=== PATIENT | female | born 1940 | race Caucasian/White ===

== ENCOUNTER → 2016-08-23 | Outpatient (CLI) | payer MEDICARE, OTHER ==
[~2016-08-23] MED LIST: /ALEN70TA; /WARF25TA; CALC600T57 PO; COLA100C PO; COMB0.2S OD; CYCL10TA PO; DICL13PA TD; DULC10SU2 PR; FOSA70TA PO; MIAC1SPR; NAPR500T2 PO; REFR0.5D8 OU; TYLE325T5 PO; VALI2TAB PO; VICO5TAB; VITA100041 PO; VITA20008 PO; VITAMIN; VITMTA PO; [UNRECOGNIZED DRUG - OTHER]; [UNRECOGNIZED DRUG - OTHER]
[2016-08-23 12:11] LABS: MEAN CORPUSCULAR HEMOGLOBIN 31.3 pg (27.0-33.0); MEAN CORPUSCULAR HGB CONC 32.9 g/dl (32.0-36.5); MEAN CORPUSCULAR VOLUME 95.2 fl (80.0-96.0); RED CELL DISTRIBUTION WIDTH 12.8 % (11.5-14.5); WHITE BLOOD COUNT 4.1 K/mm3 (4.0-10.0)
[2016-08-23 12:46] LABS: ALBUMIN 3.7 GM/DL (3.2-5.2); ALBUMIN/GLOBULIN RATIO 1.23 (1.00-1.93); ALKALINE PHOSPHATASE 60 U/L (45-117); ALT/SGPT 27 U/L (12-78); ANION GAP 6 MEQ/L (8-16); AST/SGOT 22 U/L (15-37); BILIRUBIN,TOTAL 0.6 MG/DL (0.2-1.0); BLOOD UREA NITROGEN 11 MG/DL (7-18); CALCIUM LEVEL 8.8 MG/DL (8.8-10.2); CARBON DIOXIDE LEVEL 32 MEQ/L (21-32); CHLORIDE LEVEL 105 MEQ/L (98-107); CREATININE FOR GFR 0.66 MG/DL (0.55-1.02); GLOMERULAR FILTRATION RATE > 60.0 (>39); GLUCOSE, FASTING 69 MG/DL (83-110); POTASSIUM SERUM 3.9 MEQ/L (3.5-5.1); SODIUM LEVEL 143 MEQ/L (136-145); TOTAL PROTEIN 6.7 GM/DL (6.4-8.2)
== END ==
LOC: M LAB 10:49
PROVIDERS: ATTEND Internal Medicine
DX: Z85.118 Personal history of other malignant neoplasm of bronchus and lung (principal)

== ENCOUNTER → 2017-02-14 | Outpatient (REF) | payer MEDICARE, OTHER ==
[~2017-02-14] MED LIST changes: -COLA100C PO; +COLA100C5 PO; -MIAC1SPR; +MIAC200S2; -NAPR500T2 PO; +NAPR500T3 PO; +OCUF0.25 OS; +VITA-182 PO; -VITA100041 PO
[2017-02-14 11:29] LABS: MEAN CORPUSCULAR HEMOGLOBIN 32.2 pg (27.0-33.0); MEAN CORPUSCULAR VOLUME 94.7 fl (80.0-96.0); RED CELL DISTRIBUTION WIDTH 12.6 % (11.5-14.5)
[2017-02-14 11:44] LABS: ALBUMIN 3.6 GM/DL (3.2-5.2); ALBUMIN/GLOBULIN RATIO 1.29 (1.00-1.93); ALKALINE PHOSPHATASE 51 U/L (45-117); ALT/SGPT 25 U/L (12-78); ANION GAP 3 MEQ/L (8-16); AST/SGOT 19 U/L (15-37); BILIRUBIN,TOTAL 0.6 MG/DL (0.2-1.0); BLOOD UREA NITROGEN 10 MG/DL (7-18); CALCIUM LEVEL 9.1 MG/DL (8.8-10.2); CARBON DIOXIDE LEVEL 32 MEQ/L (21-32); CHLORIDE LEVEL 104 MEQ/L (98-107); GLOMERULAR FILTRATION RATE > 60.0 (>39); GLUCOSE, FASTING 85 MG/DL (83-110); POTASSIUM SERUM 4.1 MEQ/L (3.5-5.1); SODIUM LEVEL 139 MEQ/L (136-145); TOTAL PROTEIN 6.4 GM/DL (6.4-8.2)
== END ==
LOC: M SFHCPLAZ 08:01
PROVIDERS: ATTEND Internal Medicine
DX: Z85.118 Personal history of other malignant neoplasm of bronchus and lung (principal)

== ENCOUNTER → 2017-08-22 | Outpatient (REF) | payer MEDICARE, OTHER ==
[2017-08-22 11:29] LABS: ALBUMIN 3.5 GM/DL (3.2-5.2); ALBUMIN/GLOBULIN RATIO 1.17 (1.00-1.93); ALKALINE PHOSPHATASE 54 U/L (45-117); ALT/SGPT 25 U/L (12-78); ANION GAP 6 MEQ/L (8-16); AST/SGOT 20 U/L (7-37); BILIRUBIN,TOTAL 0.8 MG/DL (0.2-1.0); BLOOD UREA NITROGEN 12 MG/DL (7-18); CALCIUM LEVEL 9.2 MG/DL (8.8-10.2); CARBON DIOXIDE LEVEL 31 MEQ/L (21-32); CHLORIDE LEVEL 103 MEQ/L (98-107); CREATININE FOR GFR 0.61 MG/DL (0.55-1.02); GLOMERULAR FILTRATION RATE > 60.0 (>39); GLUCOSE, FASTING 76 MG/DL (83-110); POTASSIUM SERUM 4.2 MEQ/L (3.5-5.1); SODIUM LEVEL 140 MEQ/L (136-145); TOTAL PROTEIN 6.5 GM/DL (6.4-8.2)
[2017-08-22 11:42] LABS: TOTAL 25(OH) VITAMIN D 81.8 NG/ML (30.0-100.0)
== END ==
LOC: M SFHCPLAZ 08:11
DX: M85.80 Other specified disorders of bone density and structure, unspecified site (principal)
CPT/HCPCS: 80053

== ENCOUNTER 2017-09-15 13:00 | Emergency (ER) | payer MEDICARE, OTHER | END 2017-09-15 14:49 | disposition home or self-care (01) | LOC: M ED 13:00 | DX: S80.02XA Contusion of left knee, initial encounter (principal); W18.30XA Fall on same level, unspecified, initial encounter; Y92.018 Other place in single-family (private) house as the place of occurrence of the external cause; I25.10 Atherosclerotic heart disease of native coronary artery without angina pectoris; Z79.899 Other long term (current) drug therapy; Z87.891 Personal history of nicotine dependence | CPT/HCPCS: 73564 ==

== ENCOUNTER 2017-09-19 14:33 | Emergency (ER) | payer MEDICARE, OTHER | END 2017-09-19 17:32 | disposition home or self-care (01) | LOC: M ED 14:33 | DX: M25.562 Pain in left knee (principal); H54.8 Legal blindness, as defined in USA; Z85.118 Personal history of other malignant neoplasm of bronchus and lung; Z87.891 Personal history of nicotine dependence | CPT/HCPCS: 73552 ==

== ENCOUNTER → 2017-10-18 | Outpatient (CLI) | payer MEDICARE, OTHER | LOC: M RAD 14:42 | DX: M79.662 Pain in left lower leg (principal) | CPT/HCPCS: 93971 ==

== ENCOUNTER → 2017-12-18 | Outpatient (REF) | payer MEDICARE, OTHER ==
[2017-12-18 16:06] LABS: THYROID STIMULATING HORMONE 0.495 uIU/ML (0.358-3.740)
[2017-12-18 16:07] LABS: VITAMIN B12 LEVEL > 2000 PG/ML (247-911)
[2017-12-18 16:21] LABS: ESTIMATED AVERAGE GLUCOSE 91 MG/DL (60-110); HEMOGLOBIN A1c 4.8 %
[2017-12-19 11:29] LABS: HIV 1&2 SCREEN CENTAUR NEGATIVE (NEGATIVE)
== END ==
LOC: M LABDRAWP 15:24
DX: R26.9 Unspecified abnormalities of gait and mobility (principal)
CPT/HCPCS: 84443

== ENCOUNTER → 2018-02-18 | Outpatient (REF) | payer MEDICARE, OTHER ==
[2018-02-18 11:45] LABS: HEMATOCRIT 39.2 % (36.0-47.0); HEMOGLOBIN 13.1 g/dl (12.0-15.5); MEAN CORPUSCULAR HEMOGLOBIN 30.9 pg (27.0-33.0); MEAN CORPUSCULAR HGB CONC 33.4 g/dl (32.0-36.5); MEAN CORPUSCULAR VOLUME 92.5 fl (80.0-96.0); PLATELET COUNT, AUTOMATED 185 10^3/uL (150-450); RED BLOOD COUNT 4.24 10^6/uL (4.00-5.40); RED CELL DISTRIBUTION WIDTH 12.5 % (11.5-14.5); WHITE BLOOD COUNT 4.3 10^3/uL (4.0-10.0)
[2018-02-18 12:29] LABS: ALBUMIN 3.4 GM/DL (3.2-5.2); ALBUMIN/GLOBULIN RATIO 1.13 (1.00-1.93); ALKALINE PHOSPHATASE 61 U/L (45-117); ALT/SGPT 27 U/L (12-78); ANION GAP 8 MEQ/L (8-16); AST/SGOT 20 U/L (7-37); BILIRUBIN,TOTAL 0.4 MG/DL (0.2-1.0); BLOOD UREA NITROGEN 12 MG/DL (7-18); CARBON DIOXIDE LEVEL 30 MEQ/L (21-32); CHLORIDE LEVEL 105 MEQ/L (98-107); CHOLESTEROL LEVEL 159 MG/DL (<200); CHOLESTEROL RISK RATIO 2.409 (<5); CREATININE FOR GFR 0.66 MG/DL (0.55-1.30); GLOMERULAR FILTRATION RATE > 60.0 (>39); GLUCOSE, FASTING 80 MG/DL (70-100); HDL CHOLESTEROL 66 MG/DL (>40); LDL CHOLESTEROL 81.6 MG/DL (<100); NON-HDL-C 93 MG/DL; POTASSIUM SERUM 4.3 MEQ/L (3.5-5.1); SODIUM LEVEL 143 MEQ/L (136-145); TOTAL PROTEIN 6.4 GM/DL (6.4-8.2); TRIGLYCERIDES LEVEL 57 MG/DL (<150)
== END ==
LOC: M SFHCPLAZ 08:01
DX: Z85.118 Personal history of other malignant neoplasm of bronchus and lung (principal); R26.89 Other abnormalities of gait and mobility
CPT/HCPCS: 80053

== ENCOUNTER 2018-04-21 15:19 | Emergency (ER) | payer MEDICARE, OTHER | END 2018-04-21 16:51 | disposition home or self-care (01) | LOC: M ED 15:19 | DX: S70.02XA Contusion of left hip, initial encounter (principal); W19.XXXA Unspecified fall, initial encounter; Y92.9 Unspecified place or not applicable; Y93.9 Activity, unspecified; Y99.9 Unspecified external cause status; Z72.0 Tobacco use; Z79.899 Other long term (current) drug therapy ==

== ENCOUNTER 2018-04-22 02:14 | Inpatient (IN) | payer MEDICARE, OTHER ==
[2018-04-22] MEDS: METOCLOPRAMIDE INJ 10MG/2ML VIAL (J2765) IV (03:13)
[2018-04-22] MEDS: MORPHINE 4 MG/ML 1ML VIAL/SYRINGE (J2270) IV (03:13)
[2018-04-22 03:15] LABS: BASO % 0.5 % (0.0-1.0); EOS # 0.1 10^3/uL (0.0-0.50); EOS % 0.7 % (0.0-3.0); HEMATOCRIT 38.4 % (36.0-47.0); HEMOGLOBIN 12.9 g/dl (12.0-15.5); IMMATURE GRANULOCYTE % 0.5 % (0-3.0); LYMPH # 1.2 10^3/uL (1.5-4.5); LYMPH % 16.3 % (24.0-44.0); MEAN CORPUSCULAR HEMOGLOBIN 31.5 pg (27.0-33.0); MEAN CORPUSCULAR HGB CONC 33.6 g/dl (32.0-36.5); MEAN CORPUSCULAR VOLUME 93.7 fl (80.0-96.0); MONO # 0.6 10^3/uL (0.0-0.8); MONO % 8.1 % (0.0-5.0); NEUTROPHILS # 5.6 10^3/uL (1.8-7.7); NEUTROPHILS % 73.9 % (36.0-66.0); PLATELET COUNT, AUTOMATED 157 10^3/uL (150-450); RED CELL DISTRIBUTION WIDTH 13.2 % (11.5-14.5); WHITE BLOOD COUNT 7.6 10^3/uL (4.0-10.0)
[2018-04-22 03:27] LABS: INR 0.95; PARTIAL THROMBOPLASTIN TIME 26.4 SECONDS (25.4-37.6); PROTHROMBIN TIME 12.8 SECONDS (12.1-14.4)
[2018-04-22 03:40] LABS: ANION GAP 12 MEQ/L (8-16); BLOOD UREA NITROGEN 15 MG/DL (7-18); CALCIUM LEVEL 8.9 MG/DL (8.8-10.2); CARBON DIOXIDE LEVEL 23 MEQ/L (21-32); CHLORIDE LEVEL 104 MEQ/L (98-107); CREATININE FOR GFR 0.59 MG/DL (0.55-1.30); GLOMERULAR FILTRATION RATE > 60.0 (>39); GLUCOSE, FASTING 134 MG/DL (70-100); POTASSIUM SERUM 4.1 MEQ/L (3.5-5.1); SODIUM LEVEL 139 MEQ/L (136-145)
[2018-04-22] MEDS: NS 500 ML IV (03:41)
[2018-04-22] MEDS: NORCO, ANEXSIA 5/325MG TABLET (HYDROcodone/ACETAMINOPHEN) PO ×2 (04:08→10:06)
[2018-04-22] MEDS: D5W/0.45% SODIUM CHLORIDE 1,000 ML IV ×2 (04:11→22:08)
[2018-04-22] MEDS: HEPARIN SOD (PORCINE) 5000 UNITS/ML VIAL SC (05:53)
[2018-04-22] MEDS: LORATADINE 10 MG TAB PO (10:05)
[2018-04-22] MEDS: CALCIUM/VITAMIN D 500 MG TAB PO (10:05)
[2018-04-22] MEDS: VITAMIN D 1,000 INTERNATIONAL UNITS TABLET PO ×2 (10:05→22:07)
[2018-04-22] MEDS: MULTIVITAMINS/MINERALS THERAP 1 TAB PO (10:05)
[2018-04-22] MEDS ORDERED: MIDAZOLAM INJ 2 MG/2 ML VIAL (J2250) As Ordered ×2 (16:25→17:16)
[2018-04-22] MEDS ORDERED: KETAMINE HCL 200 MG/20 ML VIAL As Ordered (16:25)
[2018-04-22] MEDS: ceFAZolin 2 GM/D5W 50 ML IV BAG (J0690 PER 500MG) As Ordered (16:30)
[2018-04-22] MEDS: ceFAZolin 1GM INJ (J0690 PER 500MG) As Ordered (17:32)
[2018-04-22] MEDS ORDERED: KETOROLAC 60 MG/2 ML VIAL (J1885) As Ordered (18:04)
[2018-04-22] MEDS ORDERED: ONDANSETRON 4MG/2ML VIAL (J2405) As Ordered ×2 (18:04→18:56)
[2018-04-22] MEDS ORDERED: PERCOCET 5MG/325MG TAB As Ordered (18:56)
[2018-04-22] MEDS: ONDANSETRON 4MG/2ML VIAL (J2405) IV (19:00)
[2018-04-22] MEDS: PERCOCET 5MG/325MG TAB PO (19:00)
[2018-04-22] MEDS: LR 1,000 ML IV (19:15)
[2018-04-22] MEDS ORDERED: fentaNYL 100 MCG/2 ML INJECTION (J3010) IV (19:15)
[2018-04-23] MEDS: NORCO, ANEXSIA 5/325MG TABLET (HYDROcodone/ACETAMINOPHEN) PO ×3 (05:19→22:29)
[2018-04-23 06:44] LABS: HEMATOCRIT 27.3 % (36.0-47.0); MEAN CORPUSCULAR HEMOGLOBIN 31.4 pg (27.0-33.0); MEAN CORPUSCULAR VOLUME 95.1 fl (80.0-96.0); PLATELET COUNT, AUTOMATED 122 10^3/uL (150-450); RED BLOOD COUNT 2.87 10^6/uL (4.00-5.40); RED CELL DISTRIBUTION WIDTH 13.2 % (11.5-14.5); WHITE BLOOD COUNT 6.2 10^3/uL (4.0-10.0)
[2018-04-23 07:09] LABS: ANION GAP 4 MEQ/L (8-16); BLOOD UREA NITROGEN 8 MG/DL (7-18); CALCIUM LEVEL 7.4 MG/DL (8.8-10.2); CARBON DIOXIDE LEVEL 29 MEQ/L (21-32); CHLORIDE LEVEL 109 MEQ/L (98-107); GLOMERULAR FILTRATION RATE > 60.0 (>39); GLUCOSE, FASTING 95 MG/DL (70-100); SODIUM LEVEL 142 MEQ/L (136-145)
[2018-04-23] MEDS: MIRALAX *UNIT DOSE* 17GM PACKET PO (08:57)
[2018-04-23] MEDS: VITAMIN D 1,000 INTERNATIONAL UNITS TABLET PO ×2 (08:58→21:01)
[2018-04-23] MEDS: CALCIUM/VITAMIN D 500 MG TAB PO (08:58)
[2018-04-23] MEDS: SENOKOT S TAB PO ×2 (08:58→21:01)
[2018-04-23] MEDS: MULTIVITAMINS/MINERALS THERAP 1 TAB PO (08:58)
[2018-04-23] MEDS: LORATADINE 10 MG TAB PO (08:58)
[2018-04-23] MEDS: INFLUENZA VIRUS VACCINE HIGH DOSE 0.5 ML SYRINGE (90662) IM (09:02)
[2018-04-23] MEDS: CYCLOBENZAPRINE 10 MG TAB PO ×2 (14:50→21:01)
[2018-04-23] MEDS: RIVAROXABAN 10 MG TAB (XARELTO) PO (17:52)
[2018-04-23 18:02] LABS: BEDSIDE GLUCOSE 107 MG/DL (83-110)
[2018-04-24] MEDS: NORCO, ANEXSIA 5/325MG TABLET (HYDROcodone/ACETAMINOPHEN) PO ×2 (04:48→10:45)
[2018-04-24] MEDS: CYCLOBENZAPRINE 10 MG TAB PO ×2 (05:59→14:55)
[2018-04-24 07:10] LABS: HEMATOCRIT 25.2 % (36.0-47.0); HEMOGLOBIN 8.3 g/dl (12.0-15.5); MEAN CORPUSCULAR HEMOGLOBIN 31.7 pg (27.0-33.0); MEAN CORPUSCULAR HGB CONC 32.9 g/dl (32.0-36.5); MEAN CORPUSCULAR VOLUME 96.2 fl (80.0-96.0); PLATELET COUNT, AUTOMATED 116 10^3/uL (150-450); RED BLOOD COUNT 2.62 10^6/uL (4.00-5.40); RED CELL DISTRIBUTION WIDTH 13.5 % (11.5-14.5); WHITE BLOOD COUNT 4.8 10^3/uL (4.0-10.0)
[2018-04-24 07:31] LABS: ANION GAP 7 MEQ/L (8-16); BLOOD UREA NITROGEN 14 MG/DL (7-18); CALCIUM LEVEL 7.9 MG/DL (8.8-10.2); CARBON DIOXIDE LEVEL 26 MEQ/L (21-32); CHLORIDE LEVEL 108 MEQ/L (98-107); CREATININE FOR GFR 0.42 MG/DL (0.55-1.30); GLOMERULAR FILTRATION RATE > 60.0 (>39); GLUCOSE, FASTING 95 MG/DL (70-100); POTASSIUM SERUM 4.1 MEQ/L (3.5-5.1); SODIUM LEVEL 141 MEQ/L (136-145)
[2018-04-24] MEDS: MIRALAX *UNIT DOSE* 17GM PACKET PO (09:20)
[2018-04-24] MEDS: VITAMIN D 1,000 INTERNATIONAL UNITS TABLET PO (09:20)
[2018-04-24] MEDS: SENOKOT S TAB PO (09:21)
[2018-04-24] MEDS: MULTIVITAMINS/MINERALS THERAP 1 TAB PO (09:21)
[2018-04-24] MEDS: LORATADINE 10 MG TAB PO (09:21)
[2018-04-24] MEDS: CALCIUM/VITAMIN D 500 MG TAB PO (09:21)
== END 2018-04-24 15:50 | DRG 482 ==
LOC: M ED 02:14 → M ED INP 03:34 → M MS5PR 19:40
PROC: 0QSC04Z Reposition Left Lower Femur with Internal Fixation Device, Open Approach (ICD-10-PCS; principal; 2018-04-22 16:44)
DX: S72.145A Nondisplaced intertrochanteric fracture of left femur, initial encounter for closed fracture (principal); M81.0 Age-related osteoporosis without current pathological fracture; J30.2 Other seasonal allergic rhinitis; R03.0 Elevated blood-pressure reading, without diagnosis of hypertension; Z98.49 Cataract extraction status, unspecified eye; Z85.118 Personal history of other malignant neoplasm of bronchus and lung; Z90.2 Acquired absence of lung [part of]; Z79.899 Other long term (current) drug therapy; Z87.891 Personal history of nicotine dependence; W01.0XXA Fall on same level from slipping, tripping and stumbling without subsequent striking against object, initial encounter; Y92.009 Unspecified place in unspecified non-institutional (private) residence as the place of occurrence of the external cause; Y93.01 Activity, walking, marching and hiking

== ENCOUNTER 2018-04-24 15:55 | Inpatient (IN) | payer MEDICARE, OTHER ==
[2018-04-24] MEDS ORDERED: ONDANSETRON 4MG/2ML VIAL (J2405) IM (16:45)
[2018-04-24] MEDS ORDERED: NORCO, ANEXSIA 5/325MG TABLET (HYDROcodone/ACETAMINOPHEN) PO (17:00)
[2018-04-24] MEDS: RIVAROXABAN 10 MG TAB (XARELTO) PO (17:54)
[2018-04-24 20:12] LABS: APPEARANCE, URINE CLEAR (CLEAR); BACTERIA, URINE AUTO NEGATIVE (NEGATIVE); BILIRUBIN, URINE AUTO NEGATIVE (NEGATIVE); BLOOD, URINE BLOOD NEGATIVE (NEGATIVE); COLOR, URINE YELLOW (YELLOW); GLUCOSE, URINE (UA) AUTO NEGATIVE (NEGATIVE); KETONE, URINE AUTO NEGATIVE (NEGATIVE); LEUKOCYTE ESTERASE, URINE AUTO NEGATIVE (NEGATIVE); MUCUS, URINE SMALL (NEGATIVE); NITRITE, URINE AUTO NEGATIVE (NEGATIVE); PROTEIN, URINE AUTO NEGATIVE (NEGATIVE); RBC, URINE AUTO 2 /HPF (0-3); SPECIFIC GRAVITY URINE AUTO 1.017 (1.002-1.035); SQUAMOUS EPITHELIAL CELL UR AU 0 /HPF (0-6); UROBILINOGEN, URINE AUTO 0.2 mg/dL (0.0-2.0); WBC, URINE AUTO 1 /HPF (0-3)
[2018-04-24] MEDS: CYCLOBENZAPRINE 10 MG TAB PO (20:54)
[2018-04-24] MEDS: NORCO, ANEXSIA 5/325MG TABLET (HYDROcodone/ACETAMINOPHEN) PO (21:40)
[2018-04-25 07:05] LABS: BASO % 0.5 % (0.0-1.0); EOS # 0.2 10^3/uL (0.0-0.50); EOS % 4.3 % (0.0-3.0); HEMATOCRIT 22.7 % (36.0-47.0); HEMOGLOBIN 7.4 g/dl (12.0-15.5); IMMATURE GRANULOCYTE % 0.5 % (0-3.0); LYMPH # 0.9 10^3/uL (1.5-4.5); LYMPH % 21.4 % (24.0-44.0); MEAN CORPUSCULAR HEMOGLOBIN 31.6 pg (27.0-33.0); MEAN CORPUSCULAR HGB CONC 32.6 g/dl (32.0-36.5); MONO # 0.5 10^3/uL (0.0-0.8); MONO % 12.1 % (0.0-5.0); NEUTROPHILS # 2.4 10^3/uL (1.8-7.7); NEUTROPHILS % 61.2 % (36.0-66.0); PLATELET COUNT, AUTOMATED 117 10^3/uL (150-450); RED BLOOD COUNT 2.34 10^6/uL (4.00-5.40); RED CELL DISTRIBUTION WIDTH 13.6 % (11.5-14.5)
[2018-04-25 07:29] LABS: ALBUMIN 2.2 GM/DL (3.2-5.2); ALBUMIN/GLOBULIN RATIO 0.88 (1.00-1.93); ALKALINE PHOSPHATASE 41 U/L (45-117); ALT/SGPT 18 U/L (12-78); ANION GAP 4 MEQ/L (8-16); AST/SGOT 22 U/L (7-37); BILIRUBIN,TOTAL 0.5 MG/DL (0.2-1.0); BLOOD UREA NITROGEN 15 MG/DL (7-18); CALCIUM LEVEL 7.7 MG/DL (8.8-10.2); CARBON DIOXIDE LEVEL 29 MEQ/L (21-32); CHLORIDE LEVEL 108 MEQ/L (98-107); CREATININE FOR GFR 0.38 MG/DL (0.55-1.30); GLOMERULAR FILTRATION RATE > 60.0 (>39); GLUCOSE, FASTING 86 MG/DL (70-100); POTASSIUM SERUM 4.3 MEQ/L (3.5-5.1); SODIUM LEVEL 141 MEQ/L (136-145); TOTAL PROTEIN 4.7 GM/DL (6.4-8.2)
[2018-04-25] MEDS: CALCIUM/VITAMIN D 500 MG TAB PO (08:21)
[2018-04-25] MEDS: MULTIVITAMINS/MINERALS THERAP 1 TAB PO (08:21)
[2018-04-25] MEDS: VITAMIN D 1,000 INTERNATIONAL UNITS TABLET PO (08:21)
[2018-04-25] MEDS: CYCLOBENZAPRINE 10 MG TAB PO ×2 (08:21→21:08)
[2018-04-25] MEDS: LORATADINE 10 MG TAB PO (08:21)
[2018-04-25] MEDS ORDERED: RIVAROXABAN 10 MG TAB (XARELTO) PO (09:00)
[2018-04-25] MEDS: NORCO, ANEXSIA 5/325MG TABLET (HYDROcodone/ACETAMINOPHEN) PO ×2 (09:11→13:31)
[2018-04-25] MEDS: FERROUS SULFATE 325MG TAB PO ×2 (11:22→21:08)
[2018-04-25] MEDS: LIDOCAINE 5% (LIDODERM) PATCH TD (11:22)
[2018-04-25] MEDS: RIVAROXABAN 10 MG TAB (XARELTO) PO (17:13)
[2018-04-25] MEDS: **NOTE PATIENT COMMENT** MISC XX (21:00)
[2018-04-25] MEDS: POLYVINYL ALCOHOL OPHTH SOLN 15 ML(LIQUITEARS) OU (21:17)
[2018-04-26] MEDS: NORCO, ANEXSIA 5/325MG TABLET (HYDROcodone/ACETAMINOPHEN) PO (03:03)
[2018-04-26 06:24] LABS: BASO % 0.7 % (0.0-1.0); EOS # 0.1 10^3/uL (0.0-0.50); EOS % 3.2 % (0.0-3.0); HEMATOCRIT 23.2 % (36.0-47.0); HEMOGLOBIN 7.7 g/dl (12.0-15.5); IMMATURE GRANULOCYTE % 0.5 % (0-3.0); LYMPH # 0.7 10^3/uL (1.5-4.5); LYMPH % 16.9 % (24.0-44.0); MEAN CORPUSCULAR HEMOGLOBIN 31.3 pg (27.0-33.0); MEAN CORPUSCULAR HGB CONC 33.2 g/dl (32.0-36.5); MEAN CORPUSCULAR VOLUME 94.3 fl (80.0-96.0); MONO # 0.5 10^3/uL (0.0-0.8); MONO % 11.5 % (0.0-5.0); NEUTROPHILS # 2.9 10^3/uL (1.8-7.7); NEUTROPHILS % 67.2 % (36.0-66.0); PLATELET COUNT, AUTOMATED 137 10^3/uL (150-450); RED BLOOD COUNT 2.46 10^6/uL (4.00-5.40); RED CELL DISTRIBUTION WIDTH 13.4 % (11.5-14.5); WHITE BLOOD COUNT 4.3 10^3/uL (4.0-10.0)
[2018-04-26] MEDS: LIDOCAINE 5% (LIDODERM) PATCH TD (09:01)
[2018-04-26] MEDS: FERROUS SULFATE 325MG TAB PO ×2 (09:01→22:14)
[2018-04-26] MEDS: VITAMIN D 1,000 INTERNATIONAL UNITS TABLET PO (09:01)
[2018-04-26] MEDS: CALCIUM/VITAMIN D 500 MG TAB PO (09:01)
[2018-04-26] MEDS: CYCLOBENZAPRINE 10 MG TAB PO (09:01)
[2018-04-26] MEDS: PANTOPRAZOLE 40MG TAB (PROTONIX) PO (09:01)
[2018-04-26] MEDS: LORATADINE 10 MG TAB PO (09:01)
[2018-04-26] MEDS: POLYVINYL ALCOHOL OPHTH SOLN 15 ML(LIQUITEARS) OU ×2 (09:01→21:00)
[2018-04-26] MEDS: MULTIVITAMINS/MINERALS THERAP 1 TAB PO (09:01)
[2018-04-26] MEDS: RIVAROXABAN 10 MG TAB (XARELTO) PO (17:14)
[2018-04-26] MEDS: SALIVA SUBSTITUTE(MOUTHKOTE) BTL MT (21:00)
[2018-04-26] MEDS: **NOTE PATIENT COMMENT** MISC XX (21:00)
[2018-04-26 21:05] LABS: BEDSIDE GLUCOSE 103 MG/DL (83-110)
[2018-04-26] MEDS: ACETAMINOPHEN TAB 650MG DOSE (2X325MG) PO (22:13)
[2018-04-27] MEDS: ALENDRONATE 35MG TABLET PO (05:58)
[2018-04-27] MEDS: ACETAMINOPHEN TAB 650MG DOSE (2X325MG) PO ×2 (06:53→20:55)
[2018-04-27] MEDS: POLYVINYL ALCOHOL OPHTH SOLN 15 ML(LIQUITEARS) OU ×2 (09:00→21:00)
[2018-04-27] MEDS: LIDOCAINE 5% (LIDODERM) PATCH TD (09:00)
[2018-04-27] MEDS: PANTOPRAZOLE 40MG TAB (PROTONIX) PO (09:26)
[2018-04-27] MEDS: MULTIVITAMINS/MINERALS THERAP 1 TAB PO (09:26)
[2018-04-27] MEDS: CALCIUM/VITAMIN D 500 MG TAB PO (09:26)
[2018-04-27] MEDS: FERROUS SULFATE 325MG TAB PO ×2 (09:27→20:55)
[2018-04-27] MEDS: LORATADINE 10 MG TAB PO (09:27)
[2018-04-27] MEDS: VITAMIN D 1,000 INTERNATIONAL UNITS TABLET PO (09:27)
[2018-04-27] MEDS: RIVAROXABAN 10 MG TAB (XARELTO) PO (17:56)
[2018-04-27] MEDS: SALIVA SUBSTITUTE(MOUTHKOTE) BTL MT (20:56)
[2018-04-27] MEDS: **NOTE PATIENT COMMENT** MISC XX (21:00)
[2018-04-28] MEDS: NORCO, ANEXSIA 5/325MG TABLET (HYDROcodone/ACETAMINOPHEN) PO (00:25)
[2018-04-28] MEDS: LIDOCAINE 5% (LIDODERM) PATCH TD (09:00)
[2018-04-28] MEDS: POLYVINYL ALCOHOL OPHTH SOLN 15 ML(LIQUITEARS) OU ×2 (09:00→20:30)
[2018-04-28] MEDS: CALCIUM/VITAMIN D 500 MG TAB PO (09:11)
[2018-04-28] MEDS: MULTIVITAMINS/MINERALS THERAP 1 TAB PO (09:11)
[2018-04-28] MEDS: LORATADINE 10 MG TAB PO (09:11)
[2018-04-28] MEDS: VITAMIN D 1,000 INTERNATIONAL UNITS TABLET PO (09:11)
[2018-04-28] MEDS: PANTOPRAZOLE 40MG TAB (PROTONIX) PO (09:11)
[2018-04-28] MEDS: FERROUS SULFATE 325MG TAB PO ×2 (09:11→20:29)
[2018-04-28] MEDS: ACETAMINOPHEN TAB 650MG DOSE (2X325MG) PO ×2 (09:12→15:11)
[2018-04-28] MEDS: RIVAROXABAN 10 MG TAB (XARELTO) PO (18:00)
[2018-04-28] MEDS: SALIVA SUBSTITUTE(MOUTHKOTE) BTL MT (20:29)
[2018-04-28] MEDS: **NOTE PATIENT COMMENT** MISC XX (20:30)
[2018-04-29] MEDS: ACETAMINOPHEN TAB 650MG DOSE (2X325MG) PO ×2 (09:10→22:53)
[2018-04-29] MEDS: REFRESH CELLUVISC OU ×2 (09:10→20:36)
[2018-04-29] MEDS: MULTIVITAMINS/MINERALS THERAP 1 TAB PO (09:11)
[2018-04-29] MEDS: CALCIUM/VITAMIN D 500 MG TAB PO (09:11)
[2018-04-29] MEDS: PANTOPRAZOLE 40MG TAB (PROTONIX) PO (09:11)
[2018-04-29] MEDS: VITAMIN D 1,000 INTERNATIONAL UNITS TABLET PO (09:11)
[2018-04-29] MEDS: LIDOCAINE 5% (LIDODERM) PATCH TD (09:11)
[2018-04-29] MEDS: FERROUS SULFATE 325MG TAB PO ×2 (09:11→20:36)
[2018-04-29] MEDS: LORATADINE 10 MG TAB PO (09:11)
[2018-04-29 10:49] LABS: BASO # 0.1 10^3/uL (0.0-0.2); BASO % 0.7 % (0.0-1.0); EOS # 0.1 10^3/uL (0.0-0.50); EOS % 1.4 % (0.0-3.0); HEMATOCRIT 24.3 % (36.0-47.0); IMMATURE GRANULOCYTE % 1.1 % (0-3.0); LYMPH # 0.7 10^3/uL (1.5-4.5); LYMPH % 9.9 % (24.0-44.0); MEAN CORPUSCULAR HEMOGLOBIN 31.4 pg (27.0-33.0); MEAN CORPUSCULAR HGB CONC 32.9 g/dl (32.0-36.5); MEAN CORPUSCULAR VOLUME 95.3 fl (80.0-96.0); MONO # 0.9 10^3/uL (0.0-0.8); MONO % 12.7 % (0.0-5.0); NEUTROPHILS # 5.3 10^3/uL (1.8-7.7); NEUTROPHILS % 74.2 % (36.0-66.0); PLATELET COUNT, AUTOMATED 238 10^3/uL (150-450); RED BLOOD COUNT 2.55 10^6/uL (4.00-5.40); RED CELL DISTRIBUTION WIDTH 13.8 % (11.5-14.5); WHITE BLOOD COUNT 7.1 10^3/uL (4.0-10.0)
[2018-04-29] MEDS: RIVAROXABAN 10 MG TAB (XARELTO) PO (17:45)
[2018-04-29] MEDS: **NOTE PATIENT COMMENT** MISC XX (20:36)
[2018-04-29] MEDS: SALIVA SUBSTITUTE(MOUTHKOTE) BTL MT (20:38)
[2018-04-30 06:55] LABS: BASO # 0.1 10^3/uL (0.0-0.2); BASO % 1.1 % (0.0-1.0); EOS # 0.2 10^3/uL (0.0-0.50); EOS % 3.1 % (0.0-3.0); HEMATOCRIT 24.4 % (36.0-47.0); HEMOGLOBIN 7.9 g/dl (12.0-15.5); IMMATURE GRANULOCYTE % 1.8 % (0-3.0); LYMPH # 1.1 10^3/uL (1.5-4.5); LYMPH % 19.9 % (24.0-44.0); MEAN CORPUSCULAR HEMOGLOBIN 31.1 pg (27.0-33.0); MEAN CORPUSCULAR HGB CONC 32.4 g/dl (32.0-36.5); MEAN CORPUSCULAR VOLUME 96.1 fl (80.0-96.0); MONO # 0.7 10^3/uL (0.0-0.8); MONO % 12.1 % (0.0-5.0); NEUTROPHILS # 3.4 10^3/uL (1.8-7.7); PLATELET COUNT, AUTOMATED 222 10^3/uL (150-450); RED BLOOD COUNT 2.54 10^6/uL (4.00-5.40); RED CELL DISTRIBUTION WIDTH 14.3 % (11.5-14.5); WHITE BLOOD COUNT 5.5 10^3/uL (4.0-10.0)
[2018-04-30] MEDS: FERROUS SULFATE 325MG TAB PO ×2 (08:13→20:31)
[2018-04-30] MEDS: CALCIUM/VITAMIN D 500 MG TAB PO (08:13)
[2018-04-30] MEDS: MULTIVITAMINS/MINERALS THERAP 1 TAB PO (08:13)
[2018-04-30] MEDS: PANTOPRAZOLE 40MG TAB (PROTONIX) PO (08:13)
[2018-04-30] MEDS: LORATADINE 10 MG TAB PO (08:13)
[2018-04-30] MEDS: VITAMIN D 1,000 INTERNATIONAL UNITS TABLET PO (08:13)
[2018-04-30] MEDS: LIDOCAINE 5% (LIDODERM) PATCH TD (08:14)
[2018-04-30] MEDS: REFRESH CELLUVISC OU ×2 (08:18→20:31)
[2018-04-30] MEDS: ACETAMINOPHEN TAB 650MG DOSE (2X325MG) PO (09:20)
[2018-04-30] MEDS: RIVAROXABAN 10 MG TAB (XARELTO) PO (17:46)
[2018-04-30] MEDS: SALIVA SUBSTITUTE(MOUTHKOTE) BTL MT (20:31)
[2018-04-30] MEDS: **NOTE PATIENT COMMENT** MISC XX (20:33)
[2018-05-01] MEDS: VITAMIN D 1,000 INTERNATIONAL UNITS TABLET PO (08:27)
[2018-05-01] MEDS: MULTIVITAMINS/MINERALS THERAP 1 TAB PO (08:27)
[2018-05-01] MEDS: CALCIUM/VITAMIN D 500 MG TAB PO (08:27)
[2018-05-01] MEDS: PANTOPRAZOLE 40MG TAB (PROTONIX) PO (08:27)
[2018-05-01] MEDS: FERROUS SULFATE 325MG TAB PO ×2 (08:27→20:44)
[2018-05-01] MEDS: LORATADINE 10 MG TAB PO (08:27)
[2018-05-01] MEDS: REFRESH CELLUVISC OU ×2 (08:29→20:45)
[2018-05-01] MEDS: LIDOCAINE 5% (LIDODERM) PATCH TD (08:29)
[2018-05-01] MEDS: RIVAROXABAN 10 MG TAB (XARELTO) PO (17:55)
[2018-05-01] MEDS: ACETAMINOPHEN TAB 650MG DOSE (2X325MG) PO ×2 (20:44)
[2018-05-01] MEDS: SALIVA SUBSTITUTE(MOUTHKOTE) BTL MT (20:44)
[2018-05-01] MEDS: ASCORBIC ACID 500 MG TAB PO (20:44)
[2018-05-01] MEDS: **NOTE PATIENT COMMENT** MISC XX (20:46)
[2018-05-02] MEDS: ACETAMINOPHEN TAB 650MG DOSE (2X325MG) PO (08:58)
[2018-05-02] MEDS: ASCORBIC ACID 500 MG TAB PO ×2 (08:58→21:43)
[2018-05-02] MEDS: VITAMIN D 1,000 INTERNATIONAL UNITS TABLET PO (08:58)
[2018-05-02] MEDS: MULTIVITAMINS/MINERALS THERAP 1 TAB PO (08:58)
[2018-05-02] MEDS: LORATADINE 10 MG TAB PO (08:59)
[2018-05-02] MEDS: PANTOPRAZOLE 40MG TAB (PROTONIX) PO (08:59)
[2018-05-02] MEDS: CALCIUM/VITAMIN D 500 MG TAB PO (08:59)
[2018-05-02] MEDS: REFRESH CELLUVISC OU ×2 (08:59→21:00)
[2018-05-02] MEDS: FERROUS SULFATE 325MG TAB PO ×2 (08:59→21:43)
[2018-05-02] MEDS: RIVAROXABAN 10 MG TAB (XARELTO) PO (17:36)
[2018-05-02] MEDS: SALIVA SUBSTITUTE(MOUTHKOTE) BTL MT (21:43)
[2018-05-03] MEDS: ACETAMINOPHEN TAB 650MG DOSE (2X325MG) PO ×3 (00:22→21:12)
[2018-05-03 07:50] LABS: BASO # 0.1 10^3/uL (0.0-0.2); BASO % 0.9 % (0.0-1.0); EOS # 0.2 10^3/uL (0.0-0.50); EOS % 2.8 % (0.0-3.0); HEMATOCRIT 27.1 % (36.0-47.0); HEMOGLOBIN 8.9 g/dl (12.0-15.5); IMMATURE GRANULOCYTE % 1.7 % (0-3.0); LYMPH # 1.2 10^3/uL (1.5-4.5); LYMPH % 18.8 % (24.0-44.0); MEAN CORPUSCULAR HEMOGLOBIN 31.3 pg (27.0-33.0); MEAN CORPUSCULAR HGB CONC 32.8 g/dl (32.0-36.5); MEAN CORPUSCULAR VOLUME 95.4 fl (80.0-96.0); MONO # 0.7 10^3/uL (0.0-0.8); MONO % 10.6 % (0.0-5.0); NEUTROPHILS # 4.2 10^3/uL (1.8-7.7); NEUTROPHILS % 65.2 % (36.0-66.0); PLATELET COUNT, AUTOMATED 340 10^3/uL (150-450); RED BLOOD COUNT 2.84 10^6/uL (4.00-5.40); RED CELL DISTRIBUTION WIDTH 14.8 % (11.5-14.5); WHITE BLOOD COUNT 6.5 10^3/uL (4.0-10.0)
[2018-05-03 08:30] LABS: ANION GAP 6 MEQ/L (8-16); BLOOD UREA NITROGEN 14 MG/DL (7-18); CALCIUM LEVEL 8.3 MG/DL (8.8-10.2); CARBON DIOXIDE LEVEL 28 MEQ/L (21-32); CHLORIDE LEVEL 107 MEQ/L (98-107); CREATININE FOR GFR 0.41 MG/DL (0.55-1.30); GLOMERULAR FILTRATION RATE > 60.0 (>39); GLUCOSE, FASTING 90 MG/DL (70-100); POTASSIUM SERUM 4.1 MEQ/L (3.5-5.1); SODIUM LEVEL 141 MEQ/L (136-145)
[2018-05-03] MEDS: LORATADINE 10 MG TAB PO (08:56)
[2018-05-03] MEDS: FERROUS SULFATE 325MG TAB PO ×2 (08:56→21:10)
[2018-05-03] MEDS: ASCORBIC ACID 500 MG TAB PO ×2 (08:56→21:11)
[2018-05-03] MEDS: REFRESH CELLUVISC OU ×2 (08:56→21:13)
[2018-05-03] MEDS: PANTOPRAZOLE 40MG TAB (PROTONIX) PO (08:56)
[2018-05-03] MEDS: VITAMIN D 1,000 INTERNATIONAL UNITS TABLET PO (08:56)
[2018-05-03] MEDS: MULTIVITAMINS/MINERALS THERAP 1 TAB PO (08:56)
[2018-05-03] MEDS: CALCIUM/VITAMIN D 500 MG TAB PO (08:56)
[2018-05-03] MEDS: RIVAROXABAN 10 MG TAB (XARELTO) PO (16:54)
[2018-05-03] MEDS: SALIVA SUBSTITUTE(MOUTHKOTE) BTL MT (21:12)
[2018-05-04] MEDS: ACETAMINOPHEN TAB 650MG DOSE (2X325MG) PO ×2 (05:38→22:29)
[2018-05-04] MEDS: ALENDRONATE 35MG TABLET PO (06:33)
[2018-05-04] MEDS: FERROUS SULFATE 325MG TAB PO ×2 (08:19→20:04)
[2018-05-04] MEDS: ASCORBIC ACID 500 MG TAB PO ×2 (08:19→20:04)
[2018-05-04] MEDS: LORATADINE 10 MG TAB PO (08:19)
[2018-05-04] MEDS: CALCIUM/VITAMIN D 500 MG TAB PO (08:19)
[2018-05-04] MEDS: REFRESH CELLUVISC OU ×2 (08:20→20:05)
[2018-05-04] MEDS: PANTOPRAZOLE 40MG TAB (PROTONIX) PO (08:20)
[2018-05-04] MEDS: VITAMIN D 1,000 INTERNATIONAL UNITS TABLET PO (08:20)
[2018-05-04] MEDS: MULTIVITAMINS/MINERALS THERAP 1 TAB PO (08:20)
[2018-05-04] MEDS: RIVAROXABAN 10 MG TAB (XARELTO) PO (17:24)
[2018-05-04] MEDS: SALIVA SUBSTITUTE(MOUTHKOTE) BTL MT (20:05)
[2018-05-05] MEDS: KETOROLAC 30 MG/ML VIAL (J1885) IV (00:45)
[2018-05-05] MEDS: traMADol 50 MG TAB PO (00:51)
[2018-05-05] MEDS: FERROUS SULFATE 325MG TAB PO ×2 (09:31→21:49)
[2018-05-05] MEDS: PANTOPRAZOLE 40MG TAB (PROTONIX) PO (09:31)
[2018-05-05] MEDS: CALCIUM/VITAMIN D 500 MG TAB PO (09:31)
[2018-05-05] MEDS: ASCORBIC ACID 500 MG TAB PO ×2 (09:31→21:49)
[2018-05-05] MEDS: REFRESH CELLUVISC OU ×2 (09:31→21:00)
[2018-05-05] MEDS: MULTIVITAMINS/MINERALS THERAP 1 TAB PO (09:31)
[2018-05-05] MEDS: ACETAMINOPHEN TAB 650MG DOSE (2X325MG) PO ×2 (09:31→21:49)
[2018-05-05] MEDS: LORATADINE 10 MG TAB PO (09:31)
[2018-05-05] MEDS: VITAMIN D 1,000 INTERNATIONAL UNITS TABLET PO (09:31)
[2018-05-05] MEDS: RIVAROXABAN 10 MG TAB (XARELTO) PO (17:19)
[2018-05-05] MEDS: SALIVA SUBSTITUTE(MOUTHKOTE) BTL MT (21:00)
[2018-05-06] MEDS: CALCIUM/VITAMIN D 500 MG TAB PO (08:07)
[2018-05-06] MEDS: MULTIVITAMINS/MINERALS THERAP 1 TAB PO (08:07)
[2018-05-06] MEDS: VITAMIN D 1,000 INTERNATIONAL UNITS TABLET PO (08:07)
[2018-05-06] MEDS: ASCORBIC ACID 500 MG TAB PO ×2 (08:07→21:57)
[2018-05-06] MEDS: REFRESH CELLUVISC OU ×2 (08:08→21:57)
[2018-05-06] MEDS: PANTOPRAZOLE 40MG TAB (PROTONIX) PO (08:08)
[2018-05-06] MEDS: LORATADINE 10 MG TAB PO (08:08)
[2018-05-06] MEDS: FERROUS SULFATE 325MG TAB PO ×2 (08:08→21:57)
[2018-05-06 08:12] LABS: BASO # 0.1 10^3/uL (0.0-0.2); BASO % 1.2 % (0.0-1.0); EOS # 0.2 10^3/uL (0.0-0.50); EOS % 2.6 % (0.0-3.0); HEMATOCRIT 30.5 % (36.0-47.0); HEMOGLOBIN 9.6 g/dl (12.0-15.5); IMMATURE GRANULOCYTE % 1.4 % (0-3.0); LYMPH # 1.4 10^3/uL (1.5-4.5); LYMPH % 21.1 % (24.0-44.0); MEAN CORPUSCULAR HGB CONC 31.5 g/dl (32.0-36.5); MEAN CORPUSCULAR VOLUME 98.4 fl (80.0-96.0); MONO # 0.6 10^3/uL (0.0-0.8); MONO % 9.5 % (0.0-5.0); NEUTROPHILS # 4.2 10^3/uL (1.8-7.7); NEUTROPHILS % 64.2 % (36.0-66.0); PLATELET COUNT, AUTOMATED 417 10^3/uL (150-450); RED CELL DISTRIBUTION WIDTH 15.2 % (11.5-14.5); WHITE BLOOD COUNT 6.6 10^3/uL (4.0-10.0)
[2018-05-06] MEDS: ACETAMINOPHEN TAB 650MG DOSE (2X325MG) PO ×4 (11:26→21:57)
[2018-05-06] MEDS: diphenhydrAMINE INJ 50MG/ML VIAL (J1200) IM (15:00)
[2018-05-06 15:21] LABS: IMMEDIATE SPIN CROSSMATCH 1 1
[2018-05-06] MEDS: RIVAROXABAN 10 MG TAB (XARELTO) PO (17:47)
[2018-05-06] MEDS: SALIVA SUBSTITUTE(MOUTHKOTE) BTL MT (21:57)
[2018-05-07] MEDS: LORATADINE 10 MG TAB PO (08:13)
[2018-05-07] MEDS: ACETAMINOPHEN TAB 650MG DOSE (2X325MG) PO (08:13)
[2018-05-07] MEDS: ASCORBIC ACID 500 MG TAB PO ×2 (08:13→21:54)
[2018-05-07] MEDS: REFRESH CELLUVISC OU ×2 (08:13→21:54)
[2018-05-07] MEDS: FERROUS SULFATE 325MG TAB PO ×2 (08:13→21:54)
[2018-05-07] MEDS: PANTOPRAZOLE 40MG TAB (PROTONIX) PO (08:13)
[2018-05-07] MEDS: MULTIVITAMINS/MINERALS THERAP 1 TAB PO (08:13)
[2018-05-07] MEDS: VITAMIN D 1,000 INTERNATIONAL UNITS TABLET PO (08:13)
[2018-05-07] MEDS: CALCIUM/VITAMIN D 500 MG TAB PO (08:13)
[2018-05-07 09:57] LABS: BASO # 0.1 10^3/uL (0.0-0.2); BASO % 1.2 % (0.0-1.0); EOS # 0.1 10^3/uL (0.0-0.50); EOS % 1.3 % (0.0-3.0); HEMATOCRIT 33.6 % (36.0-47.0); HEMOGLOBIN 10.8 g/dl (12.0-15.5); LYMPH # 0.9 10^3/uL (1.5-4.5); LYMPH % 15.2 % (24.0-44.0); MEAN CORPUSCULAR HEMOGLOBIN 30.4 pg (27.0-33.0); MEAN CORPUSCULAR HGB CONC 32.1 g/dl (32.0-36.5); MEAN CORPUSCULAR VOLUME 94.6 fl (80.0-96.0); MONO # 0.5 10^3/uL (0.0-0.8); MONO % 8.9 % (0.0-5.0); NEUTROPHILS # 4.3 10^3/uL (1.8-7.7); NEUTROPHILS % 72.4 % (36.0-66.0); PLATELET COUNT, AUTOMATED 363 10^3/uL (150-450); RED BLOOD COUNT 3.55 10^6/uL (4.00-5.40); WHITE BLOOD COUNT 5.9 10^3/uL (4.0-10.0)
[2018-05-07] MEDS: RIVAROXABAN 10 MG TAB (XARELTO) PO (17:02)
[2018-05-07] MEDS: SALIVA SUBSTITUTE(MOUTHKOTE) BTL MT (21:54)
[2018-05-07] MEDS: traZODone 50 MG TAB PO (21:54)
[2018-05-08] MEDS: CALCIUM/VITAMIN D 500 MG TAB PO (08:39)
[2018-05-08] MEDS: MULTIVITAMINS/MINERALS THERAP 1 TAB PO (08:39)
[2018-05-08] MEDS: LORATADINE 10 MG TAB PO (08:39)
[2018-05-08] MEDS: VITAMIN D 1,000 INTERNATIONAL UNITS TABLET PO (08:39)
[2018-05-08] MEDS: FERROUS SULFATE 325MG TAB PO (08:39)
[2018-05-08] MEDS: ASCORBIC ACID 500 MG TAB PO (08:39)
[2018-05-08] MEDS: PANTOPRAZOLE 40MG TAB (PROTONIX) PO (08:39)
[2018-05-08] MEDS: REFRESH CELLUVISC OU (08:40)
[2018-05-08] MEDS: ACETAMINOPHEN TAB 650MG DOSE (2X325MG) PO (11:31)
[2018-05-08] MEDS: RIVAROXABAN 10 MG TAB (XARELTO) PO (12:35)
== END 2018-05-08 12:45 | disposition home or self-care (01) | DRG 561 ==
LOC: M PM&R 04-25 10:28
PROVIDERS: Orthopaedic Surgery
PROC: 30233N1 Transfusion of Nonautologous Red Blood Cells into Peripheral Vein, Percutaneous Approach (ICD-10-PCS; principal; 2018-05-06)
DX: S72.142D Displaced intertrochanteric fracture of left femur, subsequent encounter for closed fracture with routine healing (principal); M81.0 Age-related osteoporosis without current pathological fracture; D64.9 Anemia, unspecified; J30.2 Other seasonal allergic rhinitis; R29.6 Repeated falls; Z85.118 Personal history of other malignant neoplasm of bronchus and lung; Z90.2 Acquired absence of lung [part of]; Z87.891 Personal history of nicotine dependence; Z98.49 Cataract extraction status, unspecified eye; Z79.899 Other long term (current) drug therapy; Z79.01 Long term (current) use of anticoagulants; W01.0XXD Fall on same level from slipping, tripping and stumbling without subsequent striking against object, subsequent encounter; Z96.641 Presence of right artificial hip joint

== ENCOUNTER 2018-05-10 10:48 | Outpatient (RCR) | payer MEDICARE, OTHER | END 2018-06-05 | LOC: M PT 10:48 | DX: S72.143A Displaced intertrochanteric fracture of unspecified femur, initial encounter for closed fracture (principal) | CPT/HCPCS: 97110 ==

== ENCOUNTER 2018-05-24 14:54 | Inpatient (IN) | payer MEDICARE, OTHER ==
[2018-05-24] MEDS: NS 500 ML IV (16:48)
[2018-05-24 16:53] LABS: BASO % 0.3 % (0.0-1.0); HEMATOCRIT 38.4 % (36.0-47.0); HEMOGLOBIN 12.7 g/dl (12.0-15.5); IMMATURE GRANULOCYTE % 0.6 % (0-3.0); LYMPH # 0.8 10^3/uL (1.5-4.5); LYMPH % 6.8 % (24.0-44.0); MEAN CORPUSCULAR HEMOGLOBIN 31.2 pg (27.0-33.0); MEAN CORPUSCULAR HGB CONC 33.1 g/dl (32.0-36.5); MEAN CORPUSCULAR VOLUME 94.3 fl (80.0-96.0); MONO % 8.2 % (0.0-5.0); NEUTROPHILS # 9.9 10^3/uL (1.8-7.7); NEUTROPHILS % 84.1 % (36.0-66.0); PLATELET COUNT, AUTOMATED 196 10^3/uL (150-450); RED BLOOD COUNT 4.07 10^6/uL (4.00-5.40); RED CELL DISTRIBUTION WIDTH 14.2 % (11.5-14.5); WHITE BLOOD COUNT 11.7 10^3/uL (4.0-10.0)
[2018-05-24 17:16] LABS: LACTIC ACID SEPSIS PROTOCOL 1.3 MMOL/L (0.4-2.0)
[2018-05-24 17:16] LABS: INR 1.04; PARTIAL THROMBOPLASTIN TIME 29.7 SECONDS (25.4-37.6); PROTHROMBIN TIME 13.7 SECONDS (12.1-14.4)
[2018-05-24 17:23] LABS: ANION GAP 8 MEQ/L (8-16); BLOOD UREA NITROGEN 16 MG/DL (7-18); CALCIUM LEVEL 8.9 MG/DL (8.8-10.2); CARBON DIOXIDE LEVEL 29 MEQ/L (21-32); CHLORIDE LEVEL 101 MEQ/L (98-107); CPK CREATINE PHOSPHOKINASE 496 U/L (26-192); CREATININE FOR GFR 0.53 MG/DL (0.55-1.30); FREE T4 1.39 NG/DL (0.76-1.46); GLOMERULAR FILTRATION RATE > 60.0 (>39); GLUCOSE, FASTING 98 MG/DL (70-100); MAGNESIUM LEVEL 1.8 MG/DL (1.8-2.4); MB/CK RELATIVE INDEX 1.41 (< OR =4); POTASSIUM SERUM 3.8 MEQ/L (3.5-5.1); SODIUM LEVEL 138 MEQ/L (136-145); THYROID STIMULATING HORMONE 0.569 uIU/ML (0.358-3.740); TROPONIN I < 0.02 NG/ML (< 0.10)
[2018-05-24] MEDS ORDERED: ACETAMINOPHEN TAB 650MG DOSE (2X325MG) As Ordered (17:32)
[2018-05-24] MEDS: ACETAMINOPHEN TAB 650MG DOSE (2X325MG) PO (17:36)
[2018-05-24] MEDS ORDERED: ONDANSETRON 4MG/2ML VIAL (J2405) IV (20:30)
[2018-05-24] MEDS ORDERED: BISACODYL 5 MG TAB PO (20:30)
[2018-05-24] MEDS ORDERED: ENTER DRUG NAME HERE (PATIENT'S OWN MED) PO (21:00)
[2018-05-24 21:24] LABS: CPK CREATINE PHOSPHOKINASE 414 U/L (26-192); MB/CK RELATIVE INDEX 1.28 (< OR =4); TROPONIN I < 0.02 NG/ML (< 0.10)
[2018-05-25] MEDS: traZODone 50 MG TAB PO (00:12)
[2018-05-25] MEDS: ACETAMINOPHEN TAB 650MG DOSE (2X325MG) PO ×2 (00:12→20:17)
[2018-05-25] MEDS: FERROUS SULFATE 325MG TAB PO ×3 (00:12→20:16)
[2018-05-25] MEDS: VITAMIN D 1,000 INTERNATIONAL UNITS TABLET PO ×3 (00:12→20:16)
[2018-05-25] MEDS: RIVAROXABAN 10 MG TAB (XARELTO) PO ×2 (00:13→18:44)
[2018-05-25 04:17] LABS: HEMATOCRIT 32.3 % (36.0-47.0); MEAN CORPUSCULAR HEMOGLOBIN 30.3 pg (27.0-33.0); MEAN CORPUSCULAR HGB CONC 32.5 g/dl (32.0-36.5); MEAN CORPUSCULAR VOLUME 93.4 fl (80.0-96.0); PLATELET COUNT, AUTOMATED 181 10^3/uL (150-450); RED BLOOD COUNT 3.46 10^6/uL (4.00-5.40); RED CELL DISTRIBUTION WIDTH 14.5 % (11.5-14.5); WHITE BLOOD COUNT 10.1 10^3/uL (4.0-10.0)
[2018-05-25 04:22] LABS: HEMOGLOBIN 10.5 g/dl (12.0-15.5)
[2018-05-25 04:33] LABS: ANION GAP 7 MEQ/L (8-16); BLOOD UREA NITROGEN 17 MG/DL (7-18); CALCIUM LEVEL 7.8 MG/DL (8.8-10.2); CARBON DIOXIDE LEVEL 27 MEQ/L (21-32); CHLORIDE LEVEL 105 MEQ/L (98-107); CPK CREATINE PHOSPHOKINASE 250 U/L (26-192); GLOMERULAR FILTRATION RATE > 60.0 (>39); GLUCOSE, FASTING 103 MG/DL (70-100); MB/CK RELATIVE INDEX 1.08 (< OR =4); POTASSIUM SERUM 3.5 MEQ/L (3.5-5.1); SODIUM LEVEL 139 MEQ/L (136-145); TROPONIN I < 0.02 NG/ML (< 0.10)
[2018-05-25] MEDS: ALENDRONATE 35MG TABLET PO (05:36)
[2018-05-25] MEDS: CALCIUM/VITAMIN D 500 MG TAB PO ×2 (08:32→20:16)
[2018-05-25] MEDS: MULTIVITAMINS/MINERALS THERAP 1 TAB PO (08:32)
[2018-05-25] MEDS: PANTOPRAZOLE 40MG TAB (PROTONIX) PO (08:32)
[2018-05-25] MEDS: LORATADINE 10 MG TAB PO (08:32)
[2018-05-25] MEDS ORDERED: COMBIGAN OD (09:00)
[2018-05-25] MEDS ORDERED: REFRESH CELLUVISC OU (09:00)
[2018-05-25 15:02] LABS: APPEARANCE, URINE CLOUDY (CLEAR); BACTERIA, URINE AUTO 3+ (NEGATIVE); BILIRUBIN, URINE AUTO NEGATIVE (NEGATIVE); BLOOD, URINE BLOOD 1+ (NEGATIVE); COLOR, URINE AMBER (YELLOW); GLUCOSE, URINE (UA) AUTO NEGATIVE (NEGATIVE); KETONE, URINE AUTO NEGATIVE (NEGATIVE); LEUKOCYTE ESTERASE, URINE AUTO 3+ (NEGATIVE); MUCUS, URINE MODERATE (NEGATIVE); NITRITE, URINE AUTO POSITIVE (NEGATIVE); PROTEIN, URINE AUTO 2+ mg/dL (NEGATIVE); RBC, URINE AUTO 14 /HPF (0-3); SPECIFIC GRAVITY URINE AUTO 1.015 (1.002-1.035); SQUAMOUS EPITHELIAL CELL UR AU 0 /HPF (0-6); UROBILINOGEN, URINE AUTO 0.2 mg/dL (0.0-2.0); WBC, URINE AUTO TNTC /HPF (0-3)
[2018-05-26 06:41] LABS: HEMATOCRIT 33.8 % (36.0-47.0); MEAN CORPUSCULAR HGB CONC 32.5 g/dl (32.0-36.5); MEAN CORPUSCULAR VOLUME 92.1 fl (80.0-96.0); PLATELET COUNT, AUTOMATED 185 10^3/uL (150-450); RED BLOOD COUNT 3.67 10^6/uL (4.00-5.40); RED CELL DISTRIBUTION WIDTH 14.4 % (11.5-14.5); WHITE BLOOD COUNT 8.8 10^3/uL (4.0-10.0)
[2018-05-26 07:18] LABS: ANION GAP 4 MEQ/L (8-16); BLOOD UREA NITROGEN 16 MG/DL (7-18); CALCIUM LEVEL 7.8 MG/DL (8.8-10.2); CARBON DIOXIDE LEVEL 30 MEQ/L (21-32); CHLORIDE LEVEL 104 MEQ/L (98-107); CREATININE FOR GFR 0.46 MG/DL (0.55-1.30); GLOMERULAR FILTRATION RATE > 60.0 (>39); GLUCOSE, FASTING 99 MG/DL (70-100); POTASSIUM SERUM 3.6 MEQ/L (3.5-5.1); SODIUM LEVEL 138 MEQ/L (136-145)
[2018-05-26] MEDS: FERROUS SULFATE 325MG TAB PO ×2 (09:21→20:55)
[2018-05-26] MEDS: PANTOPRAZOLE 40MG TAB (PROTONIX) PO (09:21)
[2018-05-26] MEDS: CALCIUM/VITAMIN D 500 MG TAB PO ×2 (09:21→20:55)
[2018-05-26] MEDS: LORATADINE 10 MG TAB PO (09:21)
[2018-05-26] MEDS: VITAMIN D 1,000 INTERNATIONAL UNITS TABLET PO ×2 (09:21→20:55)
[2018-05-26] MEDS: MULTIVITAMINS/MINERALS THERAP 1 TAB PO (09:21)
[2018-05-26] MEDS: RIVAROXABAN 10 MG TAB (XARELTO) PO (17:58)
[2018-05-26] MEDS: traZODone 50 MG TAB PO (20:55)
[2018-05-26] MEDS: ACETAMINOPHEN TAB 650MG DOSE (2X325MG) PO (20:56)
[2018-05-27 06:20] LABS: HEMATOCRIT 34.2 % (36.0-47.0); MEAN CORPUSCULAR HEMOGLOBIN 29.8 pg (27.0-33.0); MEAN CORPUSCULAR HGB CONC 32.2 g/dl (32.0-36.5); MEAN CORPUSCULAR VOLUME 92.7 fl (80.0-96.0); PLATELET COUNT, AUTOMATED 208 10^3/uL (150-450); RED BLOOD COUNT 3.69 10^6/uL (4.00-5.40); RED CELL DISTRIBUTION WIDTH 14.3 % (11.5-14.5); WHITE BLOOD COUNT 6.5 10^3/uL (4.0-10.0)
[2018-05-27 06:35] LABS: ANION GAP 3 MEQ/L (8-16); BLOOD UREA NITROGEN 10 MG/DL (7-18); CALCIUM LEVEL 8.2 MG/DL (8.8-10.2); CARBON DIOXIDE LEVEL 31 MEQ/L (21-32); CHLORIDE LEVEL 105 MEQ/L (98-107); CREATININE FOR GFR 0.45 MG/DL (0.55-1.30); GLOMERULAR FILTRATION RATE > 60.0 (>39); GLUCOSE, FASTING 95 MG/DL (70-100); SODIUM LEVEL 139 MEQ/L (136-145)
[2018-05-27] MEDS: VITAMIN D 1,000 INTERNATIONAL UNITS TABLET PO ×2 (09:03→21:04)
[2018-05-27] MEDS: MULTIVITAMINS/MINERALS THERAP 1 TAB PO (09:03)
[2018-05-27] MEDS: FERROUS SULFATE 325MG TAB PO ×2 (09:03→21:04)
[2018-05-27] MEDS: LORATADINE 10 MG TAB PO (09:03)
[2018-05-27] MEDS: PANTOPRAZOLE 40MG TAB (PROTONIX) PO (09:03)
[2018-05-27] MEDS: CALCIUM/VITAMIN D 500 MG TAB PO ×2 (09:04→21:04)
[2018-05-27] MEDS: CIPROFLOXACIN 500 MG TAB PO (14:39)
[2018-05-27] MEDS: RIVAROXABAN 10 MG TAB (XARELTO) PO (18:20)
[2018-05-27] MEDS: ACETAMINOPHEN TAB 650MG DOSE (2X325MG) PO (21:05)
[2018-05-27] MEDS: traZODone 50 MG TAB PO (22:39)
[2018-05-28] MEDS: CIPROFLOXACIN 500 MG TAB PO (05:37)
[2018-05-28 07:12] LABS: HEMATOCRIT 35.3 % (36.0-47.0); HEMOGLOBIN 11.2 g/dl (12.0-15.5); MEAN CORPUSCULAR HEMOGLOBIN 30.2 pg (27.0-33.0); MEAN CORPUSCULAR HGB CONC 31.7 g/dl (32.0-36.5); MEAN CORPUSCULAR VOLUME 95.1 fl (80.0-96.0); PLATELET COUNT, AUTOMATED 220 10^3/uL (150-450); RED BLOOD COUNT 3.71 10^6/uL (4.00-5.40); RED CELL DISTRIBUTION WIDTH 14.4 % (11.5-14.5); WHITE BLOOD COUNT 7.4 10^3/uL (4.0-10.0)
[2018-05-28 07:30] LABS: ANION GAP 5 MEQ/L (8-16); BLOOD UREA NITROGEN 14 MG/DL (7-18); CALCIUM LEVEL 8.6 MG/DL (8.8-10.2); CARBON DIOXIDE LEVEL 29 MEQ/L (21-32); CHLORIDE LEVEL 105 MEQ/L (98-107); CREATININE FOR GFR 0.52 MG/DL (0.55-1.30); GLOMERULAR FILTRATION RATE > 60.0 (>39); GLUCOSE, FASTING 87 MG/DL (70-100); POTASSIUM SERUM 4.3 MEQ/L (3.5-5.1); SODIUM LEVEL 139 MEQ/L (136-145)
[2018-05-28] MEDS: VITAMIN D 1,000 INTERNATIONAL UNITS TABLET PO (09:20)
[2018-05-28] MEDS: PANTOPRAZOLE 40MG TAB (PROTONIX) PO (09:20)
[2018-05-28] MEDS: FERROUS SULFATE 325MG TAB PO (09:20)
[2018-05-28] MEDS: CALCIUM/VITAMIN D 500 MG TAB PO (09:20)
[2018-05-28] MEDS: MULTIVITAMINS/MINERALS THERAP 1 TAB PO (09:20)
[2018-05-28] MEDS: LORATADINE 10 MG TAB PO (09:20)
== END 2018-05-28 12:40 | disposition home health service (06) | DRG 552 ==
LOC: M ED 14:54 → M ED INP 20:17 → M MS5PR 23:13
DX: S22.080A Wedge compression fracture of T11-T12 vertebra, initial encounter for closed fracture (principal); N39.0 Urinary tract infection, site not specified; Z66 Do not resuscitate; D50.9 Iron deficiency anemia, unspecified; J30.2 Other seasonal allergic rhinitis; G47.00 Insomnia, unspecified; Z85.118 Personal history of other malignant neoplasm of bronchus and lung; Z90.2 Acquired absence of lung [part of]; Z87.891 Personal history of nicotine dependence; W01.0XXA Fall on same level from slipping, tripping and stumbling without subsequent striking against object, initial encounter; Y92.002 Bathroom of unspecified non-institutional (private) residence as the place of occurrence of the external cause; Y93.01 Activity, walking, marching and hiking; M81.0 Age-related osteoporosis without current pathological fracture; Z79.899 Other long term (current) drug therapy; Z79.01 Long term (current) use of anticoagulants; B96.20 Unspecified Escherichia coli [E. coli] as the cause of diseases classified elsewhere

== ENCOUNTER → 2018-06-10 | Outpatient (REF) | payer MEDICARE, OTHER ==
[2018-06-10 17:59] LABS: TOTAL PROTEIN 6.4 GM/DL (6.4-8.2)
[2018-06-11 13:46] LABS: ALBUMIN 3.67 GM/DL (3.29-5.55); ALBUMIN % 57.3 % (55.8-66.1); ALPHA-1-GLOBULINS 0.38 GM/DL (0.17-0.41); ALPHA-2-GLOBULINS 0.68 GM/DL (0.42-0.99); ALPHA-2-GLOBULINS % 10.7 % (7.1-11.8); BETA-2-GLOBULINS % 3.8 % (3.2-6.5); GAMMA GLOBULIN % 16.2 % (11.1-18.8)
[2018-06-11 13:47] LABS: BETA-1-GLOBULINS 0.38 GM/DL (0.28-0.60); BETA-2-GLOBULINS 0.24 GM/DL (0.19-0.55); GAMMA GLOBULINS 1.04 GM/DL (0.65-1.58)
== END ==
LOC: M SFHCPLAZ 13:48
DX: G62.89 Other specified polyneuropathies (principal); Z23 Encounter for immunization
CPT/HCPCS: 84165

== ENCOUNTER 2018-07-02 12:30 | Outpatient (RCR) | payer MEDICARE, OTHER | END 2018-07-05 | LOC: M PT 12:30 | DX: S72.142D Displaced intertrochanteric fracture of left femur, subsequent encounter for closed fracture with routine healing (principal); X58.XXXD Exposure to other specified factors, subsequent encounter | CPT/HCPCS: 97162 ==

== ENCOUNTER 2018-08-02 11:34 | Outpatient (RCR) | payer MEDICARE, OTHER ==
[~2018-08-02 11:34] MED LIST changes: +ACET30TAB PO; +CALC-235 PO; +CELLOPD OU; +CIPR-249 PO; +FERR1TAB8 PO; +HYDR-3713 PO; +IRON325T7 PO; +LORA-243 PO; +NAPR-885 PO; -NAPR500T3 PO; +PANT40TA3 PO; +TRAM50TA2; +TRAZ-160 PO; +TRAZO50TA PO; +VITA100066 PO; +XARE10TA PO
== END 2018-08-05 ==
LOC: M PT 11:34
PROVIDERS: ATTEND Orthopaedic Surgery
DX: S72.142D Displaced intertrochanteric fracture of left femur, subsequent encounter for closed fracture with routine healing (principal)

== ENCOUNTER → 2018-08-15 | Outpatient (REF) | payer MEDICARE, OTHER ==
[2018-08-15 13:31] LABS: ALBUMIN 3.6 GM/DL (3.2-5.2); ALT/SGPT 27 U/L (12-78); BILIRUBIN,TOTAL 0.5 MG/DL (0.2-1.0); BLOOD UREA NITROGEN 15 MG/DL (7-18); CALCIUM LEVEL 9.2 MG/DL (8.8-10.2); CARBON DIOXIDE LEVEL 32 MEQ/L (21-32); CHLORIDE LEVEL 103 MEQ/L (98-107); CREATININE FOR GFR 0.58 MG/DL (0.55-1.30); GLOMERULAR FILTRATION RATE > 60.0 (>39); GLUCOSE, FASTING 56 MG/DL (70-100); POTASSIUM SERUM 3.8 MEQ/L (3.5-5.1); SODIUM LEVEL 140 MEQ/L (136-145); TOTAL PROTEIN 6.3 GM/DL (6.4-8.2)
[2018-08-15 13:41] LABS: TOTAL 25(OH) VITAMIN D 82.5 NG/ML (30.0-100.0)
== END ==
LOC: M SFHCPLAZ 09:57
PROVIDERS: ATTEND Internal Medicine
DX: M81.0 Age-related osteoporosis without current pathological fracture (principal)

== ENCOUNTER → 2018-09-05 | Outpatient (RCR) | payer MEDICARE, OTHER | LOC: M PT 08-07 11:35 | PROVIDERS: ATTEND Orthopaedic Surgery | DX: Z51.89 Encounter for other specified aftercare (principal); S72.142D Displaced intertrochanteric fracture of left femur, subsequent encounter for closed fracture with routine healing ==

== ENCOUNTER 2018-10-01 13:45 | Outpatient (RCR) | payer MEDICARE, OTHER | END 2018-10-03 | LOC: M PT 13:45 | PROVIDERS: ATTEND Orthopaedic Surgery | DX: Z51.89 Encounter for other specified aftercare (principal); S72.142D Displaced intertrochanteric fracture of left femur, subsequent encounter for closed fracture with routine healing ==

== ENCOUNTER → 2019-02-17 | Outpatient (REF) | payer MEDICARE, OTHER ==
[~2019-02-17] MED LIST changes: -/WARF25TA; +ACET-716 PO; -ACET30TAB PO; +COUM1TAB18; +FERR325T82 PO; -IRON325T7 PO; -TRAZ-160 PO; +TRAZ-252 PO; +TRAZ1TAB10 PO; -TRAZO50TA PO
[2019-02-17 10:43] LABS: HEMATOCRIT 39.1 % (36.0-47.0); HEMOGLOBIN 12.8 g/dl (12.0-15.5); MEAN CORPUSCULAR HGB CONC 32.7 g/dl (32.0-36.5); MEAN CORPUSCULAR VOLUME 91.6 fl (80.0-96.0); PLATELET COUNT, AUTOMATED 184 10^3/uL (150-450); RED BLOOD COUNT 4.27 10^6/uL (4.00-5.40); WHITE BLOOD COUNT 3.9 10^3/uL (4.0-10.0)
[2019-02-17 11:11] LABS: ALBUMIN 3.5 GM/DL (3.2-5.2); ALT/SGPT 24 U/L (12-78); BILIRUBIN,TOTAL 0.6 MG/DL (0.2-1.0); BLOOD UREA NITROGEN 14 MG/DL (7-18); CALCIUM LEVEL 9.1 MG/DL (8.8-10.2); CARBON DIOXIDE LEVEL 33 MEQ/L (21-32); CHLORIDE LEVEL 107 MEQ/L (98-107); CHOLESTEROL LEVEL 201 MG/DL (<200); CHOLESTEROL RISK RATIO 2.544 (<5); CREATININE FOR GFR 0.69 MG/DL (0.55-1.30); GLOMERULAR FILTRATION RATE > 60.0 (>39); GLUCOSE, FASTING 77 MG/DL (70-100); HDL CHOLESTEROL 79 MG/DL (>40); LDL CHOLESTEROL 111 MG/DL (<100); NON-HDL-C 122 MG/DL; POTASSIUM SERUM 4.2 MEQ/L (3.5-5.1); SODIUM LEVEL 142 MEQ/L (136-145); TOTAL PROTEIN 6.5 GM/DL (6.4-8.2); TRIGLYCERIDES LEVEL 57 MG/DL (<150)
== END ==
LOC: M SFHCPLAZ 08:20
PROVIDERS: ATTEND Internal Medicine
DX: Z85.118 Personal history of other malignant neoplasm of bronchus and lung (principal); G62.89 Other specified polyneuropathies; R26.89 Other abnormalities of gait and mobility; Z79.899 Other long term (current) drug therapy

== ENCOUNTER 2019-06-22 14:30 | Emergency (ER) | payer MEDICARE, OTHER ==
[~2019-06-22] VITALS: Ht 152.4 cm; Wt 45.0 kg
[2019-06-22] MEDS ORDERED: ACET1TAB55 (14:59)
[2019-06-22] MEDS ORDERED: ROPI0.5T (15:00)
--- NOTE | 2019-06-22 15:29 | REP ---
CT brain without contrast: History: Injury in a fall. Comparison head CT study May 24, 2018. Findings: Preliminary digital lieutenant/deputy radiograph is unremarkable. The bony calvarium is intact. There is mild left frontal scalp swelling. Visualized paranasal sinuses appear clear. Vascular calcification is seen in the distal carotid and distal vertebral arteries. There is mild generalized volume loss. There is no evidence of intracranial hemorrhage. No extra-axial fluid collection is seen. There is no evidence of hematoma, mass or midline shift. No infarct is seen. Impression: No acute intracranial abnormality. Electronically Signed by Sahil Olivas MD 06/22/2019 03:21 P
[2019-06-22] MEDS ORDERED: ACETAMINOPHEN TAB 650MG DOSE (2X325MG) PO ONE (16:00)
[2019-06-22] MEDS ORDERED: ADACEL/BOOSTRIX VACCINE (DIPHTH/PERTUSS/ACELL/TETANUS)0.5ML SYR (90715) IM ONE (16:15)
[2019-06-22 16:51] VITALS: BP 137/77
[2019-06-22] MEDS ORDERED: TRAM50TA2 PO (16:51)
--- NOTE | 2019-06-23 06:56 | REP ---
Right shoulder: Three views. History: Injury in a fall. Findings: The right glenohumeral and acromioclavicular joints are normally aligned. There appears to be a slightly impacted nondisplaced fracture of the distal end of the clavicle. No humeral or scapular fracture is appreciated. Periarticular soft tissues are unremarkable. Mediastinal clips are noted in the chest and there is a granulomatous calcification in the right lung. Impression: There is evidence of a slightly impacted nondisplaced fracture of the distal clavicle on the right. Electronically Signed by Sahil Olivas MD 06/23/2019 08:37 A
== END 2019-06-22 16:57 | disposition home or self-care (01) ==
LOC: M ED 14:30
DX: S01.01XA Laceration without foreign body of scalp, initial encounter (principal); S42.001A Fracture of unspecified part of right clavicle, initial encounter for closed fracture; W10.8XXA Fall (on) (from) other stairs and steps, initial encounter; Y92.018 Other place in single-family (private) house as the place of occurrence of the external cause; H40.9 Unspecified glaucoma; Z79.899 Other long term (current) drug therapy; Z87.891 Personal history of nicotine dependence

== ENCOUNTER → 2019-08-21 | Outpatient (CLI) | payer MEDICARE, OTHER ==
[~2019-08-21] MED LIST changes: +ACET1TAB55; +ROPI0.5T; +TRAM50TA2 PO
[2019-08-21 10:05] LABS: HEMATOCRIT 36.9 % (36.0-47.0); HEMOGLOBIN 11.7 g/dl (12.0-15.5); MEAN CORPUSCULAR HEMOGLOBIN 29.3 pg (27.0-33.0); MEAN CORPUSCULAR HGB CONC 31.7 g/dl (32.0-36.5); MEAN CORPUSCULAR VOLUME 92.5 fl (80.0-96.0); PLATELET COUNT, AUTOMATED 173 10^3/uL (150-450); RED BLOOD COUNT 3.99 10^6/uL (4.00-5.40); WHITE BLOOD COUNT 3.9 10^3/uL (4.0-10.0)
[2019-08-21 10:38] LABS: ALBUMIN 3.5 GM/DL (3.2-5.2); ALT/SGPT 21 U/L (12-78); BILIRUBIN,TOTAL 0.7 MG/DL (0.2-1.0); BLOOD UREA NITROGEN 17 MG/DL (7-18); CALCIUM LEVEL 9.2 MG/DL (8.8-10.2); CARBON DIOXIDE LEVEL 31 MEQ/L (21-32); CHLORIDE LEVEL 103 MEQ/L (98-107); CREATININE FOR GFR 0.67 MG/DL (0.55-1.30); GLOMERULAR FILTRATION RATE > 60.0 (>39); GLUCOSE, FASTING 78 MG/DL (70-100); SODIUM LEVEL 140 MEQ/L (136-145); TOTAL PROTEIN 6.6 GM/DL (6.4-8.2)
== END ==
LOC: M PLALAB 08:26
PROVIDERS: ATTEND Internal Medicine
DX: M81.0 Age-related osteoporosis without current pathological fracture (principal); Z85.118 Personal history of other malignant neoplasm of bronchus and lung

== ENCOUNTER 2019-10-29 15:48 | Inpatient (IN) | payer MEDICARE, OTHER ==
[~2019-10-29] VITALS: Ht 154.9 cm; Wt 45.5 kg
[~2019-10-29 15:48] MED LIST changes: -ACET1TAB55; +ACET1TAB55 PO; -ROPI0.5T; +ROPI0.5T3 PO
[2019-10-29] MEDS ORDERED: PERCOCET 5MG/325MG TAB PO ONE ×2 (16:15→17:30)
--- NOTE | 2019-10-29 16:48 | REP ---
Clinical: Trauma. Fall. Technique: Three views of the left shoulder. Findings: There is a comminuted, displaced and dislocated fracture involving the humeral head extending through the proximal humeral metadiaphysis as well as fracture involving the glenoid and scapula. Associated dislocation of the acromioclavicular joint which appears widened to approximately 2.9 cm is also noted. Undisplaced left posterolateral fifth and sixth rib fractures are also identified. Impression: 1. Comminuted displaced and dislocated fracture involving the humeral head extending through the proximal humeral metadiaphysis. 2. Fractures of the scapula extending through the glenoid. 3. Suspected nondisplaced posterior fifth and sixth rib fractures. Electronically Signed by Nicolas Cruz MD 10/29/2019 04:40 P
--- NOTE | 2019-10-29 16:51 | REP ---
Clinical: Trauma. Fall. Technique: Two views of the left humerus. Findings: Comminuted displaced fracture dislocation involving the proximal humerus from the humeral head through the proximal humeral metadiaphysis along with suspected nondisplaced fracture through the glenoid and scapula. Left lateral fifth and sixth rib fractures are also noted. Impression: Comminuted fracture dislocation involving the proximal humerus/humeral head along with nondisplaced fracture of the scapula extending through the glenoid and nondisplaced left posterolateral fifth and sixth rib fractures. Electronically Signed by Nicolas Cruz MD 10/29/2019 04:42 P
[2019-10-29] MEDS ORDERED: PERC5TAB12 PO (17:00)
[2019-10-29] MEDS ORDERED: BETA5OI TOP (18:23)
[2019-10-29 19:05] VITALS: BP 130/86
[2019-10-29] MEDS ORDERED: ONDANSETRON 4MG/2ML VIAL (J2405) IV PRN (20:45)
[2019-10-29 20:50] LABS: HEMATOCRIT 34.5 % (36.0-47.0); HEMOGLOBIN 11.2 g/dl (12.0-15.5); MEAN CORPUSCULAR HEMOGLOBIN 28.9 pg (27.0-33.0); MEAN CORPUSCULAR HGB CONC 32.5 g/dl (32.0-36.5); MEAN CORPUSCULAR VOLUME 88.9 fl (80.0-96.0); PLATELET COUNT, AUTOMATED 171 10^3/uL (150-450); RED BLOOD COUNT 3.88 10^6/uL (4.00-5.40); WHITE BLOOD COUNT 8.3 10^3/uL (4.0-10.0)
[2019-10-29] MEDS: DOCUSATE SODIUM 100 MG CAP PO SCH (20:53)
[2019-10-29] MEDS: rOPINIRole 0.25 MG TAB(REQUIP) PO SCH (20:53)
[2019-10-29] MEDS: MORPHINE 2 MG/ML 1ML VIAL (J2270) IV PRN (20:54)
[2019-10-29] MEDS: BETAMETHASONE DIP 0.05% OINT 15 GM TOP SCH (21:00)
[2019-10-29] MEDS ORDERED: HEPARIN SOD (PORCINE) 5000 UNITS/ML VIAL (J1644 PER 1000UNITS) SC SCH (21:00)
[2019-10-29 21:34] VITALS: BP 140/93
--- NOTE | 2019-10-29 21:37 | HPE ---
DATE OF ADMISSION: 10/29/2019 TIME: Approximately 6 p.m. CHIEF COMPLAINT: Fell walking down the stairs. HISTORY OF PRESENT ILLNESS: Ms. Antonio is a 79-year-old woman who has a past medical history notable for osteoporosis. She has a history of left upper lobe lung cancer status post lobectomy in 2005. She has been cancer free since that time. 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 She lives alone and had been walking down the stairs when she missed a step and fell, landing on her left upper extremity. She developed acute pain and was brought to the emergency department (ED) where she was noted to have a left comminuted fracture dislocation involving the proximal humerus and humeral head along with a nondisplaced fracture of the scapula extending through the glenoid and nondisplaced left posterolateral 5th and 6th rib fractures. Due to the fact that the patient is right hand dominant and had been placed in a sling and she lives alone, it was felt that she would be unsafe at home, therefore she was admitted to an observation status for further home safety evaluation by physical therapy (PT) to determine what resources she will need in the coming days at home. ALLERGIES: No known drug allergies. CURRENT HOME MEDICATIONS: Are the following: - acetaminophen - alendronate - betamethasone - brimonidine tartrate / Timolol - Refresh Celluvisc - Requip PAST MEDICAL HISTORY: Notable for a right hip fracture in 2008, left hip fracture in 2007, she has a history of osteoporosis, glaucoma, she has contact dermatitis of her left hand, she has a history of lung cancer. SOCIAL HISTORY: The patient is an ex-smoker who quit in 2007. She was never . She has no children. She designates herself a DO NOT RESUSCITATE. Her niece, Aiyana, is her power of armoring machine operator. 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 FAMILY HISTORY: Notable for pulmonary fibrosis in her mom, prostate cancer in her dad. REVIEW OF SYSTEMS: 12-point review of systems are negative other than what is mentioned in the history of present illness (HPI). On examination today, the patient's temperature is 97.5, pulse is 94, respirations 18, blood pressure 145/81, oxygen saturation 97% on room air. General: Ms. Antonio is a very pleasant, elderly female who appears her stated age. She appears to be in no relative acute distress at this time. Her breathing is not labored. Her head is atraumatic. She does not appear cyanotic. Pupils are symmetric and reactive to light. Oropharynx is clear. Neck is supple. Lung sounds are present without rales, wheezing, or rhonchi. Heart is S1, S2. No audible murmurs or rubs. Her abdomen is soft, nontender, nondistended. Extremities are without any cyanosis, clubbing, or edema. Musculoskeletal: The patient's left arm is presently in a sling. She has palpable radial and ulnar pulses which are 2+. There is some discoloration of her left hand. Sensation is grossly intact. Shoulder is tender to palpation. Range of motion is not tested due to acute fracture. RELEVANT LABORATORIES: Glucose 151, sodium 134, potassium 4.1, chloride 98, bicarbonate 27, BUN 14, creatinine 0.5. IMAGING: X-ray trauma films of the shoulder and humerus showed comminuted displaced and dislocated fracture involving the humeral head extending through the proximal humeral metadiaphysis. Fractures of the scapula extending through the glenoid. Suspected nondisplaced posterior 5th and 6th rib fractures. IMPRESSION: 1. Status post fall with left humeral and scapular, as well as 5th and 6th rib fractures. PLAN: 1. Patient will be admitted to an observation status. She will be continued on oral Percocet, as well as IV morphine for breakthrough pain. Will consult physical therapy (PT), occupational therapy (OT), and patient and family services (PFS) to see her in the morning to determine what her home needs will be. In addition, we will consult orthopaedic service to see if this requires operative therapy in the short-term. 2. Hyperglycemia. Will check an A1c. 3. The patient will be placed on deep venous thrombosis (DVT) prophylaxis. 4. She will be a DO NOT RESUSCITATE / DO NOT INTUBATE per her wishes.
--- NOTE | 2019-10-29 22:48 | REPVR ---
PROCEDURE INFORMATION: Exam: CT Left Lower Extremity Without Contrast; Thigh Exam date and time: 10/29/2019 10:26 PM Age: 79 years old Clinical indication: Injury or trauma; Fall; Initial encounter; Blunt trauma; Thigh or upper leg; Left; Prior surgery; Additional info: R/O FX include left femur TECHNIQUE: Imaging protocol: CT of the Left lower extremity without contrast was performed. Exam focused on the thigh. Radiation optimization: All CT scans at this facility use at least one of these dose optimization techniques: automated exposure control; mA and/or kV adjustment per patient size (includes targeted exams where dose is matched to clinical indication); or iterative reconstruction. COMPARISON: CR Femur 09/19/2017 3:31 PM FINDINGS: Bones/joints: Diffuse demineralization of the bones. Status post left femoral neck fracture with compression pin. Soft tissues: Hematoma in the left anterior thigh measuring 4.9 x 8.4 x 11.5 cm(APxTxCC). IMPRESSION: No acute fracture. Status post femoral neck compression pin fixation without evidence for loosening or fracture. Hematoma in the left anterior thigh measuring 4.9 x 8.4 x 11.5 cm(APxTxCC). Electronically signed by: Adrien Luciano On 10/29/2019 22:48:02 PM
[2019-10-29] MEDS: PERCOCET 5MG/325MG TAB PO PRN (23:09)
[2019-10-30] MEDS: MORPHINE 2 MG/ML 1ML VIAL (J2270) IV PRN ×2 (00:13→03:26)
[2019-10-30 01:10] LABS: HEMATOCRIT 31.3 % (36.0-47.0); HEMOGLOBIN 10.2 g/dl (12.0-15.5)
[2019-10-30 01:27] LABS: INR 1.01
[2019-10-30 06:40] VITALS: BP 126/82
[2019-10-30 07:22] LABS: HEMATOCRIT 31.8 % (36.0-47.0); HEMOGLOBIN 10.4 g/dl (12.0-15.5); MEAN CORPUSCULAR HEMOGLOBIN 29.6 pg (27.0-33.0); MEAN CORPUSCULAR HGB CONC 32.7 g/dl (32.0-36.5); MEAN CORPUSCULAR VOLUME 90.6 fl (80.0-96.0); PLATELET COUNT, AUTOMATED 188 10^3/uL (150-450); RED BLOOD COUNT 3.51 10^6/uL (4.00-5.40); WHITE BLOOD COUNT 8.1 10^3/uL (4.0-10.0)
[2019-10-30 07:56] LABS: CALCIUM LEVEL 8.9 MG/DL (8.8-10.2); CREATININE FOR GFR 1.01 MG/DL (0.55-1.30); GLOMERULAR FILTRATION RATE 56.4 (>39); POTASSIUM SERUM 5.2 MEQ/L (3.5-5.1)
[2019-10-30] MEDS: PERCOCET 5MG/325MG TAB PO PRN ×2 (09:05→15:18)
[2019-10-30] MEDS: DOCUSATE SODIUM 100 MG CAP PO SCH ×2 (09:05→20:22)
[2019-10-30] MEDS: BETAMETHASONE DIP 0.05% OINT 15 GM TOP SCH ×2 (09:46→20:22)
--- NOTE | 2019-10-30 10:52 | IPNPDOC ---
Subjective Date Seen The patient was seen on 10/30/19. Subjective Chief Complaint/HPI c/o pain in left upper extremity, and with deep breaths. Developed hematoma last night in left thigh. Vitals stable Objective Physical Examination General Exam: Positive: Alert, Mild Distress Eye Exam: Negative: Sclera icteric ENT Exam: Positive: Mucous membr. moist/pink Neck Exam: Positive: Supple Chest Exam: Positive: Clear to auscultation Heart Exam: Positive: Rate Normal Abdomen Exam: Positive: Normal bowel sounds, Soft; Negative: Tenderness Extremity Exam: Positive: Normal pulses Skin Exam: Negative: Rash Neuro Exam: Positive: Normal Speech Psych Exam: Positive: Mental status NL, Mood NL Other physical findings left thigh hematoma Assessment /Plan Assessment # s/p fall with left proximal humeral and scapular fracture - Pain control - PT/OT eval - PFS consult - Ortho consult - continue with sling # Left 5-6th rib fractures - pain control - IS # Mild hyperkalemia - repeat bmp in am - no treatment at this time # Acute blood loss anemia due to left thigh hematoma - no chemical anticoagulation Plan/VTE VTE Prophylaxis Ordered?: No VTE Exclusion Mechanical Proph: N/A:VTE Prophy Ordered VTE Exclusion Pharmacological: Hemorrhage (left thigh hematoma) VS, I&O, 24H, Fishbone Vital Signs/I&O Vital Signs Date Time Temp Pulse Resp B/P (MAP) Pulse Ox O2 Delivery O2 Flow Rate FiO2 10/30/19 09:35 18 Room Air 10/30/19 06:40 97.4 118 126/82 (97) 96 I&O- Last 24 Hours up to 6 AM 10/30/19 06:00 Intake Total 240 ml Output Total 150 ml Balance 90 ml Laboratory Data 24H LABS Laboratory Tests 2 10/29/19 18:39: POC Glucose (Misc Panel) 151H, POC Sodium (Misc Panel) 134L, POC Potassium (Misc Panel) 4.1, POC Chloride (Misc Panel) 98, POC Total CO2 (Misc Panel) 27.0, POC Blood Urea Nitrogen (Misc Panel 14, POC Ionized Calcium (Misc Panel) 5.2, POC Creatinine (Misc Panel) 0.5L, POC Hematocrit (Misc Panel) 37.0L 10/29/19 20:42: Nucleated Red Blood Cells % (auto) 0.0, Estimated Mean Plasma Glucose 97, Hemoglobin A1c 5.0 10/30/19 01:10: Prothrombin Time 13.0, Prothromb Time International Ratio 1.01 10/30/19 06:50: Nucleated Red Blood Cells % (auto) 0.0, Anion Gap 8, Glomerular Filtration Rate 56.4, Calcium Level 8.9 CBC/BMP Laboratory Tests 10/29/19 20:42 10/30/19 01:03 10/30/19 06:50 MEY DARBY MD Oct 30, 2019 10:52
--- NOTE | 2019-10-30 13:06 | CR ---
DATE OF CONSULTATION: 10/30/2019 PROVIDER REQUESTING CONSULTATION: Dr. Mick Bernal CHIEF COMPLAINT: Severe left shoulder pain status post mechanical fall. HISTORY: The patient is a pleasant 79-year-old female with a past medical history notable for osteoporosis. She was coming down the stairs of her home when she missed the last step falling onto her left side. She experienced quite a bit of pain in the shoulder and left side of the trunk, so emergency medical services were called. She was transported to the emergency department where it was noted that she had a comminuted dislocated left proximal humerus fracture in addition to a nondisplaced scapula fracture extending through the glenoid with nondisplaced left posterolateral 5th and 6th rib fractures. Orthopedics was consulted. CURRENT MEDICATIONS: - acetaminophen - alendronate - betamethasone cream - timolol eye drops - refresh eye drops - Requip ALLERGIES: There are no known drug allergies. PAST MEDICAL HISTORY: Notable for a right hip fracture in 2008 and a left hip fracture in 2007. Osteoporosis. Glaucoma. History of lung cancer. Restless leg syndrome. Contact dermatitis currently in the left hand. PAST SURGICAL HISTORY: Open left knee medial collateral ligament repair and subsequent two arthroscopies. Colonoscopy. Left upper lobectomy. Bilateral ptosis surgery. Bilateral cataract surgery. Right hip and left hip open reduction internal fixation. SOCIAL HISTORY: Patient is a former smoker and does not use alcohol. She lives at home alone. REVIEW OF SYSTEMS: The patient denies fevers, chills, nausea, vomiting or diarrhea. She denies chest pain, shortness of breath or headaches. Denies any recent upper respiratory or urinary tract infection symptoms. The patient has left shoulder and left-sided rib pain status post fall secondary to her fractures. PHYSICAL EXAMINATION: GENERAL: Well-nourished, well-developed female who appears to be in no apparent distress. She is resting comfortably in her hospital bed. She is currently wearing a sling. She is alert and oriented times three. Mood and affect are appropriate. CARDIOVASCULAR: Radial pulses are 2+ and equal bilaterally. PULMONARY: Breathing is regular and nonlabored. ABDOMEN: Soft, nontender to palpation. SKIN: There is some ecchymosis along the elbow with some swelling into the hand. There is some erythema with scaling in the hand, but patient have contact dermatitis prior to this fall and was using betamethasone ointment for that. Otherwise left upper extremity appears to be warm and well perfused. MUSCULOSKELETAL: There is tenderness to palpation about the left shoulder. The patient is able to actively move the elbow and wrist. She is able to move all of her fingers freely. NEUROVASCULAR EXAM: The patient's capillary refill is brisk and her sensation is intact. X-RAYS: X-ray of the left shoulder and humerus reveals a comminuted displaced and dislocated fracture involving the humeral head extending through the proximal humeral metadiaphysis. Fractures involving the scapula extending through the glenoid with suspected nondisplaced posterior 5th and 6th rib fractures. IMPRESSION: Left proximal humerus and scapular fracture as well as 5th and 6th rib fractures status post mechanical fall. PLAN: The patient will continue in the sling. We will order a stat CT scan of the left shoulder for further evaluation. Dr. Nathan Browne will be in to see the patient to discuss surgical versus nonsurgical options. Edited 10/31/2019 @ 0632 lona JOSUE
[2019-10-30 14:00] VITALS: BP 127/82
--- NOTE | 2019-10-30 14:16 | REP ---
CT LEFT SHOULDER WITHOUT CONTRAST: CT left shoulder performed in the axial plane with sagittal and coronal reconstruction images. There is a nondisplaced fracture of the spine of the scapula. There is no fracture involving the bony glenoid. There is a comminuted fracture of the humeral head which is not displaced. There is no dislocation of the humeral head. The comminuted fracture extends into the humeral neck and proximal shaft of the humerus. There is significant medial displacement of the humeral shaft. No other fracture is seen of the visualized osseous structures. There is an old ununited fracture of the distal clavicle. Electronically Signed by Orlin Cadena MD 10/30/2019 04:57 P
[2019-10-30 20:00] VITALS: BP 125/81
[2019-10-30] MEDS: rOPINIRole 0.25 MG TAB(REQUIP) PO SCH (20:22)
[2019-10-31] VITALS (7 sets, daily range): BP systolic 118–129; BP diastolic 64–81
[2019-10-31] MEDS: PERCOCET 5MG/325MG TAB PO PRN ×2 (04:44→23:23)
[2019-10-31 07:28] LABS: HEMATOCRIT 25.8 % (36.0-47.0); HEMOGLOBIN 8.5 g/dl (12.0-15.5); MEAN CORPUSCULAR HEMOGLOBIN 29.2 pg (27.0-33.0); MEAN CORPUSCULAR HGB CONC 32.9 g/dl (32.0-36.5); MEAN CORPUSCULAR VOLUME 88.7 fl (80.0-96.0); PLATELET COUNT, AUTOMATED 170 10^3/uL (150-450); RED BLOOD COUNT 2.91 10^6/uL (4.00-5.40); WHITE BLOOD COUNT 9.4 10^3/uL (4.0-10.0)
[2019-10-31 07:51] LABS: CALCIUM LEVEL 8.6 MG/DL (8.8-10.2); CREATININE FOR GFR 1.11 MG/DL (0.55-1.30); GLOMERULAR FILTRATION RATE 50.6 (>39); POTASSIUM SERUM 4.9 MEQ/L (3.5-5.1)
[2019-10-31] MEDS: DOCUSATE SODIUM 100 MG CAP PO SCH ×2 (09:00→20:03)
[2019-10-31] MEDS: BETAMETHASONE DIP 0.05% OINT 15 GM TOP SCH ×2 (09:04→20:04)
[2019-10-31] MEDS: NS 1,000 ML IV SCH (09:29)
[2019-10-31] MEDS ORDERED: diphenhydrAMINE 25 MG CAP PO ONE (09:30)
[2019-10-31] MEDS ORDERED: ACETAMINOPHEN TAB 650MG DOSE (2X325MG) PO ONE (09:30)
--- NOTE | 2019-10-31 11:49 | IPNPDOC ---
Subjective Date Seen The patient was seen on 10/31/19. Subjective Chief Complaint/HPI Eloise feels very tired. No CP no sob at rest. Leg hematoma seems about the same size, although it looks bigger to me Objective Physical Examination General Exam: Positive: Alert, Mild Distress Eye Exam: Negative: Sclera icteric ENT Exam: Positive: Mucous membr. moist/pink Neck Exam: Positive: Supple Chest Exam: Positive: Clear to auscultation Heart Exam: Positive: Rate Normal Abdomen Exam: Positive: Normal bowel sounds, Soft; Negative: Tenderness Extremity Exam: Positive: Normal pulses, Other (left thigh hematoma seems enlarged) Skin Exam: Negative: Rash Neuro Exam: Positive: Normal Speech Psych Exam: Positive: Mental status NL, Mood NL Assessment /Plan Assessment # s/p fall with left proximal humeral and scapular fracture - Pain control - PT/OT eval, will need placement, likely to ARU - PFS consult - Ortho planning OR in am - Patient is medically optimized and may proceed with surgery - change to inpatient due to worsening symptomatic anemia associated with acute blood loss anemia form hematoma and need for operative therapy # Left 5-6th rib fractures - pain control - IS # Mild hyperkalemia - resolved - repeat bmp normal # Acute blood loss anemia due to left thigh hematoma - no chemical anticoagulation - hgb continues to drop will tx 1 unit prbc today, consent obtained Plan/VTE VTE Prophylaxis Ordered?: No VTE Exclusion Mechanical Proph: N/A:VTE Prophy Ordered VTE Exclusion Pharmacological: Hemorrhage (left thigh hematoma) VS, I&O, 24H, Fishbone Vital Signs/I&O Vital Signs Date Time Temp Pulse Resp B/P (MAP) Pulse Ox O2 Delivery O2 Flow Rate FiO2 10/31/19 06:28 98.2 101 18 124/81 (95) 97 Room Air I&O- Last 24 Hours up to 6 AM 10/31/19 06:00 Intake Total 440 ml Output Total 0 ml Balance 440 ml Laboratory Data 24H LABS Laboratory Tests 2 10/30/19 21:16: Bedside Glucose (Misc Panel) 160H 10/31/19 06:52: Nucleated Red Blood Cells % (auto) 0.0, Anion Gap 6L, Glomerular Filtration Rate 50.6, Calcium Level 8.6L CBC/BMP Laboratory Tests 10/31/19 06:52 MEY DARBY MD Oct 31, 2019 11:49
--- NOTE | 2019-10-31 17:07 | IPN ---
DATE: 10/31/2019 The patient was evaluated today in bed. Her pain is under control in the sling; states her pain is under control. She is about 2 or 3 out of 10, dull ache that is made worse any time she moves that arm. She is breathing unlabored and resting comfortably. PHYSICAL EXAM: Patient is awake, alert, oriented. Vital signs are stable. Left upper extremity: Sensation intact to light touch superficial sensory branch of radial nerve, median nerve, ulnar nerve. Positive anterior interosseous nerve (AIN), posterior interosseous nerve (PIN), ulnar motor nerve function. Skin is intact. Radial pulse 2+, regular rate. Tender to palpation with diffuse swelling about the shoulder. DIAGNOSIS: Left proximal humerus fracture 100% displaced, two part. I discussed with the patient today based on the significant displacement of proximal humerus fracture, there is a higher rate of nonunion. Therefore, I recommend operative intervention. We discussed the risks and benefits of surgical intervention including, but not limited to, infection, damage to surrounding structures, incomplete relief, malunion, nonunion, patient wished to proceed. The plan is to have surgery tomorrow morning, 11/01/2019 at 8:00 a.m., so she should be nothing by mouth after midnight. She can restart anticoagulation postoperatively. She will be non-weightbearing left upper extremity postoperatively. She will get Surgical Care Improvement Project (SCIP) antibiotic prophylaxis, and how aggressively to advance her mobility will be based on the bone quality intraoperatively. Patient expressed understanding and has consented today. Appreciate medicine care.
[2019-10-31] MEDS: rOPINIRole 0.25 MG TAB(REQUIP) PO SCH (20:03)
[2019-10-31] MEDS: ACETAMINOPHEN TAB 650MG DOSE (2X325MG) PO PRN (20:04)
[2019-11-01 06:00] VITALS: BP 124/75
[2019-11-01] MEDS ORDERED: ceFAZolin SOD 2 GM in IV 1 EA IV ONE (06:00)
[2019-11-01 08:16] LABS: HEMATOCRIT 26.4 % (36.0-47.0); HEMOGLOBIN 8.9 g/dl (12.0-15.5); MEAN CORPUSCULAR HGB CONC 33.7 g/dl (32.0-36.5); MEAN CORPUSCULAR VOLUME 88.9 fl (80.0-96.0); PLATELET COUNT, AUTOMATED 128 10^3/uL (150-450); RED BLOOD COUNT 2.97 10^6/uL (4.00-5.40); WHITE BLOOD COUNT 7.7 10^3/uL (4.0-10.0)
[2019-11-01] MEDS ORDERED: ROCURONIUM BROMIDE 50 MG/5 ML VIAL As Ordered ONE ×2 (08:37→11:18)
[2019-11-01] MEDS ORDERED: propofoL 200 MG/20 ML VIAL As Ordered ONE (08:37)
[2019-11-01] MEDS ORDERED: LIDOCAINE 2% INJ 100 MG/5 ML SDV (FOR ANES.) As Ordered ONE (08:37)
[2019-11-01] MEDS ORDERED: dexameTHASONE 4 MG/ML 1ML VIAL (J1100) As Ordered ONE (08:38)
[2019-11-01] MEDS ORDERED: fentaNYL 100 MCG/2 ML INJECTION (J3010) As Ordered ONE ×3 (08:38→11:47)
[2019-11-01] MEDS ORDERED: ONDANSETRON 4MG/2ML VIAL (J2405) As Ordered ONE (08:38)
[2019-11-01] MEDS: BETAMETHASONE DIP 0.05% OINT 15 GM TOP SCH ×2 (09:00→21:01)
[2019-11-01] MEDS: DOCUSATE SODIUM 100 MG CAP PO SCH ×2 (09:00→21:00)
[2019-11-01] MEDS ORDERED: MIDAZOLAM INJ 2 MG/2 ML VIAL (J2250) As Ordered ONE (09:11)
[2019-11-01] MEDS: NS 1,000 ML IV SCH ×2 (09:17→19:17)
[2019-11-01] MEDS ORDERED: MIDAZOLAM INJ 2 MG/2 ML VIAL (J2250) IV ONE (09:45)
[2019-11-01] MEDS ORDERED: ePHEDrine SULFATE 25 MG/5 ML(5MG/ML) SYRINGE As Ordered ONE (09:57)
[2019-11-01] MEDS ORDERED: PHENYLephrine HCL 500 MCG/5 ML (100MCG/ML) SYRINGE (J2370) As Ordered ONE (09:57)
[2019-11-01] MEDS ORDERED: LIDOCAINE 1% MDV 20ML VIAL ONE (10:20)
[2019-11-01] MEDS ORDERED: ROPIvacaine 0.5% 30 ML INJECTION (J2795 PER 1MG) ONE (10:20)
[2019-11-01] MEDS ORDERED: dexameTHASONE 10MG/1ML VIAL PRES.FREE (J1100 PER 1MG) ONE (10:20)
[2019-11-01] MEDS ORDERED: ceFAZolin 2 GM/D5W 50 ML IV BAG (J0690 PER 500MG) IV ONE (10:41)
[2019-11-01] MEDS ORDERED: ACETAMINOPHEN 1000MG 100ML IV BTL (OFIRMEV) (J0131 PER 10MG) As Ordered ONE (12:07)
[2019-11-01] MEDS ORDERED: SUGAMMADEX SODIUM 500 MG/5 ML VIAL (BRIDION) As Ordered ONE (13:07)
[2019-11-01] MEDS ORDERED: fentaNYL 100 MCG/2 ML INJECTION (J3010) IV PRN (14:00)
[2019-11-01] MEDS ORDERED: LR 1,000 ML IV SCH (14:00)
[2019-11-01] MEDS ORDERED: oxyCODONE 5MG TAB PO PRN (14:00)
[2019-11-01] MEDS ORDERED: ONDANSETRON 4MG/2ML VIAL (J2405) IV PRN (14:00)
[2019-11-01] MEDS ORDERED: HYDROMORPHONE HCL 0.5 MG/ 0.5 ML SYRINGE (J1170 PER 1) IV PRN (14:00)
--- NOTE | 2019-11-01 14:08 | REP ---
Clinical: Status post fixation. Technique: Intraoperative fluoroscopic imaging using portable C-arm technique. Findings: The patient is status post satisfactory open reduction and fixation for comminuted proximal humeral fractures. Total fluoroscopic time 6 minutes 25 seconds. Impression: Status post open reduction and fixation for proximal humeral fractures. Electronically Signed by Nicolas Cruz MD 11/01/2019 01:59 P
--- NOTE | 2019-11-01 14:16 | REP ---
Clinical: Status post bicep fixation. Technique: Portable internal rotation and external rotation views of the left shoulder. Findings: The patient is status post satisfactory open reduction and fixation for comminuted proximal humeral fracture. Overlying postsurgical changes noted. Impression: Status post open reduction and fixation. Electronically Signed by Nicolas Cruz MD 11/01/2019 02:08 P
[2019-11-01 14:30] VITALS: BP 146/81
[2019-11-01 15:00] VITALS: BP 141/80
[2019-11-01 16:00] VITALS: BP 139/78
[2019-11-01] MEDS ORDERED: ceFAZolin SOD 2 GM in IV 1 EA IV SCH (16:00)
[2019-11-01] MEDS: ceFAZolin SOD 1 GM in D5W MINI-BAG PLUS 50 ML IV SCH ×2 (16:21→23:55)
--- NOTE | 2019-11-01 16:57 | IPNPDOC ---
Subjective Date Seen The patient was seen on 11/01/19. Subjective Chief Complaint/HPI confused following surgery, feels people are trying to harm her. Oriented to person and place. Objective Physical Examination General Exam: Positive: No Acute Distress, Other (confused) Eye Exam: Negative: Sclera icteric ENT Exam: Positive: Mucous membr. moist/pink Neck Exam: Positive: Supple Chest Exam: Positive: Clear to auscultation Heart Exam: Positive: Rate Normal Abdomen Exam: Positive: Normal bowel sounds, Soft; Negative: Tenderness Extremity Exam: Positive: Normal pulses, Other (left thigh hematoma seems enlarged) Skin Exam: Negative: Rash Neuro Exam: Positive: Normal Speech Psych Exam: Positive: Mental status NL, Mood NL Assessment /Plan Assessment # s/p fall with left proximal humeral and scapular fracture # Post-operative delirium - Pain control - PT/OT following, will need placement, likely to ARU - POD # 0 left shoulder fx repair - haldol prn # Left 5-6th rib fractures - pain control - IS # Mild hyperkalemia - resolved # Acute blood loss anemia due to left thigh hematoma and shoulder fracture - no chemical anticoagulation - monitor CBC daily Plan/VTE VTE Prophylaxis Ordered?: No VTE Exclusion Mechanical Proph: N/A:VTE Prophy Ordered VTE Exclusion Pharmacological: Hemorrhage (left thigh hematoma) VS, I&O, 24H, Fishbone Vital Signs/I&O Vital Signs Date Time Temp Pulse Resp B/P (MAP) Pulse Ox O2 Delivery O2 Flow Rate FiO2 11/01/19 14:15 97.2 93 18 154/78 (103) 100 Nasal Cannula 2 I&O- Last 24 Hours up to 6 AM 11/01/19 05:59 Intake Total 1360 ml Output Total 575 ml Balance 785 ml Laboratory Data 24H LABS Laboratory Tests 2 11/01/19 08:05: Nucleated Red Blood Cells % (auto) 0.0 CBC/BMP Laboratory Tests 11/01/19 08:05 MEY DARBY MD Nov 01, 2019 16:57
[2019-11-01] MEDS ORDERED: HALOPERIDOL 5 MG/ML VIAL (J1630) IV PRN (17:00)
[2019-11-01] MEDS: rOPINIRole 0.25 MG TAB(REQUIP) PO SCH (21:00)
[2019-11-01] MEDS: ACETAMINOPHEN TAB 650MG DOSE (2X325MG) PO PRN (21:01)
[2019-11-01 22:00] VITALS: BP 127/75
[2019-11-02] VITALS (12 sets, daily range): BP systolic 114–139; BP diastolic 62–96
[2019-11-02] MEDS: ACETAMINOPHEN TAB 650MG DOSE (2X325MG) PO PRN (00:42)
[2019-11-02] MEDS ORDERED: traMADol 50 MG TAB PO PRN (06:30)
[2019-11-02] MEDS: traMADol 50 MG TAB PO PRN ×2 (06:38→21:17)
[2019-11-02] MEDS: ACETAMINOPHEN 500 MG TAB PO SCH ×3 (06:38→21:17)
[2019-11-02 07:00] LABS: MEAN CORPUSCULAR HEMOGLOBIN 28.9 pg (27.0-33.0); MEAN CORPUSCULAR HGB CONC 32.2 g/dl (32.0-36.5); MEAN CORPUSCULAR VOLUME 89.8 fl (80.0-96.0); PLATELET COUNT, AUTOMATED 129 10^3/uL (150-450); RED BLOOD COUNT 2.25 10^6/uL (4.00-5.40); WHITE BLOOD COUNT 8.1 10^3/uL (4.0-10.0)
[2019-11-02 07:02] LABS: HEMATOCRIT 20.2 % (36.0-47.0)
[2019-11-02 07:04] LABS: HEMOGLOBIN 6.5 g/dl (12.0-15.5)
[2019-11-02 07:20] LABS: BLOOD UREA NITROGEN 21 MG/DL (7-18); CALCIUM LEVEL 7.8 MG/DL (8.8-10.2); CARBON DIOXIDE LEVEL 27 MEQ/L (21-32); CHLORIDE LEVEL 105 MEQ/L (98-107); CREATININE FOR GFR 0.55 MG/DL (0.55-1.30); GLOMERULAR FILTRATION RATE > 60.0 (>39); GLUCOSE, FASTING 106 MG/DL (70-100); POTASSIUM SERUM 4.6 MEQ/L (3.5-5.1); SODIUM LEVEL 138 MEQ/L (136-145)
[2019-11-02] MEDS: BETAMETHASONE DIP 0.05% OINT 15 GM TOP SCH ×2 (08:19→21:16)
[2019-11-02] MEDS: DOCUSATE SODIUM 100 MG CAP PO SCH ×2 (08:19→21:16)
[2019-11-02] MEDS: ceFAZolin SOD 1 GM in D5W MINI-BAG PLUS 50 ML IV SCH (08:19)
[2019-11-02] MEDS ORDERED: NS 1,000 ML IV SCH (08:20)
--- NOTE | 2019-11-02 10:19 | IPNPDOC ---
Subjective Date Seen The patient was seen on 11/02/19. Subjective Chief Complaint/HPI Post-op delirium has resolved, Eloise is back to her normal mental status. Hemodynamics are stable despite drop in Hgb. No CP/SOB. Objective Physical Examination General Exam: Positive: No Acute Distress, Other (confused) Eye Exam: Negative: Sclera icteric ENT Exam: Positive: Mucous membr. moist/pink Neck Exam: Positive: Supple Chest Exam: Positive: Clear to auscultation Heart Exam: Positive: Rate Normal Abdomen Exam: Positive: Normal bowel sounds, Soft; Negative: Tenderness Extremity Exam: Positive: Normal pulses (pulses intact), Other (left thigh hematoma is unchanged, LUE swollen with bruising) Skin Exam: Negative: Rash Neuro Exam: Positive: Normal Speech Psych Exam: Positive: Mental status NL, Mood NL, Oriented x 3 Assessment /Plan Assessment # s/p fall with left proximal humeral and scapular fracture # Post-operative delirium - Pain control - PT/OT following, will need placement, likely to ARU - POD # 1 left shoulder fx repair - discontinue haldol prn # Left 5-6th rib fractures - pain control - IS # Mild hyperkalemia - resolved # Acute blood loss anemia due to left thigh hematoma and shoulder fracture - no chemical anticoagulation - monitor CBC daily - tx 2 units prbc today, check CBC post transfusion - total of 4 units prbc this admission Plan/VTE VTE Prophylaxis Ordered?: No VTE Exclusion Mechanical Proph: N/A:VTE Prophy Ordered VTE Exclusion Pharmacological: Hemorrhage (left thigh hematoma) VS, I&O, 24H, Fishbone Vital Signs/I&O Vital Signs Date Time Temp Pulse Resp B/P (MAP) Pulse Ox O2 Delivery O2 Flow Rate FiO2 11/02/19 09:47 98.7 97 18 118/78 99 Nasal Cannula 2.0 I&O- Last 24 Hours up to 6 AM 11/02/19 06:00 Intake Total 2120 ml Output Total 500 ml Balance 1620 ml Laboratory Data 24H LABS Laboratory Tests 2 11/02/19 06:23: Nucleated Red Blood Cells % (auto) 0.0, Anion Gap 6L, Glomerular Filtration Rate > 60.0, Calcium Level 7.8L CBC/BMP Laboratory Tests 11/02/19 06:23 MEY DARBY MD Nov 02, 2019 10:19
[2019-11-02 15:21] LABS: HEMATOCRIT 29.8 % (36.0-47.0); MEAN CORPUSCULAR HGB CONC 34.2 g/dl (32.0-36.5); MEAN CORPUSCULAR VOLUME 90.6 fl (80.0-96.0); PLATELET COUNT, AUTOMATED 113 10^3/uL (150-450); RED BLOOD COUNT 3.29 10^6/uL (4.00-5.40); WHITE BLOOD COUNT 6.9 10^3/uL (4.0-10.0)
[2019-11-02 15:24] LABS: HEMOGLOBIN 10.2 g/dl (12.0-15.5)
[2019-11-02] MEDS: rOPINIRole 0.25 MG TAB(REQUIP) PO SCH (21:16)
[2019-11-03] MEDS: ACETAMINOPHEN 500 MG TAB PO SCH ×3 (05:08→20:46)
[2019-11-03 06:00] VITALS: BP 123/58
[2019-11-03 06:05] LABS: HEMATOCRIT 28.2 % (36.0-47.0); HEMOGLOBIN 9.6 g/dl (12.0-15.5); MEAN CORPUSCULAR HEMOGLOBIN 30.7 pg (27.0-33.0); MEAN CORPUSCULAR VOLUME 90.1 fl (80.0-96.0); PLATELET COUNT, AUTOMATED 115 10^3/uL (150-450); RED BLOOD COUNT 3.13 10^6/uL (4.00-5.40); WHITE BLOOD COUNT 5.8 10^3/uL (4.0-10.0)
[2019-11-03 06:26] LABS: BLOOD UREA NITROGEN 14 MG/DL (7-18); CARBON DIOXIDE LEVEL 28 MEQ/L (21-32); CHLORIDE LEVEL 105 MEQ/L (98-107); CREATININE FOR GFR 0.47 MG/DL (0.55-1.30); GLOMERULAR FILTRATION RATE > 60.0 (>39); GLUCOSE, FASTING 90 MG/DL (70-100); SODIUM LEVEL 135 MEQ/L (136-145)
[2019-11-03] MEDS: BETAMETHASONE DIP 0.05% OINT 15 GM TOP SCH ×2 (08:19→20:46)
[2019-11-03] MEDS: DOCUSATE SODIUM 100 MG CAP PO SCH ×2 (08:19→20:45)
--- NOTE | 2019-11-03 09:33 | IPNPDOC ---
Subjective Date Seen The patient was seen on 11/03/19. Subjective Chief Complaint/HPI slept well overnight, pain controlled. No dizziness or CP nor sob. does not feel as fatigued Objective Physical Examination General Exam: Positive: Alert, Cooperative, No Acute Distress Eye Exam: Negative: Sclera icteric ENT Exam: Positive: Mucous membr. moist/pink Neck Exam: Positive: Supple Chest Exam: Positive: Clear to auscultation Heart Exam: Positive: Rate Normal, Normal S1, Normal S2, Murmurs Abdomen Exam: Positive: Normal bowel sounds, Soft; Negative: Tenderness Extremity Exam: Positive: Normal pulses (pulses intact), Swelling (left proximal thigh due to hematoma, LUE swellin and bruising), Other (left thigh hematoma is unchanged, LUE swollen with bruising) Skin Exam: Negative: Rash Neuro Exam: Positive: Normal Speech Psych Exam: Positive: Mental status NL, Mood NL, Oriented x 3 Assessment /Plan Assessment # s/p fall with left proximal humeral and scapular fracture # Post-operative delirium - Pain control - PT/OT following, will need placement, likely to ARU - POD # 2 left shoulder fx repair - medically stable for discharge to ARU # Left 5-6th rib fractures - pain control - IS # Mild hyperkalemia - resolved # Acute blood loss anemia due to left thigh hematoma and shoulder fracture - no chemical anticoagulation - monitor CBC daily - total of 4 units prbc this admission - hgb stable this admission Plan/VTE VTE Prophylaxis Ordered?: No VTE Exclusion Mechanical Proph: N/A:VTE Prophy Ordered VTE Exclusion Pharmacological: Hemorrhage (left thigh hematoma) VS, I&O, 24H, Fishbone Vital Signs/I&O Vital Signs Date Time Temp Pulse Resp B/P (MAP) Pulse Ox O2 Delivery O2 Flow Rate FiO2 11/03/19 06:00 99.0 82 16 123/58 (79) 94 Room Air 11/02/19 22:00 94.0 I&O- Last 24 Hours up to 6 AM 11/03/19 06:00 Intake Total 1680 ml Output Total 650 ml Balance 1030 ml Laboratory Data 24H LABS Laboratory Tests 2 11/02/19 15:11: Nucleated Red Blood Cells % (auto) 0.0 11/03/19 05:54: Nucleated Red Blood Cells % (auto) 0.0, Anion Gap 2L, Glomerular Filtration Rate > 60.0, Calcium Level 8.0L CBC/BMP Laboratory Tests 11/02/19 15:11 11/03/19 05:54 MEY DARBY MD Nov 03, 2019 09:31
[2019-11-03 14:00] VITALS: BP_SYST 127; BP_SYST 128; BP_DIAS 60
[2019-11-03] MEDS: rOPINIRole 0.25 MG TAB(REQUIP) PO SCH (20:45)
[2019-11-03 22:00] VITALS: BP 101/63
[2019-11-04] MEDS: ACETAMINOPHEN 500 MG TAB PO SCH ×2 (05:19→13:15)
[2019-11-04 06:00] VITALS: BP 139/69
[2019-11-04 06:00] LABS: HEMATOCRIT 30.2 % (36.0-47.0); HEMOGLOBIN 10.2 g/dl (12.0-15.5); MEAN CORPUSCULAR HEMOGLOBIN 30.8 pg (27.0-33.0); MEAN CORPUSCULAR HGB CONC 33.8 g/dl (32.0-36.5); MEAN CORPUSCULAR VOLUME 91.2 fl (80.0-96.0); PLATELET COUNT, AUTOMATED 128 10^3/uL (150-450); RED BLOOD COUNT 3.31 10^6/uL (4.00-5.40); WHITE BLOOD COUNT 5.3 10^3/uL (4.0-10.0)
[2019-11-04 06:25] LABS: BLOOD UREA NITROGEN 10 MG/DL (7-18); CALCIUM LEVEL 8.4 MG/DL (8.8-10.2); CARBON DIOXIDE LEVEL 30 MEQ/L (21-32); CHLORIDE LEVEL 105 MEQ/L (98-107); CREATININE FOR GFR 0.43 MG/DL (0.55-1.30); GLOMERULAR FILTRATION RATE > 60.0 (>39); GLUCOSE, FASTING 82 MG/DL (70-100); POTASSIUM SERUM 3.9 MEQ/L (3.5-5.1); SODIUM LEVEL 137 MEQ/L (136-145)
[2019-11-04] MEDS ORDERED: TRAM50TA2 PO ×2 (07:16)
[2019-11-04] MEDS ORDERED: DOCU100C16 PO (07:16)
[2019-11-04] MEDS ORDERED: ACET-683 PO (07:16)
[2019-11-04] MEDS: DOCUSATE SODIUM 100 MG CAP PO SCH (07:42)
[2019-11-04] MEDS: BETAMETHASONE DIP 0.05% OINT 15 GM TOP SCH (07:42)
--- NOTE | 2019-11-04 10:04 | RO ---
DATE OF PROCEDURE: 11/01/2019 PREOPERATIVE DIAGNOSIS: Left two-part proximal humerus fracture. POSTOPERATIVE DIAGNOSIS: Left two part proximal humerus fracture. PROCEDURE: Open reduction, internal fixation of the left proximal humerus. SURGEON: Dr. Nathan Browne CRYSTAL GRINDER: ANESTHESIA: General. COMPLICATIONS: None. PREOPERATIVE ANTIBIOTICS: 2 grams of Ancef. BLOOD LOSS: 200 mL. SPECIMENS: None. INDICATIONS: This is a 79-year-old female who had a fall at home and suffered a 100% displaced two-part proximal humerus fracture. We discussed the risks and benefits of operative intervention including, but not limited to, infection, malunion, damage to surrounding structures, incomplete relief, nonunion, and avascular necrosis, and patient elected to proceed. Decision to perform this open reduction, internal fixation was taken considering it mostly appeared to be a stable two-part fracture with the decision to avoid hemiarthroplasty as trying to get 79-year-old bone to try heal the tuberosities and against a reverse shoulder arthroplasty since there was a minimally displaced glenoid neck on capital fracture and we did not want to place a strong pivot point on this resulting in displacement and loosening of the hardware. Decision to proceed with open reduction, internal fixation with the possibility that she may have a fibular allograft strut. DESCRIPTION OF PROCEDURE: Patient was brought to the operating room (OR) in the supine position. Underwent general anesthesia, at which point the left arm was prepped and draped in the usual fashion. We then made incision in deltopectoral interval on the anterior shoulder, careful to control superficial bleeding. We then identified the deltopectoral interval with the cephalic vein and mobilized it laterally with the deltoid. We then used sweeping motion with our fingers and an elevator to decrease any adhesions in subdeltoid space and expose the conjoined tendon, at which point we placed the Rosario retractor deep to conjoined tendon under the deltoid to expose the fracture site. We then protruded the fracture site of the humeral shaft out of the wound in order to irrigate the area and debride the fracture fragments, at which point we made the decision, due to the poor bone quality, to use a fibular strut. This was cut using a sagittal saw to fit down the shaft posteriorly and up into the head, at which point we then reduced the humeral head onto the fibular strut and used two 2.0 K-wires to hold this in place along with using multiple #2 FiberWire to help control the lesser and greater tuberosities. We also sutured the subscapularis to the infra- and supraspinatus in order to make a hoop strut around the tuberosity to help control the reduction. Once we were happy with the plate placement, while being slightly inferior, the calcar strut screw was aligned appropriately. We then used one cortical screw to suck the plate to the bone, two locking screws in the shaft, and six locking screws into the head. Final films were completed at this point. We used the bicep tendon to help try to guide the rotation. We used final x-ray in AP/lateral and fluoroscopy to help confirm our reduction and fixation and make sure no screws were penetrating the joint. Once we were done with this, we irrigated the wound thoroughly. Closed the deltopectoral interval with #0 Prolene, subcutaneous tissue with #2-0 Vicryl, and skin with frank. Gauze, Tegaderm for dressing. Patient was awakened and taken to the postanesthesia unit (PACU) in stable condition. POSTOPERATIVE PLAN: Patient will work on range of motion and pain control and be non-weightbearing left upper extremity. Will hold any range of motion to be seen in the office in 2 weeks for staple removal. She will also get Surgical Care Improvement Project (SCIP) antibiotic prophylaxis. JOSELO
[2019-11-04 14:01] VITALS: BP 126/70
--- NOTE | 2019-11-04 16:18 | DS.PDOC ---
Discharge Summary General Date of Admission Oct 31, 2019 at 09:19 Date of Discharge 11/04/19 Discharge Summary DISCHARGE DIAGNOSES: left proximal humeral and scapular fracture Post-operative delirium Left 5-6th rib fractures Mild hyperkalemia Acute blood loss anemia due to left thigh hematoma and shoulder fracture requiring 4 units rbc transfusion DISCHARGE MEDICATIONS: PLS SEE BELOW DISCHARGE INSTRUCTIONS: ORTHO FU RECOMMENDED TRANSFERRED TO ARU CONSULTANTS DURING THIS ADMISSION: ORTHOPEDIC SURGERY-Dr. Browne PROCEDURES : DATE OF PROCEDURE: 11/01/2019 PREOPERATIVE DIAGNOSIS: Left two-part proximal humerus fracture. POSTOPERATIVE DIAGNOSIS: Left two part proximal humerus fracture. PROCEDURE: Open reduction, internal fixation of the left proximal humerus. SURGEON: Dr. Nathan Browne ANESTHESIA: General. COMPLICATIONS: None. PREOPERATIVE ANTIBIOTICS: 2 grams of Ancef. BLOOD LOSS: 200 mL. 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 left proximal humeral and scapular fracture -orthopedic surgery Dr. Browne was consulted. -s/p L proximal humeral fx ORIF -sling -pain mgt, bowel regimen, activity level managed by ortho -discharged to ARU Post-operative delirium -discontinued haldol PRN Left 5-6th rib fractures - pain control with PRN pain meds. to prevent atelectasis, pt was given an incentive spirometry. Mild hyperkalemia - resolved Acute blood loss anemia due to left thigh hematoma and shoulder fracture - no chemical anticoagulation - 4 units prbc transfused during this admission DISCHARGE PHYSICAL EXAMINATION: VITALS: PLS SEE BELOW General Exam:No Acute Distress no jaundice or conversational dyspnea Eye Exam: Negative: Sclera icteric ENT Exam: Positive: Mucous membr. moist/pink Neck Exam: Positive: Supple no JVD/thyromegaly or cervical LAD Chest Exam: Positive: Clear to auscultation AEBE no rhonchi Heart Exam: Positive: Rate Normal S1S2 RRR no murmurs Abdomen Exam: Positive: Normal bowel sounds, Soft; Negative: Tenderness no rebound or guarding. no abdominal bruits. Extremity Exam: Positive: Normal pulses (pulses intact), Other (left thigh hematoma is unchanged, LUE swollen with bruising) DISCHARGE LABORATORY DATA, IMAGING STUDIES,MICROBIOLOGY: PLS SEE BELOW 10/30/19 CT LEFT SHOULDER WITHOUT CONTRAST: CT left shoulder performed in the axial plane with sagittal and coronalreconstruction images. There is a nondisplaced fracture of the spine of the scapula. There is no fracture involving the bony glenoid. There is a comminuted fracture of the humeral head which is not displaced. There is no dislocation of the humeral head. The comminuted fracture extends into the humeral neck and proximal shaft of the humerus. There is significant medial displacement of the humeral shaft. No other fracture is seen of the visualized osseous structures. There is an old ununited fracture of the distal clavicle. Electronically Signed by Orlin Cadena MD 10/30/2019 04:57 Pm TIME SPENT ON DISCHARGE: 30MIN Vital Signs/I&Os Vital Signs Date Time Temp Pulse Resp B/P (MAP) Pulse Ox O2 Delivery O2 Flow Rate FiO2 11/04/19 14:01 99.2 95 20 126/70 (88) 96 Room Air 11/02/19 22:00 94.0 I&O- Last 24 Hours up to 6 AM 11/04/19 06:00 Intake Total 1045 ml Output Total 400 ml Balance 645 ml Laboratory Data Labs 24H Laboratory Tests 2 11/04/19 05:36: Nucleated Red Blood Cells % (auto) 0.0, Anion Gap 2L, Glomerular Filtration Rate > 60.0, Calcium Level 8.4L CBC/BMP Laboratory Tests 11/04/19 05:36 Discharge Medications Scheduled Acetaminophen (Acetaminophen) 500 Mg Tablet, 1,000 MG PO Q8H Alendronate Sodium (Fosamax) 70 Mg Tab, 70 MG PO QWEEK, (Reported) SUNDAY Betamethasone Dip (Betamethasone Dipropionate) 15 Gm Oint...g., 1 APLCT TOP BID, (Reported) APPLY TO LEFT HAND Brimonidine Tartrate/Timolol (Combigan 0.2%-0.5% Eye Drops) 1 Glenny Glenny, 1 DROP OD DAILY, (Reported) Carboxymethylcellulose Sod (Refresh Celluvisc) 0.4 Ml Soln, 1 DROP OU BID, (Reported) Docusate Sodium (Docusate Sodium) 100 Mg Capsule, 100 MG PO BID Ropinirole HCl (Ropinirole HCl) 0.5 Mg Tablet, 0.25 MG PO QHS, (Reported) Scheduled PRN Acetaminophen (Acetaminophen) 325 Mg Tablet, 650 MG PO Q4H PRN for PAIN, (Reported) Tramadol HCl (Tramadol HCl) 50 Mg Tablet, 50 MG PO Q4HP PRN for MODERATE PAIN (PS 5-7) Tramadol HCl (Tramadol HCl) 50 Mg Tablet, 100 MG PO Q6HP PRN for SEVERE PAIN (PS 8-10) Allergies Coded Allergies: No Known Allergies (Verified , 09/19/17) DORA NEIL MD Nov 04, 2019 16:13
== END 2019-11-04 16:10 | DRG 481 ==
LOC: EDBD 15:48 → M ED 15:48 → M ED INP 15:49 → ENRESERV 18:38 → M MS5PR 19:03 → OBSVTOIN 10-31 09:19
PROVIDERS: ADMIT Internal Medicine; ATTEND General Practice
PROC: 30233N1 Transfusion of Nonautologous Red Blood Cells into Peripheral Vein, Percutaneous Approach (ICD-10-PCS; 2019-10-31)
PROC: 0QS706Z Reposition Left Upper Femur with Intramedullary Internal Fixation Device, Open Approach (ICD-10-PCS; principal; 2019-11-01 08:30)
DX: S42.302A Unspecified fracture of shaft of humerus, left arm, initial encounter for closed fracture (principal); D62 Acute posthemorrhagic anemia; S22.42XA Multiple fractures of ribs, left side, initial encounter for closed fracture; F05 Delirium due to known physiological condition; S70.12XA Contusion of left thigh, initial encounter; W10.9XXA Fall (on) (from) unspecified stairs and steps, initial encounter; Y92.009 Unspecified place in unspecified non-institutional (private) residence as the place of occurrence of the external cause; E87.5 Hyperkalemia; M81.0 Age-related osteoporosis without current pathological fracture; Z85.118 Personal history of other malignant neoplasm of bronchus and lung; Z79.899 Other long term (current) drug therapy; Z87.891 Personal history of nicotine dependence; Z66 Do not resuscitate; L25.9 Unspecified contact dermatitis, unspecified cause; G25.81 Restless legs syndrome

== ENCOUNTER 2019-11-04 15:15 | Inpatient (IN) | payer MEDICARE, OTHER ==
[~2019-11-04] VITALS: Ht 172.7 cm; Wt 46.9 kg
[2019-11-04] MEDS: PANTOPRAZOLE 40MG TAB (PROTONIX) PO SCH (09:00)
[~2019-11-04 15:15] MED LIST changes: +ACET-683 PO; +BETA5OI TOP; +CYCL-707 PO; -CYCL10TA PO; +DOCU100C16 PO; +PERC5TAB12 PO
[2019-11-04] MEDS ORDERED: BISACODYL 10 MG SUPP PR PRN (16:00)
[2019-11-04 16:37] VITALS: BP 154/72
[2019-11-04 20:00] VITALS: BP 118/62
[2019-11-04] MEDS: DOCUSATE SODIUM 100 MG CAP PO SCH (21:08)
[2019-11-04] MEDS: HEPARIN SOD (PORCINE) 5000UNITS/ML VIAL (J1644 PER 1000UNITS) SC SCH (21:10)
[2019-11-04] MEDS: ACETAMINOPHEN 500 MG TAB PO SCH (21:10)
[2019-11-04] MEDS: rOPINIRole 0.25 MG TAB(REQUIP) PO SCH (21:10)
[2019-11-04] MEDS: SENNA 8.6 MG TAB (SENOKOT) PO SCH (21:10)
[2019-11-04] MEDS: POLYVINYL ALCOHOL OPHTH SOLN 15 ML(LIQUITEARS) OD SCH (21:11)
[2019-11-04] MEDS: BETAMETHASONE DIP 0.05% OINT 15 GM TOP SCH (21:11)
[2019-11-04] MEDS: REMEDY PHYTOPLEX Z-GUARD PASTE 113GM TUBE (FROM STOREROOM PRODUCT) TOP SCH (21:22)
[2019-11-05] MEDS: traMADol 50 MG TAB PO PRN ×2 (00:24→14:21)
[2019-11-05 06:00] VITALS: BP 140/63
[2019-11-05 06:51] LABS: BASO % 0.2 % (0.0-1.0); EOS # 0.2 10^3/uL (0.0-0.5); EOS % 3.6 % (0.0-3.0); HEMATOCRIT 28.5 % (36.0-47.0); HEMOGLOBIN 9.3 g/dl (12.0-15.5); LYMPH # 0.9 10^3/uL (1.5-5.0); LYMPH % 17.6 % (24.0-44.0); MEAN CORPUSCULAR HGB CONC 32.6 g/dl (32.0-36.5); MEAN CORPUSCULAR VOLUME 91.9 fl (80.0-96.0); MONO # 0.5 10^3/uL (0.0-0.8); MONO % 10.7 % (0.0-5.0); NEUTROPHILS # 3.4 10^3/uL (1.5-8.5); NEUTROPHILS % 66.3 % (36.0-66.0); PLATELET COUNT, AUTOMATED 146 10^3/uL (150-450); WHITE BLOOD COUNT 5.1 10^3/uL (4.0-10.0)
[2019-11-05 07:19] LABS: ALBUMIN 2.1 GM/DL (3.2-5.2); ALT/SGPT 23 U/L (12-78); BLOOD UREA NITROGEN 12 MG/DL (7-18); CALCIUM LEVEL 7.9 MG/DL (8.8-10.2); CARBON DIOXIDE LEVEL 29 MEQ/L (21-32); CHLORIDE LEVEL 107 MEQ/L (98-107); CREATININE FOR GFR 0.41 MG/DL (0.55-1.30); GLOMERULAR FILTRATION RATE > 60.0 (>39); GLUCOSE, FASTING 88 MG/DL (70-100); POTASSIUM SERUM 3.9 MEQ/L (3.5-5.1); SODIUM LEVEL 140 MEQ/L (136-145)
--- NOTE | 2019-11-05 08:13 | CR ---
DATE OF CONSULTATION: 11/04/2019 HISTORY OF PRESENT ILLNESS: This is a 79-year-old female who was admitted on 10/31/2019, discharged on 11/04/2019 from the medical floor due to a left proximal humeral and scapular fracture status post open reduction internal fixation of left proximal humerus by Dr. Evans, orthopaedic surgery, developed postop delirium during which Haldol was discontinued. Patient also sustained a left 5th and 6th fracture after missing a step down the stairs. During the hospitalization, patient had acute blood loss anemia due to a left thigh hematoma and shoulder fracture requiring four units of red blood cells transfusion. She developed mild hyperkalemia which resolved and was subsequently discharged to acute rehabilitation unit (ARU). Patient currently denies any fevers, chills, chest pain, pressure tightness, shortness of breath. She did have a low grade 100.4 overnight. No nausea, vomiting or diarrhea. denies dysuria, urgency, frequency. pt is requesting for her diet to be changed to regular and to stop fluid restriction. PAST MEDICAL HISTORY: Left proximal humeral and scapular fracture. Postop delirium. Left 5th and 6th rib fractures. Hyperkalemia. Acute blood loss due to left thigh hematoma and shoulder fracture requiring 4 units red blood cell transfusion. Osteoporosis. Glaucoma. Contact dermatitis. Lung cancer. PAST SURGICAL HISTORY: Right hip fracture repair 2008. Left hip repair 2007. Lobectomy 2005. Open reduction internal fixation of the left humerus 2019. ALLERGIES: No known drug allergies . HOME MEDICATIONS: - acetaminophen - alendronate - betamethasone - brimonidine tartrate / Timolol - Refresh - Requip CURRENT HOSPITAL MEDICATIONS: - alendronate - Timolol - heparin - Colace - Senokot - Tylenol - betamethasone - ropinirole - Aqua Tears - bisacodyl - tramadol - Protonix SOCIAL HISTORY: No recreational drug use. Ex-smoker quit in 2007. Never . No children. She is a DO NOT RESUSCITATE. Niece Aiyana is her power of admitted attorneys who is a registered nurse at [employer]. FAMILY HISTORY: Pulmonary fibrosis in her mother. Father had prostate cancer. REVIEW OF SYSTEMS: As per history of present illness (HPI). 12-point system otherwise negative. PHYSICAL EXAMINATION: Maximum temperature (T-max) 100.4, current temperature 99.2, pulse 95, respiratory rate 20. Blood pressure 126/70, 96% on room air. Generally, patient is awake, alert, oriented to herself. Able to answer questions appropriately. Moist mucous membranes. No jugular venous distention (JVD). No thyromegaly. Lungs are clear to auscultation. No wheezing rales or rhonchi. Heart: S1, S2. Sinus rhythm. No murmurs, rubs or gallops. Abdomen is soft, nontender, nondistended. Positive bowel sounds. No abdominal bruits. Patient has a left thigh hematoma in the extremity. Left humerus is in a sling. Patient has normal sensory, bilateral upper extremities and to the fingers. Limited range of motion in the left upper extremity due to recent humeral fracture. LABORATORY DATA: White count 5.1, hemoglobin 9.3, hematocrit 28.5, platelet count 146, 66% neutrophils. Sodium 140, potassium 3.9, chloride 107, bicarbonate 29, BUN 12, creatinine 0.41, glucose 88. Total bilirubin 1, AST 25, ALT 23, alkaline phosphatase, total protein 5, albumin 2.1. IMAGING STUDIES: 11/01/2019 shoulder x-ray status post open reduction internal fixation comminuted proximal humeral fracture overlying post surgical changes. ASSESSMENT/PLAN: This is a 79-year-old female with history of lung cancer, lobectomy, osteoporosis who presented after a mechanical fall at home with a left comminuted fracture dislocating the proximal humerus and humeral head along with a nondisplaced fracture of the scapula and left posterolateral 5th and 6th rib fractures. Patient underwent open reduction of the left proximal humeral fracture, placed in a sling. Pain management, bowel regimen and activity managed by orthopedic surgery. She developed acute blood loss anemia due to a left thigh hematoma and required four units of red blood cell transfusion. Had been stable with her hemoglobin and vitals since and now transferred to ARU for rehabilitation. IMPRESSION: 1. Left proximal humeral and scapular fracture status post left proximal humeral ORIF on 11/01/2019. Currently on pain medications, bowel regimen and ARU. 2. Postop delirium has resolved. 3. Left 5th and 6th rib fractures: Patient has been given incentive spirometry to present atelectasis. Pain management as needed. 4. Acute blood loss anemia due to left thigh hematoma and shoulder fracture: Patient was not on any anticoagulation and required 4 units of red blood cell transfusion during the previous admission. 5. Low grade fever. denies infectious symptoms. rule out atelectasis, check ua chest xray. if >100.4 and recurs, check blood cx. CODE STATUS: DO NOT RESUSCITATE, DO NOT INTUBATE. MTDD
[2019-11-05] MEDS: REMEDY PHYTOPLEX Z-GUARD PASTE 113GM TUBE (FROM STOREROOM PRODUCT) TOP SCH ×3 (09:00→21:00)
[2019-11-05] MEDS: POLYVINYL ALCOHOL OPHTH SOLN 15 ML(LIQUITEARS) OD SCH ×3 (09:15→21:35)
[2019-11-05] MEDS: PANTOPRAZOLE 40MG TAB (PROTONIX) PO SCH (09:15)
[2019-11-05] MEDS: DOCUSATE SODIUM 100 MG CAP PO SCH ×2 (09:15→21:32)
[2019-11-05] MEDS: ACETAMINOPHEN 500 MG TAB PO SCH ×3 (09:15→21:32)
[2019-11-05] MEDS: HEPARIN SOD (PORCINE) 5000UNITS/ML VIAL (J1644 PER 1000UNITS) SC SCH ×2 (09:15→21:33)
[2019-11-05] MEDS: TIMOLOL MALEATE 0.5% OPHTH SOLN 5 ML OD SCH (09:16)
[2019-11-05] MEDS: BETAMETHASONE DIP 0.05% OINT 15 GM TOP SCH ×2 (09:16→21:35)
--- NOTE | 2019-11-05 13:23 | HPEPDOC ---
Flight Operations Coordinator Note DATE OF ADMISSION: 11-04-19 DATE OF SERVICE: 11-05-19 TIME OF ADMISSION: Please refer to physician's admission order. SOURCE OF ADMISSION INFORMATION: [facility] record and patient CHIEF COMPLAINT: left humeral and scapular fracture with rib cage fracture HISTORY OF PRESENT ILLNESS: 79F pmh left upper lobe cancer s/p lobectomy, osteoporosis, left hip fracture 2 018 who fell at home and presented to [facility] ED on 10-29-19 with left arm pain. X- ray revealed, Comminuted displaced and dislocated fracture involving the humeral head extending through the proximal humeral metadiaphysisFractures of the scapula extending through the glenoidSuspected nondisplaced posterior fifth and sixth rib fractures. Her arm was immobilized, she was seen by orthopedics who performed an ORIF left proximal humerus on 11-04-19 without complications. Her surgery was postponed due to acute blood loss in setting of left anterior thigh hematoma requiring 4 units of prbcs. Post-op she was evaluated by therapy, found to have new impairments in mobility and ADLs and deemed medically appropriate for discharge to ARU. REVIEW OF SYSTEMS: The following is a completed review of systems and has been reviewed. Review of systems otherwise unremarkable. PAIN: Patient self reports left shoulder pain EYES: No recent vision changes EARS, NOSE, & THROAT: No throat pain, or dysphagia, or rhinorrhea CARDIOVASCULAR: Denies chest pain or palpitations PULMONARY: Denies shortness of breath GASTROINTESTINAL: Denies constipation/diarrhea GENITOURINARY: denies dysuria MUSCULOSKELETAL: left humeral, scapular, rib fractures NEUROLOGICAL:denies paresthesias HEMATOLOGICAL: +hematoma SKIN: left anterior shoulder incision PSYCHIATRIC: Unremarkable All other review of systems found to be negative. PAST MEDICAL HISTORY: as per HPI PAST SURGICAL HISTORY: as per HPI and right hip fracture ALLERGIES: Please see below. MEDICATIONS: Please see below. 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 GENERAL: Pleasant and cooperative. No acute distress. HEENT: PERRL. Extraocular movements intact. Clear conjunctiva CARDIOVASCULAR: Regular rate and rhythm. No murmurs, rubs, or gallops LUNGS: Clear to auscultation bilaterally. No wheezes. No rhonchi ABDOMEN: Soft, nontender, nondistended. Positive bowel sounds. Normal active bowel sounds NEUROLOGICAL: Alert and oriented times three. Cranial nerves II through XII grossly intact. Sensation grossly intact in all 4 limbs EXTREMITIES: 5\5 strength right upper extremities. RUE exam limited due to weight bearing restrictions, 5\5 strength right lower extremity. 5/5 strength in left lower extremity. +edema and ecchymosis LUE SKIN: left anterior shoulder incision with alfredo-dressing ecchymosis, no eliazar ration LABORATORY DATA: Please see below. IMAGING:Imaging documentation personally reviewed by record FUNCTIONAL STATUS: Premorbid: Independent with all activities of daily life as well as mobility On Admission: Min assist ambulation x10 feet, Mod-assist for toileting, bathing, Max assist lower body dressing. GOALS: Mod-I household distances ambulation household distances, functional transfers, bathing, dressing, toileting ASSESSMENT:79-year-old F with past medical history of osteporosis who presents status post left humeral fracture s/p ORIF PLAN: 1. Rehab- PT/OT advance agit and ADL training, maintain NWB to LUE while strengthening/stretching/maintaining ROM all 3 limbs 2. Ortho: s/p left humeral fracture with ORIF, c/u NWB, ok for PROM elbow and wrist-ortho consulted -c/u weekly Alendronate for osteoporosis, Calcium-Vit D supplement 3. Neuro: +rsetless leg syndrome, c/u Requip qhs 4. Cardiac: no active issues 5. Resp: encourage incentive spirometry, monitor for infection 6. Nathan: s/p 4 units prbc on inpatient for left anterior thigh hematoma, monitor for blood loss and manage accordingly 7. DVT ppx: heparin and TEDs 8. Pain: Tylenol and tramadol prn 9. Dispo: TBD POST ADMISSION PHYSICIAN EVALUATION: Medical and functional status: Description of medical status, medical assessment: As above. Rehabilitation diagnosis and current and prior cold morbid medical conditions as above. Risk of complications and plans to mitigate them as above. Description of functional status current status is as above. Prior status as above. Status compared to preadmission: There are no clinically significant differences between the patient's current status and the information described on the preadmission screening document. Treatment plan anticipated: Treatment plan is as described above. Required disciplines including physical therapy, occupational therapy, others as noted above. Intensity of services: 3 hours a day, 6 days a week. Special considerations: There are no specific special or safety considerations that would likely preclude immediate implementation of an intensive rehabilitation program or subsequently influence the plan of care. ATTESTATION: Considering all the information above, it is my best judgment that this patient requires intensive rehabilitation therapy as described above and an inpatient hospital environment due to the complexity of nursing, medical, and rehabilitation needs required by the patient. Furthermore, this patient can reasonably be expected to participate in an benefit from an inpatient rehabilitation stay with an interdisciplinary team approach to the delivery of rehabilitation care under the direction and supervision of rehabilitation physician. PROGNOSIS: Excellent ESTIMATED LENGTH OF STAY:14-18 days. PROJECTED DISCHARGE DESTINATION: Home with family support and any durable medical equipment required to increase functional safety and mobility TIME SPENT COUNSELING AND COORDINATING INITIAL CARE: Greater than 70 minutes. Vital Signs Vital Sign - Last 24 Hours 11/04/19 11/04/19 11/05/19 11/05/19 16:37 20:00 00:24 06:00 Temp 97.2 98.4 98.7 Pulse 89 90 83 Resp 18 18 18 18 B/P (MAP) 154/72 (99) 118/62 (80) 140/63 (88) Pulse Ox 94 96 92 O2 Delivery Room Air Room Air Room Air Room Air Laboratory Data CBC/BMP Laboratory Tests 11/05/19 06:20 Labs 24H Laboratory Tests 2 11/05/19 06:20: Immature Granulocyte % (Auto) 1.6, Neutrophils (%) (Auto) 66.3H, Lymphocytes (%) (Auto) 17.6L, Monocytes (%) (Auto) 10.7H, Eosinophils (%) (Auto) 3.6H, Basophils (%) (Auto) 0.2, Neutrophils # (Auto) 3.4, Lymphocytes # (Auto) 0.9L, Monocytes # (Auto) 0.5, Eosinophils # (Auto) 0.2, Basophils # (Auto) 0.0, Nucleated Red Blood Cells % (auto) 0.0, Anion Gap 4L, Glomerular Filtration Rate > 60.0, Calcium Level 7.9L, Total Bilirubin 1.0, Aspartate Amino Transf (AST/SGOT) 25, Alanine Aminotransferase (ALT/SGPT) 23, Alkaline Phosphatase 60, Total Protein 5.0L, Albumin 2.1L, Albumin/Globulin Ratio 0.72L Home Medications Scheduled Acetaminophen (Acetaminophen) 500 Mg Tablet, 1,000 MG PO Q8H Alendronate Sodium (Fosamax) 70 Mg Tab, 70 MG PO QWEEK, (Reported) SUNDAY Betamethasone Dip (Betamethasone Dipropionate) 15 Gm Oint...g., 1 APLCT TOP BID, (Reported) APPLY TO LEFT HAND Brimonidine Tartrate/Timolol (Combigan 0.2%-0.5% Eye Drops) 1 Glenny Glenny, 1 DROP OD DAILY, (Reported) Carboxymethylcellulose Sod (Refresh Celluvisc) 0.4 Ml Soln, 1 DROP OU BID, (Reported) Docusate Sodium (Docusate Sodium) 100 Mg Capsule, 100 MG PO BID Ropinirole HCl (Ropinirole HCl) 0.5 Mg Tablet, 0.25 MG PO QHS, (Reported) Scheduled PRN Acetaminophen (Acetaminophen) 325 Mg Tablet, 650 MG PO Q4H PRN for PAIN, (Reported) Tramadol HCl (Tramadol HCl) 50 Mg Tablet, 50 MG PO Q4HP PRN for MODERATE PAIN (PS 5-7) Tramadol HCl (Tramadol HCl) 50 Mg Tablet, 100 MG PO Q6HP PRN for SEVERE PAIN (PS 8-10) Allergies Coded Allergies: No Known Allergies (Verified , 09/19/17) A-FIB/CHADSVASC A-FIB History Current/History of A-Fib/PAF?: No Current PO Anticoag Therapy: No SHAISTA RAMOS MD Nov 05, 2019 13:23
[2019-11-05 14:00] VITALS: BP 132/71
[2019-11-05] MEDS: rOPINIRole 0.25 MG TAB(REQUIP) PO SCH (21:32)
[2019-11-05] MEDS: SENNA 8.6 MG TAB (SENOKOT) PO SCH (21:32)
[2019-11-05 22:00] VITALS: BP 135/74
[2019-11-06 05:48] VITALS: BP 135/69
[2019-11-06] MEDS: ALENDRONATE 35MG TABLET PO SCH (06:26)
[2019-11-06] MEDS: REMEDY PHYTOPLEX Z-GUARD PASTE 113GM TUBE (FROM STOREROOM PRODUCT) TOP SCH ×3 (09:00→21:00)
[2019-11-06] MEDS: PANTOPRAZOLE 40MG TAB (PROTONIX) PO SCH (09:51)
[2019-11-06] MEDS: DOCUSATE SODIUM 100 MG CAP PO SCH ×2 (09:51→21:47)
[2019-11-06] MEDS: ACETAMINOPHEN 500 MG TAB PO SCH ×3 (09:52→21:48)
[2019-11-06] MEDS: HEPARIN SOD (PORCINE) 5000UNITS/ML VIAL (J1644 PER 1000UNITS) SC SCH ×2 (09:54→21:47)
[2019-11-06] MEDS: BETAMETHASONE DIP 0.05% OINT 15 GM TOP SCH ×2 (09:56→21:00)
[2019-11-06] MEDS: POLYVINYL ALCOHOL OPHTH SOLN 15 ML(LIQUITEARS) OD SCH ×3 (09:56→21:48)
[2019-11-06] MEDS: TIMOLOL MALEATE 0.5% OPHTH SOLN 5 ML OD SCH (09:56)
--- NOTE | 2019-11-06 11:35 | IPNPDOC ---
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 She reports she know she needs to slow down, but that it is not in her nature. REVIEW OF SYSTEMS: The following is a completed review of systems and has been reviewed. Review of systems otherwise unremarkable. PAIN: Patient self reports left shoulder pain EYES: No recent vision changes EARS, NOSE, & THROAT: No throat pain, or dysphagia, or rhinorrhea CARDIOVASCULAR: Denies chest pain or palpitations PULMONARY: Denies shortness of breath GASTROINTESTINAL: Denies constipation/diarrhea GENITOURINARY: denies dysuria MUSCULOSKELETAL: left humeral, scapular, rib fractures NEUROLOGICAL:denies paresthesias HEMATOLOGICAL: +hematoma SKIN: left anterior shoulder incision PSYCHIATRIC: Unremarkable All other review of systems found to be negative. PHYSICAL EXAMINATION: VITAL SIGNS: Please see below. GENERAL: Pleasant and cooperative. No acute distress. HEENT: PERRL. Extraocular movements intact. Clear conjunctiva CARDIOVASCULAR: Regular rate and rhythm. No murmurs, rubs, or gallops LUNGS: Clear to auscultation bilaterally. No wheezes. No rhonchi ABDOMEN: Soft, nontender, nondistended. Positive bowel sounds. Normal active bowel sounds NEUROLOGICAL: Alert and oriented times three. Cranial nerves II through XII grossly intact. Sensation grossly intact in all 4 limbs EXTREMITIES: 5\5 strength right upper extremities. RUE exam limited due to weight bearing restrictions, 5\5 strength right lower extremity. 5/5 strength in left lower extremity. +edema and ecchymosis LUE SKIN: left anterior shoulder incision with alfredo-dressing ecchymosis, no induration ASSESSMENT:79-year-old F with past medical history of osteporosis who presents status post left humeral fracture s/p ORIF PLAN: 1. Rehab- PT/OT advance agit and ADL training, maintain NWB to LUE while strengthening/stretching/maintaining ROM all 3 limbs 2. Ortho: s/p left humeral fracture with ORIF, c/u NWB, ok for PROM elbow and wrist-ortho consulted -c/u weekly Alendronate for osteoporosis, Calcium-Vit D supplement 3. Neuro: +restless leg syndrome, c/u Requip qhs 4. Cardiac: no active issues 5. Resp: encourage incentive spirometry, monitor for infection 6. Nathan: s/p 4 units prbc on inpatient for left anterior thigh hematoma, monitor for blood loss and manage accordingly 7. DVT ppx: heparin and TEDs 8. Pain: Tylenol and tramadol prn 9. Dispo: TBD Allergies Coded Allergies: No Known Allergies (Verified , 09/19/17) Vital Signs Vital Signs Date Time Temp Pulse Resp B/P (MAP) Pulse Ox O2 Delivery O2 Flow Rate FiO2 11/06/19 05:48 98.1 81 18 135/69 (91) 95 Room Air Current Medications Current Medications Current Medications Medications (Trade) Dose Ordered Sig/Mo Route PRN Reason Start Time Stop Time Status Last Admin Dose Admin Acetaminophen (Tylenol Tab) 1,000 mg TID PO 11/04/19 21:00 11/06/19 09:52 Alendronate Sodium (Fosamax) 70 mg Th@07 PO 11/06/19 07:00 11/06/19 06:26 Artificial Tears (Akwa Tears) 2 drop TID OD 11/04/19 21:00 11/06/19 09:56 Betamethasone Dipropionate (Diprosone) apply to left hand BID TOP 11/04/19 21:00 11/06/19 09:56 Bisacodyl (Dulcolax Suppository) 10 mg DAILYPRN PRN [place] CONSTIPATION 11/04/19 16:00 Docusate Sodium (Colace) 100 mg BID PO 11/04/19 21:00 11/06/19 09:51 Heparin Sodium (Porcine) (Heparin) 5,000 units Q12H SC 11/04/19 21:00 11/06/19 09:54 Home Med (Med Rec Complete!) ASDIRECTED XX 11/04/19 17:00 11/04/19 16:54 DC Pantoprazole Sodium (Protonix) 40 mg DAILY PO 11/04/19 09:00 11/06/19 09:51 Ropinirole HCl (Requip) 0.25 mg QHS PO 11/04/19 21:00 11/05/19 21:32 Senna (Senokot) 1 tab QHS PO 11/04/19 21:00 11/05/19 21:32 Timolol Maleate (Timoptic 0.5% Ophth Glenny) 1 drop DAILY OD 11/05/19 09:00 11/06/19 09:56 Tramadol HCl (Ultram) 50 mg Q4HP PRN PO MODERATE PAIN (PS 5-7) 11/04/19 16:00 11/05/19 14:21 SHAISTA RAMOS MD Nov 06, 2019 11:35
[2019-11-06 14:30] VITALS: BP 126/72
[2019-11-06] MEDS: rOPINIRole 0.25 MG TAB(REQUIP) PO SCH (21:46)
[2019-11-06] MEDS: SENNA 8.6 MG TAB (SENOKOT) PO SCH (21:47)
[2019-11-06] MEDS: traMADol 50 MG TAB PO PRN (21:48)
[2019-11-06 22:00] VITALS: BP 143/80
[2019-11-07 05:56] LABS: BASO # 0.1 10^3/uL (0.0-0.2); EOS # 0.2 10^3/uL (0.0-0.5); EOS % 3.9 % (0.0-3.0); HEMATOCRIT 30.1 % (36.0-47.0); HEMOGLOBIN 9.9 g/dl (12.0-15.5); LYMPH # 1.2 10^3/uL (1.5-5.0); MEAN CORPUSCULAR HEMOGLOBIN 30.7 pg (27.0-33.0); MEAN CORPUSCULAR HGB CONC 32.9 g/dl (32.0-36.5); MEAN CORPUSCULAR VOLUME 93.5 fl (80.0-96.0); MONO # 0.6 10^3/uL (0.0-0.8); MONO % 12.6 % (0.0-5.0); NEUTROPHILS # 2.7 10^3/uL (1.5-8.5); NEUTROPHILS % 54.6 % (36.0-66.0); PLATELET COUNT, AUTOMATED 223 10^3/uL (150-450); RED BLOOD COUNT 3.22 10^6/uL (4.00-5.40); WHITE BLOOD COUNT 4.9 10^3/uL (4.0-10.0)
[2019-11-07 06:00] VITALS: BP 130/70
[2019-11-07 06:10] LABS: BLOOD UREA NITROGEN 14 MG/DL (7-18); CALCIUM LEVEL 8.5 MG/DL (8.8-10.2); CARBON DIOXIDE LEVEL 30 MEQ/L (21-32); CHLORIDE LEVEL 106 MEQ/L (98-107); GLOMERULAR FILTRATION RATE > 60.0 (>39); GLUCOSE, FASTING 81 MG/DL (70-100); SODIUM LEVEL 139 MEQ/L (136-145)
[2019-11-07] MEDS: ACETAMINOPHEN 500 MG TAB PO SCH ×3 (10:00→20:46)
[2019-11-07] MEDS: HEPARIN SOD (PORCINE) 5000UNITS/ML VIAL (J1644 PER 1000UNITS) SC SCH ×2 (10:00→20:47)
[2019-11-07] MEDS: TIMOLOL MALEATE 0.5% OPHTH SOLN 5 ML OD SCH (10:00)
[2019-11-07] MEDS: PANTOPRAZOLE 40MG TAB (PROTONIX) PO SCH (10:00)
[2019-11-07] MEDS: DOCUSATE SODIUM 100 MG CAP PO SCH ×2 (10:00→20:46)
[2019-11-07] MEDS: POLYVINYL ALCOHOL OPHTH SOLN 15 ML(LIQUITEARS) OD SCH ×3 (10:00→20:47)
[2019-11-07] MEDS: REMEDY PHYTOPLEX Z-GUARD PASTE 113GM TUBE (FROM STOREROOM PRODUCT) TOP SCH ×3 (10:01→20:48)
[2019-11-07] MEDS: BETAMETHASONE DIP 0.05% OINT 15 GM TOP SCH (10:01)
[2019-11-07 14:00] VITALS: BP 117/69
--- NOTE | 2019-11-07 15:14 | IPNPDOC ---
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 REVIEW OF SYSTEMS: The following is a completed review of systems and has been reviewed. Review of systems otherwise unremarkable. PAIN: Patient self reports left shoulder pain EYES: No recent vision changes EARS, NOSE, & THROAT: No throat pain, or dysphagia, or rhinorrhea CARDIOVASCULAR: Denies chest pain or palpitations PULMONARY: Denies shortness of breath GASTROINTESTINAL: Denies constipation/diarrhea GENITOURINARY: denies dysuria MUSCULOSKELETAL: left humeral, scapular, rib fractures NEUROLOGICAL:denies paresthesias HEMATOLOGICAL: +hematoma SKIN: left anterior shoulder incision PSYCHIATRIC: Unremarkable All other review of systems found to be negative. PHYSICAL EXAMINATION: VITAL SIGNS: Please see below. GENERAL: Pleasant and cooperative. No acute distress. HEENT: PERRL. Extraocular movements intact. Clear conjunctiva CARDIOVASCULAR: Regular rate and rhythm. No murmurs, rubs, or gallops LUNGS: Clear to auscultation bilaterally. No wheezes. No rhonchi ABDOMEN: Soft, nontender, nondistended. Positive bowel sounds. Normal active bowel sounds NEUROLOGICAL: Alert and oriented times three. Cranial nerves II through XII grossly intact. Sensation grossly intact in all 4 limbs EXTREMITIES: 5\5 strength right upper extremities. RUE exam limited due to weight bearing restrictions, 5\5 strength right lower extremity. 5/5 strength in left lower extremity. +edema and ecchymosis LUE SKIN: left anterior shoulder incision with alfredo-dressing ecchymosis, no induration ASSESSMENT:79-year-old F with past medical history of osteoporosis who presents status post left humeral fracture s/p ORIF PLAN: 1. Rehab- PT/OT advance agit and ADL training, maintain NWB to LUE while strengthening/stretching/maintaining ROM all 3 limbs 2. Ortho: s/p left humeral fracture with ORIF, c/u NWB, ok for PROM elbow and wrist-ortho consulted -c/u weekly Alendronate for osteoporosis, Calcium-Vit D supplement 3. Neuro: +restless leg syndrome, c/u Requip qhs 4. Cardiac: no active issues 5. Resp: encourage incentive spirometry, monitor for infection 6. Nathan: s/p 4 units prbc on inpatient for left anterior thigh hematoma, monitor for blood loss and manage accordingly 7. DVT ppx: heparin and TEDs 8. Pain: Tylenol and tramadol prn 9. Dispo: TBD Allergies Coded Allergies: No Known Allergies (Verified , 09/19/17) Vital Signs Vital Signs Date Time Temp Pulse Resp B/P (MAP) Pulse Ox O2 Delivery O2 Flow Rate FiO2 11/07/19 14:00 98.4 88 16 117/69 (85) 95 Room Air Laboratory Data CBC/BMP Laboratory Tests 11/07/19 05:16 Labs 24H Laboratory Tests 2 11/07/19 05:16: Immature Granulocyte % (Auto) 3.9H, Neutrophils (%) (Auto) 54.6, Lymphocytes (%) (Auto) 24.0, Monocytes (%) (Auto) 12.6H, Eosinophils (%) (Auto) 3.9H, Basophils (%) (Auto) 1.0, Neutrophils # (Auto) 2.7, Lymphocytes # (Auto) 1.2L, Monocytes # (Auto) 0.6, Eosinophils # (Auto) 0.2, Basophils # (Auto) 0.1, Nucleated Red Blood Cells % (auto) 0.0, Anion Gap 3L, Glomerular Filtration Rate > 60.0, Calcium Level 8.5L Current Medications Current Medications Current Medications Medications (Trade) Dose Ordered Sig/Mo Route PRN Reason Start Time Stop Time Status Last Admin Dose Admin Acetaminophen (Tylenol Tab) 1,000 mg TID PO 11/04/19 21:00 11/07/19 10:00 Alendronate Sodium (Fosamax) 70 mg Th@07 PO 11/06/19 07:00 11/06/19 06:26 Artificial Tears (Akwa Tears) 2 drop TID OD 11/04/19 21:00 11/07/19 10:00 Betamethasone Dipropionate (Diprosone) apply to left hand BID TOP 11/04/19 21:00 11/07/19 10:01 Bisacodyl (Dulcolax Suppository) 10 mg DAILYPRN PRN [place] CONSTIPATION 11/04/19 16:00 Docusate Sodium (Colace) 100 mg BID PO 11/04/19 21:00 11/07/19 10:00 Heparin Sodium (Porcine) (Heparin) 5,000 units Q12H SC 11/04/19 21:00 11/07/19 10:00 Home Med (Med Rec Complete!) ASDIRECTED XX 11/04/19 17:00 11/04/19 16:54 DC Pantoprazole Sodium (Protonix) 40 mg DAILY PO 11/04/19 09:00 11/07/19 10:00 Ropinirole HCl (Requip) 0.25 mg QHS PO 11/04/19 21:00 11/06/19 21:46 Senna (Senokot) 1 tab QHS PO 11/04/19 21:00 11/06/19 21:47 Timolol Maleate (Timoptic 0.5% Ophth Glenny) 1 drop DAILY OD 11/05/19 09:00 11/07/19 10:00 Tramadol HCl (Ultram) 50 mg Q4HP PRN PO MODERATE PAIN (PS 5-7) 11/04/19 16:00 11/06/19 21:48 SHAISTA RAMOS MD Nov 07, 2019 15:14
[2019-11-07] MEDS ORDERED: amLODIPine 5 MG TAB PO ONE (16:00)
[2019-11-07 20:00] VITALS: BP 128/73
[2019-11-07] MEDS: SENNA 8.6 MG TAB (SENOKOT) PO SCH (20:46)
[2019-11-07] MEDS: rOPINIRole 0.25 MG TAB(REQUIP) PO SCH (20:46)
[2019-11-07] MEDS: traMADol 50 MG TAB PO PRN (20:47)
[2019-11-08 06:00] VITALS: BP 138/73
[2019-11-08] MEDS: PANTOPRAZOLE 40MG TAB (PROTONIX) PO SCH (08:41)
[2019-11-08] MEDS: POLYVINYL ALCOHOL OPHTH SOLN 15 ML(LIQUITEARS) OD SCH ×3 (08:42→21:06)
[2019-11-08] MEDS: DOCUSATE SODIUM 100 MG CAP PO SCH ×2 (08:42→21:05)
[2019-11-08] MEDS: REMEDY PHYTOPLEX Z-GUARD PASTE 113GM TUBE (FROM STOREROOM PRODUCT) TOP SCH ×3 (08:42→21:07)
[2019-11-08] MEDS: ACETAMINOPHEN 500 MG TAB PO SCH ×3 (08:42→21:06)
[2019-11-08] MEDS: TIMOLOL MALEATE 0.5% OPHTH SOLN 5 ML OD SCH (08:42)
[2019-11-08] MEDS: HEPARIN SOD (PORCINE) 5000UNITS/ML VIAL (J1644 PER 1000UNITS) SC SCH ×2 (08:42→21:05)
[2019-11-08 14:00] VITALS: BP 117/61
[2019-11-08 20:00] VITALS: BP 130/82
[2019-11-08] MEDS: SENNA 8.6 MG TAB (SENOKOT) PO SCH (21:05)
[2019-11-08] MEDS: rOPINIRole 0.25 MG TAB(REQUIP) PO SCH (21:05)
[2019-11-08] MEDS: traMADol 50 MG TAB PO PRN (21:12)
[2019-11-09 04:31] VITALS: BP 140/92
[2019-11-09] MEDS: HEPARIN SOD (PORCINE) 5000UNITS/ML VIAL (J1644 PER 1000UNITS) SC SCH ×2 (07:19→21:45)
[2019-11-09] MEDS: traMADol 50 MG TAB PO PRN (07:20)
[2019-11-09] MEDS: PANTOPRAZOLE 40MG TAB (PROTONIX) PO SCH (07:20)
[2019-11-09] MEDS: ACETAMINOPHEN 500 MG TAB PO SCH ×3 (07:20→21:43)
[2019-11-09] MEDS: REMEDY PHYTOPLEX Z-GUARD PASTE 113GM TUBE (FROM STOREROOM PRODUCT) TOP SCH ×3 (07:21→21:45)
[2019-11-09] MEDS: POLYVINYL ALCOHOL OPHTH SOLN 15 ML(LIQUITEARS) OD SCH ×3 (07:21→21:45)
[2019-11-09] MEDS: TIMOLOL MALEATE 0.5% OPHTH SOLN 5 ML OD SCH (07:21)
[2019-11-09] MEDS: DOCUSATE SODIUM 100 MG CAP PO SCH ×2 (07:22→21:43)
[2019-11-09 14:00] VITALS: BP 141/68
[2019-11-09 20:00] VITALS: BP 139/86
[2019-11-09] MEDS: rOPINIRole 0.25 MG TAB(REQUIP) PO SCH (21:44)
[2019-11-09] MEDS: SENNA 8.6 MG TAB (SENOKOT) PO SCH (21:44)
[2019-11-10] MEDS: traMADol 50 MG TAB PO PRN ×2 (00:11→21:47)
[2019-11-10 06:00] VITALS: BP 138/71
[2019-11-10 06:52] LABS: BASO # 0.1 10^3/uL (0.0-0.2); BASO % 1.1 % (0.0-1.0); EOS # 0.2 10^3/uL (0.0-0.5); EOS % 2.7 % (0.0-3.0); HEMATOCRIT 31.8 % (36.0-47.0); HEMOGLOBIN 10.2 g/dl (12.0-15.5); LYMPH # 1.2 10^3/uL (1.5-5.0); LYMPH % 19.3 % (24.0-44.0); MEAN CORPUSCULAR HEMOGLOBIN 30.7 pg (27.0-33.0); MEAN CORPUSCULAR HGB CONC 32.1 g/dl (32.0-36.5); MEAN CORPUSCULAR VOLUME 95.8 fl (80.0-96.0); MONO # 0.6 10^3/uL (0.0-0.8); MONO % 9.8 % (0.0-5.0); NEUTROPHILS % 64.9 % (36.0-66.0); PLATELET COUNT, AUTOMATED 256 10^3/uL (150-450); RED BLOOD COUNT 3.32 10^6/uL (4.00-5.40); WHITE BLOOD COUNT 6.2 10^3/uL (4.0-10.0)
[2019-11-10 07:21] LABS: BLOOD UREA NITROGEN 15 MG/DL (7-18); CALCIUM LEVEL 8.5 MG/DL (8.8-10.2); CARBON DIOXIDE LEVEL 30 MEQ/L (21-32); CHLORIDE LEVEL 106 MEQ/L (98-107); CREATININE FOR GFR 0.48 MG/DL (0.55-1.30); GLOMERULAR FILTRATION RATE > 60.0 (>39); GLUCOSE, FASTING 87 MG/DL (70-100); POTASSIUM SERUM 4.3 MEQ/L (3.5-5.1); SODIUM LEVEL 142 MEQ/L (136-145)
[2019-11-10] MEDS: DOCUSATE SODIUM 100 MG CAP PO SCH ×2 (07:43→20:29)
[2019-11-10] MEDS: PANTOPRAZOLE 40MG TAB (PROTONIX) PO SCH (07:43)
[2019-11-10] MEDS: ACETAMINOPHEN 500 MG TAB PO SCH ×3 (07:43→20:29)
[2019-11-10] MEDS: POLYVINYL ALCOHOL OPHTH SOLN 15 ML(LIQUITEARS) OD SCH ×3 (07:44→20:29)
[2019-11-10] MEDS: TIMOLOL MALEATE 0.5% OPHTH SOLN 5 ML OD SCH (07:44)
[2019-11-10] MEDS: HEPARIN SOD (PORCINE) 5000UNITS/ML VIAL (J1644 PER 1000UNITS) SC SCH ×2 (07:44→20:28)
[2019-11-10] MEDS: REMEDY PHYTOPLEX Z-GUARD PASTE 113GM TUBE (FROM STOREROOM PRODUCT) TOP SCH ×3 (07:45→20:33)
--- NOTE | 2019-11-10 12:00 | IPNPDOC ---
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 REVIEW OF SYSTEMS: The following is a completed review of systems and has been reviewed. Review of systems otherwise unremarkable. PAIN: Patient self reports left shoulder pain EYES: No recent vision changes EARS, NOSE, & THROAT: No throat pain, or dysphagia, or rhinorrhea CARDIOVASCULAR: Denies chest pain or palpitations PULMONARY: Denies shortness of breath GASTROINTESTINAL: Denies constipation/diarrhea GENITOURINARY: +urinary frequency MUSCULOSKELETAL: left humeral, scapular, rib fractures NEUROLOGICAL:denies paresthesias HEMATOLOGICAL: +hematoma SKIN: left anterior shoulder incision PSYCHIATRIC: Unremarkable All other review of systems found to be negative. PHYSICAL EXAMINATION: VITAL SIGNS: Please see below. GENERAL: Pleasant and cooperative. No acute distress. HEENT: PERRL. Extraocular movements intact. Clear conjunctiva CARDIOVASCULAR: Regular rate and rhythm. No murmurs, rubs, or gallops LUNGS: Clear to auscultation bilaterally. No wheezes. No rhonchi ABDOMEN: Soft, nontender, nondistended. Positive bowel sounds. Normal active bowel sounds NEUROLOGICAL: Alert and oriented times three. Cranial nerves II through XII grossly intact. Sensation grossly intact in all 4 limbs EXTREMITIES: 5\5 strength right upper extremities. RUE exam limited due to weight bearing restrictions, 5\5 strength right lower extremity. 5/5 strength in left lower extremity. +edema and ecchymosis LUE (improving) SKIN: left anterior shoulder incision with alfredo-dressing ecchymosis, no induration ASSESSMENT:79-year-old F with past medical history of osteoporosis who presents status post left humeral fracture s/p ORIF PLAN: 1. Rehab- PT/OT advance agit and ADL training, maintain NWB to LUE while strengthening/stretching/maintaining ROM all 3 limbs -ambulating with Narrow quad-based cane 2. Ortho: s/p left humeral fracture with ORIF, c/u NWB, ok for PROM elbow and wrist-ortho consulted -c/u weekly Alendronate for osteoporosis, Calcium-Vit D supplement 3. Neuro: +restless leg syndrome, c/u Requip qhs 4. Cardiac: no active issues 5. Resp: encourage incentive spirometry, monitor for infection 6. Nathan: s/p 4 units prbc on inpatient for left anterior thigh hematoma, monitor for blood loss and manage accordingly-stable 7. DVT ppx: heparin and TEDs 8. Pain: Tylenol and tramadol prn 9. :patient reporting urinary frequency will check UA and Ucx to r/o infection 10. Dispo: TBD Allergies Coded Allergies: No Known Allergies (Verified , 09/19/17) Vital Signs Vital Signs Date Time Temp Pulse Resp B/P (MAP) Pulse Ox O2 Delivery O2 Flow Rate FiO2 11/10/19 06:00 99.2 78 18 138/71 (93) 94 Room Air Laboratory Data CBC/BMP Laboratory Tests 11/10/19 06:33 Labs 24H Laboratory Tests 2 11/10/19 06:33: Immature Granulocyte % (Auto) 2.2, Neutrophils (%) (Auto) 64.9, Lymphocytes (%) (Auto) 19.3L, Monocytes (%) (Auto) 9.8H, Eosinophils (%) (Auto) 2.7, Basophils (%) (Auto) 1.1H, Neutrophils # (Auto) 4.0, Lymphocytes # (Auto) 1.2L, Monocytes # (Auto) 0.6, Eosinophils # (Auto) 0.2, Basophils # (Auto) 0.1, Nucleated Red Blood Cells % (auto) 0.0, Anion Gap 6L, Glomerular Filtration Rate > 60.0, Calcium Level 8.5L Current Medications Current Medications Current Medications Medications (Trade) Dose Ordered Sig/Mo Route PRN Reason Start Time Stop Time Status Last Admin Dose Admin Acetaminophen (Tylenol Tab) 1,000 mg TID PO 11/04/19 21:00 11/10/19 07:43 Alendronate Sodium (Fosamax) 70 mg Th@07 PO 11/06/19 07:00 11/06/19 06:26 Artificial Tears (Akwa Tears) 2 drop TID OD 11/04/19 21:00 11/10/19 07:44 Betamethasone Dipropionate (Diprosone) apply to left hand BID TOP 11/04/19 21:00 11/07/19 15:14 DC 11/07/19 10:01 Bisacodyl (Dulcolax Suppository) 10 mg DAILYPRN PRN [place] CONSTIPATION 11/04/19 16:00 Docusate Sodium (Colace) 100 mg BID PO 11/04/19 21:00 11/10/19 07:43 Heparin Sodium (Porcine) (Heparin) 5,000 units Q12H SC 11/04/19 21:00 11/10/19 07:44 Home Med (Med Rec Complete!) ASDIRECTED XX 11/04/19 17:00 11/04/19 16:54 DC Pantoprazole Sodium (Protonix) 40 mg DAILY PO 11/04/19 09:00 11/10/19 07:43 Ropinirole HCl (Requip) 0.25 mg QHS PO 11/04/19 21:00 11/09/19 21:44 Senna (Senokot) 1 tab QHS PO 11/04/19 21:00 11/09/19 21:44 Timolol Maleate (Timoptic 0.5% Ophth Glenny) 1 drop DAILY OD 11/05/19 09:00 11/10/19 07:44 Tramadol HCl (Ultram) 50 mg Q4HP PRN PO MODERATE PAIN (PS 5-7) 11/04/19 16:00 11/10/19 00:11 SHAISTA RAMOS MD Nov 10, 2019 12:00
[2019-11-10 14:00] VITALS: BP 120/66
[2019-11-10 20:00] VITALS: BP 125/64
[2019-11-10] MEDS: rOPINIRole 0.25 MG TAB(REQUIP) PO SCH (20:29)
[2019-11-10] MEDS: SENNA 8.6 MG TAB (SENOKOT) PO SCH (20:29)
[2019-11-11 06:00] VITALS: BP 140/68
[2019-11-11] MEDS: HEPARIN SOD (PORCINE) 5000UNITS/ML VIAL (J1644 PER 1000UNITS) SC SCH ×2 (07:56→20:29)
[2019-11-11] MEDS: ACETAMINOPHEN 500 MG TAB PO SCH ×3 (07:57→20:29)
[2019-11-11] MEDS: DOCUSATE SODIUM 100 MG CAP PO SCH ×2 (07:57→20:28)
[2019-11-11] MEDS: PANTOPRAZOLE 40MG TAB (PROTONIX) PO SCH (07:57)
[2019-11-11] MEDS: TIMOLOL MALEATE 0.5% OPHTH SOLN 5 ML OD SCH (07:58)
[2019-11-11] MEDS: POLYVINYL ALCOHOL OPHTH SOLN 15 ML(LIQUITEARS) OD SCH ×3 (07:58→20:30)
[2019-11-11] MEDS: REMEDY PHYTOPLEX Z-GUARD PASTE 113GM TUBE (FROM STOREROOM PRODUCT) TOP SCH ×3 (07:59→20:30)
[2019-11-11 14:00] VITALS: BP 117/62
[2019-11-11 20:00] VITALS: BP 118/66
[2019-11-11] MEDS: SENNA 8.6 MG TAB (SENOKOT) PO SCH (20:29)
[2019-11-11] MEDS: rOPINIRole 0.25 MG TAB(REQUIP) PO SCH (20:29)
[2019-11-11] MEDS: traMADol 50 MG TAB PO PRN (21:55)
[2019-11-12 06:03] LABS: BASO # 0.1 10^3/uL (0.0-0.2); BASO % 1.2 % (0.0-1.0); EOS # 0.2 10^3/uL (0.0-0.5); EOS % 2.8 % (0.0-3.0); HEMATOCRIT 32.4 % (36.0-47.0); HEMOGLOBIN 10.1 g/dl (12.0-15.5); LYMPH # 1.1 10^3/uL (1.5-5.0); MEAN CORPUSCULAR HEMOGLOBIN 30.1 pg (27.0-33.0); MEAN CORPUSCULAR HGB CONC 31.2 g/dl (32.0-36.5); MEAN CORPUSCULAR VOLUME 96.7 fl (80.0-96.0); MONO # 0.5 10^3/uL (0.0-0.8); MONO % 8.6 % (0.0-5.0); NEUTROPHILS # 4.1 10^3/uL (1.5-8.5); NEUTROPHILS % 67.9 % (36.0-66.0); PLATELET COUNT, AUTOMATED 261 10^3/uL (150-450); RED BLOOD COUNT 3.35 10^6/uL (4.00-5.40); WHITE BLOOD COUNT 6.1 10^3/uL (4.0-10.0)
[2019-11-12 06:08] VITALS: BP 122/70
[2019-11-12 06:29] LABS: BLOOD UREA NITROGEN 15 MG/DL (7-18); CALCIUM LEVEL 8.4 MG/DL (8.8-10.2); CARBON DIOXIDE LEVEL 28 MEQ/L (21-32); CHLORIDE LEVEL 107 MEQ/L (98-107); CREATININE FOR GFR 0.44 MG/DL (0.55-1.30); GLOMERULAR FILTRATION RATE > 60.0 (>39); GLUCOSE, FASTING 88 MG/DL (70-100); POTASSIUM SERUM 3.9 MEQ/L (3.5-5.1); SODIUM LEVEL 139 MEQ/L (136-145)
[2019-11-12] MEDS: HEPARIN SOD (PORCINE) 5000UNITS/ML VIAL (J1644 PER 1000UNITS) SC SCH ×2 (08:28→21:57)
[2019-11-12] MEDS: DOCUSATE SODIUM 100 MG CAP PO SCH ×2 (08:28→21:56)
[2019-11-12] MEDS: ACETAMINOPHEN 500 MG TAB PO SCH ×3 (08:28→21:56)
[2019-11-12] MEDS: PANTOPRAZOLE 40MG TAB (PROTONIX) PO SCH (08:28)
[2019-11-12] MEDS: REMEDY PHYTOPLEX Z-GUARD PASTE 113GM TUBE (FROM STOREROOM PRODUCT) TOP SCH ×3 (09:38→21:57)
[2019-11-12] MEDS: TIMOLOL MALEATE 0.5% OPHTH SOLN 5 ML OD SCH (09:38)
[2019-11-12] MEDS: POLYVINYL ALCOHOL OPHTH SOLN 15 ML(LIQUITEARS) OD SCH ×3 (09:38→21:58)
[2019-11-12] MEDS: LACTOBACILLUS ACIDOPHILUS CAP (BACID) PO SCH ×2 (12:42→16:54)
[2019-11-12] MEDS: LevoFLOXacin 250 MG TABLET PO SCH (12:42)
[2019-11-12 14:00] VITALS: BP 116/58
[2019-11-12] MEDS: rOPINIRole 0.25 MG TAB(REQUIP) PO SCH (21:56)
[2019-11-12] MEDS: SENNA 8.6 MG TAB (SENOKOT) PO SCH (21:56)
[2019-11-12 22:00] VITALS: BP 134/66
[2019-11-12] MEDS: traMADol 50 MG TAB PO PRN (23:31)
[2019-11-13 06:00] VITALS: BP 157/76
[2019-11-13] MEDS: LevoFLOXacin 250 MG TABLET PO SCH (06:07)
[2019-11-13] MEDS: ALENDRONATE 35MG TABLET PO SCH (06:08)
[2019-11-13] MEDS: HEPARIN SOD (PORCINE) 5000UNITS/ML VIAL (J1644 PER 1000UNITS) SC SCH ×2 (08:32→20:46)
[2019-11-13] MEDS: LACTOBACILLUS ACIDOPHILUS CAP (BACID) PO SCH ×3 (08:32→17:06)
[2019-11-13] MEDS: DOCUSATE SODIUM 100 MG CAP PO SCH ×2 (08:32→20:46)
[2019-11-13] MEDS: TIMOLOL MALEATE 0.5% OPHTH SOLN 5 ML OD SCH (08:32)
[2019-11-13] MEDS: PANTOPRAZOLE 40MG TAB (PROTONIX) PO SCH (08:32)
[2019-11-13] MEDS: ACETAMINOPHEN 500 MG TAB PO SCH ×3 (08:32→20:46)
[2019-11-13] MEDS: REMEDY PHYTOPLEX Z-GUARD PASTE 113GM TUBE (FROM STOREROOM PRODUCT) TOP SCH ×3 (08:33→20:47)
[2019-11-13] MEDS: POLYVINYL ALCOHOL OPHTH SOLN 15 ML(LIQUITEARS) OD SCH ×3 (08:33→20:46)
--- NOTE | 2019-11-13 10:12 | IPNPDOC ---
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 REVIEW OF SYSTEMS: The following is a completed review of systems and has been reviewed. Review of systems otherwise unremarkable. PAIN: Patient self reports left shoulder pain EYES: No recent vision changes EARS, NOSE, & THROAT: No throat pain, or dysphagia, or rhinorrhea CARDIOVASCULAR: Denies chest pain or palpitations PULMONARY: Denies shortness of breath GASTROINTESTINAL: Denies constipation/diarrhea GENITOURINARY: +urinary frequency MUSCULOSKELETAL: left humeral, scapular, rib fractures NEUROLOGICAL:denies paresthesias HEMATOLOGICAL: +hematoma SKIN: left anterior shoulder incision PSYCHIATRIC: Unremarkable All other review of systems found to be negative. PHYSICAL EXAMINATION: VITAL SIGNS: Please see below. GENERAL: Pleasant and cooperative. No acute distress. HEENT: PERRL. Extraocular movements intact. Clear conjunctiva CARDIOVASCULAR: Regular rate and rhythm. No murmurs, rubs, or gallops LUNGS: Clear to auscultation bilaterally. No wheezes. No rhonchi ABDOMEN: Soft, nontender, nondistended. Positive bowel sounds. Normal active bowel sounds NEUROLOGICAL: Alert and oriented times three. Cranial nerves II through XII grossly intact. Sensation grossly intact in all 4 limbs EXTREMITIES: 5\5 strength right upper extremities. RUE exam limited due to weight bearing restrictions, 5\5 strength right lower extremity. 5/5 strength in left lower extremity. +edema and ecchymosis LUE (improving) SKIN: left anterior shoulder incision with alfredo-dressing ecchymosis, no induration ASSESSMENT:79-year-old F with past medical history of osteoporosis who presents status post left humeral fracture s/p ORIF PLAN: 1. Rehab- PT/OT advance agit and ADL training, maintain NWB to LUE while strengthening/stretching/maintaining ROM all 3 limbs -ambulating with Narrow quad-based cane 2. Ortho: s/p left humeral fracture with ORIF, c/u NWB, ok for PROM elbow and wrist-ortho consulted -c/u weekly Alendronate for osteoporosis, Calcium-Vit D supplement 3. Neuro: +restless leg syndrome, c/u Requip qhs 4. Cardiac: no active issues 5. Resp: encourage incentive spirometry, monitor for infection 6. Nathan: s/p 4 units prbc on inpatient for left anterior thigh hematoma, monitor for blood loss and manage accordingly-stable 7. DVT ppx: heparin and TEDs 8. Pain: Tylenol and tramadol prn 9. :patient reporting urinary frequency, UA with small wbc, no LE/nitrite, will wait for Ucx 10. Dispo: 11-21-19 to home progressing towards goals Allergies Coded Allergies: No Known Allergies (Verified , 09/19/17) Vital Signs Vital Signs Date Time Temp Pulse Resp B/P (MAP) Pulse Ox O2 Delivery O2 Flow Rate FiO2 11/13/19 06:00 97.9 79 16 157/76 (103) 92 Room Air Microbiology Microbiology 11/10/19 Urine Culture - Final, Complete Klebsiella Pneumoniae Current Medications Current Medications Current Medications Medications (Trade) Dose Ordered Sig/Mo Route PRN Reason Start Time Stop Time Status Last Admin Dose Admin Acetaminophen (Tylenol Tab) 1,000 mg TID PO 11/04/19 21:00 11/13/19 08:32 Alendronate Sodium (Fosamax) 70 mg Th@07 PO 11/06/19 07:00 11/13/19 06:08 Artificial Tears (Akwa Tears) 2 drop TID OD 11/04/19 21:00 11/13/19 08:33 Betamethasone Dipropionate (Diprosone) apply to left hand BID TOP 11/04/19 21:00 11/07/19 15:14 DC 11/07/19 10:01 Bisacodyl (Dulcolax Suppository) 10 mg DAILYPRN PRN [place] CONSTIPATION 11/04/19 16:00 Docusate Sodium (Colace) 100 mg BID PO 11/04/19 21:00 11/13/19 08:32 Heparin Sodium (Porcine) (Heparin) 5,000 units Q12H SC 11/04/19 21:00 11/13/19 08:32 Home Med (Med Rec Complete!) ASDIRECTED XX 11/04/19 17:00 11/04/19 16:54 DC Lactobacillus Acidophilus (Bacid) 1 ea WM PO 11/12/19 12:30 11/13/19 08:32 Levofloxacin (Levaquin) 250 mg DAILY@06 PO 11/12/19 10:00 11/14/19 06:01 11/13/19 06:07 Miscellaneous (Unresolved Clarification Entry) SEE LABEL COMMENTS DAILY XX 11/10/19 09:00 11/11/19 07:15 DC Miscellaneous (Unresolved Clarification Entry) SEE LABEL COMMENTS DAILY XX 11/11/19 09:00 11/11/19 18:44 DC Pantoprazole Sodium (Protonix) 40 mg DAILY PO 11/04/19 09:00 11/13/19 08:32 Ropinirole HCl (Requip) 0.25 mg QHS PO 11/04/19 21:00 11/12/19 21:56 Senna (Senokot) 1 tab QHS PO 11/04/19 21:00 11/12/19 21:56 Timolol Maleate (Timoptic 0.5% Ophth Glenny) 1 drop DAILY OD 11/05/19 09:00 11/13/19 08:32 Tramadol HCl (Ultram) 50 mg Q4HP PRN PO MODERATE PAIN (PS 5-7) 11/04/19 16:00 11/12/19 23:31 SHAISTA RAMOS MD Nov 13, 2019 10:12
[2019-11-13 14:00] VITALS: BP 117/63
--- NOTE | 2019-11-13 15:20 | IPNPDOC ---
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 She denies weakness in her hand or any pain. She agrees to wear a wrist splint at night to relieve any median nerve compression that may be occurring while sleeping. She would also like a sleep medication. REVIEW OF SYSTEMS: The following is a completed review of systems and has been reviewed. Review of systems otherwise unremarkable. PAIN: Patient self reports left shoulder pain EYES: No recent vision changes EARS, NOSE, & THROAT: No throat pain, or dysphagia, or rhinorrhea CARDIOVASCULAR: Denies chest pain or palpitations PULMONARY: Denies shortness of breath GASTROINTESTINAL: Denies constipation/diarrhea GENITOURINARY: +urinary frequency MUSCULOSKELETAL: left humeral, scapular, rib fractures NEUROLOGICAL:+ left hand D1-3 numbness HEMATOLOGICAL: +hematoma SKIN: left anterior shoulder incision PSYCHIATRIC: Unremarkable All other review of systems found to be negative. PHYSICAL EXAMINATION: VITAL SIGNS: Please see below. GENERAL: Pleasant and cooperative. No acute distress. HEENT: PERRL. Extraocular movements intact. Clear conjunctiva CARDIOVASCULAR: Regular rate and rhythm. No murmurs, rubs, or gallops LUNGS: Clear to auscultation bilaterally. No wheezes. No rhonchi ABDOMEN: Soft, nontender, nondistended. Positive bowel sounds. Normal active bowel sounds NEUROLOGICAL: Alert and oriented times three. Cranial nerves II through XII grossly intact. Sensation grossly intact in all 4 limbs EXTREMITIES: 5\5 strength right upper extremities. LUE exam limited due to weight bearing restrictions, 5\5 strength right lower extremity. 5/5 strength in left lower extremity. +edema and ecchymosis LUE (resolved) Left hand decreased sensation to light touch D1-3, intact D4-5, 5/5 finger flexion, 5/5 finger abduction -radial pulse strong, fingers well perfused SKIN: left anterior shoulder incision with alfredo-dressing ecchymosis, no induration ASSESSMENT:79-year-old F with past medical history of osteoporosis who presents status post left humeral fracture s/p ORIF PLAN: 1. Rehab- PT/OT advance agit and ADL training, maintain NWB to LUE while strengthening/stretching/maintaining ROM all 3 limbs -ambulating with Narrow quad-based cane 2. 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 Neuro: +restless leg syndrome, c/u Requip qhs 4. Cardiac: no active issues 5. Resp: encourage incentive spirometry, monitor for infection 6. Nathan: s/p 4 units prbc on inpatient for left anterior thigh hematoma, monitor for blood loss and manage accordingly-stable 7. DVT ppx: heparin and TEDs 8. Pain: Tylenol and tramadol prn 9. : +UTI c/u levaquin 10. Psych: patient reporting insomnia- trazodone ordered 11. Dispo: 11-21-19 to home progressing towards goals Allergies Coded Allergies: No Known Allergies (Verified , 09/19/17) Vital Signs Vital Signs Date Time Temp Pulse Resp B/P (MAP) Pulse Ox O2 Delivery O2 Flow Rate FiO2 11/13/19 14:00 97.7 83 18 117/63 (81) 96 Room Air Microbiology Microbiology 11/10/19 Urine Culture - Final, Complete Klebsiella Pneumoniae Current Medications Current Medications Current Medications Medications (Trade) Dose Ordered Sig/Mo Route PRN Reason Start Time Stop Time Status Last Admin Dose Admin Acetaminophen (Tylenol Tab) 1,000 mg TID PO 11/04/19 21:00 11/13/19 08:32 Alendronate Sodium (Fosamax) 70 mg Th@07 PO 11/06/19 07:00 11/13/19 06:08 Artificial Tears (Akwa Tears) 2 drop TID OD 11/04/19 21:00 11/13/19 08:33 Betamethasone Dipropionate (Diprosone) apply to left hand BID TOP 11/04/19 21:00 11/07/19 15:14 DC 11/07/19 10:01 Bisacodyl (Dulcolax Suppository) 10 mg DAILYPRN PRN [place] CONSTIPATION 11/04/19 16:00 Docusate Sodium (Colace) 100 mg BID PO 11/04/19 21:00 11/13/19 08:32 Heparin Sodium (Porcine) (Heparin) 5,000 units Q12H SC 11/04/19 21:00 11/13/19 08:32 Home Med (Med Rec Complete!) ASDIRECTED XX 11/04/19 17:00 11/04/19 16:54 DC Lactobacillus Acidophilus (Bacid) 1 ea WM PO 11/12/19 12:30 11/13/19 12:03 Levofloxacin (Levaquin) 250 mg DAILY@06 PO 11/12/19 10:00 11/14/19 06:01 11/13/19 06:07 Miscellaneous (Unresolved Clarification Entry) SEE LABEL COMMENTS DAILY XX 11/10/19 09:00 11/11/19 07:15 DC Miscellaneous (Unresolved Clarification Entry) SEE LABEL COMMENTS DAILY XX 11/11/19 09:00 11/11/19 18:44 DC Pantoprazole Sodium (Protonix) 40 mg DAILY PO 11/04/19 09:00 11/13/19 08:32 Ropinirole HCl (Requip) 0.25 mg QHS PO 11/04/19 21:00 11/12/19 21:56 Senna (Senokot) 1 tab QHS PO 11/04/19 21:00 11/12/19 21:56 Timolol Maleate (Timoptic 0.5% Ophth Glenny) 1 drop DAILY OD 11/05/19 09:00 11/13/19 08:32 Tramadol HCl (Ultram) 50 mg Q4HP PRN PO MODERATE PAIN (PS 5-7) 11/04/19 16:00 11/12/19 23:31 SHAISTA RAMOS MD Nov 13, 2019 15:20
[2019-11-13 20:00] VITALS: BP 107/59
[2019-11-13] MEDS: SENNA 8.6 MG TAB (SENOKOT) PO SCH (20:46)
[2019-11-13] MEDS: traZODone 25MG PER 1/2 TABLET PO SCH (20:46)
[2019-11-13] MEDS: rOPINIRole 0.25 MG TAB(REQUIP) PO SCH (20:46)
--- NOTE | 2019-11-13 21:10 | IPNPDOC ---
Date Seen The patient was seen on 11/13/19. Progress Note SUBJECTIVE: No acute complaints. Tolerating PT/OT well. Denies chest pain, shortness of breath, n/v/d. OBJECTIVE: VITAL SIGNS: Please see below PHYSICAL EXAMINATION: GENERAL: Resting comfortably in no acute distress HEENT: PERRLA, EOMI. Extraocular movements intact. Clear conjunctiva CARDIOVASCULAR: Regular rate and rhythm. No murmurs, rubs, or gallops LUNGS: Clear to auscultation bilaterally. No wheezes. No rhonchi ABDOMEN: Soft, nontender, nondistended. Positive bowel sounds. Normal active bowel sounds NEUROLOGICAL: Alert and oriented times three. Cranial nerves II through XII grossly intact. Sensation grossly intact in all 4 limbs EXTREMITIES: 5/5 strength right upper extremities. LUE exam limited due to weight bearing restrictions, 5\5 strength right lower extremity. 5/5 strength in left lower extremity. Left hand decreased sensation to light touch D1-3, intact D4-5, 5/5 finger flexion, 5/5 finger abduction. Pulses well and strong in all extremities INTEGUMENTARY: left anterior shoulder incision with dressing , no induration LABORATORY: Please see below IMAGING: No new imaging. ASSESSMENT: Patient is a 79-year-old F status post left humeral fracture s/p ORIF currently undergoing rehabilitation. PLAN: 1. Left proximal humeral and scapular fracture status post left proximal humeral ORIF on 11/01/2019. Tolerating PT/OT well, gait training. C/w pain medications, bowel regimen and ARU. 2. UTI. c/w abx. 3. Left 5th and 6th rib fractures. Pain controlled, IS to use during day. 4. Acute blood loss anemia due to left thigh hematoma and shoulder fracture. No signs of acute bleeding, H/H has remained stable. F/u CBC regularly. 5. Osteoporosis. C/w supplements. 6. Insomnia. Trazodone. 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 8. DVT px. heparin and TEDs VS, I&O, 24H, Fishbone Vital Signs/I&O Vital Signs Date Time Temp Pulse Resp B/P (MAP) Pulse Ox O2 Delivery O2 Flow Rate FiO2 11/13/19 14:00 97.7 83 18 117/63 (81) 96 Room Air I&O- Last 24 Hours up to 6 AM 11/13/19 06:00 Intake Total 850 ml Balance 850 ml Laboratory Data Microbiology Microbiology 11/10/19 Urine Culture - Final, Complete Klebsiella Pneumoniae Current Medications Current Medications Medications (Trade) Dose Ordered Sig/Mo Route PRN Reason Start Time Stop Time Status Last Admin Dose Admin Acetaminophen (Tylenol Tab) 1,000 mg TID PO 11/04/19 21:00 11/13/19 20:46 Alendronate Sodium (Fosamax) 70 mg Th@07 PO 11/06/19 07:00 11/13/19 06:08 Artificial Tears (Akwa Tears) 2 drop TID OD 11/04/19 21:00 11/13/19 20:46 Betamethasone Dipropionate (Diprosone) apply to left hand BID TOP 11/04/19 21:00 11/07/19 15:14 DC 11/07/19 10:01 Bisacodyl (Dulcolax Suppository) 10 mg DAILYPRN PRN [place] CONSTIPATION 11/04/19 16:00 Docusate Sodium (Colace) 100 mg BID PO 11/04/19 21:00 11/13/19 20:46 Heparin Sodium (Porcine) (Heparin) 5,000 units Q12H SC 11/04/19 21:00 11/13/19 20:46 Home Med (Med Rec Complete!) ASDIRECTED XX 11/04/19 17:00 11/04/19 16:54 DC Lactobacillus Acidophilus (Bacid) 1 ea WM PO 11/12/19 12:30 11/13/19 17:06 Levofloxacin (Levaquin) 250 mg DAILY@06 PO 11/12/19 10:00 11/14/19 06:01 11/13/19 06:07 Miscellaneous (Unresolved Clarification Entry) SEE LABEL COMMENTS DAILY XX 11/10/19 09:00 11/11/19 07:15 DC Miscellaneous (Unresolved Clarification Entry) SEE LABEL COMMENTS DAILY XX 11/11/19 09:00 11/11/19 18:44 DC Pantoprazole Sodium (Protonix) 40 mg DAILY PO 11/04/19 09:00 11/13/19 08:32 Ropinirole HCl (Requip) 0.25 mg QHS PO 11/04/19 21:00 11/13/19 20:46 Senna (Senokot) 1 tab QHS PO 11/04/19 21:00 11/13/19 20:46 Timolol Maleate (Timoptic 0.5% Ophth Glenny) 1 drop DAILY OD 11/05/19 09:00 11/13/19 08:32 Tramadol HCl (Ultram) 50 mg Q4HP PRN PO MODERATE PAIN (PS 5-7) 11/04/19 16:00 11/12/19 23:31 Trazodone HCl (Desyrel) 25 mg QHS PO 11/13/19 21:00 11/13/19 20:46 Allergies Coded Allergies: No Known Allergies (Verified , 09/19/17) Current Medications Current Medications Medications (Trade) Dose Ordered Sig/Mo Route PRN Reason Start Time Stop Time Status Last Admin Dose Admin Acetaminophen (Tylenol Tab) 1,000 mg TID PO 11/04/19 21:00 11/13/19 20:46 Alendronate Sodium (Fosamax) 70 mg Th@07 PO 11/06/19 07:00 11/13/19 06:08 Artificial Tears (Akwa Tears) 2 drop TID OD 11/04/19 21:00 11/13/19 20:46 Betamethasone Dipropionate (Diprosone) apply to left hand BID TOP 11/04/19 21:00 11/07/19 15:14 DC 11/07/19 10:01 Bisacodyl (Dulcolax Suppository) 10 mg DAILYPRN PRN [place] CONSTIPATION 11/04/19 16:00 Docusate Sodium (Colace) 100 mg BID PO 11/04/19 21:00 11/13/19 20:46 Heparin Sodium (Porcine) (Heparin) 5,000 units Q12H SC 11/04/19 21:00 11/13/19 20:46 Home Med (Med Rec Complete!) ASDIRECTED XX 11/04/19 17:00 11/04/19 16:54 DC Lactobacillus Acidophilus (Bacid) 1 ea WM PO 11/12/19 12:30 11/13/19 17:06 Levofloxacin (Levaquin) 250 mg DAILY@06 PO 11/12/19 10:00 11/14/19 06:01 11/13/19 06:07 Miscellaneous (Unresolved Clarification Entry) SEE LABEL COMMENTS DAILY XX 11/10/19 09:00 11/11/19 07:15 DC Miscellaneous (Unresolved Clarification Entry) SEE LABEL COMMENTS DAILY XX 11/11/19 09:00 11/11/19 18:44 DC Pantoprazole Sodium (Protonix) 40 mg DAILY PO 11/04/19 09:00 11/13/19 08:32 Ropinirole HCl (Requip) 0.25 mg QHS PO 11/04/19 21:00 11/13/19 20:46 Senna (Senokot) 1 tab QHS PO 11/04/19 21:00 11/13/19 20:46 Timolol Maleate (Timoptic 0.5% Ophth Glenny) 1 drop DAILY OD 11/05/19 09:00 11/13/19 08:32 Tramadol HCl (Ultram) 50 mg Q4HP PRN PO MODERATE PAIN (PS 5-7) 11/04/19 16:00 11/12/19 23:31 Trazodone HCl (Desyrel) 25 mg QHS PO 11/13/19 21:00 11/13/19 20:46 Estelita Stevens MD Nov 13, 2019 21:10
[2019-11-13] MEDS: traMADol 50 MG TAB PO PRN (22:39)
[2019-11-14 05:37] VITALS: BP 132/61
[2019-11-14] MEDS: LevoFLOXacin 250 MG TABLET PO SCH (06:38)
[2019-11-14] MEDS: LACTOBACILLUS ACIDOPHILUS CAP (BACID) PO SCH ×3 (08:00→17:16)
[2019-11-14] MEDS: DOCUSATE SODIUM 100 MG CAP PO SCH ×2 (08:32→21:21)
[2019-11-14] MEDS: ACETAMINOPHEN 500 MG TAB PO SCH ×3 (08:33→21:22)
[2019-11-14] MEDS: PANTOPRAZOLE 40MG TAB (PROTONIX) PO SCH (08:34)
[2019-11-14] MEDS: HEPARIN SOD (PORCINE) 5000UNITS/ML VIAL (J1644 PER 1000UNITS) SC SCH ×2 (08:36→21:22)
[2019-11-14] MEDS: REMEDY PHYTOPLEX Z-GUARD PASTE 113GM TUBE (FROM STOREROOM PRODUCT) TOP SCH ×3 (09:00→21:25)
[2019-11-14] MEDS: TIMOLOL MALEATE 0.5% OPHTH SOLN 5 ML OD SCH (09:00)
[2019-11-14] MEDS: POLYVINYL ALCOHOL OPHTH SOLN 15 ML(LIQUITEARS) OD SCH ×3 (10:10→21:25)
[2019-11-14 11:29] LABS: BASO # 0.1 10^3/uL (0.0-0.2); BASO % 1.2 % (0.0-1.0); EOS # 0.1 10^3/uL (0.0-0.5); HEMATOCRIT 33.9 % (36.0-47.0); HEMOGLOBIN 10.8 g/dl (12.0-15.5); LYMPH # 0.8 10^3/uL (1.5-5.0); LYMPH % 12.5 % (24.0-44.0); MEAN CORPUSCULAR HEMOGLOBIN 31.4 pg (27.0-33.0); MEAN CORPUSCULAR HGB CONC 31.9 g/dl (32.0-36.5); MEAN CORPUSCULAR VOLUME 98.5 fl (80.0-96.0); MONO # 0.5 10^3/uL (0.0-0.8); MONO % 8.7 % (0.0-5.0); NEUTROPHILS # 4.5 10^3/uL (1.5-8.5); NEUTROPHILS % 74.4 % (36.0-66.0); PLATELET COUNT, AUTOMATED 278 10^3/uL (150-450); RED BLOOD COUNT 3.44 10^6/uL (4.00-5.40)
[2019-11-14 11:56] LABS: BLOOD UREA NITROGEN 17 MG/DL (7-18); CALCIUM LEVEL 8.6 MG/DL (8.8-10.2); CARBON DIOXIDE LEVEL 28 MEQ/L (21-32); CHLORIDE LEVEL 105 MEQ/L (98-107); CREATININE FOR GFR 0.54 MG/DL (0.55-1.30); GLOMERULAR FILTRATION RATE > 60.0 (>39); GLUCOSE, FASTING 86 MG/DL (70-100); POTASSIUM SERUM 4.4 MEQ/L (3.5-5.1); SODIUM LEVEL 139 MEQ/L (136-145)
--- NOTE | 2019-11-14 13:06 | IPNPDOC ---
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 REVIEW OF SYSTEMS: The following is a completed review of systems and has been reviewed. Review of systems otherwise unremarkable. PAIN: Patient self reports left shoulder pain EYES: No recent vision changes EARS, NOSE, & THROAT: No throat pain, or dysphagia, or rhinorrhea CARDIOVASCULAR: Denies chest pain or palpitations PULMONARY: Denies shortness of breath GASTROINTESTINAL: Denies constipation/diarrhea GENITOURINARY: +urinary frequency MUSCULOSKELETAL: left humeral, scapular, rib fractures NEUROLOGICAL:+ left hand D1-3 numbness HEMATOLOGICAL: +hematoma SKIN: left anterior shoulder incision PSYCHIATRIC: Unremarkable All other review of systems found to be negative. PHYSICAL EXAMINATION: VITAL SIGNS: Please see below. GENERAL: Pleasant and cooperative. No acute distress. HEENT: PERRL. Extraocular movements intact. Clear conjunctiva CARDIOVASCULAR: Regular rate and rhythm. No murmurs, rubs, or gallops LUNGS: Clear to auscultation bilaterally. No wheezes. No rhonchi ABDOMEN: Soft, nontender, nondistended. Positive bowel sounds. Normal active bow el sounds NEUROLOGICAL: Alert and oriented times three. Cranial nerves II through XII grossly intact. Sensation grossly intact in all 4 limbs EXTREMITIES: 5\5 strength right upper extremities. LUE exam limited due to weight bearing restrictions, 5\5 strength right lower extremity. 5/5 strength in left lower extremity. +edema and ecchymosis LUE (resolved) Left hand decreased sensation to light touch D1-3, intact D4-5, 5/5 finger flexion, 5/5 finger abduction -radial pulse strong, fingers well perfused SKIN: left anterior shoulder incision with alfredo-dressing ecchymosis, no induration ASSESSMENT:79-year-old F with past medical history of osteoporosis who presents status post left humeral fracture s/p ORIF PLAN: 1. Rehab- PT/OT advance agit and ADL training, maintain NWB to LUE while strengthening/stretching/maintaining ROM all 3 limbs -ambulating with Narrow quad-based cane 2. Ortho: s/p left humeral fracture with ORIF, c/u NWB, ok for PROM elbow and wrist and shoulder pendulum swings-ortho consulted -c/u weekly Alendronate for osteoporosis, Calcium-Vit D supplement -suspect median nerve neuropathy in her left hand due to median nerve compression either at the wrist or forearm due to recent swelling, strength is preserved, wrist splint to be worn qHS to prevent worsening of symptoms- 3. Neuro: +restless leg syndrome, c/u Requip qhs 4. Cardiac: no active issues 5. Resp: encourage incentive spirometry, monitor for infection 6. Nathan: s/p 4 units prbc on inpatient for left anterior thigh hematoma, monitor for blood loss and manage accordingly-stable 7. DVT ppx: heparin and TEDs 8. Pain: Tylenol and tramadol prn 9. : +UTI s/p levaquin, dysuria improved 10. Psych: insomnia improving with trazodone 11. Dispo: 11-21-19 to home progressing towards goals Allergies Coded Allergies: No Known Allergies (Verified , 09/19/17) Vital Signs Vital Signs Date Time Temp Pulse Resp B/P (MAP) Pulse Ox O2 Delivery O2 Flow Rate FiO2 11/14/19 05:37 97.8 79 18 132/61 (84) 93 Room Air Laboratory Data CBC/BMP Laboratory Tests 11/14/19 11:07 11/14/19 11:08 Labs 24H Laboratory Tests 2 11/14/19 11:07: Immature Granulocyte % (Auto) 1.2, Neutrophils (%) (Auto) 74.4H, Lymphocytes (%) (Auto) 12.5L, Monocytes (%) (Auto) 8.7H, Eosinophils (%) (Auto) 2.0, Basophils (%) (Auto) 1.2H, Neutrophils # (Auto) 4.5, Lymphocytes # (Auto) 0.8L, Monocytes # (Auto) 0.5, Eosinophils # (Auto) 0.1, Basophils # (Auto) 0.1, Nucleated Red Blood Cells % (auto) 0.0 11/14/19 11:08: Anion Gap 6L, Glomerular Filtration Rate > 60.0, Calcium Level 8.6L Microbiology Microbiology 11/10/19 Urine Culture - Final, Complete Klebsiella Pneumoniae Current Medications Current Medications Current Medications Medications (Trade) Dose Ordered Sig/Mo Route PRN Reason Start Time Stop Time Status Last Admin Dose Admin Acetaminophen (Tylenol Tab) 1,000 mg TID PO 11/04/19 21:00 11/14/19 08:33 Alendronate Sodium (Fosamax) 70 mg Th@07 PO 11/06/19 07:00 11/13/19 06:08 Artificial Tears (Akwa Tears) 2 drop TID OD 11/04/19 21:00 11/14/19 10:10 Betamethasone Dipropionate (Diprosone) apply to left hand BID TOP 11/04/19 21:00 11/07/19 15:14 DC 11/07/19 10:01 Bisacodyl (Dulcolax Suppository) 10 mg DAILYPRN PRN [place] CONSTIPATION 11/04/19 16:00 Docusate Sodium (Colace) 100 mg BID PO 11/04/19 21:00 11/14/19 08:32 Heparin Sodium (Porcine) (Heparin) 5,000 units Q12H SC 11/04/19 21:00 11/14/19 08:36 Home Med (Med Rec Complete!) ASDIRECTED XX 11/04/19 17:00 11/04/19 16:54 DC Lactobacillus Acidophilus (Bacid) 1 ea WM PO 11/12/19 12:30 11/14/19 12:39 Levofloxacin (Levaquin) 250 mg DAILY@06 PO 11/12/19 10:00 11/14/19 06:01 DC 11/14/19 06:38 Miscellaneous (Unresolved Clarification Entry) SEE LABEL COMMENTS DAILY XX 11/10/19 09:00 11/11/19 07:15 DC Miscellaneous (Unresolved Clarification Entry) SEE LABEL COMMENTS DAILY XX 11/11/19 09:00 11/11/19 18:44 DC Pantoprazole Sodium (Protonix) 40 mg DAILY PO 11/04/19 09:00 11/14/19 08:34 Ropinirole HCl (Requip) 0.25 mg QHS PO 11/04/19 21:00 11/13/19 20:46 Senna (Senokot) 1 tab QHS PO 11/04/19 21:00 11/13/19 20:46 Timolol Maleate (Timoptic 0.5% Ophth Glenny) 1 drop DAILY OD 11/05/19 09:00 11/14/19 09:00 Tramadol HCl (Ultram) 50 mg Q4HP PRN PO MODERATE PAIN (PS 5-7) 11/04/19 16:00 11/13/19 22:39 Trazodone HCl (Desyrel) 25 mg QHS PO 11/13/19 21:00 11/13/19 20:46 SHAISTA RAMOS MD Nov 14, 2019 13:06
[2019-11-14 14:00] VITALS: BP 124/68
[2019-11-14] MEDS: traZODone 25MG PER 1/2 TABLET PO SCH (21:21)
[2019-11-14] MEDS: SENNA 8.6 MG TAB (SENOKOT) PO SCH (21:21)
[2019-11-14] MEDS: rOPINIRole 0.25 MG TAB(REQUIP) PO SCH (21:22)
[2019-11-14 21:36] VITALS: BP 127/64
[2019-11-14] MEDS: traMADol 50 MG TAB PO PRN (22:33)
[2019-11-15 06:28] VITALS: BP 145/80
[2019-11-15] MEDS: DOCUSATE SODIUM 100 MG CAP PO SCH ×2 (08:04→20:11)
[2019-11-15] MEDS: LACTOBACILLUS ACIDOPHILUS CAP (BACID) PO SCH ×3 (08:04→16:34)
[2019-11-15] MEDS: ACETAMINOPHEN 500 MG TAB PO SCH ×3 (08:04→20:11)
[2019-11-15] MEDS: PANTOPRAZOLE 40MG TAB (PROTONIX) PO SCH (08:04)
[2019-11-15] MEDS: POLYVINYL ALCOHOL OPHTH SOLN 15 ML(LIQUITEARS) OD SCH ×3 (08:05→20:11)
[2019-11-15] MEDS: TIMOLOL MALEATE 0.5% OPHTH SOLN 5 ML OD SCH (08:05)
[2019-11-15] MEDS: HEPARIN SOD (PORCINE) 5000UNITS/ML VIAL (J1644 PER 1000UNITS) SC SCH ×2 (08:05→20:10)
[2019-11-15] MEDS: REMEDY PHYTOPLEX Z-GUARD PASTE 113GM TUBE (FROM STOREROOM PRODUCT) TOP SCH ×3 (08:05→20:12)
[2019-11-15 14:00] VITALS: BP 116/56
[2019-11-15 20:00] VITALS: BP 115/68
[2019-11-15] MEDS: SENNA 8.6 MG TAB (SENOKOT) PO SCH (20:11)
[2019-11-15] MEDS: rOPINIRole 0.25 MG TAB(REQUIP) PO SCH (20:11)
[2019-11-15] MEDS: traZODone 25MG PER 1/2 TABLET PO SCH (20:11)
[2019-11-15] MEDS: traMADol 50 MG TAB PO PRN (21:55)
[2019-11-16 06:21] VITALS: BP 141/83
[2019-11-16] MEDS: PANTOPRAZOLE 40MG TAB (PROTONIX) PO SCH (08:57)
[2019-11-16] MEDS: HEPARIN SOD (PORCINE) 5000UNITS/ML VIAL (J1644 PER 1000UNITS) SC SCH ×2 (08:57→20:55)
[2019-11-16] MEDS: LACTOBACILLUS ACIDOPHILUS CAP (BACID) PO SCH ×3 (08:58→16:49)
[2019-11-16] MEDS: ACETAMINOPHEN 500 MG TAB PO SCH ×3 (08:58→20:56)
[2019-11-16] MEDS: DOCUSATE SODIUM 100 MG CAP PO SCH ×2 (08:58→20:56)
[2019-11-16] MEDS: POLYVINYL ALCOHOL OPHTH SOLN 15 ML(LIQUITEARS) OD SCH ×3 (08:59→20:56)
[2019-11-16] MEDS: TIMOLOL MALEATE 0.5% OPHTH SOLN 5 ML OD SCH (08:59)
[2019-11-16] MEDS: REMEDY PHYTOPLEX Z-GUARD PASTE 113GM TUBE (FROM STOREROOM PRODUCT) TOP SCH ×3 (09:00→20:56)
[2019-11-16 14:00] VITALS: BP 113/57
[2019-11-16 20:00] VITALS: BP 125/61
[2019-11-16] MEDS: traMADol 50 MG TAB PO PRN (20:55)
[2019-11-16] MEDS: rOPINIRole 0.25 MG TAB(REQUIP) PO SCH (20:55)
[2019-11-16] MEDS: SENNA 8.6 MG TAB (SENOKOT) PO SCH (20:56)
[2019-11-16] MEDS: traZODone 25MG PER 1/2 TABLET PO SCH (20:56)
[2019-11-17 06:00] VITALS: BP 132/72
[2019-11-17] MEDS: PANTOPRAZOLE 40MG TAB (PROTONIX) PO SCH (08:00)
[2019-11-17] MEDS: ACETAMINOPHEN 500 MG TAB PO SCH ×3 (08:00→20:57)
[2019-11-17] MEDS: HEPARIN SOD (PORCINE) 5000UNITS/ML VIAL (J1644 PER 1000UNITS) SC SCH ×2 (08:00→20:56)
[2019-11-17] MEDS: LACTOBACILLUS ACIDOPHILUS CAP (BACID) PO SCH ×3 (08:00→16:37)
[2019-11-17] MEDS: TIMOLOL MALEATE 0.5% OPHTH SOLN 5 ML OD SCH (08:00)
[2019-11-17] MEDS: DOCUSATE SODIUM 100 MG CAP PO SCH ×2 (08:00→20:56)
[2019-11-17] MEDS: REMEDY PHYTOPLEX Z-GUARD PASTE 113GM TUBE (FROM STOREROOM PRODUCT) TOP SCH ×3 (08:01→20:58)
[2019-11-17] MEDS: POLYVINYL ALCOHOL OPHTH SOLN 15 ML(LIQUITEARS) OD SCH ×3 (08:01→20:57)
[2019-11-17 08:37] LABS: BASO # 0.1 10^3/uL (0.0-0.2); BASO % 1.3 % (0.0-1.0); EOS # 0.1 10^3/uL (0.0-0.5); EOS % 2.8 % (0.0-3.0); HEMATOCRIT 37.6 % (36.0-47.0); HEMOGLOBIN 11.8 g/dl (12.0-15.5); LYMPH # 0.8 10^3/uL (1.5-5.0); LYMPH % 19.8 % (24.0-44.0); MEAN CORPUSCULAR HEMOGLOBIN 31.4 pg (27.0-33.0); MEAN CORPUSCULAR HGB CONC 31.4 g/dl (32.0-36.5); MONO # 0.4 10^3/uL (0.0-0.8); NEUTROPHILS # 2.6 10^3/uL (1.5-8.5); NEUTROPHILS % 65.8 % (36.0-66.0); PLATELET COUNT, AUTOMATED 250 10^3/uL (150-450); RED BLOOD COUNT 3.76 10^6/uL (4.00-5.40); WHITE BLOOD COUNT 3.9 10^3/uL (4.0-10.0)
[2019-11-17 08:56] LABS: BLOOD UREA NITROGEN 14 MG/DL (7-18); CALCIUM LEVEL 8.5 MG/DL (8.8-10.2); CARBON DIOXIDE LEVEL 29 MEQ/L (21-32); CHLORIDE LEVEL 106 MEQ/L (98-107); CREATININE FOR GFR 0.53 MG/DL (0.55-1.30); GLOMERULAR FILTRATION RATE > 60.0 (>39); GLUCOSE, FASTING 91 MG/DL (70-100); POTASSIUM SERUM 4.1 MEQ/L (3.5-5.1); SODIUM LEVEL 141 MEQ/L (136-145)
[2019-11-17 14:05] VITALS: BP 112/65
--- NOTE | 2019-11-17 15:36 | IPNPDOC ---
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 REVIEW OF SYSTEMS: The following is a completed review of systems and has been reviewed. Review of systems otherwise unremarkable. PAIN: Patient self reports left shoulder pain EYES: No recent vision changes EARS, NOSE, & THROAT: No throat pain, or dysphagia, or rhinorrhea CARDIOVASCULAR: Denies chest pain or palpitations PULMONARY: Denies shortness of breath GASTROINTESTINAL: Denies constipation/diarrhea GENITOURINARY: +urinary frequency MUSCULOSKELETAL: left humeral, scapular, rib fractures NEUROLOGICAL:+ left hand D1-3 numbness HEMATOLOGICAL: +hematoma SKIN: left anterior shoulder incision PSYCHIATRIC: Unremarkable All other review of systems found to be negative. PHYSICAL EXAMINATION: VITAL SIGNS: Please see below. GENERAL: Pleasant and cooperative. No acute distress. HEENT: PERRL. Extraocular movements intact. Clear conjunctiva CARDIOVASCULAR: Regular rate and rhythm. No murmurs, rubs, or gallops LUNGS: Clear to auscultation bilaterally. No wheezes. No rhonchi ABDOMEN: Soft, nontender, nondistended. Positive bowel sounds. Normal active bowel sounds NEUROLOGICAL: Alert and oriented times three. Cranial nerves II through XII grossly intact. Sensation grossly intact in all 4 limbs EXTREMITIES: 5\5 strength right upper extremities. LUE exam limited due to weight bearing restrictions, 5\5 strength right lower extremity. 5/5 strength in left lower extremity. +edema and ecchymosis LUE (resolved) Left hand decreased sensation to light touch D1-3, intact D4-5, 5/5 finger flexion, 5/5 finger abduction -radial pulse strong, fingers well perfused SKIN: left anterior shoulder incision new foam dressing with no drainage ASSESSMENT:79-year-old F with past medical history of osteoporosis who presents status post left humeral fracture s/p ORIF PLAN: 1. Rehab- PT/OT advance agit and ADL training, maintain NWB to LUE while strengthening/stretching/maintaining ROM all 3 limbs -ambulating with Narrow quad-based cane 2. Ortho: s/p left humeral fracture with ORIF, c/u NWB, ok for PROM elbow and wrist and shoulder pendulum swings-ortho consulted -c/u weekly Alendronate for osteoporosis, Calcium-Vit D supplement -suspect median nerve neuropathy in her left hand due to median nerve compression either at the wrist or forearm due to recent swelling, strength is preserved, wrist splint to be worn qHS to prevent worsening of symptoms- 3. Neuro: +restless leg syndrome, c/u Requip qhs 4. Cardiac: no active issues 5. Resp: encourage incentive spirometry, monitor for infection 6. Nathan: s/p 4 units prbc on inpatient for left anterior thigh hematoma, monitor for blood loss and manage accordingly-stable 7. DVT ppx: heparin and TEDs 8. Pain: Tylenol and tramadol prn 9. : +UTI s/p levaquin, dysuria improved 10. Psych: insomnia improving with trazodone 11. Dispo: 11-21-19 to home progressing towards goals Allergies Coded Allergies: No Known Allergies (Verified , 09/19/17) Vital Signs Vital Signs Date Time Temp Pulse Resp B/P (MAP) Pulse Ox O2 Delivery O2 Flow Rate FiO2 11/17/19 14:05 98.7 86 16 112/65 (81) 95 Room Air Laboratory Data CBC/BMP Laboratory Tests 11/17/19 08:07 Labs 24H Laboratory Tests 2 11/17/19 08:07: Immature Granulocyte % (Auto) 1.3, Neutrophils (%) (Auto) 65.8, Lymphocytes (%) (Auto) 19.8L, Monocytes (%) (Auto) 9.0H, Eosinophils (%) (Auto) 2.8, Basophils (%) (Auto) 1.3H, Neutrophils # (Auto) 2.6, Lymphocytes # (Auto) 0.8L, Monocytes # (Auto) 0.4, Eosinophils # (Auto) 0.1, Basophils # (Auto) 0.1, Nucleated Red Blood Cells % (auto) 0.0, Anion Gap 6L, Glomerular Filtration Rate > 60.0, Calcium Level 8.5L Microbiology Microbiology 11/10/19 Urine Culture - Final, Complete Klebsiella Pneumoniae Current Medications Current Medications Current Medications Medications (Trade) Dose Ordered Sig/Mo Route PRN Reason Start Time Stop Time Status Last Admin Dose Admin Acetaminophen (Tylenol Tab) 1,000 mg TID PO 11/04/19 21:00 11/17/19 08:00 Alendronate Sodium (Fosamax) 70 mg Th@07 PO 11/06/19 07:00 11/13/19 06:08 Artificial Tears (Akwa Tears) 2 drop TID OD 11/04/19 21:00 11/17/19 08:01 Betamethasone Dipropionate (Diprosone) apply to left hand BID TOP 11/04/19 21:00 11/07/19 15:14 DC 11/07/19 10:01 Bisacodyl (Dulcolax Suppository) 10 mg DAILYPRN PRN [place] CONSTIPATION 11/04/19 16:00 Docusate Sodium (Colace) 100 mg BID PO 11/04/19 21:00 11/17/19 08:00 Heparin Sodium (Porcine) (Heparin) 5,000 units Q12H SC 11/04/19 21:00 11/17/19 08:00 Home Med (Med Rec Complete!) ASDIRECTED XX 11/04/19 17:00 11/04/19 16:54 DC Lactobacillus Acidophilus (Bacid) 1 ea WM PO 11/12/19 12:30 11/17/19 12:01 Levofloxacin (Levaquin) 250 mg DAILY@06 PO 11/12/19 10:00 11/14/19 06:01 DC 11/14/19 06:38 Miscellaneous (Unresolved Clarification Entry) SEE LABEL COMMENTS DAILY XX 11/16/19 09:00 11/17/19 07:46 DC Miscellaneous (Unresolved Clarification Entry) SEE LABEL COMMENTS DAILY XX 11/17/19 09:00 11/17/19 07:49 DC Miscellaneous (Unresolved Clarification Entry) SEE LABEL COMMENTS DAILY XX 11/10/19 09:00 11/11/19 07:15 DC Miscellaneous (Unresolved Clarification Entry) SEE LABEL COMMENTS DAILY XX 11/11/19 09:00 11/11/19 18:44 DC Pantoprazole Sodium (Protonix) 40 mg DAILY PO 11/04/19 09:00 11/17/19 08:00 Ropinirole HCl (Requip) 0.25 mg QHS PO 11/04/19 21:00 11/16/19 20:55 Senna (Senokot) 1 tab QHS PO 11/04/19 21:00 11/15/19 20:11 Timolol Maleate (Timoptic 0.5% Ophth Glenny) 1 drop DAILY OD 11/05/19 09:00 11/17/19 08:00 Tramadol HCl (Ultram) 50 mg Q4HP PRN PO MODERATE PAIN (PS 5-7) 11/04/19 16:00 11/16/19 20:55 Trazodone HCl (Desyrel) 25 mg QHS PO 11/13/19 21:00 11/16/19 20:56 SHAISTA RAMOS MD Nov 17, 2019 15:36
[2019-11-17 20:00] VITALS: BP 119/65
[2019-11-17] MEDS: rOPINIRole 0.25 MG TAB(REQUIP) PO SCH (20:56)
[2019-11-17] MEDS: SENNA 8.6 MG TAB (SENOKOT) PO SCH (20:57)
[2019-11-17] MEDS: traZODone 25MG PER 1/2 TABLET PO SCH (20:57)
[2019-11-17] MEDS: traMADol 50 MG TAB PO PRN (22:01)
[2019-11-18 06:00] VITALS: BP_SYST 127; BP_SYST 158; BP_DIAS 70; BP_DIAS 85
[2019-11-18] MEDS: LACTOBACILLUS ACIDOPHILUS CAP (BACID) PO SCH ×3 (08:54→16:29)
[2019-11-18] MEDS: DOCUSATE SODIUM 100 MG CAP PO SCH ×2 (08:54→20:14)
[2019-11-18] MEDS: PANTOPRAZOLE 40MG TAB (PROTONIX) PO SCH (08:54)
[2019-11-18] MEDS: ACETAMINOPHEN 500 MG TAB PO SCH ×3 (08:54→20:14)
[2019-11-18] MEDS: TIMOLOL MALEATE 0.5% OPHTH SOLN 5 ML OD SCH (08:55)
[2019-11-18] MEDS: POLYVINYL ALCOHOL OPHTH SOLN 15 ML(LIQUITEARS) OD SCH ×3 (08:55→20:15)
[2019-11-18] MEDS: HEPARIN SOD (PORCINE) 5000UNITS/ML VIAL (J1644 PER 1000UNITS) SC SCH ×2 (08:55→20:15)
[2019-11-18] MEDS: REMEDY PHYTOPLEX Z-GUARD PASTE 113GM TUBE (FROM STOREROOM PRODUCT) TOP SCH ×3 (08:56→20:15)
[2019-11-18 14:00] VITALS: BP 127/66
--- NOTE | 2019-11-18 15:01 | IPNPDOC ---
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 REVIEW OF SYSTEMS: The following is a completed review of systems and has been reviewed. Review of systems otherwise unremarkable. PAIN: Patient self reports left shoulder pain EYES: No recent vision changes EARS, NOSE, & THROAT: No throat pain, or dysphagia, or rhinorrhea CARDIOVASCULAR: Denies chest pain or palpitations PULMONARY: Denies shortness of breath GASTROINTESTINAL: Denies constipation/diarrhea GENITOURINARY: +urinary frequency (resolved) MUSCULOSKELETAL: left humeral, scapular, rib fractures NEUROLOGICAL:+ left hand D1-3 numbness (improving) HEMATOLOGICAL: +hematoma SKIN: left anterior shoulder incision PSYCHIATRIC: Unremarkable All other review of systems found to be negative. PHYSICAL EXAMINATION: VITAL SIGNS: Please see below. GENERAL: Pleasant and cooperative. No acute distress. HEENT: PERRL. Extraocular movements intact. Clear conjunctiva CARDIOVASCULAR: Regular rate and rhythm. No murmurs, rubs, or gallops LUNGS: Clear to auscultation bilaterally. No wheezes. No rhonchi ABDOMEN: Soft, nontender, nondistended. Positive bowel sounds. Normal active bowel sounds NEUROLOGICAL: Alert and oriented times three. Cranial nerves II through XII grossly intact. Sensation grossly intact in all 4 limbs EXTREMITIES: 5\5 strength right upper extremities. LUE exam limited due to weight bearing restrictions, 5\5 strength right lower extremity. 5/5 strength in left lower extremity. +edema and ecchymosis LUE (resolved) Left hand decreased sensation to light touch D1-3, intact D4-5, 5/5 finger flexion, 5/5 finger abduction -radial pulse strong, fingers well perfused SKIN: left anterior shoulder incision new foam dressing with no drainage ASSESSMENT:79-year-old F with past medical history of osteoporosis who presents status post left humeral fracture s/p ORIF PLAN: 1. Rehab- PT/OT advance agit and ADL training, maintain NWB to LUE while strengthening/stretching/maintaining ROM all 3 limbs -ambulating with Narrow quad-based cane 2. Ortho: s/p left humeral fracture with ORIF, c/u NWB, ok for PROM elbow and wrist and shoulder pendulum swings-ortho consulted -c/u weekly Alendronate for osteoporosis, Calcium-Vit D supplement -suspect median nerve neuropathy in her left hand due to median nerve compression either at the wrist or forearm due to recent swelling, strength is preserved, wrist splint to be worn qHS to prevent worsening of symptoms-patient reporting some improvement in her finger numbness 3. Neuro: +restless leg syndrome, c/u Requip qhs 4. Cardiac: no active issues 5. Resp: encourage incentive spirometry, monitor for infection 6. Nathan: s/p 4 units prbc on inpatient for left anterior thigh hematoma, monitor for blood loss and manage accordingly-stable 7. DVT ppx: heparin and TEDs 8. Pain: Tylenol and tramadol prn 9. : +UTI s/p levaquin, dysuria improved 10. Psych: insomnia improving with trazodone 11. Dispo: 11-21-19 to home progressing towards goals, patient [id number] staying with her brother for a few days to help her adjust Allergies Coded Allergies: No Known Allergies (Verified , 09/19/17) Vital Signs Vital Signs Date Time Temp Pulse Resp B/P (MAP) Pulse Ox O2 Delivery O2 Flow Rate FiO2 11/18/19 14:00 98.4 80 18 127/66 (86) 95 Room Air Microbiology Microbiology 11/10/19 Urine Culture - Final, Complete Klebsiella Pneumoniae Current Medications Current Medications Current Medications Medications (Trade) Dose Ordered Sig/Mo Route PRN Reason Start Time Stop Time Status Last Admin Dose Admin Acetaminophen (Tylenol Tab) 1,000 mg TID PO 11/04/19 21:00 11/18/19 08:54 Alendronate Sodium (Fosamax) 70 mg Th@07 PO 11/06/19 07:00 11/13/19 06:08 Artificial Tears (Akwa Tears) 2 drop TID OD 11/04/19 21:00 11/18/19 08:55 Betamethasone Dipropionate (Diprosone) apply to left hand BID TOP 11/04/19 21:00 11/07/19 15:14 DC 11/07/19 10:01 Bisacodyl (Dulcolax Suppository) 10 mg DAILYPRN PRN [place] CONSTIPATION 11/04/19 16:00 Docusate Sodium (Colace) 100 mg BID PO 11/04/19 21:00 11/18/19 08:54 Heparin Sodium (Porcine) (Heparin) 5,000 units Q12H SC 11/04/19 21:00 11/18/19 08:55 Home Med (Med Rec Complete!) ASDIRECTED XX 11/04/19 17:00 11/04/19 16:54 DC Lactobacillus Acidophilus (Bacid) 1 ea WM PO 11/12/19 12:30 11/18/19 12:01 Levofloxacin (Levaquin) 250 mg DAILY@06 PO 11/12/19 10:00 11/14/19 06:01 DC 11/14/19 06:38 Miscellaneous (Unresolved Clarification Entry) SEE LABEL COMMENTS DAILY XX 11/16/19 09:00 11/17/19 07:46 DC Miscellaneous (Unresolved Clarification Entry) SEE LABEL COMMENTS DAILY XX 11/17/19 09:00 11/17/19 07:49 DC Miscellaneous (Unresolved Clarification Entry) SEE LABEL COMMENTS DAILY XX 11/10/19 09:00 11/11/19 07:15 DC Miscellaneous (Unresolved Clarification Entry) SEE LABEL COMMENTS DAILY XX 11/11/19 09:00 11/11/19 18:44 DC Pantoprazole Sodium (Protonix) 40 mg DAILY PO 11/04/19 09:00 11/18/19 08:54 Ropinirole HCl (Requip) 0.25 mg QHS PO 11/04/19 21:00 11/17/19 20:56 Senna (Senokot) 1 tab QHS PO 11/04/19 21:00 11/17/19 20:57 Timolol Maleate (Timoptic 0.5% Ophth Glenny) 1 drop DAILY OD 11/05/19 09:00 11/18/19 08:55 Tramadol HCl (Ultram) 50 mg Q4HP PRN PO MODERATE PAIN (PS 5-7) 11/04/19 16:00 11/17/19 22:01 Trazodone HCl (Desyrel) 25 mg QHS PO 11/13/19 21:00 11/17/19 20:57 SHAISTA RAMOS MD Nov 18, 2019 15:01
[2019-11-18 20:00] VITALS: BP 120/65
[2019-11-18] MEDS: SENNA 8.6 MG TAB (SENOKOT) PO SCH (20:14)
[2019-11-18] MEDS: traZODone 25MG PER 1/2 TABLET PO SCH (20:15)
[2019-11-18] MEDS: rOPINIRole 0.25 MG TAB(REQUIP) PO SCH (20:15)
[2019-11-18] MEDS: traMADol 50 MG TAB PO PRN (21:56)
[2019-11-19 06:00] VITALS: BP 124/60
[2019-11-19 07:24] LABS: BASO # 0.1 10^3/uL (0.0-0.2); BASO % 1.5 % (0.0-1.0); EOS # 0.2 10^3/uL (0.0-0.5); EOS % 4.7 % (0.0-3.0); HEMATOCRIT 35.9 % (36.0-47.0); HEMOGLOBIN 11.5 g/dl (12.0-15.5); LYMPH # 0.9 10^3/uL (1.5-5.0); LYMPH % 26.5 % (24.0-44.0); MEAN CORPUSCULAR HEMOGLOBIN 32.1 pg (27.0-33.0); MEAN CORPUSCULAR VOLUME 100.3 fl (80.0-96.0); MONO # 0.4 10^3/uL (0.0-0.8); MONO % 11.7 % (0.0-5.0); NEUTROPHILS # 1.9 10^3/uL (1.5-8.5); NEUTROPHILS % 54.4 % (36.0-66.0); PLATELET COUNT, AUTOMATED 247 10^3/uL (150-450); RED BLOOD COUNT 3.58 10^6/uL (4.00-5.40); WHITE BLOOD COUNT 3.4 10^3/uL (4.0-10.0)
[2019-11-19] MEDS: LACTOBACILLUS ACIDOPHILUS CAP (BACID) PO SCH ×3 (07:36→16:09)
[2019-11-19] MEDS: PANTOPRAZOLE 40MG TAB (PROTONIX) PO SCH (07:36)
[2019-11-19] MEDS: HEPARIN SOD (PORCINE) 5000UNITS/ML VIAL (J1644 PER 1000UNITS) SC SCH ×2 (07:36→21:25)
[2019-11-19] MEDS: ACETAMINOPHEN 500 MG TAB PO SCH ×3 (07:37→21:26)
[2019-11-19] MEDS: TIMOLOL MALEATE 0.5% OPHTH SOLN 5 ML OD SCH (07:37)
[2019-11-19] MEDS: POLYVINYL ALCOHOL OPHTH SOLN 15 ML(LIQUITEARS) OD SCH ×3 (07:37→21:27)
[2019-11-19] MEDS: REMEDY PHYTOPLEX Z-GUARD PASTE 113GM TUBE (FROM STOREROOM PRODUCT) TOP SCH ×3 (07:38→21:27)
[2019-11-19] MEDS: DOCUSATE SODIUM 100 MG CAP PO SCH ×2 (07:39→21:26)
[2019-11-19 07:46] LABS: BLOOD UREA NITROGEN 13 MG/DL (7-18); CALCIUM LEVEL 8.7 MG/DL (8.8-10.2); CARBON DIOXIDE LEVEL 31 MEQ/L (21-32); CHLORIDE LEVEL 107 MEQ/L (98-107); CREATININE FOR GFR 0.51 MG/DL (0.55-1.30); GLOMERULAR FILTRATION RATE > 60.0 (>39); GLUCOSE, FASTING 86 MG/DL (70-100); POTASSIUM SERUM 4.1 MEQ/L (3.5-5.1); SODIUM LEVEL 140 MEQ/L (136-145)
[2019-11-19 14:00] VITALS: BP 134/76
[2019-11-19 20:00] VITALS: BP 142/74
[2019-11-19] MEDS: SENNA 8.6 MG TAB (SENOKOT) PO SCH (21:26)
[2019-11-19] MEDS: traZODone 25MG PER 1/2 TABLET PO SCH (21:26)
[2019-11-19] MEDS: rOPINIRole 0.25 MG TAB(REQUIP) PO SCH (21:26)
[2019-11-19] MEDS: traMADol 50 MG TAB PO PRN (21:26)
[2019-11-20 06:00] VITALS: BP 141/75
[2019-11-20] MEDS: ALENDRONATE 35MG TABLET PO SCH (06:23)
[2019-11-20] MEDS: REMEDY PHYTOPLEX Z-GUARD PASTE 113GM TUBE (FROM STOREROOM PRODUCT) TOP SCH ×3 (09:00→20:27)
[2019-11-20] MEDS: ACETAMINOPHEN 500 MG TAB PO SCH ×3 (09:06→20:27)
[2019-11-20] MEDS: PANTOPRAZOLE 40MG TAB (PROTONIX) PO SCH (09:06)
[2019-11-20] MEDS: DOCUSATE SODIUM 100 MG CAP PO SCH ×2 (09:06→20:26)
[2019-11-20] MEDS: HEPARIN SOD (PORCINE) 5000UNITS/ML VIAL (J1644 PER 1000UNITS) SC SCH ×2 (09:06→20:27)
[2019-11-20] MEDS: LACTOBACILLUS ACIDOPHILUS CAP (BACID) PO SCH ×3 (09:06→18:00)
[2019-11-20] MEDS: POLYVINYL ALCOHOL OPHTH SOLN 15 ML(LIQUITEARS) OD SCH ×3 (09:07→20:28)
[2019-11-20] MEDS: TIMOLOL MALEATE 0.5% OPHTH SOLN 5 ML OD SCH (09:07)
--- NOTE | 2019-11-20 11:55 | IPNPDOC ---
PM&R Progress Note DATE OF SERVICE: Nov 19, 2019 [employer]na Maker Progress Note Subjective: Patient reporting she yojana steadier today using the 4-wheeled RW and is working on braking with the right hand. REVIEW OF SYSTEMS: The following is a completed review of systems and has been reviewed. Review of systems otherwise unremarkable. PAIN: Patient self reports left shoulder pain EYES: No recent vision changes EARS, NOSE, & THROAT: No throat pain, or dysphagia, or rhinorrhea CARDIOVASCULAR: Denies chest pain or palpitations PULMONARY: Denies shortness of breath GASTROINTESTINAL: Denies constipation/diarrhea GENITOURINARY: +urinary frequency (resolved) MUSCULOSKELETAL: left humeral, scapular, rib fractures NEUROLOGICAL:+ left hand D1-3 numbness (improving) HEMATOLOGICAL: +hematoma SKIN: left anterior shoulder incision PSYCHIATRIC: Unremarkable All other review of systems found to be negative. PHYSICAL EXAMINATION: VITAL SIGNS: Please see below. GENERAL: Pleasant and cooperative. No acute distress. HEENT: PERRL. Extraocular movements intact. Clear conjunctiva CARDIOVASCULAR: Regular rate and rhythm. No murmurs, rubs, or gallops LUNGS: Clear to auscultation bilaterally. No wheezes. No rhonchi ABDOMEN: Soft, nontender, nondistended. Positive bowel sounds. Normal active bowel sounds NEUROLOGICAL: Alert and oriented times three. Cranial nerves II through XII grossly intact. Sensation grossly intact in all 4 limbs EXTREMITIES: 5\5 strength right upper extremities. LUE exam limited due to weight bearing restrictions, 5\5 strength right lower extremity. 5/5 strength in left lower extremity. +edema and ecchymosis LUE (resolved) Left hand decreased sensation to light touch D1-3, intact D4-5, 5/5 finger flexion, 5/5 finger abduction -radial pulse strong, fingers well perfused SKIN: left anterior shoulder incision new foam dressing with no drainage ASSESSMENT:79-year-old F with past medical history of osteoporosis who presents status post left humeral fracture s/p ORIF PLAN: 1. Rehab- PT/OT advance agit and ADL training, maintain NWB to LUE while strengthening/stretching/maintaining ROM all 3 limbs- ok to put minimal weight through left arm for 4-wheeled RW trial -ambulating with Narrow quad-based cane 2. 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 Neuro: +restless leg syndrome, c/u Requip qhs 4. Cardiac: no active issues 5. Resp: encourage incentive spirometry, monitor for infection 6. Nathan: s/p 4 units prbc on inpatient for left anterior thigh hematoma, monitor for blood loss and manage accordingly-stable 7. DVT ppx: heparin and TEDs 8. Pain: Tylenol and tramadol prn 9. : +UTI s/p levaquin, dysuria improved 10. Psych: insomnia improving with trazodone 11. Dispo: 11-21-19 to home progressing towards goals, patient consdiering staying with her brother for a few days to help her adjust Allergies Coded Allergies: No Known Allergies (Verified , 09/19/17) Vital Signs Vital Signs Date Time Temp Pulse Resp B/P (MAP) Pulse Ox O2 Delivery O2 Flow Rate FiO2 11/20/19 06:00 97.4 80 15 141/75 (97) 96 Room Air Microbiology Microbiology 11/10/19 Urine Culture - Final, Complete Klebsiella Pneumoniae Current Medications Current Medications Current Medications Medications (Trade) Dose Ordered Sig/Mo Route PRN Reason Start Time Stop Time Status Last Admin Dose Admin Acetaminophen (Tylenol Tab) 1,000 mg TID PO 11/04/19 21:00 11/20/19 09:06 Alendronate Sodium (Fosamax) 70 mg Th@07 PO 11/06/19 07:00 11/20/19 06:23 Artificial Tears (Akwa Tears) 2 drop TID OD 11/04/19 21:00 11/20/19 09:07 Betamethasone Dipropionate (Diprosone) apply to left hand BID TOP 11/04/19 21:00 11/07/19 15:14 DC 11/07/19 10:01 Bisacodyl (Dulcolax Suppository) 10 mg DAILYPRN PRN [place] CONSTIPATION 11/04/19 16:00 Docusate Sodium (Colace) 100 mg BID PO 11/04/19 21:00 11/20/19 09:06 Heparin Sodium (Porcine) (Heparin) 5,000 units Q12H SC 11/04/19 21:00 11/20/19 09:06 Home Med (Med Rec Complete!) ASDIRECTED XX 11/04/19 17:00 11/04/19 16:54 DC Lactobacillus Acidophilus (Bacid) 1 ea WM PO 11/12/19 12:30 11/20/19 09:06 Levofloxacin (Levaquin) 250 mg DAILY@06 PO 11/12/19 10:00 11/14/19 06:01 DC 11/14/19 06:38 Miscellaneous (Unresolved Clarification Entry) SEE LABEL COMMENTS DAILY XX 11/16/19 09:00 11/17/19 07:46 DC Miscellaneous (Unresolved Clarification Entry) SEE LABEL COMMENTS DAILY XX 11/17/19 09:00 11/17/19 07:49 DC Miscellaneous (Unresolved Clarification Entry) SEE LABEL COMMENTS DAILY XX 11/10/19 09:00 11/11/19 07:15 DC Miscellaneous (Unresolved Clarification Entry) SEE LABEL COMMENTS DAILY XX 11/11/19 09:00 11/11/19 18:44 DC Pantoprazole Sodium (Protonix) 40 mg DAILY PO 11/04/19 09:00 11/20/19 09:06 Ropinirole HCl (Requip) 0.25 mg QHS PO 11/04/19 21:00 11/19/19 18:39 DC 11/18/19 20:15 Ropinirole HCl (Requip) 0.5 mg QHS PO 11/19/19 21:00 11/19/19 21:26 Senna (Senokot) 1 tab QHS PO 11/04/19 21:00 11/19/19 21:26 Timolol Maleate (Timoptic 0.5% Ophth Glenny) 1 drop DAILY OD 11/05/19 09:00 11/20/19 09:07 Tramadol HCl (Ultram) 50 mg Q4HP PRN PO MODERATE PAIN (PS 5-7) 11/04/19 16:00 11/19/19 21:26 Trazodone HCl (Desyrel) 25 mg QHS PO 11/13/19 21:00 11/19/19 21:26 SHAISTA RAMOS MD Nov 20, 2019 11:55
[2019-11-20 14:00] VITALS: BP 132/68
[2019-11-20 20:00] VITALS: BP 120/67
[2019-11-20] MEDS: traZODone 25MG PER 1/2 TABLET PO SCH (20:26)
[2019-11-20] MEDS: SENNA 8.6 MG TAB (SENOKOT) PO SCH (20:26)
[2019-11-20] MEDS: rOPINIRole 0.25 MG TAB(REQUIP) PO SCH (20:26)
[2019-11-20] MEDS: traMADol 50 MG TAB PO PRN (21:47)
[2019-11-21 06:00] VITALS: BP 147/70
[2019-11-21] MEDS: LACTOBACILLUS ACIDOPHILUS CAP (BACID) PO SCH ×3 (08:00→17:22)
[2019-11-21] MEDS: REMEDY PHYTOPLEX Z-GUARD PASTE 113GM TUBE (FROM STOREROOM PRODUCT) TOP SCH ×3 (09:00→21:10)
[2019-11-21] MEDS: ACETAMINOPHEN 500 MG TAB PO SCH ×3 (12:16→21:08)
[2019-11-21] MEDS: PANTOPRAZOLE 40MG TAB (PROTONIX) PO SCH (12:16)
[2019-11-21] MEDS: HEPARIN SOD (PORCINE) 5000UNITS/ML VIAL (J1644 PER 1000UNITS) SC SCH ×2 (12:16→21:07)
[2019-11-21] MEDS: TIMOLOL MALEATE 0.5% OPHTH SOLN 5 ML OD SCH (12:17)
[2019-11-21] MEDS: POLYVINYL ALCOHOL OPHTH SOLN 15 ML(LIQUITEARS) OD SCH ×3 (12:17→21:10)
[2019-11-21] MEDS: DOCUSATE SODIUM 100 MG CAP PO SCH ×2 (12:17→21:09)
--- NOTE | 2019-11-21 13:48 | IPNPDOC ---
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 She continues to wear the wrist splint at night. REVIEW OF SYSTEMS: The following is a completed review of systems and has been reviewed. Review of systems otherwise unremarkable. PAIN: Patient self reports left shoulder pain EYES: No recent vision changes EARS, NOSE, & THROAT: No throat pain, or dysphagia, or rhinorrhea CARDIOVASCULAR: Denies chest pain or palpitations PULMONARY: Denies shortness of breath GASTROINTESTINAL: Denies constipation/diarrhea GENITOURINARY: +urinary frequency (resolved) MUSCULOSKELETAL: left humeral, scapular, rib fractures NEUROLOGICAL:+ left hand D1-3 numbness (improving) HEMATOLOGICAL: +hematoma SKIN: left anterior shoulder incision PSYCHIATRIC: Unremarkable All other review of systems found to be negative. PHYSICAL EXAMINATION: VITAL SIGNS: Please see below. GENERAL: Pleasant and cooperative. No acute distress. HEENT: PERRL. Extraocular movements intact. Clear conjunctiva CARDIOVASCULAR: Regular rate and rhythm. No murmurs, rubs, or gallops LUNGS: Clear to auscultation bilaterally. No wheezes. No rhonchi ABDOMEN: Soft, nontender, nondistended. Positive bowel sounds. Normal active bowel sounds NEUROLOGICAL: Alert and oriented times three. Cranial nerves II through XII grossly intact. Sensation grossly intact in all 4 limbs EXTREMITIES: 5\5 strength right upper extremities. LUE exam limited due to weight bearing restrictions, 5\5 strength right lower extremity. 5/5 strength in left lower extremity. +edema and ecchymosis LUE (resolved) Left hand decreased sensation to light touch D1-3, intact D4-5, 5/5 finger flexion, 5/5 finger abduction -radial pulse strong, fingers well perfused SKIN: left anterior shoulder incision new foam dressing with no drainage ASSESSMENT:79-year-old F with past medical history of osteoporosis who presents status post left humeral fracture s/p ORIF PLAN: 1. Rehab- PT/OT advance agit and ADL training, maintain NWB to LUE while strengthening/stretching/maintaining ROM all 3 limbs- ok to put minimal weight through left arm for 4-wheeled RW trial 2. 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 Neuro: +restless leg syndrome, c/u Requip qhs, will increase to 0.5mg per patient request 4. Cardiac: no active issues 5. Resp: encourage incentive spirometry, monitor for infection 6. Nathan: s/p 4 units prbc on inpatient for left anterior thigh hematoma, monitor for blood loss and manage accordingly-stable 7. DVT ppx: heparin and TEDs 8. Pain: Tylenol and tramadol prn 9. : +UTI s/p levaquin, dysuria improved 10. Psych: insomnia improving with trazodone 11. Dispo: 11-25-19 to home progressing towards goals, patient considering staying with her brother for a few days to help her adjust Allergies Coded Allergies: No Known Allergies (Verified , 09/19/17) Vital Signs Vital Signs Date Time Temp Pulse Resp B/P (MAP) Pulse Ox O2 Delivery O2 Flow Rate FiO2 11/21/19 06:00 98.4 88 16 147/70 (95) 96 Room Air Current Medications Current Medications Current Medications Medications (Trade) Dose Ordered Sig/Mo Route PRN Reason Start Time Stop Time Status Last Admin Dose Admin Acetaminophen (Tylenol Tab) 1,000 mg TID PO 11/04/19 21:00 11/21/19 12:16 Alendronate Sodium (Fosamax) 70 mg Th@07 PO 11/06/19 07:00 11/20/19 06:23 Artificial Tears (Akwa Tears) 2 drop TID OD 11/04/19 21:00 11/21/19 12:17 Betamethasone Dipropionate (Diprosone) apply to left hand BID TOP 11/04/19 21:00 11/07/19 15:14 DC 11/07/19 10:01 Bisacodyl (Dulcolax Suppository) 10 mg DAILYPRN PRN [place] CONSTIPATION 11/04/19 16:00 Docusate Sodium (Colace) 100 mg BID PO 11/04/19 21:00 11/21/19 12:17 Heparin Sodium (Porcine) (Heparin) 5,000 units Q12H SC 11/04/19 21:00 11/21/19 12:16 Home Med (Med Rec Complete!) ASDIRECTED XX 11/04/19 17:00 11/04/19 16:54 DC Lactobacillus Acidophilus (Bacid) 1 ea WM PO 11/12/19 12:30 11/21/19 12:16 Levofloxacin (Levaquin) 250 mg DAILY@06 PO 11/12/19 10:00 11/14/19 06:01 DC 11/14/19 06:38 Miscellaneous (Unresolved Clarification Entry) SEE LABEL COMMENTS DAILY XX 11/16/19 09:00 11/17/19 07:46 DC Miscellaneous (Unresolved Clarification Entry) SEE LABEL COMMENTS DAILY XX 11/17/19 09:00 11/17/19 07:49 DC Miscellaneous (Unresolved Clarification Entry) SEE LABEL COMMENTS DAILY XX 11/10/19 09:00 11/11/19 07:15 DC Miscellaneous (Unresolved Clarification Entry) SEE LABEL COMMENTS DAILY XX 11/11/19 09:00 11/11/19 18:44 DC Pantoprazole Sodium (Protonix) 40 mg DAILY PO 11/04/19 09:00 11/21/19 12:16 Ropinirole HCl (Requip) 0.25 mg QHS PO 11/04/19 21:00 11/19/19 18:39 DC 11/18/19 20:15 Ropinirole HCl (Requip) 0.5 mg QHS PO 11/19/19 21:00 11/20/19 20:26 Senna (Senokot) 1 tab QHS PO 11/04/19 21:00 11/20/19 20:26 Timolol Maleate (Timoptic 0.5% Ophth Glenny) 1 drop DAILY OD 11/05/19 09:00 11/21/19 12:17 Tramadol HCl (Ultram) 50 mg Q4HP PRN PO MODERATE PAIN (PS 5-7) 11/04/19 16:00 11/20/19 21:47 Trazodone HCl (Desyrel) 25 mg QHS PO 11/13/19 21:00 11/20/19 20:26 SHAISTA RAMOS MD Nov 21, 2019 13:48
--- NOTE | 2019-11-21 13:49 | IPNPDOC ---
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 REVIEW OF SYSTEMS: The following is a completed review of systems and has been reviewed. Review of systems otherwise unremarkable. PAIN: Patient self reports left shoulder pain EYES: No recent vision changes EARS, NOSE, & THROAT: No throat pain, or dysphagia, or rhinorrhea CARDIOVASCULAR: Denies chest pain or palpitations PULMONARY: Denies shortness of breath GASTROINTESTINAL: Denies constipation/diarrhea GENITOURINARY: +urinary frequency (resolved) MUSCULOSKELETAL: left humeral, scapular, rib fractures NEUROLOGICAL:+ left hand D1-3 numbness (improving) HEMATOLOGICAL: +hematoma SKIN: left anterior shoulder incision PSYCHIATRIC: Unremarkable All other review of systems found to be negative. PHYSICAL EXAMINATION: VITAL SIGNS: Please see below. GENERAL: Pleasant and cooperative. No acute distress. HEENT: PERRL. Extraocular movements intact. Clear conjunctiva CARDIOVASCULAR: Regular rate and rhythm. No murmurs, rubs, or gallops LUNGS: Clear to auscultation bilaterally. No wheezes. No rhonchi ABDOMEN: Soft, nontender, nondistended. Positive bowel sounds. Normal active bowel sounds NEUROLOGICAL: Alert and oriented times three. Cranial nerves II through XII grossly intact. Sensation grossly intact in all 4 limbs EXTREMITIES: 5\5 strength right upper extremities. LUE exam limited due to weight bearing restrictions, 5\5 strength right lower extremity. 5/5 strength in left lower extremity. +edema and ecchymosis LUE (resolved) Left hand decreased sensation to light touch D1-3, intact D4-5, 5/5 finger flexion, 5/5 finger abduction -radial pulse strong, fingers well perfused SKIN: left anterior shoulder incision new foam dressing with no drainage ASSESSMENT:79-year-old F with past medical history of osteoporosis who presents status post left humeral fracture s/p ORIF PLAN: 1. Rehab- PT/OT advance agit and ADL training, maintain NWB to LUE while strengthening/stretching/maintaining ROM all 3 limbs- ok to put minimal weight through left arm for 4-wheeled RW trial 2. 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 Neuro: +restless leg syndrome, c/u Requip qhs, increased to 0.5mg per patient request 4. Cardiac: no active issues 5. Resp: encourage incentive spirometry, monitor for infection 6. Nathan: s/p 4 units prbc on inpatient for left anterior thigh hematoma, monitor for blood loss and manage accordingly-stable 7. DVT ppx: heparin and TEDs 8. Pain: Tylenol and tramadol prn 9. : +UTI s/p levaquin, dysuria improved 10. Psych: insomnia improving with trazodone 11. Dispo: 11-25-19 to home progressing towards goals, patient considering staying with her brother for a few days to help her adjust Allergies Coded Allergies: No Known Allergies (Verified , 09/19/17) Vital Signs Vital Signs Date Time Temp Pulse Resp B/P (MAP) Pulse Ox O2 Delivery O2 Flow Rate FiO2 11/21/19 06:00 98.4 88 16 147/70 (95) 96 Room Air Current Medications Current Medications Current Medications Medications (Trade) Dose Ordered Sig/Mo Route PRN Reason Start Time Stop Time Status Last Admin Dose Admin Acetaminophen (Tylenol Tab) 1,000 mg TID PO 11/04/19 21:00 11/21/19 12:16 Alendronate Sodium (Fosamax) 70 mg Th@07 PO 11/06/19 07:00 11/20/19 06:23 Artificial Tears (Akwa Tears) 2 drop TID OD 11/04/19 21:00 11/21/19 12:17 Betamethasone Dipropionate (Diprosone) apply to left hand BID TOP 11/04/19 21:00 11/07/19 15:14 DC 11/07/19 10:01 Bisacodyl (Dulcolax Suppository) 10 mg DAILYPRN PRN [place] CONSTIPATION 11/04/19 16:00 Docusate Sodium (Colace) 100 mg BID PO 11/04/19 21:00 11/21/19 12:17 Heparin Sodium (Porcine) (Heparin) 5,000 units Q12H SC 11/04/19 21:00 11/21/19 12:16 Home Med (Med Rec Complete!) ASDIRECTED XX 11/04/19 17:00 11/04/19 16:54 DC Lactobacillus Acidophilus (Bacid) 1 ea WM PO 11/12/19 12:30 11/21/19 12:16 Levofloxacin (Levaquin) 250 mg DAILY@06 PO 11/12/19 10:00 11/14/19 06:01 DC 11/14/19 06:38 Miscellaneous (Unresolved Clarification Entry) SEE LABEL COMMENTS DAILY XX 11/16/19 09:00 11/17/19 07:46 DC Miscellaneous (Unresolved Clarification Entry) SEE LABEL COMMENTS DAILY XX 11/17/19 09:00 11/17/19 07:49 DC Miscellaneous (Unresolved Clarification Entry) SEE LABEL COMMENTS DAILY XX 11/10/19 09:00 11/11/19 07:15 DC Miscellaneous (Unresolved Clarification Entry) SEE LABEL COMMENTS DAILY XX 11/11/19 09:00 11/11/19 18:44 DC Pantoprazole Sodium (Protonix) 40 mg DAILY PO 11/04/19 09:00 11/21/19 12:16 Ropinirole HCl (Requip) 0.25 mg QHS PO 11/04/19 21:00 11/19/19 18:39 DC 11/18/19 20:15 Ropinirole HCl (Requip) 0.5 mg QHS PO 11/19/19 21:00 11/20/19 20:26 Senna (Senokot) 1 tab QHS PO 11/04/19 21:00 11/20/19 20:26 Timolol Maleate (Timoptic 0.5% Ophth Glenny) 1 drop DAILY OD 11/05/19 09:00 11/21/19 12:17 Tramadol HCl (Ultram) 50 mg Q4HP PRN PO MODERATE PAIN (PS 5-7) 11/04/19 16:00 11/20/19 21:47 Trazodone HCl (Desyrel) 25 mg QHS PO 11/13/19 21:00 11/20/19 20:26 SHAISTA RAMOS MD Nov 21, 2019 13:49
[2019-11-21 14:30] VITALS: BP 110/64
[2019-11-21 19:57] VITALS: BP 100/56
[2019-11-21] MEDS: traMADol 50 MG TAB PO PRN (21:09)
[2019-11-21] MEDS: SENNA 8.6 MG TAB (SENOKOT) PO SCH (21:09)
[2019-11-21] MEDS: rOPINIRole 0.25 MG TAB(REQUIP) PO SCH (21:09)
[2019-11-21] MEDS: traZODone 25MG PER 1/2 TABLET PO SCH (21:09)
[2019-11-22 06:00] VITALS: BP 141/68
[2019-11-22] MEDS: DOCUSATE SODIUM 100 MG CAP PO SCH ×2 (08:13→20:10)
[2019-11-22] MEDS: PANTOPRAZOLE 40MG TAB (PROTONIX) PO SCH (08:13)
[2019-11-22] MEDS: LACTOBACILLUS ACIDOPHILUS CAP (BACID) PO SCH (08:13)
[2019-11-22] MEDS: ACETAMINOPHEN 500 MG TAB PO SCH ×3 (08:13→20:11)
[2019-11-22] MEDS: HEPARIN SOD (PORCINE) 5000UNITS/ML VIAL (J1644 PER 1000UNITS) SC SCH ×2 (08:13→20:10)
[2019-11-22] MEDS: POLYVINYL ALCOHOL OPHTH SOLN 15 ML(LIQUITEARS) OD SCH ×3 (08:14→20:11)
[2019-11-22] MEDS: TIMOLOL MALEATE 0.5% OPHTH SOLN 5 ML OD SCH (08:14)
[2019-11-22] MEDS: REMEDY PHYTOPLEX Z-GUARD PASTE 113GM TUBE (FROM STOREROOM PRODUCT) TOP SCH ×3 (08:14→20:11)
--- NOTE | 2019-11-22 10:18 | IPNPDOC ---
Subjective Date Seen The patient was seen on 11/22/19. Subjective Chief Complaint/HPI Patient is comfortable and stable. Offers no new complaints General: Denies: ROS Unobtainable, Chills, Night Sweats, Fatigue, Malaise, Normal Appetite, Other Symptoms Constitutional: Denies: Chills, Fever, Malaise, Night Sweats, Weakness, Fatigue, Weight Loss, Lethargy, Other Skin: Denies: Rash, Lesions, Jaundice, Bruising, Itching, Dry, Breakdown, Nail Changes, Other Pulmonary: Denies: Dyspnea, Cough, Pleuritic Chest Pain, Other Symptoms Cardiovascular: Denies: Chest Pain, Palpitations, Orthopnea, Paroxysmal Noc. Dyspnea, Edema, Lt Headedness, Other Symptoms Gastrointestinal: Denies: Nausea, Vomiting, Abdominal Pain, Diarrhea, Constipation, Melena, Hematochezia, Other Symptoms Musculoskeletal: Denies: Neck Pain, Back Pain, Shoulder Pain, Arm Pain, Hand Pain, Leg Pain, Foot Pain, Joint Pain, Muscle Pain, Spasms, Other Symptoms Neurological: Denies: Weakness, Numbness, Incoordination, Change in speech, Confusion, Seizures, Other Symptoms Objective Physical Examination General Exam: Positive: Alert, Cooperative Neck Exam: Positive: Supple Chest Exam: Positive: Clear to auscultation, Normal air movement Heart Exam: Positive: Rate Normal, Normal S1, Normal S2 Abdomen Exam: Positive: Soft Extremity Exam: Positive: Normal pulses Skin Exam: Positive: Nl turgor and temperature Neuro Exam: Positive: Strength at 5/5 X4 ext, Cranial Nerves 3-12 NL Psych Exam: Positive: Mental status NL, Oriented x 3 Assessment /Plan Problems (1) Osteopenia Status: Acute (2) Humerus head fracture Status: Acute (3) Fall Status: Acute (4) Lung cancer Status: Chronic Plan/VTE VTE Prophylaxis Ordered?: Yes Plan Patient is a 79-year-old F status post left humeral fracture s/p ORIF currently undergoing rehabilitation. 1. Left proximal humeral and scapular fracture status post left proximal humeral ORIF on 11/01/2019. Tolerating PT/OT well, gait training. C/w pain medications, bowel regimen and ARU. Discharge planning as per Dr. Ty 2. UTI. Antibiotics finished, patient is still on Bacid with DC'd it. Patient is no more antibiotics 3. Left 5th and 6th rib fractures. Pain controlled, IS to use during day. 4. Acute blood loss anemia due to left thigh hematoma and shoulder fracture. No signs of acute bleeding, Last CBC from 4:15 followed H&H stable 5. Osteoporosis. C/w supplements. 6. Insomnia. Trazodone. 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 8. DVT px. heparin and TEDs VS, I&O, 24H, Fishbone Vital Signs/I&O Vital Signs Date Time Temp Pulse Resp B/P (MAP) Pulse Ox O2 Delivery O2 Flow Rate FiO2 11/22/19 06:00 98.4 89 14 141/68 (92) 90 Room Air I&O- Last 24 Hours up to 6 AM 11/22/19 06:00 Intake Total 840 ml Output Total 0 ml Balance 840 ml CESAR DUARTE MD Nov 22, 2019 10:18
[2019-11-22 13:30] VITALS: BP 102/61
[2019-11-22 20:00] VITALS: BP 126/73
[2019-11-22] MEDS: traMADol 50 MG TAB PO PRN (20:10)
[2019-11-22] MEDS: traZODone 25MG PER 1/2 TABLET PO SCH (20:10)
[2019-11-22] MEDS: SENNA 8.6 MG TAB (SENOKOT) PO SCH (20:11)
[2019-11-22] MEDS: rOPINIRole 0.25 MG TAB(REQUIP) PO SCH (20:11)
[2019-11-23 06:00] VITALS: BP 117/60
[2019-11-23] MEDS: REMEDY PHYTOPLEX Z-GUARD PASTE 113GM TUBE (FROM STOREROOM PRODUCT) TOP SCH ×3 (09:00→20:54)
[2019-11-23] MEDS: PANTOPRAZOLE 40MG TAB (PROTONIX) PO SCH (09:32)
[2019-11-23] MEDS: DOCUSATE SODIUM 100 MG CAP PO SCH ×2 (09:32→20:54)
[2019-11-23] MEDS: HEPARIN SOD (PORCINE) 5000UNITS/ML VIAL (J1644 PER 1000UNITS) SC SCH ×2 (09:32→20:53)
[2019-11-23] MEDS: ACETAMINOPHEN 500 MG TAB PO SCH ×3 (09:33→20:53)
[2019-11-23] MEDS: POLYVINYL ALCOHOL OPHTH SOLN 15 ML(LIQUITEARS) OD SCH ×3 (09:33→20:54)
[2019-11-23] MEDS: TIMOLOL MALEATE 0.5% OPHTH SOLN 5 ML OD SCH (09:33)
[2019-11-23 14:00] VITALS: BP 118/70
[2019-11-23 20:24] VITALS: BP 119/70
[2019-11-23] MEDS: rOPINIRole 0.25 MG TAB(REQUIP) PO SCH (20:53)
[2019-11-23] MEDS: traZODone 25MG PER 1/2 TABLET PO SCH (20:53)
[2019-11-23] MEDS: SENNA 8.6 MG TAB (SENOKOT) PO SCH (20:54)
[2019-11-23] MEDS: traMADol 50 MG TAB PO PRN (20:54)
[2019-11-24 05:01] VITALS: BP 137/84
[2019-11-24] MEDS: PANTOPRAZOLE 40MG TAB (PROTONIX) PO SCH (09:22)
[2019-11-24] MEDS: ACETAMINOPHEN 500 MG TAB PO SCH ×3 (09:22→20:27)
[2019-11-24] MEDS: DOCUSATE SODIUM 100 MG CAP PO SCH ×2 (09:22→20:27)
[2019-11-24] MEDS: TIMOLOL MALEATE 0.5% OPHTH SOLN 5 ML OD SCH (09:23)
[2019-11-24] MEDS: POLYVINYL ALCOHOL OPHTH SOLN 15 ML(LIQUITEARS) OD SCH ×3 (09:23→20:27)
[2019-11-24] MEDS: HEPARIN SOD (PORCINE) 5000UNITS/ML VIAL (J1644 PER 1000UNITS) SC SCH ×2 (09:23→20:27)
[2019-11-24] MEDS: REMEDY PHYTOPLEX Z-GUARD PASTE 113GM TUBE (FROM STOREROOM PRODUCT) TOP SCH ×3 (09:24→20:28)
[2019-11-24] MEDS ORDERED: REQU1TAB14 PO (10:18)
[2019-11-24 14:00] VITALS: BP 116/67
--- NOTE | 2019-11-24 15:24 | IPNPDOC ---
PM&R Progress Note DATE OF SERVICE: Nov 24, 2019 [facility] Progress Note Subjective: Patient seen in her room reporting she is ready to go home tomorrow and for room privileges today. REVIEW OF SYSTEMS: The following is a completed review of systems and has been reviewed. Review of systems otherwise unremarkable. PAIN: Patient self reports left shoulder pain EYES: No recent vision changes EARS, NOSE, & THROAT: No throat pain, or dysphagia, or rhinorrhea CARDIOVASCULAR: Denies chest pain or palpitations PULMONARY: Denies shortness of breath GASTROINTESTINAL: Denies constipation/diarrhea GENITOURINARY: +urinary frequency (resolved) MUSCULOSKELETAL: left humeral, scapular, rib fractures NEUROLOGICAL:+ left hand D1-3 numbness (improving) HEMATOLOGICAL: +hematoma SKIN: left anterior shoulder incision PSYCHIATRIC: Unremarkable All other review of systems found to be negative. PHYSICAL EXAMINATION: VITAL SIGNS: Please see below. GENERAL: Pleasant and cooperative. No acute distress. HEENT: PERRL. Extraocular movements intact. Clear conjunctiva CARDIOVASCULAR: Regular rate and rhythm. No murmurs, rubs, or gallops LUNGS: Clear to auscultation bilaterally. No wheezes. No rhonchi ABDOMEN: Soft, nontender, nondistended. Positive bowel sounds. Normal active bowel sounds NEUROLOGICAL: Alert and oriented times three. Cranial nerves II through XII grossly intact. Sensation grossly intact in all 4 limbs EXTREMITIES: 5\5 strength right upper extremities. LUE exam limited due to weight bearing restrictions, 5\5 strength right lower extremity. 5/5 strength in left lower extremity. +edema and ecchymosis LUE (resolved) Left hand decreased sensation to light touch D1-3, intact D4-5, 5/5 finger flexion, 5/5 finger abduction -radial pulse strong, fingers well perfused SKIN: left anterior shoulder incision new foam dressing with no drainage ASSESSMENT:79-year-old F with past medical history of osteoporosis who presents status post left humeral fracture s/p ORIF PLAN: 1. Rehab- PT/OT advance agit and ADL training, maintain NWB to LUE while strengthening/stretching/maintaining ROM all 3 limbs- ok to put minimal weight through left arm for 4-wheeled RW trial-room privileges today 2. 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 Neuro: +restless leg syndrome, c/u Requip qhs, increased to 0.5mg per patient request 4. Cardiac: no active issues 5. Resp: encourage incentive spirometry, monitor for infection 6. Nathan: s/p 4 units prbc on inpatient for left anterior thigh hematoma, monitor for blood loss and manage accordingly-stable 7. DVT ppx: heparin and TEDs 8. Pain: Tylenol and tramadol prn 9. : +UTI s/p levaquin, dysuria improved 10. Psych: insomnia improving with trazodone 11. Dispo: 11-25-19 to home progressing towards goals, patient considering staying with her brother for a few days to help her adjust Allergies Coded Allergies: No Known Allergies (Verified , 09/19/17) Vital Signs Vital Signs Date Time Temp Pulse Resp B/P (MAP) Pulse Ox O2 Delivery O2 Flow Rate FiO2 11/24/19 05:01 97.6 75 18 137/84 (101) 93 Room Air Current Medications Current Medications Current Medications Medications (Trade) Dose Ordered Sig/Mo Route PRN Reason Start Time Stop Time Status Last Admin Dose Admin Acetaminophen (Tylenol Tab) 1,000 mg TID PO 11/04/19 21:00 11/24/19 09:22 Alendronate Sodium (Fosamax) 70 mg Th@07 PO 11/06/19 07:00 11/20/19 06:23 Artificial Tears (Akwa Tears) 2 drop TID OD 11/04/19 21:00 11/24/19 09:23 Betamethasone Dipropionate (Diprosone) apply to left hand BID TOP 11/04/19 21:00 11/07/19 15:14 DC 11/07/19 10:01 Bisacodyl (Dulcolax Suppository) 10 mg DAILYPRN PRN [place] CONSTIPATION 11/04/19 16:00 Docusate Sodium (Colace) 100 mg BID PO 11/04/19 21:00 11/24/19 09:22 Heparin Sodium (Porcine) (Heparin) 5,000 units Q12H SC 11/04/19 21:00 11/24/19 09:23 Home Med (Med Rec Complete!) ASDIRECTED XX 11/04/19 17:00 11/04/19 16:54 DC Lactobacillus Acidophilus (Bacid) 1 ea WM PO 11/12/19 12:30 11/22/19 10:21 DC 11/22/19 08:13 Levofloxacin (Levaquin) 250 mg DAILY@06 PO 11/12/19 10:00 11/14/19 06:01 DC 11/14/19 06:38 Miscellaneous (Unresolved Clarification Entry) SEE LABEL COMMENTS DAILY XX 11/16/19 09:00 11/17/19 07:46 DC Miscellaneous (Unresolved Clarification Entry) SEE LABEL COMMENTS DAILY XX 11/17/19 09:00 11/17/19 07:49 DC Miscellaneous (Unresolved Clarification Entry) SEE LABEL COMMENTS DAILY XX 11/10/19 09:00 11/11/19 07:15 DC Miscellaneous (Unresolved Clarification Entry) SEE LABEL COMMENTS DAILY XX 11/11/19 09:00 11/11/19 18:44 DC Pantoprazole Sodium (Protonix) 40 mg DAILY PO 11/04/19 09:00 11/24/19 09:22 Ropinirole HCl (Requip) 0.25 mg QHS PO 11/04/19 21:00 11/19/19 18:39 DC 11/18/19 20:15 Ropinirole HCl (Requip) 0.5 mg QHS PO 11/19/19 21:00 11/23/19 20:53 Senna (Senokot) 1 tab QHS PO 11/04/19 21:00 11/23/19 20:54 Timolol Maleate (Timoptic 0.5% Ophth Glenny) 1 drop DAILY OD 11/05/19 09:00 11/24/19 09:23 Tramadol HCl (Ultram) 50 mg Q4HP PRN PO MODERATE PAIN (PS 5-7) 11/04/19 16:00 11/23/19 20:54 Trazodone HCl (Desyrel) 25 mg QHS PO 11/13/19 21:00 11/23/19 20:53 SHAISTA RAMOS MD Nov 24, 2019 15:24
[2019-11-24 20:00] VITALS: BP 123/71
[2019-11-24] MEDS: rOPINIRole 0.25 MG TAB(REQUIP) PO SCH (20:26)
[2019-11-24] MEDS: traZODone 25MG PER 1/2 TABLET PO SCH (20:27)
[2019-11-24] MEDS: SENNA 8.6 MG TAB (SENOKOT) PO SCH (20:27)
[2019-11-24] MEDS: traMADol 50 MG TAB PO PRN (22:24)
[2019-11-25 06:00] VITALS: BP 133/71
[2019-11-25] MEDS: DOCUSATE SODIUM 100 MG CAP PO SCH (08:28)
[2019-11-25] MEDS: PANTOPRAZOLE 40MG TAB (PROTONIX) PO SCH (08:28)
[2019-11-25] MEDS: HEPARIN SOD (PORCINE) 5000UNITS/ML VIAL (J1644 PER 1000UNITS) SC SCH (08:28)
[2019-11-25] MEDS: ACETAMINOPHEN 500 MG TAB PO SCH (08:28)
[2019-11-25] MEDS: TIMOLOL MALEATE 0.5% OPHTH SOLN 5 ML OD SCH (08:29)
[2019-11-25] MEDS: REMEDY PHYTOPLEX Z-GUARD PASTE 113GM TUBE (FROM STOREROOM PRODUCT) TOP SCH (08:29)
[2019-11-25] MEDS: POLYVINYL ALCOHOL OPHTH SOLN 15 ML(LIQUITEARS) OD SCH (08:29)
--- NOTE | 2019-11-25 11:25 | PMRDS ---
DATE OF ADMISSION: 11/04/2019 DATE OF DISCHARGE: CHIEF COMPLAINT/DISCHARGE DIAGNOSIS: Left humeral and scapular fracture with ribcage fracture. HISTORY OF PRESENT ILLNESS: 79F pmh left upper lobe cancer s/p lobectomy, osteoporosis, left hip fracture 2018 who fell at home and presented to [facility] ED on 10-29-19 with left arm pain. X-ray revealed, Comminuted displaced and dislocated fracture involving the humeral head extending through the proximal humeral metadiaphysisFractures of the scapula extending through the glenoidSuspected nondisplaced posterior fifth and sixth rib fractures. Her arm was immobilized, she was seen by orthopedics who performed an ORIF left proximal humerus on 11-04-19 without complications. Her surgery was postponed due to acute blood loss in setting of left anterior thigh hematoma requiring 4 units of prbcs. Post-op she was evaluated by therapy, found to have new impairments in mobility and ADLs and deemed medically appropriate for discharge to ARU. HOSPITAL COURSE: The patient was admitted and enrolled in a comprehensive physical therapy (PT)/occupational therapy (OT) program. She received 24-hour nursing supervision, and weekly team meetings were held to discuss her progress. The patient initially was instructed to walk with a narrow-based quad cane. She made significant gains, however, had continuous losses of balance, and the case was discussed with orthopedics, who agreed to minimal weightbearing to the left upper extremity for improvement in balance with ambulation. The patient was transitioned to a four-wheeled rolling walker, was able to put minimal weight through it with her left arm, and her safety in ambulation was significantly improved. The patient's left upper extremity swelling did resolve. However, she developed signs and symptoms of carpal tunnel syndrome, which was treated with an evening splint with modest reduction in her overall symptoms. She reported dysuria during her hospital course, was treated with a course of Levaquin with improvements, and she had been admitted following multiple transfusions for a left anterior thigh hematoma which did not cause any further drops in hemoglobin and hematocrit her hospital sta. She was deemed medically and functionally stable to return home. DISCHARGE MEDICATIONS: As per instructions. FUNCTIONAL HISTORY ON DISCHARGE: The patient was independent for all functional transfers, able to ambulate 250 feet on modified independent level. In occupational therapy, she was modified independent for functional transfers as well and standby assist for meal prep with instructions to have supervision for heavy cooking. Thank you for this referral.
== END 2019-11-25 13:50 | disposition home or self-care (01) | DRG 560 ==
LOC: M PM&R 16:20
PROVIDERS: ADMIT Physical Medicine & Rehabilitation; ATTEND Physical Medicine & Rehabilitation
DX: S42.302D Unspecified fracture of shaft of humerus, left arm, subsequent encounter for fracture with routine healing (principal); D62 Acute posthemorrhagic anemia; N39.0 Urinary tract infection, site not specified; S22.42XD Multiple fractures of ribs, left side, subsequent encounter for fracture with routine healing; S70.12XD Contusion of left thigh, subsequent encounter; W10.9XXD Fall (on) (from) unspecified stairs and steps, subsequent encounter; Y92.009 Unspecified place in unspecified non-institutional (private) residence as the place of occurrence of the external cause; M81.0 Age-related osteoporosis without current pathological fracture; R26.89 Other abnormalities of gait and mobility; G25.81 Restless legs syndrome; Z79.899 Other long term (current) drug therapy; Z66 Do not resuscitate; Z85.118 Personal history of other malignant neoplasm of bronchus and lung; G47.00 Insomnia, unspecified; G56.12 Other lesions of median nerve, left upper limb

== ENCOUNTER 2019-11-30 17:55 | Inpatient (IN) | payer MEDICARE, OTHER ==
[~2019-11-30] VITALS: Ht 149.9 cm; Wt 46.6 kg
[~2019-11-30 17:55] MED LIST changes: +REQU1TAB14 PO
[2019-11-30] MEDS ORDERED: BOOSTRIX/ADACEL VACCINE (DIPHTH/PERTUSS/ACELL/TETANUS) 0.5ML SYR IM ONE (18:15)
[2019-11-30 18:33] LABS: HEMATOCRIT 39.7 % (36.0-47.0); HEMOGLOBIN 12.8 g/dl (12.0-15.5); MEAN CORPUSCULAR HEMOGLOBIN 31.6 pg (27.0-33.0); MEAN CORPUSCULAR HGB CONC 32.2 g/dl (32.0-36.5); PLATELET COUNT, AUTOMATED 211 10^3/uL (150-450); RED BLOOD COUNT 4.05 10^6/uL (4.00-5.40); WHITE BLOOD COUNT 6.5 10^3/uL (4.0-10.0)
--- NOTE | 2019-11-30 18:47 | REPVR ---
PROCEDURE INFORMATION: Exam: CT Head Without Contrast Exam date and time: 11/30/2019 6:08 PM Age: 79 years old Clinical indication: Injury or trauma; Fall; Initial encounter; Blunt trauma (contusions or hematomas) TECHNIQUE: Imaging protocol: Computed tomography of the head without contrast. Radiation optimization: All CT scans at this facility use at least one of these dose optimization techniques: automated exposure control; mA and/or kV adjustment per patient size (includes targeted exams where dose is matched to clinical indication); or iterative reconstruction. COMPARISON: CT Head without contrast 06/22/2019 3:10 PM FINDINGS: Brain: There is moderate generalized cerebral and cerebellar atrophy. No hemorrhage. No mass effect. Midline structures intact. Ventricles: Normal. No ventriculomegaly. Bones/joints: Unremarkable. No acute fracture. Sinuses: Visualized sinuses are unremarkable. No fluid levels. Mastoid air cells: Visualized mastoid air cells are well aerated. Auditory system: Debris in the external auditory canal on the right. Soft tissues: Unremarkable. IMPRESSION: 1. No acute findings. 2. Moderately advanced cerebral and cerebellar atrophy. 3. Increased cerumen is within the right external auditory canal. Electronically signed by: Aura Knutson On 11/30/2019 18:47:21 PM
--- NOTE | 2019-11-30 19:08 | REPVR ---
PROCEDURE INFORMATION: Exam: CT Cervical Spine Without Contrast Exam date and time: 11/30/2019 6:08 PM Age: 79 years old Clinical indication: Injury or trauma; Fall; Initial encounter; Blunt trauma TECHNIQUE: Imaging protocol: Computed tomography images of the cervical spine without contrast. Radiation optimization: All CT scans at this facility use at least one of these dose optimization techniques: automated exposure control; mA and/or kV adjustment per patient size (includes targeted exams where dose is matched to clinical indication); or iterative reconstruction. COMPARISON: CT Spine,cervical w/o contrast 05/29/2016 1:01 PM FINDINGS: Vertebrae: There are fractures of the left transverse process of C7, T1, T2 and T3 and T4.. Fracture of the inferior articular facet on the left at C5. Possible nondisplaced fracture of the superior articular facet on the left at C6. Normal alignment. C2-C3: No disc herniation. No spinal canal stenosis. No neural foraminal narrowing. C3-C4: Small posterior disc bulge.. No spinal canal stenosis. No neural foraminal narrowing. C4-C5: Broad-based posterior disc bulge.. No spinal canal stenosis. No neural foraminal narrowing. C5-C6: Posterior disc osteophyte ridge.. Uncovertebral hypertrophy. No spinal canal stenosis. No neural foraminal narrowing. C6-C7: No disc herniation. No spinal canal stenosis. No neural foraminal narrowing. C7-T1: No disc herniation. No spinal canal stenosis. No neural foraminal narrowing. Soft tissues: Unremarkable. Lungs: Calcified granuloma left lung apex. Mild right apical pleural thickening. Bones: There are fractures of the left, 2nd, 3rd, 4th ribs at the costovertebral junction. There are findings which suggest the fractures of the 3rd and 4th ribs are chronic. IMPRESSION: 1. Fractures of the left transverse processes C7, T1, T2, T3 and T4 2. Fractures of the left posterior ribs at the costovertebral junctions involving the 2nd, 3rd and 4th ribs. Electronically signed by: Aura Knutson On 11/30/2019 19:07:59 PM
[2019-11-30] MEDS ORDERED: VITA500T17 PO (19:57)
[2019-11-30] MEDS ORDERED: D-40TAB2 PO (19:57)
[2019-11-30] MEDS ORDERED: CALCCAP4 PO (19:57)
[2019-11-30] MEDS ORDERED: ACET-683 PO (19:57)
[2019-11-30] MEDS ORDERED: ROPI0.253 PO (19:57)
[2019-11-30] MEDS ORDERED: MOM 30ML SUSPENSION UDC PO PRN (20:15)
[2019-11-30] MEDS ORDERED: PERCOCET 5MG/325MG TAB PO PRN (20:45)
--- NOTE | 2019-11-30 21:32 | HPEPDOC ---
General Date of Admission Nov 30, 2019 at 20:12 Date of Service: Nov 30, 2019 Chief Complaint The patient is a 79-year-old female admitted with a reason for visit of Closed Cervical Fracture. Source: Patient, RN/MD Exam Limitations: No limitations Timing/Duration: 4-6 hours Severity: Moderate Associated Symptoms: Denies Symptoms History of Present Illness Patient is a 71-year-old female who was brought to the [facility] ED via EMS following a fall at home. Patient reported that she was preparing to make her way down stairs, while walking down the hallway, she tripped and fell on she that she had wrapped around her. Incident occurred around 3 PM. She denied any loss of consciousness; reported she only called 911 because she couldn't get up under her own steam. She no longer has the upper body strength. Patient stated that she has no pain at this time. According to the ED nurses. She has not requested or received any medications for pain. Home Medications Scheduled Alendronate Sodium (Fosamax) 70 Mg Tab, 70 MG PO QWEEK, (Reported) SUNDAY Brimonidine Tartrate/Timolol (Combigan 0.2%-0.5% Eye Drops) 1 Glenny Glenny, 1 DROP OD DAILY, (Reported) Calcium Carbonate/Vitamin D3 (Calcium 600 + Vit D 400 Softgl) 1 Each Capsule, 1 CAP PO DAILY, (Reported) Carboxymethylcellulose Sod (Refresh Celluvisc) 0.4 Ml Soln, 1 DROP OU BID, (Reported) Cholecalciferol (Vitamin D3) (Vitamin D-400) 10 Mcg Tablet, 10 MCG PO DAILY, (Reported) Cyanocobalamin (Vitamin B-12) (Vitamin B-12) 500 Mcg Tablet, 500 MCG PO DAILY, (Reported) Ropinirole HCl (Ropinirole HCl) 0.25 Mg Tablet, 0.5 MG PO QHS, (Reported) Scheduled PRN Acetaminophen (Acetaminophen) 500 Mg Tablet, 1,000 MG PO Q6H PRN for PAIN, (Reported) Allergies Coded Allergies: No Known Allergies (Verified , 11/30/19) Past Medical History Medical History History of frequent falls Lung cancer Osteoporosis. Glaucoma. Left hip fracture, 2007 Right hip fracture, 2008 Left proximal humeral fracture and scapular fracture, 2019 Left fifth and sixth rib fractures, 2019 History of acute blood loss secondary to a left thigh hematoma and shoulder fracture requiring 40 units of RBCs Surgical History Right hip fracture repair 2009. Left hip repair 2007. Lobectomy 2005. Open reduction internal fixation of the left humerus 2019. 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 Dyspnea, Edema, Lt Headedness Gastrointestinal: Denies: Nausea, Vomiting, Abdominal Pain Genitourinary: Denies: Dysuria, Retention Hematologic: Denies: Bruising Musculoskeletal: Denies: Neck Pain, Back Pain, Joint Pain, Muscle Pain, Spasms Neurological: Reports: Weakness (chronic); Denies: Numbness, Change in speech, Confusion Psych: Reports: Mood Normal; Denies: Depression, Memory Issues Physical Examination General Exam: Positive: Alert, Cooperative, No Acute Distress Eye Exam: Positive: Conjunctiva & lids normal, EOMI; Negative: PERRLA (fixed right pupil), Sclera icteric ENT Exam: Positive: Atraumatic, Mucous membr. moist/pink, Pharynx Normal Neck Exam: Positive: Supple; Negative: JVD, thyromegaly Chest Exam: Positive: Clear to auscultation, Normal air movement, Other (no complaints of pain with deep breathing or palpation) Heart Exam: Positive: Rate Normal, Regular Rhythm, Normal S1, Normal S2; Negative: Murmurs, Rubs Telemetry: Positive: No significant arrhythmia Abdomen Exam: Positive: Normal bowel sounds, Soft; Negative: Tenderness, Hepatospenomegaly Extremity Exam: Negative: Clubbing, Cyanosis, Edema Skin Exam: Positive: Nl turgor and temperature, Other skin issue (lac to the back of the head; repaired was stapled 1. Bandaged lac to the right nicole); Negative: Breakdown, Lesion Neuro Exam: Positive: Normal Speech, Cranial Nerves 3-12 NL; Negative: Normal Gait (collar in place), Strength at 5/5 X4 ext (generalized weakness all 4 extremities) Psych Exam: Positive: Mood NL, Oriented x 3 Vital Signs Vital Signs Date Time Temp Pulse Resp B/P (MAP) Pulse Ox O2 Delivery O2 Flow Rate FiO2 11/30/19 19:28 89 18 130/86 (101) 96 Room Air 11/30/19 17:57 97.7 Laboratory Data Labs 24H Laboratory Tests 2 11/30/19 18:08: Nucleated Red Blood Cells % (auto) 0.0 11/30/19 18:27: POC Glucose (Misc Panel) 105, POC Sodium (Misc Panel) 136, POC Potassium (Misc Panel) 3.6, POC Chloride (Misc Panel) 99, POC Total CO2 (Misc Panel) 27.0, POC Blood Urea Nitrogen (Misc Panel 11, POC Ionized Calcium (Misc Panel) 5.1, POC Creatinine (Misc Panel) 0.5L, POC Hematocrit (Misc Panel) 40.0 CBC/BMP Laboratory Tests 11/30/19 18:08 Assessment/Plan Patient is a 71-year-old female who was brought to the [facility] ED via EMS following a fall at home. Patient has a past medical history which includes: History of frequent falls, Lung cancer S/B lobectomy 2005, Osteoporosis, Glaucoma, Left hip fracture, 2007, Right hip fracture, 2008, Left proximal humeral fracture and scapular fracture, 2019, Left fifth and sixth rib fractures, 2019, History of acute blood loss secondary to a left thigh hematoma and shoulder fracture requiring 40 units of RBCs. Patient reported that she was preparing to make her way down stairs, while walking down the hallway, she tripped and fell on she that she had wrapped around her. Incident occurred around 3 PM. She denied any loss of consciousness; reported she only called 911 because she couldn't get up under her own steam. She no longer has the upper body strength. Patient stated that she has no pain at this time. According to the ED nurses. She has not requested or received any medications for pain. Patient was most recently in the hospital having been admitted on 10/29/2019 following a fall down the stairs and subsequent left humeral and scapular fractures, and fifth and sixth rib fractures. Underwent ORIF for the humeral and scapular fractures on 10/30; patient developed a postop delirium. She was then transferred to the ARU, discharged 11/25/19. To date she has been home for 5 days prior to current admission. CT Head without contrast: IMPRESSION: 1. No acute findings. 2. Moderately advanced cerebral and cerebellar atrophy. 3. Increased cerumen is within the right external auditory canal. CT Spine,cervical w/o contrast: IMPRESSION: 1. Fractures of the left transverse processes C7, T1, T2, T3 and T4 2. Fractures of the left posterior ribs at the costovertebral junctions involving the 2nd, 3rd and 4th ribs. #1. Multiple rib fractures, left. Admit her spoke with Dr. Garcia who suggested cervical collar, currently in place. Admit to subacute rehabilitation with ortho Consult placed; suggested nerve block secondary multiple rib fractures - Discussed with patient who is in no pain at this time, hasn't received any pain from ED; she will proceed to with the consult just in case she develops worsening pain - PRN Percocet, incentive spirometry #2. History of frequent falls. Admission to [facility]. Recommend PT/OT assessment and treatment in the morning. Possible PFS consultation Currently on bedrest due to the above; day staff can adjust this prn #3. Osteoporosis. Supplements on hold at this time #4. Cerumen impaction. Patient wears hearing aids ED nursing attempted to remove the visible portion of the cerumen; remain in impaction may require ENT Plan / VTE VTE Prophylaxis Ordered?: Yes (Heparin) Plan Therapy: PT, OT Anticipated Discharge: Home With Services Attending Note Attending Note is a 79 yr old F w a hx of lung CA s/p lobectomy, hx of L hip fx, admitted for left posterior 2,3,4 rib fx and C1 to T4 left transverse process vertebral fxs. Plan: Pain meds, f/u with Ortho, fall precautions, PT/OT/PFS/ day time team will discuss PMNR consult transfer to ARU pending PT KRYSTA Parker PA-C Nov 30, 2019 21:17 VALENTIN PHELPS MD Dec 01, 2019 01:51
[2019-11-30 22:22] VITALS: BP 136/78
[2019-11-30] MEDS: ACETAMINOPHEN TAB 650MG DOSE (2X325MG) PO PRN (22:56)
[2019-11-30] MEDS: HEPARIN SOD (PORCINE) 5000UNITS/ML VIAL (J1644 PER 1000UNITS) SC SCH (22:56)
[2019-11-30] MEDS: rOPINIRole 0.25 MG TAB(REQUIP) PO SCH (22:56)
[2019-12-01] MEDS: ACETAMINOPHEN TAB 650MG DOSE (2X325MG) PO PRN ×2 (03:01→20:56)
[2019-12-01 06:21] VITALS: BP 129/73
[2019-12-01 06:35] LABS: HEMATOCRIT 35.9 % (36.0-47.0); HEMOGLOBIN 11.7 g/dl (12.0-15.5); MEAN CORPUSCULAR HEMOGLOBIN 31.7 pg (27.0-33.0); MEAN CORPUSCULAR HGB CONC 32.6 g/dl (32.0-36.5); MEAN CORPUSCULAR VOLUME 97.3 fl (80.0-96.0); PLATELET COUNT, AUTOMATED 183 10^3/uL (150-450); RED BLOOD COUNT 3.69 10^6/uL (4.00-5.40); WHITE BLOOD COUNT 4.9 10^3/uL (4.0-10.0)
[2019-12-01 07:03] LABS: BLOOD UREA NITROGEN 11 MG/DL (7-18); CALCIUM LEVEL 8.6 MG/DL (8.8-10.2); CARBON DIOXIDE LEVEL 26 MEQ/L (21-32); CHLORIDE LEVEL 106 MEQ/L (98-107); CREATININE FOR GFR 0.49 MG/DL (0.55-1.30); GLOMERULAR FILTRATION RATE > 60.0 (>39); GLUCOSE, FASTING 78 MG/DL (70-100); POTASSIUM SERUM 3.4 MEQ/L (3.5-5.1); SODIUM LEVEL 138 MEQ/L (136-145)
[2019-12-01] MEDS: HEPARIN SOD (PORCINE) 5000UNITS/ML VIAL (J1644 PER 1000UNITS) SC SCH ×2 (07:54→20:57)
[2019-12-01] MEDS: CYANOCOBALAMIN 500 MCG TAB PO SCH (07:54)
[2019-12-01] MEDS ORDERED: POTASSIUM CHLORIDE 10 MEQ SR TABLET PO ONE (08:00)
[2019-12-01 14:00] VITALS: BP 127/73
--- NOTE | 2019-12-01 16:02 | IPNPDOC ---
Text Note Date of Service The patient was seen on 12/01/19. NOTE Subjective: No any acute events overnight. Patient denied fever, chills, nausea, vomiting, diarrhea or dysuria Objective: VITAL SIGNS: Please see below. GENERAL: awake, alert, NAD HEENT: Neck collar in place anicteric sclera, PERRLA NECK: supple, no JVD CARDIOVASCULAR EXAMINATION: NS1S2, regular rate/rhythm RESPIRATORY EXAMINATION: CTA b/l, no wheezes/rales/rhonchi ABDOMINAL EXAMINATION: positive bowel sounds x 4, NT EXTREMITIES: no cyanosis, clubbing, edema SKIN: warm, no rashes. NEUROLOGICAL EXAMINATION: AAO x 3, no motor/sensory deficits Assessment/Plan Patient is 79 years old female with past mental history of lung cancer, osteoporosis, left hip fracture, right hip fracture, multiple falls in the past presented to the hospital after a fall at home. Patient was found to have fractures of the left transverse processes C7, T1, T2, T3 and T4, fractures of the left posterior ribs at the costovertebral junctions involving the 2nd, 3rd and 4th ribs. Multiple rib fractures, left. Ortho team suggested cervical collar, currently in place. -Pain management, incentive spirometry ARU consult History of frequent falls. PT/OT Osteoporosis. Continue vitamin D, calcium supplementation Cerumen impaction. ENT consult in the outpatient settings Emmy LOO, I+O Emmy LOO, I+O Laboratory Tests 11/30/19 18:08 12/01/19 06:09 Vital Signs Date Time Temp Pulse Resp B/P (MAP) Pulse Ox O2 Delivery O2 Flow Rate FiO2 12/01/19 14:00 98.1 86 18 127/73 (91) 95 Room Air I&O- Last 24 Hours up to 6 AM 12/01/19 06:00 Intake Total 300 ml Balance 300 ml SANTIAGO CANTU DO Dec 01, 2019 16:02
[2019-12-01] MEDS: VITAMIN D (CHOLECALCIFEROL) 400 INTERNATIONAL UNITS TAB PO SCH (16:45)
[2019-12-01] MEDS: CALCIUM/VITAMIN D 500 MG TAB PO SCH (16:45)
[2019-12-01 19:39] VITALS: BP 127/73
[2019-12-01] MEDS: rOPINIRole 0.25 MG TAB(REQUIP) PO SCH (20:56)
[2019-12-02 05:36] VITALS: BP 122/75
[2019-12-02] MEDS: CALCIUM/VITAMIN D 500 MG TAB PO SCH (08:48)
[2019-12-02] MEDS: VITAMIN D (CHOLECALCIFEROL) 400 INTERNATIONAL UNITS TAB PO SCH (08:48)
[2019-12-02] MEDS: CYANOCOBALAMIN 500 MCG TAB PO SCH (08:48)
[2019-12-02] MEDS: HEPARIN SOD (PORCINE) 5000UNITS/ML VIAL (J1644 PER 1000UNITS) SC SCH ×2 (08:48→20:23)
--- NOTE | 2019-12-02 10:06 | REP ---
REASON FOR EXAM: Known fractures. Patient had a C-spine CT on 11/30/2019 which showed multiple fractures, particularly fractures of the left transverse process of C7 through T4 inclusive and fracture of the inferior articular facet on the left involving C5 and possible nondisplaced fracture of the superior articular facet on the left of C6. All interested parties should review the CT and report, since is it more sensitive in detecting fractures than is plain radiography. Limited plain film examination of the cervical spine shows degenerative disc space narrowing at all levels and better seen by prior CT. The facet joints appear well aligned. Flexion and extension is somewhat limited radiographically. Vertebral body and alignment is within normal limits. The fractures seen on the prior CT are not well visualized on this plain film exam. There is a levoconvex curve. There are degenerative facet and uncovertebral joint changes bilaterally at every level. Anterior and posterior osteophytic ridging is seen C4-5 through C6-7 and again better imaged on the prior CT. Throughout flexion and extension views, there is no evidence of instability. IMPRESSION: Findings and limitations as described above. Electronically Signed by Juan Galarza DO 12/02/2019 12:53 P
--- NOTE | 2019-12-02 13:12 | CR ---
DATE OF CONSULTATION: 12/01/2019 CHIEF COMPLAINT: Cervical spine fractures. HISTORY OF PRESENT ILLNESS: This is a 79-year-old female brought to [facility] Emergency Department via emergency medical services (EMS). She had a fall at home. She tripped and fell down some stairs. Denied loss of consciousness. She denies neck pain or weakness in her legs at the time that I saw her on 12/01/2019 in the evening. PAST MEDICAL HISTORY: Includes frequent falls, lung cancer (CA), osteoporosis, glaucoma, bilateral hip fractures, left humeral fracture, and scapular fracture, left 5th and 6th rib fractures, and acute blood loss secondary to left thigh hematoma. MEDICATIONS: Include alendronate, brimonidine, calcium carbonate, carboxymethylcellulose, cholecalciferol, cyanocobalamin, ropinirole. ALLERGIES: No known drug allergies. SOCIAL HISTORY: Former smoker. Quit in 2007. Denies alcohol and drug use. PHYSICAL EXAMINATION: Well-appearing 79-year-old female in no acute distress. She is sitting up comfortably in bed. Her vital signs are stable. She is alert and times three. Mood and affect pleasant and positive. Station is normal. Nonobese. Nonlabored breathing. Affect is normal. Judgment and insight normal. Cervical spine collar is in situ. This was temporarily undone. She had no steps or gaps in her cervical spine. No midline tenderness. Upper extremities had full strength 5/5 with normal sensation 2/2 from C5 to T1. Negative Aleida sign bilaterally. No increased tone. Normal reflexes C5, C6, and C7. Strong radial pulse. She is similarly strong with normal sensation in her lower extremities from L2 to S1. IMAGING: Was reviewed by me, as well as the radiologist. Cervical spine CT was reviewed. This shows fractures of the left transverse processes C7, T1, T2, T3, and T4. There is also a fracture of left posterior ribs at the costovertebral junction, as well as 2nd, 3rd, and 4th ribs, as well as possible nondisplaced fracture of the superior articular facet on left at C6 alignment. Flexion/extension views of the cervical spine x-rays were also obtained. I agree with the radiologist's report. There is no evidence of instability on flexion/extension views. ASSESSMENT AND PLAN: A 79-year-old female appears to have stable nonoperative cervical spine fractures without evidence of instability or neurologic deficit. I recommend cervical spine collar and outpatient followup with a spine surgeon, as well as pain control and deep breathing for her rib fractures, as well.
[2019-12-02 14:00] VITALS: BP 126/72
[2019-12-02] MEDS: rOPINIRole 0.25 MG TAB(REQUIP) PO SCH (20:23)
[2019-12-02] MEDS: ACETAMINOPHEN TAB 650MG DOSE (2X325MG) PO PRN (20:23)
[2019-12-03 06:00] VITALS: BP 124/72
[2019-12-03] MEDS: VITAMIN D (CHOLECALCIFEROL) 400 INTERNATIONAL UNITS TAB PO SCH (08:27)
[2019-12-03] MEDS: CYANOCOBALAMIN 500 MCG TAB PO SCH (08:28)
[2019-12-03] MEDS: CALCIUM/VITAMIN D 500 MG TAB PO SCH (08:28)
[2019-12-03] MEDS: HEPARIN SOD (PORCINE) 5000UNITS/ML VIAL (J1644 PER 1000UNITS) SC SCH (08:28)
--- NOTE | 2019-12-03 20:49 | DS.PDOC ---
Discharge Summary General Date of Admission Nov 30, 2019 at 20:12 Date of Discharge 12/02/29 Discharge Summary PROCEDURES PERFORMED DURING STAY: [None]. ADMITTING DIAGNOSES: Multiple rib fractures, left. History of frequent falls. Osteoporosis. Cerumen impaction DISCHARGE DIAGNOSES: Multiple rib fractures, left. History of frequent falls. Osteoporosis. Cerumen impaction COMPLICATIONS/CHIEF COMPLAINT: Closed Cervical Fracture. HISTORY OF PRESENT ILLNESS: Patient is 79 years old female with past mental history of lung cancer, osteoporosis, left hip fracture, right hip fracture, multiple falls in the past presented to the hospital after a fall at home. Patient was found to have fractures of the left transverse processes C7, T1, T2, T3 and T4, fractures of the left posterior ribs at the costovertebral junctions involving the 2nd, 3rd and 4th ribs. HOSPITAL COURSE: Multiple rib fractures, left. Ortho team suggested cervical collar, currently in place. -Pain management, incentive spirometry ARU consult History of frequent falls. PT/OT Osteoporosis. Continue vitamin D, calcium supplementation Cerumen impaction. ENT consult in the outpatient settings DISCHARGE MEDICATIONS: Please see below. ALLERGIES: Please see below. PHYSICAL EXAMINATION ON DISCHARGE: VITAL SIGNS: Please see below. VITAL SIGNS: Please see below. GENERAL: awake, alert, NAD HEENT: Neck collar in place anicteric sclera, PERRLA NECK: supple, no JVD CARDIOVASCULAR EXAMINATION: NS1S2, regular rate/rhythm RESPIRATORY EXAMINATION: CTA b/l, no wheezes/rales/rhonchi ABDOMINAL EXAMINATION: positive bowel sounds x 4, NT EXTREMITIES: no cyanosis, clubbing, edema SKIN: warm, no rashes. NEUROLOGICAL EXAMINATION: AAO x 3, no motor/sensory deficits LABORATORY DATA: Please see below. IMAGING: [facility] NAME: ADDIS PÉREZ DATE OF : 1940 BUSINESS NUMBER: [id number] AGE: 79 SEX: F REPORT #: [id number] ROOM: M ED TECHNOLOGIST: VANESA DOCTOR: ANDI COOPER MD Ordered for Date&Time: 11/30/191807 cc: [~ rep ct ivnm] Service Date&Time: This report is in Signed status. Interpretation performed by [facility]. Thank you for having your radiology procedures performed at [facility] RADIOLOGY REPORT Date&Time printed: [~ rep prt dt last] [~ rep prt tm last] Page [address] of [address] [address] RADIOLOGY REPORT This report is in Signed status. Interpretation performed by [facility]. Thank you for having your radiology procedures performed at [facility] RADIOLOGY REPORT Date&Time printed: [~ rep prt dt last] [~ rep prt tm last] Page 1 of 2 PROCEDURE INFORMATION: Exam: CT Cervical Spine Without Contrast Exam date and time: 11/30/2019 6:08 PM Age: 79 years old Clinical indication: Injury or trauma; Fall; Initial encounter; Blunt trauma TECHNIQUE: Imaging protocol: Computed tomography images of the cervical spine without contrast. Radiation optimization: All CT scans at this facility use at least one of these dose optimization techniques: automated exposure control; mA and/or kV adjustment per patient size (includes targeted exams where dose is matched to clinical indication); or iterative reconstruction. COMPARISON: CT Spine,cervical w/o contrast 05/29/2016 1:01 PM FINDINGS: Vertebrae: There are fractures of the left transverse process of C7, T1, T2 and T3 and T4.. Fracture of the inferior articular facet on the left at C5. Possible nondisplaced fracture of the superior articular facet on the left at C6. Normal alignment. C2-C3: No disc herniation. No spinal canal stenosis. No neural foraminal narrowing. C3-C4: Small posterior disc bulge.. No spinal canal stenosis. No neural foraminal narrowing. C4-C5: Broad-based posterior disc bulge.. No spinal canal stenosis. No neural foraminal narrowing. C5-C6: Posterior disc osteophyte ridge.. Uncovertebral hypertrophy. No spinal canal stenosis. No neural foraminal narrowing. C6-C7: No disc herniation. No spinal canal stenosis. No neural foraminal narrowing. C7-T1: No disc herniation. No spinal canal stenosis. No neural foraminal narrowing. Soft tissues: Unremarkable. Lungs: Calcified granuloma left lung apex. Mild right apical pleural thickening. Bones: There are fractures of the left, 2nd, 3rd, 4th ribs at the costovertebral junction. There are findings which suggest the fractures of the 3rd and 4th ribs are chronic. IMPRESSION: 1. Fractures of the left transverse processes C7, T1, T2, T3 and T4 2. Fractures of the left posterior ribs at the costovertebral junctions involving the 2nd, 3rd and 4th ribs. Electronically signed by: Aura Knutson On 11/30/2019 19:07:59 PM DD: AURA KNUTSON MD 11/30/191807 DT: BRAULIO 11/30/191906 DS: AMINAH 11/30/191906 [~ rep ct labl] PROGNOSIS: Fair ACTIVITY: [As tolerated]. DIET: Cardiac DISPOSITION: [facility]. ITEMS TO FOLLOWUP ON ON OUTPATIENT: With PCP and orthopedic team DISCHARGE CONDITION: [Stable]. TIME SPENT ON DISCHARGE: Greater than20 minutes. Vital Signs/I&Os Vital Signs Date Time Temp Pulse Resp B/P (MAP) Pulse Ox O2 Delivery O2 Flow Rate FiO2 12/03/19 06:00 98.0 86 16 124/72 (89) 97 Room Air I&O- Last 24 Hours up to 6 AM 12/03/19 06:00 Intake Total 1620 ml Output Total 1360 ml Balance 260 ml Discharge Medications Scheduled Alendronate Sodium (Fosamax) 70 Mg Tab, 70 MG PO QWEEK, (Reported) SUNDAY Brimonidine Tartrate/Timolol (Combigan 0.2%-0.5% Eye Drops) 1 Glenny Glenny, 1 DROP OD DAILY, (Reported) Calcium Carbonate/Vitamin D3 (Calcium 600 + Vit D 400 Softgl) 1 Each Capsule, 1 CAP PO DAILY, (Reported) Carboxymethylcellulose Sod (Refresh Celluvisc) 0.4 Ml Soln, 1 DROP OU BID, (Reported) Cholecalciferol (Vitamin D3) (Vitamin D-400) 10 Mcg Tablet, 10 MCG PO DAILY, (Reported) Cyanocobalamin (Vitamin B-12) (Vitamin B-12) 500 Mcg Tablet, 500 MCG PO DAILY, (Reported) Ropinirole HCl (Ropinirole HCl) 0.25 Mg Tablet, 0.5 MG PO QHS, (Reported) Scheduled PRN Acetaminophen (Acetaminophen) 500 Mg Tablet, 1,000 MG PO Q6H PRN for PAIN, (Reported) Allergies Coded Allergies: No Known Allergies (Verified , 11/30/19) SANTIAGO CANTU DO Dec 03, 2019 20:49
== END 2019-12-03 11:35 | DRG 552 ==
LOC: EDBD 17:55 → M ED 17:55 → M ED INP 20:12 → ENRESERVTM 21:20 → ENRESERVDT 21:20 → M MS5PR 22:20
PROVIDERS: ADMIT Internal Medicine; ATTEND Internal Medicine
DX: S12.9XXA Fracture of neck, unspecified, initial encounter (principal); S22.42XA Multiple fractures of ribs, left side, initial encounter for closed fracture; S22.019A Unspecified fracture of first thoracic vertebra, initial encounter for closed fracture; S22.029A Unspecified fracture of second thoracic vertebra, initial encounter for closed fracture; S22.039A Unspecified fracture of third thoracic vertebra, initial encounter for closed fracture; S22.049A Unspecified fracture of fourth thoracic vertebra, initial encounter for closed fracture; H61.20 Impacted cerumen, unspecified ear; R29.6 Repeated falls; M81.0 Age-related osteoporosis without current pathological fracture; Z85.118 Personal history of other malignant neoplasm of bronchus and lung; Z79.899 Other long term (current) drug therapy; W10.9XXA Fall (on) (from) unspecified stairs and steps, initial encounter; Y92.009 Unspecified place in unspecified non-institutional (private) residence as the place of occurrence of the external cause; H40.9 Unspecified glaucoma; Z87.891 Personal history of nicotine dependence

== ENCOUNTER → 2019-12-11 | Outpatient (REF) ==
[~2019-12-11] MED LIST changes: +CALCCAP4 PO; +D-40TAB2 PO; +ROPI0.253 PO; +VITA500T17 PO
== END ==
LOC: SKLAB5 07:29
PROVIDERS: ATTEND Family Medicine
DX: E55.9 Vitamin D deficiency, unspecified (principal)

== ENCOUNTER → 2019-12-14 | Outpatient (REF) | payer MEDICARE, OTHER ==
[2019-12-14 14:46] LABS: APPEARANCE, URINE CLOUDY (CLEAR); BACTERIA, URINE AUTO 1+ (NEGATIVE); BILIRUBIN, URINE AUTO NEGATIVE (NEGATIVE); BLOOD, URINE BLOOD NEGATIVE (NEGATIVE); COLOR, URINE AMBER (YELLOW); GLUCOSE, URINE (UA) AUTO NEGATIVE (NEGATIVE); KETONE, URINE AUTO NEGATIVE (NEGATIVE); LEUKOCYTE ESTERASE, URINE AUTO 3+ (NEGATIVE); MUCUS, URINE SMALL (NEGATIVE); NITRITE, URINE AUTO NEGATIVE (NEGATIVE); PROTEIN, URINE AUTO NEGATIVE (NEGATIVE); RBC, URINE AUTO 18 /HPF (0-3); SPECIFIC GRAVITY URINE AUTO 1.014 (1.002-1.035); SQUAMOUS EPITHELIAL CELL UR AU 0 /HPF (0-6); UROBILINOGEN, URINE AUTO 0.2 mg/dL (0.0-2.0); WBC, URINE AUTO 153 /HPF (0-3)
== END ==
LOC: SKLAB5 14:25
PROVIDERS: ATTEND Family Medicine
DX: R30.0 Dysuria (principal)

== ENCOUNTER → 2019-12-14 | Outpatient (REF) | payer MEDICARE, OTHER | LOC: SKLAB5 14:26 | PROVIDERS: ATTEND Family Medicine | DX: N39.0 Urinary tract infection, site not specified (principal) ==

== ENCOUNTER → 2019-12-17 | Outpatient (REF) | payer MEDICARE, OTHER | LOC: SKLAB5 16:30 | PROVIDERS: ATTEND Family Medicine | DX: R30.0 Dysuria (principal) ==

== ENCOUNTER → 2019-12-17 | Outpatient (REF) ==
[2019-12-17 19:47] LABS: APPEARANCE, URINE CLOUDY (CLEAR); BACTERIA, URINE AUTO 1+ (NEGATIVE); BILIRUBIN, URINE AUTO NEGATIVE (NEGATIVE); BLOOD, URINE BLOOD 1+ (NEGATIVE); COLOR, URINE AMBER (YELLOW); GLUCOSE, URINE (UA) AUTO NEGATIVE (NEGATIVE); KETONE, URINE AUTO NEGATIVE (NEGATIVE); LEUKOCYTE ESTERASE, URINE AUTO 3+ (NEGATIVE); NITRITE, URINE AUTO NEGATIVE (NEGATIVE); PROTEIN, URINE AUTO 2+ mg/dL (NEGATIVE); RBC, URINE AUTO TNTC /HPF (0-3); SPECIFIC GRAVITY URINE AUTO 1.015 (1.002-1.035); SQUAMOUS EPITHELIAL CELL UR AU 0 /HPF (0-6); UROBILINOGEN, URINE AUTO 0.2 mg/dL (0.0-2.0); WBC, URINE AUTO 6 /HPF (0-3)
== END ==
LOC: SKLAB5 08:58
PROVIDERS: ATTEND Internal Medicine
DX: Z03.818 Encounter for observation for suspected exposure to other biological agents ruled out (principal)

== ENCOUNTER → 2020-02-23 | Outpatient (REF) | payer MEDICARE, OTHER ==
[~2020-02-23] MED LIST changes: +PANT40TA29 PO; -PANT40TA3 PO
[2020-02-23 13:52] LABS: HEMATOCRIT 38.7 % (36.0-47.0); HEMOGLOBIN 12.8 g/dl (12.0-15.5); MEAN CORPUSCULAR HEMOGLOBIN 31.1 pg (27.0-33.0); MEAN CORPUSCULAR HGB CONC 33.1 g/dl (32.0-36.5); MEAN CORPUSCULAR VOLUME 94.2 fl (80.0-96.0); PLATELET COUNT, AUTOMATED 175 10^3/uL (150-450); RED BLOOD COUNT 4.11 10^6/uL (4.00-5.40); WHITE BLOOD COUNT 3.7 10^3/uL (4.0-10.0)
[2020-02-23 14:35] LABS: ALBUMIN 3.3 GM/DL (3.2-5.2); ALT/SGPT 22 U/L (12-78); BILIRUBIN,TOTAL 0.6 MG/DL (0.2-1.0); BLOOD UREA NITROGEN 14 MG/DL (7-18); CALCIUM LEVEL 9.3 MG/DL (8.8-10.2); CARBON DIOXIDE LEVEL 32 MEQ/L (21-32); CHLORIDE LEVEL 104 MEQ/L (98-107); CHOLESTEROL LEVEL 191 MG/DL (<200); CHOLESTEROL RISK RATIO 2.893 (<5); CREATININE FOR GFR 0.63 MG/DL (0.55-1.30); GLOMERULAR FILTRATION RATE > 60.0 (>39); GLUCOSE, FASTING 62 MG/DL (70-100); HDL CHOLESTEROL 66 MG/DL (>40); LDL CHOLESTEROL 112 MG/DL (<100); NON-HDL-C 125 MG/DL; POTASSIUM SERUM 3.7 MEQ/L (3.5-5.1); SODIUM LEVEL 142 MEQ/L (136-145); TOTAL PROTEIN 6.5 GM/DL (6.4-8.2); TRIGLYCERIDES LEVEL 66 MG/DL (<150)
== END ==
LOC: M PLALAB 10:56
PROVIDERS: ATTEND Internal Medicine
DX: G62.89 Other specified polyneuropathies (principal); R90.89 Other abnormal findings on diagnostic imaging of central nervous system; Z85.118 Personal history of other malignant neoplasm of bronchus and lung; Z79.899 Other long term (current) drug therapy

== ENCOUNTER → 2020-08-26 | Outpatient (REF) | payer MEDICARE, OTHER ==
[2020-08-26 15:16] LABS: BASO # 0.1 10^3/uL (0.0-0.2); BASO % 1.4 % (0.0-1.0); EOS # 0.2 10^3/uL (0.0-0.5); EOS % 4.2 % (0.0-3.0); HEMATOCRIT 42.5 % (36.0-47.0); HEMOGLOBIN 13.7 g/dl (12.0-15.5); LYMPH # 1.3 10^3/uL (1.5-5.0); LYMPH % 37.4 % (24.0-44.0); MEAN CORPUSCULAR HEMOGLOBIN 30.9 pg (27.0-33.0); MEAN CORPUSCULAR HGB CONC 32.2 g/dl (32.0-36.5); MEAN CORPUSCULAR VOLUME 95.9 fl (80.0-96.0); MONO # 0.5 10^3/uL (0.0-0.8); MONO % 12.8 % (0.0-5.0); NEUTROPHILS # 1.6 10^3/uL (1.5-8.5); NEUTROPHILS % 43.9 % (36.0-66.0); PLATELET COUNT, AUTOMATED 169 10^3/uL (150-450); RED BLOOD COUNT 4.43 10^6/uL (4.00-5.40); WHITE BLOOD COUNT 3.6 10^3/uL (4.0-10.0)
[2020-08-26 16:02] LABS: ALBUMIN 3.8 GM/DL (3.2-5.2); ALT/SGPT 25 U/L (12-78); BILIRUBIN,TOTAL 0.6 MG/DL (0.2-1.0); BLOOD UREA NITROGEN 12 MG/DL (7-18); CALCIUM LEVEL 9.6 MG/DL (8.8-10.2); CARBON DIOXIDE LEVEL 32 MEQ/L (21-32); CHLORIDE LEVEL 101 MEQ/L (98-107); CREATININE FOR GFR 0.63 MG/DL (0.55-1.30); FOLATE 22.7 NG/ML; GLOMERULAR FILTRATION RATE > 60.0 (>39); GLUCOSE, FASTING 71 MG/DL (70-100); POTASSIUM SERUM 3.7 MEQ/L (3.5-5.1); SODIUM LEVEL 140 MEQ/L (136-145); THYROID STIMULATING HORMONE 0.751 uIU/ML (0.358-3.740); TOTAL PROTEIN 6.8 GM/DL (6.4-8.2); VITAMIN B12 LEVEL 1884 PG/ML
== END ==
LOC: M SFHCPLAZ 13:55
PROVIDERS: ATTEND Internal Medicine
DX: G62.89 Other specified polyneuropathies (principal); Z11.59 Encounter for screening for other viral diseases; Z85.118 Personal history of other malignant neoplasm of bronchus and lung; Z79.899 Other long term (current) drug therapy
CPT/HCPCS: 36415; 80053; 82607; 82746; 84443; 85025; G0472

== ENCOUNTER 2020-11-02 12:34 | Emergency (ER) | payer MEDICARE, OTHER ==
--- NOTE | 2020-11-02 13:56 | REP ---
INDICATION: left hip pain; mechanical fall. COMPARISON: CT 10/29/2019 TECHNIQUE: AP pelvis with three views left hip. FINDINGS: AP pelvis: Pelvic ring intact SI joints symmetric sacral ala and foramina symmetric and grossly intact no fractures the iliac wings hip joints show marginal osteophytes superiorly without significant joint space narrowing. Patient has undergone prior ORIF right hip for intertrochanteric fractures. The right side as a blade paddle device and intramedullary nick. The degenerative disc and facet changes lower lumbar spine. Pelvic ring intact few pelvic phleboliths. Pubic rami show the left inferior pubic ramus with cortical irregularity, new since the previous CT this could be a nondisplaced fracture. Symphysis pubis grossly intact. Left hip: Three views of the hip show the threaded femoral nail and into the femoral head and not extending beyond its articular surface unchanged no lucency about it. Proximal of femoral shaft component has a single screw transversely and also without loosening or infection suggested. There is some heterotopic bone adjacent to the greater trochanter an old healed intertrochanteric fracture at the site of the ORIF. No new or acute fracture identified in the hip. 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 IMPRESSION: Superior pubic ramus fracture seen on the frogleg view and inferior pubic ramus fracture with cortical disruption are noted on the left side, new since the CT 1 year ago. Status post bilateral ORIF intertrochanteric fractures with healing. Heterotopic bone adjacent to the superior margin of the greater trochanter on the left. No evidence of loosening or infection by plain film. No acute hip fracture or other acute pelvic finding. <Electronically signed by Dino Maria > 11/02/20 [id number]
[2020-11-02 15:46] VITALS: BP 116/59
== END 2020-11-02 15:48 | disposition home or self-care (01) ==
LOC: M ED 12:34 → EDBD 12:34 → M ED 15:48
DX: S32.502A Unspecified fracture of left pubis, initial encounter for closed fracture (principal); S32.519A Fracture of superior rim of unspecified pubis, initial encounter for closed fracture; M25.552 Pain in left hip; Y92.009 Unspecified place in unspecified non-institutional (private) residence as the place of occurrence of the external cause; W19.XXXA Unspecified fall, initial encounter; Z79.899 Other long term (current) drug therapy; Y93.9 Activity, unspecified; Y99.9 Unspecified external cause status

== ENCOUNTER → 2020-12-07 | Outpatient (CLI) | payer MEDICARE, OTHER ==
--- NOTE | 2020-12-08 16:29 | REPMRS ---
Patient History The patient states she had a clinical breast exam in Aug 2020. Patient is postmenopausal, has history of lung cancer at age 65, had previous chemotherapy at age 65, and is nulliparous. Family history of prostate cancer at age 50 or over in father. Patient states no breast complaints. Patient has signed MRS history sheet. Digital Woman Screen Mammo: December 07, 2020 - Exam #: [id number] Bilateral CC and MLO view(s) were taken. Technologist: Maryjo Steinberg, Technologist Prior study comparison: March 2019, bilateral digital mammo screening bilat, performed at [facility]. FINDINGS: The breast tissue is extremely dense which could obscure a lesion on mammography. Screening. Digital screening (2D) mammography was performed bilaterally in the CC and MLO projections. Additionally, breast tomosynthesis (3D mammography) was performed bilaterally in the CC and MLO projections. Todays exam was compared to the prior exams(s). By history, the patient has no complaints of a palpable breast abnormality or other significant breast complaints. The breasts are unchanged in size and shape.Once again, dense heterogenous fibroglandular elements are seen bilaterally in a stable appearing pattern but to such a degree that the sensitivity of the mammogram in detecting cancer is decreased. There are no cari-soft tissue densities or spiculated masses. There is no internal architectural distortion. Once again, stable benign appearing calcifications are seen.There are no suspicious cari-calcific clusters. Skin thickening or nipple retraction is not present. IMPRESSION: BI-RADS Category 2- Benign Findings(s). There is no evidence of malignant alteration of the breasts. Followup examination recommended in one year. This mammogram was read with the assistance of [employer],an FDA approved computer aided detection system for mammography. The Volpara volumetric breast density category is D, the breasts are extremely dense which lowers the sensitivity of mammography. Negative x-ray reports should not delay surgical consultation if a dominant or clinically suspicious mass is present. The lifetime Tyrer-Cuzick score is 3.0% Not all breast cancers can be identified by mammography. Therefore, we recommend that you continue to perform regular breast self-examination and physical examination and then promptly contact your physician of any concerns or changes. Adenosis and dense breasts may obscure an underlying neoplasm. Assessment: BI-RADS/ACR category 2 mammogram. Benign Findings. Recommendation Routine screening mammogram of both breasts in 1 year. Electronically Signed By: Juan Galarza DO 12/08/20 [id number]
== END ==
LOC: M WHC 13:41
PROVIDERS: ATTEND Internal Medicine
DX: Z12.31 Encounter for screening mammogram for malignant neoplasm of breast (principal)

== ENCOUNTER → 2021-02-28 | Outpatient (CLI) | payer MEDICARE, OTHER ==
[2021-02-28 10:37] LABS: HEMATOCRIT 39.4 % (36.0-47.0); HEMOGLOBIN 12.9 g/dl (12.0-15.5); MEAN CORPUSCULAR HEMOGLOBIN 30.2 pg (27.0-33.0); MEAN CORPUSCULAR HGB CONC 32.7 g/dl (32.0-36.5); MEAN CORPUSCULAR VOLUME 92.3 fl (80.0-96.0); PLATELET COUNT, AUTOMATED 193 10^3/uL (150-450); RED BLOOD COUNT 4.27 10^6/uL (4.00-5.40); WHITE BLOOD COUNT 5.3 10^3/uL (4.0-10.0)
[2021-02-28 11:14] LABS: ALBUMIN 3.6 GM/DL (3.2-5.2); ALT/SGPT 21 U/L (12-78); BILIRUBIN,TOTAL 0.7 MG/DL (0.2-1.0); BLOOD UREA NITROGEN 12 MG/DL (7-18); CALCIUM LEVEL 9.3 MG/DL (8.8-10.2); CARBON DIOXIDE LEVEL 32 MEQ/L (21-32); CHLORIDE LEVEL 106 MEQ/L (98-107); CHOLESTEROL LEVEL 182 MG/DL (<200); CHOLESTEROL RISK RATIO 2.333 (<5); CREATININE FOR GFR 0.58 MG/DL (0.55-1.30); GLOMERULAR FILTRATION RATE > 60.0 (>39); GLUCOSE, FASTING 82 MG/DL (70-100); HDL CHOLESTEROL 78 MG/DL (>40); LDL CHOLESTEROL 92 MG/DL (<100); NON-HDL-C 104 MG/DL; SODIUM LEVEL 141 MEQ/L (136-145); TOTAL PROTEIN 6.6 GM/DL (6.4-8.2); TRIGLYCERIDES LEVEL 58 MG/DL (<150)
== END ==
LOC: M PLALAB 08:51
PROVIDERS: ATTEND Internal Medicine
DX: G62.89 Other specified polyneuropathies (principal); Z85.118 Personal history of other malignant neoplasm of bronchus and lung; Z79.899 Other long term (current) drug therapy

== ENCOUNTER → 2021-03-22 | Outpatient (CLI) | payer MEDICARE, OTHER ==
--- NOTE | 2021-03-22 16:53 | DEXAMM ---
INDICATION: M81.0 OSTEOPOROSIS. COMPARISON: None. TECHNIQUE: Bone density was measured using dual-energy x-ray absorptiometry (DEXA). FINDINGS: AP SPINE L1-L4 BMD 1.020 g/cm2 Young Adult T-Score -1.4 Age Matched Z-Score 0.4. LT radius, TOTAL BMD 0.491 g/cm2 Young Adult T-Score -3.0 Age Matched Z-Score -0.4. LT radius 33% BMD 0.635 g/cm2 Young Adult T-Score -2.7 Age Matched Z-Score -0.1. IMPRESSION: There is low bone density of the spine. There is osteoporosis of the left radius. The density of the spine has decreased 7.4% since the initial exam on 08/20/2003. The density of the spine decreased 1.6% since most recent exam on 06/16/2013. FOLLOW-UP: Recommendation for the next bone density exam: 2 years. <Electronically signed by Orlin Cadena > 03/22/21 [id number]
== END ==
LOC: M WHC 14:37
PROVIDERS: ATTEND Internal Medicine
DX: M81.0 Age-related osteoporosis without current pathological fracture (principal); M85.88 Other specified disorders of bone density and structure, other site

== ENCOUNTER → 2021-03-28 | Outpatient (CLI) | payer MEDICARE, OTHER ==
--- NOTE | 2021-03-28 12:13 | REP ---
INDICATION: RT KNEE PAIN. COMPARISON: None. TECHNIQUE: Axial CT right knee with sagittal and coronal reconstruction images. FINDINGS: There is no evidence of acute fracture or dislocation. Intramedullary nick is seen in the distal femoral shaft. There appears to be a small osteochondral defect in the anterior aspect of the medial femoral condyle measuring about 3 mm in width and about 2 mm in depth. The adjacent anterior aspect of lateral tibial plateau demonstrates a subcortical cyst measuring 4 mm in diameter. There is an osteochondral defect of the lateral tibial plateau centrally measuring about 13 x 11 mm with a depth of about 3 mm. There is mild calcification in the distal quadriceps tendon at the superior pole of the patella. There are scattered atherosclerotic calcifications of arterial structures. IMPRESSION: There is an osteochondral defect of the lateral tibial plateau measuring 13 x 11 mm, with a depth of 3 mm. Small osteochondral defect anterior aspect of the medial femoral condyle measures 3 mm in width and 2 mm in depth. There is a 4 mm subcortical cyst in the adjacent lateral tibial plateau. <Electronically signed by Orlin Cadena > 03/28/21 [id number]
== END ==
LOC: M RAD 11:11
PROVIDERS: ATTEND Physician Assistant Surgical
DX: M25.861 Other specified joint disorders, right knee (principal); M25.561 Pain in right knee

== ENCOUNTER 2021-06-25 19:06 | Inpatient (IN) | payer MEDICARE, OTHER ==
[~2021-06-25] VITALS: Ht 149.9 cm; Wt 43.9 kg
--- NOTE | 2021-06-25 19:56 | REP ---
INDICATION: fall COMPARISON: 02/27/2020 TECHNIQUE: Portable AP view of the chest FINDINGS: The mediastinum and cardiac silhouette are stable and within normal limits for portable technique. The lung lópez demonstrate diffuse chronic interstitial changes without acute consolidation, effusion, or pneumothorax. Skeletal structures are intact. IMPRESSION: Chronic changes. No focal consolidation or effusion. <Electronically signed by Nicolas Cruz > 06/25/211952
--- NOTE | 2021-06-25 19:58 | REP ---
INDICATION: fall onto bottom out side. COMPARISON: None. TECHNIQUE: Single AP view of the pelvis FINDINGS: Age-related osteopenia and arthritic as well as posttraumatic degenerative changes are appreciated. Patient is noted to be status post bilateral fixation for proximal femoral shaft fractures. No acute fracture or dislocation is appreciated.. IMPRESSION: No acute fracture or dislocation appreciated. <Electronically signed by Nicolas Cruz > 06/25/211953
--- NOTE | 2021-06-25 20:01 | REP ---
INDICATION: fall onto bottom out side COMPARISON: None. TECHNIQUE: AP and lateral views of the sacrum and coccyx. FINDINGS: Osteopenia and degenerative changes are noted. There is no evidence for acute fracture or dislocation/subluxation. IMPRESSION: No evidence for acute fracture. <Electronically signed by Nicolas Cruz > 06/25/211957
--- NOTE | 2021-06-25 20:16 | REPVR ---
PROCEDURE INFORMATION: Exam: CT Head Without Contrast Exam date and time: 06/25/2021 7:38 PM Age: 80 years old Clinical indication: Injury or trauma; Fall; Blunt trauma (contusions or hematomas) TECHNIQUE: Imaging protocol: Computed tomography of the head without contrast. Radiation optimization: All CT scans at this facility use at least one of these dose optimization techniques: automated exposure control; mA and/or kV adjustment per patient size (includes targeted exams where dose is matched to clinical indication); or iterative reconstruction. COMPARISON: 1. CT Head without contrast 11/30/2019 6:[address] Head without contrast 06/22/2019 3:10:31 PM FINDINGS: Brain: There is no CT evidence for an acute large vessel territorial infarct. No acute intracranial hemorrhage is seen. No mass effect, midline shift, or herniation is noted. There is CSF density enlargement of the extra-axial spaces over the cerebral convexities, measuring up to 8 mm in thickness on both sides, which has progressed compared to the prior CT head on 11/30/2019 and may represent subdural hygromas or chronic bilateral subdural hematomas. There are mild non-specific foci of low attenuation in the periventricular white matter, which are likely the sequela of chronic small vessel ischemic injury and are similar in appearance compared to the prior CT head on 11/30/2019 and 06/22/2019. Cerebral ventricles: The ventricles are mildly dilated in proportion to the sulci, which is compatible with mild generalized cerebral volume loss that is similar in appearance compared to the prior CT head on 11/30/2019 and 06/22/2019. Paranasal sinuses: The imaged portions of the sinuses are well aerated. No air-fluid levels are noted in the sinuses. Mastoid air cells: There is severe opacification of the right mastoid air cells, which has developed since the CT head on 11/30/2019. The left mastoid air cells are well aerated. Auditory system: There are soft tissues opacities in the external auditory canals, which likely represent cerumen. There is opacification of the right middle ear space, which has developed since the CT head on 11/30/2019. Bones/joints: The skull is intact. No suspicious osteolytic or osteoblastic lesion. Soft tissues: Unremarkable. IMPRESSION: 1. CSF density enlargement of the extra-axial spaces over the cerebral convexities, measuring up to 8 mm in thickness on both sides, which has progressed compared to the prior CT head on 11/30/2019 and may represent subdural hygromas or chronic bilateral subdural hematomas. No acute intracranial hemorrhage, significant mass effect, midline shift, or herniation. 2. Evidence for a right otomastoiditis, which has developed since the CT head on 11/30/2019. Electronically signed by: Darrell Vega On 06/25/2021 20:16:08 PM
--- OUTSIDE RECORDS SUMMARY | 2021-06-25 20:33 | CCD | Continuity of Care Document ---
Author Author Eloise BUTT PAAlciraC Organization Unknown Address [address] [place] [id number] Phone [phone] Problems Description No Active Problems Social History Type Date Description Comments Sex Unknown ETOH Use Denies alcohol use Tobacco Use Start: Unknown End: Unknown Patient is a former smoker Allergies, Adverse Reactions, Alerts Description No Known Drug Allergies Medications Active Medications SIG Qnty Indications Ordering Provide r Date Medrol 4mg Tablets dose hugh, take as directed on sheet 1tabs Noam Butt MD 04/08/2021 Vitamin D Tablets 1 tab by mouth with dinner meal daily Unknown Fosamax 70mg Tablets 1 tab by mouth weekly. take with water, 30 minutes before eating. do not lie down for 30 minutes Unknown Refresh Optive Sensitive 0.5-0.9% Solution 2 drops both eyes 4 times daily Unknown Multivitamin Adult Tablets 1 by mouth every day Unknown Tylenol 325mg Tablets 1 or 2 every 6 hours prn/pain Unknown Combigan 0.2-0.5% Solution Unknown Betamethasone Dipropionate 0.05% O intment Blayne Maki, IRMA Cephalexin 500mg Capsules Celeste Rogers PA Tramadol HCL 50mg Tablets Katja Faye FNP Refresh Celluvisc 1% Gel Anoop Fofana JR, DO Fluzone High-Dose 0.5ml Lydia Inject 0.5ML Once Unknown Ropinirole HCL 0.5mg Tablets Bahman Forte MD Loratadine 10mg Tablets Unknown Immunizations Description No Information Available Vital Signs Date Vital Result Comment 03/25/2021 1:37pm Body Temperature 97.1 F Height 56.5 inches 4'8.50" Weight 93.31 lb BMI (Body Mass Index) 20.5 kg/m2 12/10/2019 2:16pm Body Temperature 99.5 F Height 59.5 inches 4'11.50" Weight 103.00 lb BMI (Body Mass Index) 20.5 kg/m2 Results Description No Information Available Procedures Date Code Description Status 04/08/2021 91903 Office/Outpatient Established Mo d MDM 30-39 Min Completed 03/29/2021 75831 Office/Outpatient Established Mo d MDM 30-39 Min Completed 03/29/2021 16470 Inject/Drain Joint/Bursa Major C ompleted 03/25/2021 02222 Office/Outpatient Established Lo w MDM 20-29 Min Completed 03/25/2021 84508 X-Ray Knee Complete W/Obliques & Tunnel And/Or Standing Views Completed Medical Devices Description No Information Available Encounters Type Date Location Provider Dx Diagnosis Office Visit 03/29/2021 1:00p [place] Anuradha Butt PA-C S80.01x D Contusion of right knee, subsequent encounter M17.11 Unilateral primary osteoarth ritis, right knee Office Visit 03/25/2021 1:45p [place] Anuradha Butt PA-C S80.01x A Contusion of right knee, initial encounter M17.11 Unilateral primary osteoarth ritis, right knee Assessments Date Code Description Provider 04/08/2021 S80.01xD Contusion of right knee, subsequ ent encounter Anuradha Butt PA-C 04/08/2021 M17.11 Unilateral primary osteoarthriti s, right knee Anuradha Butt PA-C 03/29/2021 S80.01xD Contusion of right knee, subsequ ent encounter Anuradha Butt PA-C 03/29/2021 M17.11 Unilateral primary osteoarthriti s, right knee MATIAS VillalpandoC 03/25/2021 S80.01xA Contusion of right knee, initial encounter Anuradha Butt PA-C 03/25/2021 S80.01xA Contusion of right knee, initial encounter Anuradha Butt PA-C 03/25/2021 M17.11 Unilateral primary osteoarthriti s, right knee Anuradha Butt PA-C Plan of Treatment Future Appointment(s):* 05/11/2021 2:00 pm - Anuradha Butt PA-C at [place] 04/08/2021 - Anuradha Butt PA-C* S80.01xD Contusion of right knee, subsequent encounter * M17.11 Unilateral primary osteoarthritis, right knee* Follow up:* after approval for Rt. knee euflexxa injection with KLF. * All * New Medication:* Medrol 4 mg - dose hugh, take as directed on sheet Functional Status Description No Information Available Mental Status Description No Information Available Referrals Refer to Reason for Referral Status Appt Date Blair Donnelly MD 04/13/21 Euflexxa right knee p er medicare no auth req based on medical necessity passed to tube depatcher chio. Created [address] [place] [address], [address] [place] [id number] [phone]
--- OUTSIDE RECORDS SUMMARY | 2021-06-25 20:33 | CCD | Continuity of Care Document ---
Author Author Eloise KEANE PIANO ASSEMBLER-C Organization Unknown Address [address], [address] [place] [address] Phone [phone] Care Team Providers Care Manager Billing Name Role Phone Bahman Forte MD AUT [phone] Problems Description No Information Available Social History Type Date Description Comments Sex Unknown Tobacco Use Start: Unknown Never Smoked Cigarettes ETOH Use Denies alcohol use Tobacco Use Start: Unknown End: Unknown Patient is a former smoker Sun Exposure Tanning bed - Has used in past. Currently still using. Sun Exposure excessive amount of sun exposure Sun Exposure No history of sunburn Sun Exposure Use < 15 SPF Allergies and adverse reactions Description No Known Drug Allergies Medications Active Medications SIG Qnty Indications Ordering Provide r Date Refresh Unknown Calcium-D Unknown Vitamin D 400 Unknown Fosamax Unknown Multivitamin Adult Unknown Stool Softener Unknown Combigan Unknown Immunizations Description No Information Available Vital Signs Date Vital Result Comment 04/26/2021 10:45am BP Systolic 111 mmHg BP Diastolic 70 mmHg O2 % BldC Oximetry 98 % Heart Rate 72 /min Weight 95.00 lb 02/24/2021 10:47am BP Systolic 122 mmHg BP Diastolic 82 mmHg Weight 98.00 lb Respiratory Rate 18 /min Results Test Acquired Date Facility Test Result H/L Range Note BXDX Pathology 02/24/2021 [facility] Icd9 Code ICD9 Code: D04.5 1, 2 PDFReport SEE IMAGE 1 ED&Cx3 at next visit 2 ICD9 Code: D04.5 Protocol: ramy Clinical Text: SCC VS BCC Final Diagnosis: SQUAMOUS CELL CARCINOMA, AT LEAST IN SITU. Final Diagnosis: Note: Atypical keratinocytes extend to the base of the biopsy and an underlying invasive component cannot be excluded. Gross Text: Two specimens were received in the same vial. The first specimen grossly was irregular in shape and measured 5 x 4 mm. on the surface and 1 mm. deep and was bisected. Surface epidermis appears not to be present. The second specimen grossly was irregular in shape and measured 6 x 4 mm. on the surface and 1 mm. deep and was bisected. All of the tissue was submitted for processing. Microscopic Description: Atypical keratinocytes are present throughout the full- thickness of the transected epidermis. CPT: 77212*1 Procedures Date Code Description Status 04/26/2021 08289 Destruction Malig Lesion 1.1-2CM Trunk/Arms/Legs Completed 02/24/2021 49284 Office/Outpatient Established Mo d MDM 30-39 Min Completed 02/24/2021 38224 Shave Biopsy Of Skin, Single Les ion Completed 12/14/2020 67017 Destruction Malignant Lesion>2.0 Trunk/Arms/Legs Completed 12/14/2020 78688 Destruction Malig Lesion 1.1-2CM Trunk/Arms/Legs Completed Medical Devices Description No Information Available Encounters Type Date Location Provider Dx Diagnosis Office Visit 02/24/2021 10:30a Main Office BREONNA Mcallister D 48.5 Neoplasm of uncertain behavior of skin D22.5 Melanocytic nevi of trunk D22.4 Melanocytic nevi of scalp an d neck D22.62 Melanocytic nevi of left upp er limb, including shoulder D22.72 Melanocytic nevi of left low er limb, including hip D22.71 Melanocytic nevi of right lo wer limb, including hip L82.1 Other seborrheic keratosis L81.4 Other melanin hyperpigmentat ion Z85.828 Personal history of other ma lignant neoplasm of skin Z08 Encntr for follow-up exam af ter trtmt for malignant neoplasm Assessments Date Code Description Provider 04/26/2021 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 04/26/2021 D04.5 Carcinoma in situ of skin of denisse nk BREONNA Sanchez 02/24/2021 D48.5 Neoplasm of uncertain behavior o f skin BREONNA Mcallister 02/24/2021 D22.5 Melanocytic nevi of trunk Lucrecia BREONNA Villanueva 02/24/2021 D22.4 Melanocytic nevi of scalp and ne ck BREONNA Mcallister 02/24/2021 D22.62 Melanocytic nevi of left upper l imb, including shoulder BREONNA Mcallister 02/24/2021 D22.72 Melanocytic nevi of left lower l imb, including hip BREONNA Mcallister 02/24/2021 D22.71 Melanocytic nevi of right lower limb, including hip IRMA Mcallister-Myra 02/24/2021 L82.1 Other seborrheic keratosis BREONNA Cedeno 02/24/2021 L81.4 Other melanin hyperpigmentation BREONNA Mcallister 02/24/2021 Z85.828 Personal history of other malign ant neoplasm of skin BREONNA Mcallister 02/24/2021 Z08 Encounter for follow-up examinat ion after completed treatmen BREONNA Mcallister 12/14/2020 C44.519 Basal cell carcinoma of skin of other part of trunk Kavya SBREONNA Kendrick 12/14/2020 C44.612 Basal cell carcinoma of skin of right upper limb, including shoulder Kavya IbrahimBREONNA Kendrick Plan of Treatment Future Appointment(s):* 08/31/2021 11:15 am - BREONNA Mcallister at Main Office 04/26/2021 - BREONNA Sanchez* 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 There are no stitches and no specimen is sent to pathology. The area heals with a scab and leaves a circular scarDiscussed risks of ED&C to include scarring, infection, bleeding, incomplete removal.Consent was signed.Confirmed original biopsy site to be treated today with patient.Site numbed with 1% Lidocaine with EpinephrineDenied pacemaker. Destruction done today via ED&C x 3Carol tolerated procedure well ED&C x 3 to SCC in situ located on R chest to include margins was done today with a final measurement of 1.5 x 1.5 cmVaseline and band aid applied to site.Wound care instructions were givenDenies questions or concerns.Instructed to call with any problems * Follow up:* Has appointment - [facility] [place] 08/31/21 Functional Status Description No Information Available Mental Status Description No Information Available Referrals Description No Information Available
--- OUTSIDE RECORDS SUMMARY | 2021-06-25 20:33 | CCD | Continuity of Care Document ---
Author Author Eloise BUTT PAAndriy Organization Unknown Address [address] [place] [id number] Phone [phone] Problems Description No Active Problems Social History [...] Available Procedures Date Code Description Status 04/08/2021 51446 Office/Outpatient Established Mo d MDM 30-39 Min Completed 03/29/2021 28091 Office/Outpatient Established Mo d MDM 30-39 Min Completed 03/29/2021 80704 Inject/Drain Joint/Bursa Major C ompleted 03/25/2021 86650 Office/Outpatient Established Lo w MDM 20-29 Min Completed 03/25/2021 11770 X-Ray Knee Complete W/Obliques & Tunnel And/Or Standing Views Completed Medical Devices Description No Information Available Encounters Type Date Location Provider Dx Diagnosis Office Visit 03/29/2021 1:00p [place] Anuradha Butt PA-C S80.01x D Contusion of right knee, subsequent encounter M17.11 Unilateral primary osteoarth ritis, right knee Office Visit 03/25/2021 1:45p [place] Anuradha Butt PA-C S80.01x A Contusion of [...] knee Anuradha Butt PA-C Plan of Treatment 04/08/2021 - Anuradha Butt PA-C* S80.01xD Contusion of right knee, subsequent encounter * M17.11 Unilateral primary osteoarthritis, right knee* New Orders:* Euflexxa RT Knee Injection, Ordered: 04/08/21 * Follow up:* after approval for Rt. knee euflexxa injection with [facility]. * All * New Medication:* Medrol 4 mg - dose hugh, take as directed on sheet Functional Status Description No Information Available Mental Status Description No Information Available Referrals Description No Information Available
--- OUTSIDE RECORDS SUMMARY | 2021-06-25 20:34 | CCD | Continuity of Care Document ---
Author Author Eloise BUTT PA-C Organization Unknown Address [address] [place] [address] Phone [phone] Problems Description No Active Problems Social History Type Date Description Comments Sex Unknown ETOH Use Denies alcohol use Tobacco Use Start: Unknown End: Unknown Patient is a former smoker Allergies, Adverse Reactions, Alerts Description No Known Drug Allergies Medications Active Medications SIG Qnty Indications Ordering Provide r Date Vitamin D Tablets 1 tab by mouth [...] Unknown Betamethasone Dipropionate 0.05% O intment Blayne Maki FNP Cephalexin 500mg Capsules Celeste Rogers PA Tramadol HCL 50mg Tablets Katja Faye FNP Refresh Celluvisc 1% Gel Anoop Fofana JR, Fluzone High-Dose 0.5ml Lydia Inject 0.5ML Once [...] Information Available Procedures Date Code Description Status 03/29/2021 44724 Office/Outpatient Established Mo d MDM 30-39 Min Completed 03/29/2021 Inject/Drain Joint/Bursa Major C ompleted 03/25/2021 42112 Office/Outpatient Established Lo w MDM 20-29 Min Completed 03/25/2021 76977 X-Ray Knee Complete W/Obliques & Tunnel And/Or Standing Views Completed Medical Devices Description No Information Available Encounters Type Date Location Provider Dx Diagnosis Office Visit 03/29/2021 1:00p [place] Anuradha Butt PA-C S80.01x D Contusion of right knee, subsequent encounter M17.11 Unilateral primary osteoarth ritis, right knee Office Visit 03/25/2021 1:45p [place] Anuradha Butt PA-C S80.01x A Contusion of right knee, initial encounter M17.11 Unilateral primary osteoarth ritis, right knee Assessments Date Code Description Provider 03/29/2021 S80.01xD Contusion of right knee, subsequ ent encounter Anuradha Butt PA-C 03/29/2021 M17.11 Unilateral primary osteoarthriti s, right knee Anuradha Butt PA-C 03/25/2021 S80.01xA Contusion of right knee, initial encounter Anuradha Butt PA-C 03/25/2021 S80.01xA Contusion of right knee, initial encounter Anuradha Butt PA-C 03/25/2021 M17.11 Unilateral primary osteoarthriti s, right knee Anuradha Butt PA-C Plan of Treatment Future Appointment(s):* 04/12/2021 3:30 pm - Anuradha Butt PA-C at [place] 03/29/2021 - Anuradha Butt PA-C* S80.01xD Contusion of right knee, subsequent encounter * M17.11 Unilateral primary osteoarthritis, right knee* Follow up:* 2-3 weeks for rt knee recheck with [facility] via telemed Functional Status Description No Information Available Mental Status Description No Information Available Referrals Description No Information Available
--- OUTSIDE RECORDS SUMMARY | 2021-06-25 20:34 | CCD ---
Author Author [facility] Organization [facility] Address Unknown Phone Unavailable Care Team Providers Care Log Snaker Name Role Phone Fish, [facility], PA-C Unavailable Unavailabl e Fish, [facility], PA-C Unavailable Unavailabl e Fish, [facility], PA-C Unavailable Unavailabl e Fish, [facility], PA-C Unavailable Unavailabl e Fish, [facility], PA-C Unavailable Unavailabl e Fish, [facility], PA-C Unavailable Unavailabl e Fish, [facility], PA-C Unavailable Unavailabl e Fish, [facility], PA-C Unavailable Unavailabl e Fish, [facility], PA-C Unavailable Unavailabl e Fish, [facility], PA-C Unavailable Unavailabl e Fish, [facility], PA-C Unavailable Unavailabl e Fish, [facility], PA-C Unavailable Unavailabl e Fish, [facility], PA-C Unavailable Unavailabl e Fish, [facility], PA-C Unavailable Unavailabl e Fish, [facility], PA-C Unavailable Unavailabl e Fish, [facility], PA-C Unavailable Unavailabl e Fish, [facility], PA-C Unavailable Unavailabl e Fish, [facility], PA-C Unavailable Unavailabl e Fish, [facility], PA-C Unavailable Unavailabl e Fish, [facility], PA-C Unavailable Unavailabl e Fish, [facility], PA-C Unavailable Unavailabl e Fish, [facility], PA-C Unavailable Unavailabl e Fish, [facility], PA-C Unavailable Unavailabl e Fish, [facility], PA-C Unavailable Unavailabl e Fish, [facility], PA-C Unavailable Unavailabl e Fish, [facility], PA-C Unavailable Unavailabl e Fish, [facility], PA-C Unavailable Unavailabl e Fish, [facility], PA-C Unavailable Unavailabl e Fish, [facility], PA-C Unavailable Unavailabl e Fish, [facility], PA-C Unavailable Unavailabl e Fish, [facility], PA-C Unavailable Unavailabl e Fish, [facility], PA-C Unavailable Unavailabl e Fish, [facility], PA-C Unavailable Unavailabl e Fish, [facility], PA-C Unavailable Unavailabl e Fish, [facility], PA-C Unavailable Unavailabl e Fish, [facility], PA-C Unavailable Unavailabl e Mollison, Jaylene Chandler MD Unavailable Unavailable Mollison, Jaylene Chandler MD Unavailable Unavailable Mollison, Jaylene Chandler MD Unavailable Unavailable Mollison, Jaylene Chandler MD Unavailable Unavailable Mollison, Jaylene Chandler MD Unavailable Unavailable Mollison, Jaylene Chandler MD Unavailable Unavailable Mollison, Jaylene Chandler MD Unavailable Unavailable Mollison, Jaylene Chandler MD Unavailable Unavailable Mollison, Jaylene Chandler MD Unavailable Unavailable Mollison, Jaylene Chandler MD Unavailable Unavailable Mollison, Jaylene Chandler MD Unavailable Unavailable Mollison, Jaylene Chandler MD Unavailable Unavailable Mollison, Jaylene Chandler MD Unavailable Unavailable Mollison, Jaylene Chandler MD Unavailable Unavailable Mollison, Jaylene Chandler MD Unavailable Unavailable Mollison, Jaylene Chandler MD Unavailable Unavailable Mollison, Jaylene Chandler MD Unavailable Unavailable Mollison, Jaylene Chandler MD Unavailable Unavailable Mollison, Jaylene Chandler MD Unavailable Unavailable Mollison, Jaylene Chandler MD Unavailable Unavailable Mollison, Jaylene Chandler MD Unavailable Unavailable Mollison, Jaylene Chandler MD Unavailable Unavailable Mollison, Jaylene Chandler MD Unavailable Unavailable Mollison, Jaylene Chandler MD Unavailable Unavailable Mollison, Jaylene Chandler MD Unavailable Unavailable Mollison, Jaylene Chandler MD Unavailable Unavailable Mollison, Jaylene Chandler MD Unavailable Unavailable Mollison, Jaylene Chandler MD Unavailable Unavailable Mollison, Jaylene Chandler MD Unavailable Unavailable Mollison, Jaylene Chandler MD Unavailable Unavailable Amish Majano Lucrecia BLENDER MACHINE OPERATOR-C Unavailable Unavailable Majano, D Lucrecia BLENDER MACHINE OPERATOR-C Unavailable Unavailable Majano, D Lucrecia BLENDER MACHINE OPERATOR-C Unavailable Unavailable Majano, D Lucrecia BLENDER MACHINE OPERATOR-C Unavailable Unavailable Majano, D Lucrecia BLENDER MACHINE OPERATOR-C Unavailable Unavailable Majano, D Lucrecia BLENDER MACHINE OPERATOR-C Unavailable Unavailable Majano, D Lucrecia BLENDER MACHINE OPERATOR-C Unavailable Unavailable Lockerbie, S Kavya BLENDER MACHINE OPERATOR-C Unavailable Unavailable Lockerbie, S Kavya BLENDER MACHINE OPERATOR-C Unavailable Unavailable Lockerbie, S Kavya BLENDER MACHINE OPERATOR-C Unavailable Unavailable Lockerbie, S Kavya BLENDER MACHINE OPERATOR-C Unavailable Unavailable Lockerbie, S Kavya BLENDER MACHINE OPERATOR-C Unavailable Unavailable Lockerbie, S Kavya BLENDER MACHINE OPERATOR-C Unavailable Unavailable Lockerbie, S Kavya BLENDER MACHINE OPERATOR-C Unavailable Unavailable Lockerbie, S Kavya BLENDER MACHINE OPERATOR-C Unavailable Unavailable Lockerbie, S Kavya BLENDER MACHINE OPERATOR-C Unavailable Unavailable Lockerbie, S Kavya BLENDER MACHINE OPERATOR-C Unavailable Unavailable Lockerbie, S Kavya BLENDER MACHINE OPERATOR-C Unavailable Unavailable Lockerbie, S Kavya BLENDER MACHINE OPERATOR-C Unavailable Unavailable Lockerbie, S Kavya BLENDER MACHINE OPERATOR-C Unavailable Unavailable Lockerbie, S Kavya BLENDER MACHINE OPERATOR-C Unavailable Unavailable Lockerbie, S Kavya BLENDER MACHINE OPERATOR-C Unavailable Unavailable Lockerbie, S Kavya BLENDER MACHINE OPERATOR-C Unavailable Unavailable Lockerbie, S Kavya BLENDER MACHINE OPERATOR-C Unavailable Unavailable Lockerbie, S Kavya BLENDER MACHINE OPERATOR-C Unavailable Unavailable Lockerbie, S Kavya BLENDER MACHINE OPERATOR-C Unavailable Unavailable Lockerbie, S Kavya BLENDER MACHINE OPERATOR-C Unavailable Unavailable Lockerbie, S Kavya BLENDER MACHINE OPERATOR-C Unavailable Unavailable Lockerbie, S Kavya BLENDER MACHINE OPERATOR-C Unavailable Unavailable Lockerbie, S Kavya BLENDER MACHINE OPERATOR-C Unavailable Unavailable Lockerbie, S Kavya BLENDER MACHINE OPERATOR-C Unavailable Unavailable Re-disclosure Warning The records that you are about to access may contain information from federally-assisted alcohol or drug abuse programs. If such information is present, then the following federally mandated warning applies: This information has been disclosed to you from records protected by federal confidentiality rules (42 CFR part 2). The federal rules prohibit you from making any further disclosure of this information unless further disclosure is expressly permitted by the written consent of the person to whom it pertains or as otherwise permitted by 42 CFR part 2. A general authorization for the release of medical or other information is NOT sufficient for this purpose. The Federal rules restrict any use of the information to criminally investigate or prosecute any alcohol or drug abuse patient.The records that you are about to access may contain highly sensitive health information, the redisclosure of which is protected by Article 27-F of the [facility] Public Health law. If you continue you may have access to information: Regarding HIV / AIDS; Provided by facilities licensed or operated by the [facility] Office of Mental Health; or Provided by the [facility] Office for People With Developmental Disabilities. If such information is present, then the following [facility] mandated warning applies: This information has been disclosed to you from confidential records which are protected by state law. State law prohibits you from making any further disclosure of this information without the specific written consent of the person to whom it pertains, or as otherwise permitted by law. Any unauthorized further disclosure in violation of state law may result in a fine or residential sentence or both. A general authorization for the release of medical or other information is NOT sufficient authorization for further disc losure. Family History Family Member Name Family Member Gender Family Member Status Date o f Status Description Data Source(s) Unknown Female Problem [facility] ([facility]) Encounters Encounter Providers Location Date Indications Data Source(s ) Outpatient Attender: Anuradha THORNE PA-C Physical Therapy 03/29/2021 01:00:00 PM EDT [facility] ([facility]) OFFICE OUTPATIENT VISIT 15 MINUTES Attender: Anuradha THORNE PA-C Physical Therapy 03/25/2021 01:45:00 PM EDT [facility] ([facility]) [place] [address] [facility] [address] 03/01/2021 12:00:00 AM EDT eCW1 ([facility]) Outpatient Attender: Lucrecia SOLIS-C Main Office 02/24/2021 10:30:00 AM EDT [facility] ([facility]) [place] [address] [facility] [address] 01/17/2021 12:00:00 AM EDT eCW1 ([facility]) Outpatient Attender: Ramesh Ryder/Claudia/Erick/Amalia indl 11/11/2020 03:00:00 PM EDT [facility] ([facility] Outpatient Attender: Kavya LAWSONP-C Main Office 09/16/2020 10:00:00 AM EST [facility] ([facility]) [place] [address] [facility] [facility] [address] 08/30/2020 12:00:00 AM EST eCW1 ([facility]) [place] [address] [facility] [address] 08/16/2020 12:00:00 AM EST eCW1 ([facility]) Immunizations Vaccine Date Status Description Data Source(s) COVID-19 dose #2 given elsewhere Unspecified 11/02/2020 06:5 0:00 AM EDT completed eCW1 ([facility]) COVID-19 VACCINE Moderna 11/02/2020 12:00:00 AM EDT completed NYSIIS Vaccine Series Complete: YESThis Data wa s Submitted to [facility] Via [employer]. COVID-19 dose #1 given elsewhere Unspecified 10/05/2020 06:4 9:00 AM EST completed eCW1 ([facility]) COVID-19 VACCINE Moderna 10/05/2020 12:00:00 AM EST completed NYSIIS Vaccine Series Complete: NOThis Data was Submitted to [facility] Via [employer]. IIV3. This is one of two codes replacing CVX 15, which is being retired. 05/18/2020 02:07:00 PM EDT completed eCW1 ([facility]) IIV3. This is one of two codes replacing CVX 15, which is being retired. 05/18/2020 02:07:00 PM EDT completed eCW1 ([facility]) IIV3. This is one of two codes replacing CVX 15, which is being retired. 05/18/2020 02:07:00 PM EDT completed eCW1 ([facility]) Medications Medication Brand Name Start Date Product Form Dose Route Admi nistrative Instructions Pharmacy Instructions Status Indications Reaction Description Data Source(s) 4 mg 04/08/2021 12:00:00 AM EDT tablets,dose pack 21 TAKE DIRECTED PER PACKAGE INSTRUCTIONS TAKE DIRECTED PER PACKAGE INSTRUCTIONS SOLD: 04/09/2021 Paiz Deepa Methylprednisolone 4 MG Oral Tablet [Medrol] Medrol 10/2020 12:00:00 AM EDT active [facility] ( [facility]) Insurance Providers Payer name Policy type / Coverage type Policy ID Covered republican ID Covered republican's relationship to martinez Policy [place] Plan Information [facility] [id number] Self Y [id number] [facility] [place] [id number] Self MEDICARE [id number] SP [id number] [id number] MEDICARE A [id number] Self [id number] A MEDICARE A [id number] Self [id number] [place] [id number] [place] Primary [id number] Self 9 [id number] [place] Primary [id number] Self 9 [id number] [place] Primary [id number] Self 1 [id number] [place] Primary [id number] Self 1 [id number] [place] Primary [id number] Self 1 [id number] [place] Primary [id number] Self 1 [id number] FOR LIFE U [id number] Self [id number] MEDICARE [id number] A Medicare [place] Primary [id number] Self 1 [id number] MEDICARE [id number] H76 [place] [facility] Medigap Part B [id number] Self 1 [id number] [place] [facility] [employer] [place] Med[place]ap Part B [id number] Self 1 [id number] [place] [facility] [employer] [place] Med[place]ap Part B [id number] Self 1 [id number] [place] [facility] [place] Med[place]ap Part B [id number] Self 1 [id number] [place] [facility] [place] Med[place]ap Part B [id number] Self 1 [id number] [place] [facility] [place] Med[place]ap Part B [id number] Self 1 [id number] [place] [facility] [place] Med[place]ap Part B [id number] Self [place] [facility] [place] Medigap Part B [id number] Self 1 [id number] FOR LIFE [id number] SP 0 [id number] ANSI-Medicare Part B [id number] ANSI-Commercial [id number] Medicare Dme Supplies Medigap Part B [id number] Self 1 [id number] FOR LIFE O [id number] S [id number] MEDICARE C [id number] S [id number] A Medicare Dme Supplies Medigap Part B [id number] Self 1 [id number] Medicare Dme Supplies Medigap Part B [id number] Self 1 [id number] Medicare Dme Supplies Medigap Part B [id number] Self 1 [id number] MEDICARE INPATIENT M [id number] S [id number] FOR LIFE WPS O [id number] S [id number] MEDICARE OUTPATIENT M [id number] S [id number] A MEDICARE [id number] SP [id number] [id number] FOR LIFE [id number] SP 0 [id number] FOR LIFE [id number] SP [id number] FOR LIFE O [id number] S 0 [id number] MEDICARE C [id number] S [id number] ANSI-Commercial [id number] ANSI-Medicare Part B [id number] ANSI-Medicare Part B [id number] ANSI-Commercial [id number] ANSI-Medicare Part B [id number] ANSI-Commercial [id number] Medicare Dme Supplies [facility] Part B [id number] Self 1 [id number] ANSI-Medicare Part B [id number] ANSI-Commercial [id number] Medicare Dme Supplies [facility] Part B [id number] Self 1 [id number] ANSI-Commercial [id number] ANSI-Medicare Part B [id number] ANSI-Commercial [id number] [facility]-Medicare Part B [id number] [facility]-Medicare Part B [id number] ANSI-Commercial [id number] MEDICARE [id number] A ANSI-Commercial [id number] ANSI-Medicare Part B [id number] Problems, Conditions, and Diagnoses No Information Surgeries/Procedures Procedure Description Date Indications Data Source(s) DESTRUCTION MAL LESION TRUNK/ARM/LEG 1.1-2.0CM 021 12:00:00 AM EDT [facility]) OFFICE OUTPATIENT VISIT 25 MINUTES 04/08/2021 12:00:00 AM EDT [facility] ([facility]) ARTHROCENTESIS ASPIR&/INJECTION MAJOR JT/BURSA 021 12:00:00 AM EDT [facility] ([facility]) OFFICE OUTPATIENT VISIT 25 MINUTES 03/29/2021 12:00:00 AM EDT [facility] ([facility]) RADIOLOGIC EXAM KNEE COMPLETE 4/MORE VIEWS 03/25/2021 12:00:00 AM [facility] 15 MINUTES 03/25/2021 12:00:00 AM EDT [facility] ([facility] OFFICE OUTPATIENT VISIT 25 MINUTES 03/25/2021 12:00:00 AM EDT [facility] ([facility]) Shave Biopsy Of Skin, Single Lesion 02/24/2021 12:00:0 0 AM EDT [facility] ([facility]) OFFICE OUTPATIENT VISIT 25 MINUTES 02/24/2021 12:00:00 AM EDT [facility] ([facility]) DESTRUCTION MAL LESION TRUNK/ARM/LEG 1.1-2.0CM 021 12:00:00 AM EDT [facility] ([facility]) DESTRUCTION MAL LESION TRUNK/ARM/LEG 2.1-3.0CM 021 12:00:00 AM EDT [facility] ([facility]) CLTX PEL RING FX DISLC DIAST/SUBLXTJ W/O MANJ 11/12/19 21 12:00:00 AM EDT [facility] ([facility] ) DESTRUCTION PREMALIGNANT LESION 1ST 09/16/2020 12:00:0 0 AM EST [facility] ([facility]) DESTRUCTION PREMALIGNANT LESION 2-14 EA 09/16/2020 12: 00:00 AM EST [facility] ([facility]) OFFICE OUTPATIENT VISIT 15 MINUTES 09/16/2020 12:00:00 AM EST [facility] ([facility]) RADEX SHOULDER COMPLETE MINIMUM 2 VIEWS 04/30/2020 12: 00:00 AM EDT [facility] ([facility]) Results ID Date Data Source [id number] 02/24/2021 11:03:00 AM EDT [facility] ([facility]) Name Value Range Interpretation Code Description Data Teresa rce(s) Supporting Document(s) Laboratory test finding (navigational concept) Laboratory test result [facility] ([facility]) ED&Cx3 at next visit Laboratory test finding (navigational concept) Laboratory test result [facility] ([facility]) ED&Cx3 at next visit Procedure Social History Code Duration Value Status Description Data Source(s ) Smoking 03/01/2021 12:00:00 AM EDT Former Smoker completed Former Smoker eCW1 ([facility]) Smoking 08/30/2020 12:00:00 AM EST Former Smoker completed Former Smoker eCW1 ([facility]) Smoking 08/30/2020 12:00:00 AM EST Former Smoker completed Former Smoker eCW1 ([facility]) Vital Signs ID Date Data Source UNK Name Value Range Interpretation Code Description Data Source(s) Oxygen saturation in Arterial blood by Pulse oximetry 98 % 98 % [facility] ([facility]) Diastolic blood pressure 70 mm[Hg] 70 mm[Hg] [facility] ([facility]) Body weight 95.00 [lb_av] 95.00 [lb_av] [facility] ([facility]) Systolic blood pressure 111 mm[Hg] 111 mm[Hg] M [facility] ([facility]) Heart rate 72 /min 72 /min [facility] ([facility]) Body temperature 97.1 [degF] 97.1 [degF] [facility] ([facility]) Body height 56.5 [in_i] 56.5 [in_i] [facility] ([facility]) 4'8.50" Body weight 93.31 [lb_av] 93.31 [lb_av] [facility] ([facility]) Body mass index (BMI) [Ratio] 20.5 kg/m2 20.5 k g/m2 [facility] ([facility]) Body weight 96.4 [lb_av] 96.4 [lb_av] eCW1 ([facility]) Body height [in_i] eCW1 ([facility]) Body mass index (BMI) [Ratio] 18.21 kg/m2 18.21 kg/m2 eCW1 ([facility]) Heart rate 75 /min 75 /min eCW1 ([facility]) Respiratory rate 18 /min 18 /min eCW1 ([facility]) Body temperature 97.0 [degF] 97.0 [degF] eCW1 ( [facility]) Systolic blood pressure 128 mm[Hg] 128 mm[Hg] e CW1 ([facility]) Diastolic blood pressure 82 mm[Hg] 82 mm[Hg] eCW1 ([facility]) Body weight 98.00 [lb_av] 98.00 [lb_av] [facility] ([facility]) Respiratory rate 18 /min 18 /min [facility] ( [facility]) Systolic blood pressure 122 mm[Hg] 122 mm[Hg] [facility] Diastolic blood pressure 82 mm[Hg] 82 mm[Hg] [facility] ([facility]) Body weight 98.00 [lb_av] 98.00 [lb_av] [facility] ([facility]) Respiratory rate 18 /min 18 /min [facility] ( [facility]) Body weight 100.00 [lb_av] 100.00 [lb_av] [facility] ([facility]) Diastolic blood pressure 60 mm[Hg] 60 mm[Hg] [facility] ([facility]) Body temperature 95.6 [degF] 95.6 [degF] [facility] ([facility]) Systolic blood pressure 122 mm[Hg] 122 mm[Hg] [facility] Systolic blood pressure 100 mm[Hg] 100 mm[Hg] [facility] ([facility]) Diastolic blood pressure 64 mm[Hg] 64 mm[Hg] [facility] ([facility]) Heart rate 90 /min 90 /min [facility] ([facility]) Oxygen saturation in Arterial blood by Pulse oximetry 98 % 98 % [facility] ([facility]) Respiratory rate 18 /min 18 /min [facility] ( [facility]) Body temperature 98.2 [degF] 98.2 [degF] [facility] ([facility]) Body height 59.5 [in_i] 59.5 [in_i] [facility] ([facility]) 4'11.50" Body weight 99.00 [lb_av] 99.00 [lb_av] [facility] ([facility]) Body mass index (BMI) [Ratio] 19.7 kg/m2 19.7 k g/m2 [facility] ([facility]) [place] body weight 100 [lb_av] 100 [lb_av] [facility] T ([facility]) Body weight 44.906 kg 44.906 kg [facility] ([facility]) Body surface area Derived from formula 1.38 m2 1.38 m2 [facility] ([facility]) Oxygen saturation in Arterial blood by Pulse oximetry 97 % 97 % [facility] ([facility]) Body temperature 97.6 [degF] 97.6 [degF] [facility] ([facility], ) Systolic blood pressure 124 mm[Hg] 124 mm[Hg] M EDENT ([facility], ) Diastolic blood pressure 61 mm[Hg] 61 mm[Hg] [facility] ([facility], ) Heart rate 73 /min 73 /min [facility] ([facility] ) Body weight 97.2 [lb_av] 97.2 [lb_av] eCW1 ([facility]) Body height [in_i] eCW1 ([facility]) Body mass index (BMI) [Ratio] 18.36 kg/m2 18.36 kg/m2 eCW1 ([facility]) Heart rate 88 /min 88 /min eCW1 ([facility]) Respiratory rate 18 /min 18 /min [facility] [place]) Body temperature 97.6 [degF] 97.6 [degF] eCW1 ( [facility]) Systolic blood pressure 124 mm[Hg] 124 mm[Hg] e CW1 ([facility]) Diastolic blood pressure 72 mm[Hg] 72 mm[Hg] eCW1 ([facility])
--- OUTSIDE RECORDS SUMMARY | 2021-06-25 20:34 | CCD | Continuity of Care Document ---
Author Author Eloise BUTT PA-C Organization Unknown Address [address] [place] [id number] Phone [phone] Problems Description No Active Problems Social History [...] Available Procedures Date Code Description Status 03/29/2021 27017 Office/Outpatient Established Mo d MDM 30-39 Min Completed 03/29/2021 Inject/Drain Joint/Bursa Major C ompleted 03/25/2021 33102 Office/Outpatient Established Lo w MDM 20-29 Min Completed 03/25/2021 84739 X-Ray Knee Complete W/Obliques & Tunnel And/Or Standing Views Completed Medical Devices Description No Information Available Encounters Description No Information Available Assessments Date Code Description Provider 03/29/2021 S80.01xD [...] 3:30 pm - Anuradha Butt PA-C at [facility] 03/29/2021 - Anuradha Butt PA-C* S80.01xD Contusion of right knee, subsequent encounter * M17.11 Unilateral primary osteoarthritis, right knee* Follow up:* 2-3 weeks for rt knee recheck with [facility] via telemed Functional Status Description No Information Available Mental Status Description No Information Available Referrals Description No Information Available
--- OUTSIDE RECORDS SUMMARY | 2021-06-25 20:34 | CCD | Continuity of Care Document ---
Author Author Eloise BUTT PA-C Organization Unknown Address [address] [place] [phone] Phone [phone] Problems Description No Active Problems Social History [...] Available Procedures Date Code Description Status 03/29/2021 44092 Office/Outpatient Established Mo d MDM 30-39 Min Completed 03/29/202170562 Inject/Drain Joint/Bursa Major C ompleted 03/25/2021 70621 Office/Outpatient Established Mo d MDM 30-39 Min Completed 03/25/2021 72909 X-Ray Knee Complete W/Obliques & Tunnel And/Or Standing Views Completed Medical Devices Description No Information Available Encounters Type Date Location Provider Dx Diagnosis Office Visit 03/29/2021 1:00p [facility] Anuradha Butt PA-C S80.01x D Contusion of right knee, subsequent encounter M17.11 Unilateral primary osteoarth ritis, right knee Office Visit 03/25/2021 1:45p [facility] Anuradha Butt PA-C S80.01x A Contusion of [...] 3:30 pm - Anuradha Butt PA-C at [facility] 03/29/2021 - Anuradha Butt PA-C* S80.01xD Contusion of right knee, subsequent encounter * M17.11 Unilateral primary osteoarthritis, right knee* Follow up:* 2-3 weeks for rt knee recheck with [facility] via telemed Functional Status Description No Information Available Mental Status Description No Information Available Referrals Description No Information Available
--- OUTSIDE RECORDS SUMMARY | 2021-06-25 20:34 | CCD | Continuity of Care Document ---
Author Author Eloise BUTT PA-C Organization Unknown Address [address] [place] [id number] Phone [phone] Problems Description No Active Problems Social History [...] Available Procedures Date Code Description Status 03/29/2021 12069 Office/Outpatient Established Mo d MDM 30-39 Min Completed 03/29/2021 Inject/Drain Joint/Bursa Major C ompleted 03/25/2021 15781 Office/Outpatient Established Lo w MDM 20-29 Min Completed 03/25/2021 54590 X-Ray Knee Complete W/Obliques & Tunnel And/Or Standing Views Completed Medical Devices Description No Information Available Encounters Type Date Location Provider Dx Diagnosis Office Visit 03/25/2021 1:45p [facility] Anuradha Butt PA-C S80.01x A Contusion of [...] 3:30 pm - Anuradha Butt PA-C at [facility] 03/29/2021 - Anuradha Butt PA-C* S80.01xD Contusion of right knee, subsequent encounter * M17.11 Unilateral primary osteoarthritis, right knee* Follow up:* 2-3 weeks for rt knee recheck with [facility] via telemed Functional Status Description No Information Available Mental Status Description No Information Available Referrals Description No Information Available
[2021-06-25 20:41] LABS: BASO % 0.9 % (0.0-1.0); EOS # 0.1 10^3/uL (0.0-0.5); EOS % 1.7 % (0.0-3.0); HEMATOCRIT 39.1 % (36.0-47.0); HEMOGLOBIN 12.6 g/dl (12.0-15.5); LYMPH # 1.4 10^3/uL (1.5-5.0); LYMPH % 29.2 % (24.0-44.0); MEAN CORPUSCULAR HEMOGLOBIN 30.9 pg (27.0-33.0); MEAN CORPUSCULAR HGB CONC 32.2 g/dl (32.0-36.5); MEAN CORPUSCULAR VOLUME 95.8 fl (80.0-96.0); MONO # 0.4 10^3/uL (0.0-0.8); MONO % 8.9 % (2.0-8.0); NEUTROPHILS # 2.7 10^3/uL (1.5-8.5); NEUTROPHILS % 59.1 % (36.0-66.0); PLATELET COUNT, AUTOMATED 186 10^3/uL (150-450); RED BLOOD COUNT 4.08 10^6/uL (4.00-5.40); WHITE BLOOD COUNT 4.6 10^3/uL (4.0-10.0)
--- NOTE | 2021-06-25 20:47 | ECGEPIP ---
[facility] - ED Test Date: 2021-06-25 Pat Name: ADDIS PÉREZ Department: Room: - Gender: Female Mis Manager: JESSICA : 1940 Requested By: SAÚL Arevalo Order Number: [id number] Reading MD: Dora Contreras Measurements Intervals [place] Rate: 69 P: 81 NC: 186 QRS: 23 QRSD: 78 T: 39 QT: 366 QTc: 392 Interpretive Statements Normal sinus rhythm low voltage limb decreased rate 05/24/19 Electronically Signed on 06-25-2021 20:47:23 EST by Dora Contreras
[2021-06-25] MEDS: rOPINIRole 0.25 MG TAB(REQUIP) PO SCH (21:00)
[2021-06-25 21:25] LABS: ALBUMIN 3.5 GM/DL (3.2-5.2); ALT/SGPT 20 U/L (12-78); BILIRUBIN,TOTAL 0.5 MG/DL (0.2-1.0); BLOOD UREA NITROGEN 11 MG/DL (7-18); CALCIUM LEVEL 9.3 MG/DL (8.8-10.2); CARBON DIOXIDE LEVEL 31 MEQ/L (21-32); CHLORIDE LEVEL 104 MEQ/L (98-107); CREATININE FOR GFR 0.63 MG/DL (0.55-1.30); GLOMERULAR FILTRATION RATE > 60.0 (>39); GLUCOSE, FASTING 89 MG/DL (70-100); MAGNESIUM LEVEL 1.9 MG/DL (1.8-2.4); POTASSIUM SERUM 3.7 MEQ/L (3.5-5.1); SODIUM LEVEL 140 MEQ/L (136-145); THYROID STIMULATING HORMONE 0.503 uIU/ML (0.358-3.740); TOTAL PROTEIN 6.7 GM/DL (6.4-8.2)
[2021-06-25] MEDS ORDERED: ROPI0.5T3 PO (22:40)
[2021-06-25] MEDS ORDERED: PRESCAP PO (22:40)
[2021-06-25] MEDS ORDERED: HOME MED LIST COMPLETE! XX SCH (22:45)
--- NOTE | 2021-06-25 22:55 | HPEPDOC ---
[facility] Medical History & Physical Date of Admission Jun 25, 2021 Date of Service: Jun 25, 2021 Primary Care Physician: Bahman Forte Attending Physician: VALENTIN PHELPS MD History and Physical TIME OF SERVICE: 1155pm CHIEF COMPLAINT: falls HISTORY OF PRESENT ILLNESS: has been having issues with her balance for at least 1 year. She has had out patient PT which she thinks has been helping but over the last 2 weeks she noticed that her balance became worse. Last week it was so difficult to balance that she canceled her PT sessions because she didnt think that she would be able to participate. She has a cane that she purchased several years ago and has been using it the last week. She had a fall yesterday and another fall today which prompted her to come to the ER. She denies feeling dizzy, having palpitations, feeling chest pain, or having ear pain. CT showed chronic cystic hygromas which she has been seeing to follow up on. discussed these findings with who didnt feel that this was the cause of the fall and added that the patient can f/u with their group on an outpatient basis. 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 HOME MEDICATIONS: Please see below. PHYSICAL EXAMINATION: Vital Signs Date Time Temp Pulse Resp B/P (MAP) Pulse Ox O2 Delivery O2 Flow Rate FiO2 06/25/21 19:18 135/83 (100) 06/25/21 19:21 96.9 74 18 96 Room Air GENERAL APPEARANCE: slim build and developed/ NAD HEENT: EOMI / MMM&P CARDIOVASCULAR: RRR/NMRG LUNGS: CTAB on RA ABDOMEN: contour flat/ soft & NT w palpation MUSCULOSKELETAL: NCAT / MARYANN x 4 extremities / she muscle wasting at the extremities & wasting of the and muscles INTEGUMENT: pale NEUROLOGICAL: EOMI / CN 2-12 except hearing grossly intact / speech not dysarthric / both hip flexors are weak PSYCHIATRIC: A&O / able to understand and follow all commands LABORATORY DATA: IMAGING: CT head IMPRESSION: Chronic changes. No focal consolidation or effusion XRay Sacrum & coccyx IMPRESSION: Chronic changes. No focal consolidation or effusion Xray pelvis IMPRESSION: No acute fracture or dislocation appreciated. CT IMPRESSION: 1. CSF density enlargement of the extra-axial spaces over the cerebral convexities, measuring up to 8 mm in thickness on both sides, which has progressed compared to the prior CT head on 11/30/2019 and may represent subdural hygromas or chronic bilateral subdural hematomas. No acute intracranial hemorrhage, significant mass effect, midline shift, or herniation. 2.Evidence for a right otomastoiditis, which has developed since the CT head on 11/30/2019. MICROBIOLOGY: respiratory panel neg ASSESSMENT: is a 80 yr old w chronic cystic hygromas, RLS, glaucoma, hearing loss, & osteoporosis who is admitted for evaluation of falls. 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 for recs on a high protein diet DVT px w lovenox Dispo: home after at least 2 midnights stay Home Medications Scheduled Brimonidine Tartrate/Timolol (Combigan 0.2%-0.5% Eye Drops) 1 Glenny Glenny, 1 DROP OD QHS Calcium Carbonate/Vitamin D3 (Calcium 600 + Vit D 400 Softgl) 1 Each Capsule, 1 CAP PO DAILY Carboxymethylcellulose Sod (Refresh Celluvisc) 0.4 Ml Soln, 1 DROP OU BID Cholecalciferol (Vitamin D3) (Vitamin D-400) 10 Mcg Tablet, 10 MCG PO DAILY Cyanocobalamin (Vitamin B-12) (Vitamin B-12) 500 Mcg Tablet, 500 MCG PO DAILY Ropinirole HCl (Ropinirole HCl) 0.5 Mg Tablet, 0.5 MG PO QHS Vit A/Vit C/Vit E/Zinc/Copper (Preservision Areds Softgel) 1 Each Capsule, 1 TAB PO BID Scheduled PRN Acetaminophen (Acetaminophen) 500 Mg Tablet, 1,000 MG PO Q6H PRN for PAIN Allergies Coded Allergies: No Known Allergies (Verified , 11/30/19) A-FIB/CHADSVASC A-FIB History Current/History of A-Fib/PAF?: No Current PO Anticoag Therapy: No VALENTIN PHELPS MD Jun 25, 2021 22:55
--- OUTSIDE RECORDS SUMMARY | 2021-06-25 23:20 | CCD ---
Author Author [facility] Organization [facility] Address Unknown Phone Unavailable Care Team Providers Care Pinion Polisher Name Role Phone Fish, [facility], PA-C Unavailable Unavailabl e Fish, [facility], PA-C Unavailable Unavailabl e Fish, [facility], PA-C Unavailable Unavailabl e Fish, [facility], PA-C Unavailable Unavailabl e Fish, [facility], PA-C Unavailable Unavailabl e Fish, [facility], PA-C Unavailable Unavailabl e Fish, [facility], PA-C Unavailable Unavailabl e Fish, [facility], PA-C Unavailable Unavailabl e Fish, [facility], PA-C Unavailable Unavailabl e Fish, [facility], PA-C Unavailable Unavailabl e Fish, [facility], PA-C Unavailable Unavailabl e Fish, [facility], PA-C Unavailable Unavailabl e Fish, [facility], PA-C Unavailable Unavailabl e Fish, [facility], PA-C Unavailable Unavailabl e Fish, [facility], PA-C Unavailable Unavailabl e Fish, [facility], PA-C Unavailable Unavailabl e Fish, [facility], PA-C Unavailable Unavailabl e Fish, [facility], PA-C Unavailable Unavailabl e Fish, [facility], PA-C Unavailable Unavailabl e Fish, [facility], PA-C Unavailable Unavailabl e Fish, [facility], PA-C Unavailable Unavailabl e Fish, [facility], PA-C Unavailable Unavailabl e Fish, [facility], PA-C Unavailable Unavailabl e Fish, [facility], PA-C Unavailable Unavailabl e Fish, [facility], PA-C Unavailable Unavailabl e Fish, [facility], PA-C Unavailable Unavailabl e Fish, [facility], PA-C Unavailable Unavailabl e Fish, [facility], PA-C Unavailable Unavailabl e Fish, [facility], PA-C Unavailable Unavailabl e Fish, [facility], PA-C Unavailable Unavailabl e Fish, [facility], PA-C Unavailable Unavailabl e Fish, [facility], PA-C Unavailable Unavailabl e Fish, [facility], PA-C Unavailable Unavailabl e Fish, [facility], PA-C Unavailable Unavailabl e Fish, [facility], PA-C Unavailable Unavailabl e Fish, [facility], PA-C Unavailable Unavailabl e Mollison, Jaylene Chandler [...] Chandler MD Unavailable Unavailable Amish Majano Lucrecia SITE PHYSICIAN-C Unavailable Unavailable Majano, D Lucrecia SITE PHYSICIAN-C Unavailable Unavailable Majano, D Lucrecia SITE PHYSICIAN-C Unavailable Unavailable Majano, D Lucrecia SITE PHYSICIAN-C Unavailable Unavailable Majano, D Lucrecia SITE PHYSICIAN-C Unavailable Unavailable Majano, D Lucrecia SITE PHYSICIAN-C Unavailable Unavailable Majano, D Lucrecia SITE PHYSICIAN-C Unavailable Unavailable Lockerbie, S Kavya SITE PHYSICIAN-C Unavailable Unavailable Lockerbie, S Kavya SITE PHYSICIAN-C Unavailable Unavailable Lockerbie, S Kavya SITE PHYSICIAN-C Unavailable Unavailable Lockerbie, S Kavya SITE PHYSICIAN-C Unavailable Unavailable Lockerbie, S Kavya SITE PHYSICIAN-C Unavailable Unavailable Lockerbie, S Kavya SITE PHYSICIAN-C Unavailable Unavailable Lockerbie, S Kavya SITE PHYSICIAN-C Unavailable Unavailable Lockerbie, S Kavya SITE PHYSICIAN-C Unavailable Unavailable Lockerbie, S Kavya SITE PHYSICIAN-C Unavailable Unavailable Lockerbie, S Kavya SITE PHYSICIAN-C Unavailable Unavailable Lockerbie, S Kavya SITE PHYSICIAN-C Unavailable Unavailable Lockerbie, S Kavya SITE PHYSICIAN-C Unavailable Unavailable Lockerbie, S Kavya SITE PHYSICIAN-C Unavailable Unavailable Lockerbie, S Kavya SITE PHYSICIAN-C Unavailable Unavailable Lockerbie, S Kavya SITE PHYSICIAN-C Unavailable Unavailable Lockerbie, S Kavya SITE PHYSICIAN-C Unavailable Unavailable Lockerbie, S Kavya SITE PHYSICIAN-C Unavailable Unavailable Lockerbie, S Kavya SITE PHYSICIAN-C Unavailable Unavailable Lockerbie, S Kavya SITE PHYSICIAN-C Unavailable Unavailable Lockerbie, S Kavya SITE PHYSICIAN-C Unavailable Unavailable Lockerbie, S Kavya SITE PHYSICIAN-C Unavailable Unavailable Lockerbie, S Kavay SITE PHYSICIAN-C Unavailable Unavailable Lockerbie, S Kavya SITE PHYSICIAN-C Unavailable Unavailable Lockerbie, S Kavya SITE PHYSICIAN-C Unavailable Unavailable Re-disclosure Warning The records that [...] is protected by Article 27-F of the [facility] Public Health law. If you continue you may have access to information: Regarding HIV / AIDS; Provided by facilities licensed or operated by the [facility] Office of Mental Health; or Provided by the [facility] Office for People With Developmental Disabilities. If such information is present, then the following [facility] mandated warning applies: This information has [...] law may result in a fine or long term sentence or both. A general authorization for the release of medical or other information is NOT sufficient authorization for further disc losure. Family History Family Member Name Family Member Gender Family Member Status Date o f Status Description Data Source(s) Unknown Female Problem [facility] ([facility]) Encounters Encounter Providers Location Date Indications Data Source(s ) Outpatient Attender: Anuradha THORNE PA-C Physical Therapy 03/29/2021 01:00:00 PM EDT [facility] ([facility]) OFFICE OUTPATIENT VISIT 15 MINUTES Attender: Anuradha THORNE PA-C Physical Therapy 03/25/2021 01:45:00 PM EDT [facility] ([facility]) [place] [address] [address] 03/01/2021 12:00:00 AM EDT eCW1 ([facility]) Outpatient Attender: Lucrecia SOLIS-C Main Office 02/24/2021 10:30:00 AM EDT [facility] ([facility]) [place] [address] [address] 01/17/2021 12:00:00 AM EDT eCW1 ([facility]) Outpatient Attender: Ramesh Ryder/Claudia/Erick/Amalia indl 11/11/2020 03:00:00 PM EDT [facility] ([facility]) Outpatient Attender: Kavya LAWSONP-C Main Office 09/16/2020 10:00:00 AM EST [facility] ([facility]) [place] [address] [address] 08/30/2020 12:00:00 AM EST eCW1 ([facility]) [place] [address] [address] 08/16/2020 12:00:00 AM EST eCW1 ([facility]) Immunizations Vaccine Date Status Description Data Source(s) COVID-19 dose #2 given elsewhere Unspecified 11/02/2020 06:5 0:00 AM EDT completed eCW1 ([facility]) COVID-19 VACCINE Moderna 11/02/2020 12:00:00 AM EDT completed NYSIIS Vaccine Series Complete: YESThis Data wa s Submitted to [facility] Via [employer]. COVID-19 dose #1 given elsewhere Unspecified 10/05/2020 06:4 9:00 AM EST completed eCW1 ([facility]) COVID-19 VACCINE Moderna 10/05/2020 12:00:00 AM EST completed NYSIIS Vaccine Series Complete: NOThis Data was Submitted to [facility] Via [employer]. IIV3. This is one of two codes replacing CVX 15, which is being retired. 05/18/2020 02:07:00 PM EDT completed eCW1 ([facility]) IIV3. This is one of two codes replacing CVX 15, which is being retired. 05/18/2020 02:07:00 PM EDT completed eCW1 ([facility]) IIV3. This is one of two codes replacing CVX 15, which is being retired. 05/18/2020 02:07:00 PM EDT completed eCW1 ([facility]) Medications Medication Brand Name Start Date Product Form Dose Route Admi nistrative Instructions Pharmacy Instructions Status Indications Reaction Description Data Source(s) 4 mg 04/08/2021 12:00:00 AM EDT tablets,dose pack 21 TAKE DIRECTED PER PACKAGE INSTRUCTIONS TAKE DIRECTED PER PACKAGE INSTRUCTIONS SOLD: 04/09/2021 Paiz Deepa Methylprednisolone 4 MG Oral Tablet [Medrol] Medrol 10/2020 12:00:00 AM EDT active [facility] ( [facility]) Insurance Providers Payer name Policy type / Coverage type Policy ID Covered alliance party ID Covered alliance party's relationship to martinez Policy Martinez Plan Information [facility] [id number] Self Y [id number] BS [facility] [facility] [id number] Self MEDICARE [id number] SP [id number] MEDICARE A [id number] Self [id number] A MEDICARE A [id number] Self [id number] [place] [id number] Self [place] Primary [id number] Self 9 [id number] [place] Primary [id number] Self 9 [id number] [place] Primary [id number] Self 1 [id number] [place] Medicare Primary [id number] Self 1 [id number] [place] Primary [id number] Self 1 [id number] [place] Medicare Primary [id number] Self 1 [id number] FOR LIFE U [id number] Self [id number] MEDICARE [id number] [place] Primary [id number] Self 1 [id number] MEDICARE [id number] [place] [facility] Medigap Part B [id number] Self 1 [id number] [place] [employer] [place] Medigap Part B [id number] Self [id number] [place] [facility] [employer] [place] Medigap Part B [id number] Self 1 [id number] [place] [employer] [employer] [place] Medigap Part B [id number] Self 1 [id number] [place] [facility] [employer] [place] Medigap Part B [id number] Self 1 [id number] [place] [facility] [employer] [place] Medigap Part B [id number] Self 1 [id number] [place] [employer] [place] Medigap Part B [id number] Self [place] [employer] [place] Medigap Part B [id number] Self [id number] FOR LIFE [id number] SP [id number] ANSI-Medicare Part B [id number] ANSI-Commercial [id number] Medicare Dme Supplies Medigap Part B [id number] Self 1 [id number] FOR LIFE O [id number] S [id number] MEDICARE C [id number] S [id number] A Medicare Dme Supplies Medigap Part B [id number] Self 1 [id number] Medicare Dme Supplies Medigap Part B [id number] Self 1 [id number] Medicare Dme Supplies Medigap Part B [id number] Self 1 [id number] MEDICARE INPATIENT M [id number] S [id number] FOR LIFE WPS O [id number] S [id number] MEDICARE OUTPATIENT M [id number] S [id number] A MEDICARE [id number] SP [id number] [id number] FOR LIFE [id number] SP 0 [id number] FOR LIFE [id number] SP [id number] FOR LIFE O [id number] S 0 [id number] MEDICARE C [id number] S [id number] H76 ANSI-Commercial [id number] ANSI-Medicare Part B [id number] ANSI-Medicare Part B [id number] ANSI-Commercial [id number] ANSI-Medicare Part B [id number] ANSI-Commercial [id number] Medicare Dme Supplies [facility] Part B [id number] Self 1 [id number] ANSI-Medicare Part B [id number] ANSI-Commercial [id number] Medicare Dme Supplies [facility] Part B [id number] Self 1 [id number] ANSI-Commercial [id number] ANSI-Medicare Part B [id number] ANSI-Commercial [id number] [facility]-Medicare Part B [id number] [facility]-Medicare Part B [id number] ANSI-Commercial [id number] MEDICARE [id number] A ANSI-Commercial [id number] ANSI-Medicare Part B [id number] Problems, Conditions, and Diagnoses No Information Surgeries/Procedures Procedure Description Date Indications Data Source(s) DESTRUCTION MAL LESION TRUNK/ARM/LEG 1.1-2.0CM 021 12:00:00 AM [facility] OFFICE OUTPATIENT VISIT 25 MINUTES 04/08/2021 12:00:00 AM EDT [facility] ARTHROCENTESIS ASPIR&/INJECTION MAJOR JT/BURSA 021 12:00:00 AM EDT [facility] ([facility]) OFFICE OUTPATIENT VISIT 25 MINUTES 03/29/2021 12:00:00 AM EDT [facility] RADIOLOGIC EXAM KNEE COMPLETE 4/MORE VIEWS 03/25/2021 12:00:00 [facility] 15 MINUTES 03/25/2021 12:00:00 AM EDT [facility] ([facility] OFFICE OUTPATIENT VISIT 25 MINUTES 03/25/2021 12:00:00 AM EDT [facility] ([facility]) Shave Biopsy Of Skin, Single Lesion 02/24/2021 12:00:0 0 AM EDT [facility] ([facility]) OFFICE OUTPATIENT VISIT 25 MINUTES 02/24/2021 12:00:00 AM EDT [facility] ([facility]) DESTRUCTION MAL LESION TRUNK/ARM/LEG 1.1-2.0CM 021 12:00:00 AM EDT [facility] ([facility]) DESTRUCTION MAL LESION TRUNK/ARM/LEG 2.1-3.0CM 021 12:00:00 AM EDT [facility] ([facility]) CLTX PEL RING FX DISLC DIAST/SUBLXTJ W/O MANJ 11/12/19 21 12:00:00 AM EDT [facility] ([facility] ) DESTRUCTION PREMALIGNANT LESION 1ST 09/16/2020 12:00:0 0 AM EST [facility] ([facility]) DESTRUCTION PREMALIGNANT LESION 2-14 EA 09/16/2020 12: 00:00 AM EST [facility] ([facility]) OFFICE OUTPATIENT VISIT 15 MINUTES 09/16/2020 12:00:00 AM EST [facility] ([facility]) RADEX SHOULDER COMPLETE MINIMUM 2 VIEWS 04/30/2020 12: 00:00 AM EDT [facility] ([facility]) Results ID Date Data Source [id number] 02/24/2021 11:03:00 AM EDT [facility] ([facility]) Name Value Range Interpretation Code Description Data Teresa rce(s) Supporting Document(s) Laboratory test finding (navigational concept) Laboratory test result [facility] ([facility]) ED&Cx3 at next visit Laboratory test finding (navigational concept) Laboratory test result [facility] ([facility]) ED&Cx3 at next visit Procedure Social History Code Duration Value Status Description Data Source(s ) Smoking 03/01/2021 12:00:00 AM EDT Former Smoker completed Former Smoker eCW1 ([facility]) Smoking 08/30/2020 12:00:00 AM EST Former Smoker completed Former Smoker eCW1 ([facility]) Smoking 08/30/2020 12:00:00 AM EST Former Smoker completed Former Smoker eCW1 ([facility]) Vital Signs ID Date Data Source UNK Name Value Range Interpretation Code Description Data Source(s) Oxygen saturation in Arterial blood by Pulse oximetry 98 % 98 % [facility] ([facility]) Diastolic blood pressure 70 mm[Hg] 70 mm[Hg] [facility] ([facility]) Systolic blood pressure 111 mm[Hg] 111 mm[Hg] M EDENT ([facility]) Heart rate 72 /min 72 /min [facility] ([facility]) Body weight 95.00 [lb_av] 95.00 [lb_av] [facility] ([facility]) Body mass index (BMI) [Ratio] 20.5 kg/m2 20.5 k g/m2 [facility] ([facility]) Body temperature 97.1 [degF] 97.1 [degF] [facility] ([facility]) Body height 56.5 [in_i] 56.5 [in_i] [facility] ([facility]) 4'8.50" Body weight 93.31 [lb_av] 93.31 [lb_av] [facility] ([facility]) Body weight 96.4 [lb_av] 96.4 [lb_av] eCW1 ([facility]) Body height [in_i] eCW1 ([facility]) Body mass index (BMI) [Ratio] 18.21 kg/m2 18.21 kg/m2 eCW1 ([facility]) Heart rate 75 /min 75 /min eCW1 ([facility]) Respiratory rate 18 /min 18 /min eCW1 ([facility]) Body temperature 97.0 [degF] 97.0 [degF] eCW1 ( [facility]) Systolic blood pressure 128 mm[Hg] 128 mm[Hg] e CW1 ([facility]) Diastolic blood pressure 82 mm[Hg] 82 mm[Hg] eCW1 ([facility]) Body weight 98.00 [lb_av] 98.00 [lb_av] [facility] ([facility]) Respiratory rate 18 /min 18 /min [facility] ( [facility]) Systolic blood pressure 122 mm[Hg] 122 mm[Hg] [facility] Diastolic blood pressure 82 mm[Hg] 82 mm[Hg] [facility] ([facility]) Body weight 98.00 [lb_av] 98.00 [lb_av] [facility] ([facility]) Respiratory rate 18 /min 18 /min [facility] ( [facility]) Body weight 100.00 [lb_av] 100.00 [lb_av] MED[facility] T ([facility]) Diastolic blood pressure 60 mm[Hg] 60 mm[Hg] [facility] ([facility]) Body temperature 95.6 [degF] 95.6 [degF] [facility] ([facility]) Systolic blood pressure 122 mm[Hg] 122 mm[Hg] [facility] Systolic blood pressure 100 mm[Hg] 100 mm[Hg] [facility] ([facility]) Diastolic blood pressure 64 mm[Hg] 64 mm[Hg] [facility] ([facility]) Heart rate 90 /min 90 /min [facility] ([facility]) Oxygen saturation in Arterial blood by Pulse oximetry 98 % 98 % [facility] ([facility]) Respiratory rate 18 /min 18 /min [facility] ( [facility]) Body temperature 98.2 [degF] 98.2 [degF] [facility] ([facility]) Body height 59.5 [in_i] 59.5 [in_i] [facility] ([facility]) 4'11.50" Body weight 99.00 [lb_av] 99.00 [lb_av] [facility] ([facility]) Body mass index (BMI) [Ratio] 19.7 kg/m2 19.7 k g/m2 [facility] ([facility]) [place] body weight 100 [lb_av] 100 [lb_av] MEDEN T ([facility]) Body weight 44.906 kg 44.906 kg [facility] ([facility]) Body surface area Derived from formula 1.38 m2 1.38 m2 [facility] ([facility]) Oxygen saturation in Arterial blood by Pulse oximetry 97 % 97 % [facility] ([facility]) Body temperature 97.6 [degF] 97.6 [degF] [facility] ([facility] ) Systolic blood pressure 124 mm[Hg] 124 mm[Hg] M EDENT ([facility], ) Diastolic blood pressure 61 mm[Hg] 61 mm[Hg] [facility] ([facility] ) Heart rate 73 /min 73 /min [facility] ([facility] ) Body weight 97.2 [lb_av] 97.2 [lb_av] eCW1 ([facility]) Body height [in_i] eCW1 ([facility]) Body mass index (BMI) [Ratio] 18.36 kg/m2 18.36 kg/m2 eCW1 ([facility]) Heart rate 88 /min 88 /min eCW1 ([facility]) Respiratory rate 18 /min 18 /min eCW1 ([facility]) Body temperature 97.6 [degF] 97.6 [degF] eCW1 ( [facility]) Systolic blood pressure 124 mm[Hg] 124 mm[Hg] e CW1 ([facility]) Diastolic blood pressure 72 mm[Hg] 72 mm[Hg] eCW1 ([facility])
[2021-06-26 00:27] LABS: RSV AMPLIFICATION NEGATIVE (NEGATIVE)
[2021-06-26] MEDS: CEFEPIME HCL 1 GM in D5W MINI-BAG PLUS 50 ML IV SCH ×2 (01:17→22:28)
[2021-06-26 04:40] VITALS: BP 115/67
[2021-06-26] MEDS ORDERED: ACETAMINOPHEN 500 MG TAB PO PRN (05:50)
[2021-06-26 06:00] VITALS: BP_SYST 110; BP_SYST 111; BP_SYST 115; BP_DIAS 67; BP_DIAS 70
--- NOTE | 2021-06-26 08:46 | REP ---
INDICATION: Lower extremity weakness. COMPARISON: X-ray series dated 05/24/2018 TECHNIQUE: Axial noncontrast images of the lumbosacral spine from mid T12 through mid sacrum with coronal and sagittal reformations. This CT examination was performed using the following dose reduction techniques: Automated exposure control, adjustment of mA and/or kv according to the patient's size, and use of iterative reconstruction technique. FINDINGS: Age-related osteopenia and advanced multilevel degenerative changes are appreciated. There is a chronic compression fracture at T12 and chronic acute fracture through the S3 level of the mid sacrum which appear relatively unchanged as compared with 2018 x-rays. Current examination demonstrates relatively stable alignment without obvious acute fracture/compression injury or subluxation. Degenerative changes include osteophytosis as well as multiple posterior disc bulges which demonstrate lateral components extending into the lateral recesses and suspected effacement of the exiting nerve roots at L3-4, L4-5, and possibly L5-S1 levels. Associated elements of chronic facet arthropathy also appear to cause canal stenosis primarily L3 through L4. IMPRESSION: 1. Advanced osteopenia and degenerative changes including posterior disc bulges primarily L3-4 and L4-5 which appear to cause effacement of the exiting nerve roots. 2. Old compression fracture at T12 and old fracture at approximately S3 mid sacral level best identified on sagittal radiographs and relatively unchanged as compared with 2018 x-rays. <Electronically signed by Nicolas Cruz > 06/26/21 0843
--- NOTE | 2021-06-26 09:13 | REP ---
INDICATION: Lower extremity weakness. COMPARISON: Thoracic x-rays dated 05/24/2018 TECHNIQUE: Axial noncontrast images of the thoracic spine with coronal and sagittal reformations. FINDINGS: Alignment and kyphosis is maintained. There are considerable compression fractures involving T7 and T10 which demonstrate small amounts of retropulsion mildly narrowing the canal to roughly 10 mm at the T10 level and 12 mm at the T7 level (average canal AP diameter of 17 mm through the thoracic spine). These vertebral bodies demonstrate approximately 50-60% loss of vertebral body height and appears sclerotic along with elements of vacuum phenomenon and are of indeterminate age, but new when compared with x-rays dated 2018. There is a very subtle nondisplaced hairline fracture through the T6 spinous process (sagittal image 20) without associated surrounding soft tissue injury or injury to the remainder of the T6 vertebra. Remainder of the examination demonstrates generalized osteopenia and age-related multilevel degenerative changes with elements of endplate sclerosis, marginal spurring and disc space narrowing. IMPRESSION: 1. Very subtle hairline nondisplaced fracture through the T6 spinous process appears acute but without associated findings. 2. Compression fractures at T7 and T10 as described above are of indeterminate age and warrant correlation. Fracture at T12 is chronic and stable when compared with x-rays dated 2018. <Electronically signed by Nicolas Cruz > 06/26/21 1776
[2021-06-26] MEDS: OCUVITE 1 TAB PO SCH ×2 (09:47→21:44)
[2021-06-26] MEDS: ENOXAPARIN 30MG/0.3ML SYRINGE (J1650 PER 10MG) SC SCH (09:47)
[2021-06-26] MEDS: VITAMIN D (CHOLECALCIFEROL) 400 INTERNATIONAL UNITS TAB PO SCH (09:47)
[2021-06-26] MEDS: CALCIUM/VITAMIN D 500 MG TAB PO SCH (09:47)
[2021-06-26] MEDS: TIMOLOL MALEATE 0.5% OPHTH SOLN 5 ML OU SCH ×2 (09:48→21:47)
[2021-06-26 10:24] LABS: HEMATOCRIT 37.6 % (36.0-47.0); HEMOGLOBIN 12.3 g/dl (12.0-15.5); MEAN CORPUSCULAR HEMOGLOBIN 31.2 pg (27.0-33.0); MEAN CORPUSCULAR HGB CONC 32.7 g/dl (32.0-36.5); MEAN CORPUSCULAR VOLUME 95.4 fl (80.0-96.0); PLATELET COUNT, AUTOMATED 183 10^3/uL (150-450); RED BLOOD COUNT 3.94 10^6/uL (4.00-5.40); WHITE BLOOD COUNT 5.1 10^3/uL (4.0-10.0)
[2021-06-26 10:47] LABS: BLOOD UREA NITROGEN 15 MG/DL (7-18); CALCIUM LEVEL 8.7 MG/DL (8.8-10.2); CARBON DIOXIDE LEVEL 32 MEQ/L (21-32); CHLORIDE LEVEL 107 MEQ/L (98-107); CREATININE FOR GFR 0.58 MG/DL (0.55-1.30); GLOMERULAR FILTRATION RATE > 60.0 (>39); GLUCOSE, FASTING 74 MG/DL (70-100); POTASSIUM SERUM 3.8 MEQ/L (3.5-5.1); SODIUM LEVEL 142 MEQ/L (136-145)
[2021-06-26 14:00] VITALS: BP 114/69
[2021-06-26 17:00] VITALS: BP_SYST 119; BP_SYST 127; BP_SYST 151; BP_DIAS 71; BP_DIAS 74; BP_DIAS 87
--- NOTE | 2021-06-26 17:13 | IPNPDOC ---
Subjective Date Seen The patient was seen on 06/26/21. Subjective Chief Complaint/HPI Mrs. Antonio is a 80 year old female who is here with worsening balance. Early in the morning, I had ordered CT of the thoracic lumbar spine due to H&P reporting weakness of the hip flexors and wasting of the muscles. When I saw patient this morning, she was working with physical therapy. Physical therapy noticed that her balance has worsened since the last time she was seen. Otherwise, patient denies any chest pain, dyspnea, or lightheadedness. She also denied any low back pain. Patient's orthostatic vitals have been negative. Patient does have L3L4 and L4-L5 posterior disc bulges. I touch base with neurology, Dr. Martines. Patient's worsening balance unlikely to be from disc bulge. Most likely deconditioning. Continue with conservative management Objective Physical Examination General Exam: Positive: Alert, Cooperative Eye Exam: Negative: Sclera icteric ENT Exam: Positive: Atraumatic Neck Exam: Positive: Supple Chest Exam: Positive: Clear to auscultation Heart Exam: Positive: Rate Normal, Regular Rhythm Abdomen Exam: Positive: Normal bowel sounds, Soft; Negative: Tenderness Neuro Exam: Positive: Normal Speech Psych Exam: Positive: Mental status NL, Mood NL Assessment /Plan Assessment Mrs. Antonio is a 80 year old female who is here with worsening balance. Patient denies any low back pain. Physical therapy has worked with patient and noticed that her gait has worsened. Patient may need rehab versus home with services. Otherwise, will check a B12 level. Of note, unable to obtain MRI due to metal hip prosthesis. Plan/VTE VTE Prophylaxis Ordered?: Yes Plan 1. Poor balance and deconditioning Unable to obtain MRI due to metal hip prosthesis PT and OT 2. Right otomastoiditis Continue cefepime day 1 3. Chronic cystic hygroma Follow-up with neurology outpatient 4. Restless leg syndrome Continue ropinirole 5. Glaucoma Continue brimonidine and timolol 6. Osteoporosis Continue calcium and vitamin D 7. Sarcopenia Prealbumin 20.4 Patient's BMI is borderline We will order dietitian consult 8. DVT prophylaxis Lovenox Disposition: Pending physical therapy and occupational therapy eval VS, I&O, 24H, Fishbone Vital Signs/I&O Vital Signs Date Time Temp Pulse Resp B/P (MAP) Pulse Ox O2 Delivery O2 Flow Rate FiO2 11/21/21 14:00 98.0 85 16 114/69 (84) 94 Room Air I&O- Last 24 Hours up to 6 AM 06/26/21 06:00 Intake Total 50 ml Balance 50 ml Laboratory Data 24H LABS Laboratory Tests 2 06/25/21 20:22: Immature Granulocyte % (Auto) 0.2, Neutrophils (%) (Auto) 59.1, Lymphocytes (%) (Auto) 29.2, Monocytes (%) (Auto) 8.9H, Eosinophils (%) (Auto) 1.7, Basophils (%) (Auto) 0.9, Neutrophils # (Auto) 2.7, Lymphocytes # (Auto) 1.4L, Monocytes # (Auto) 0.4, Eosinophils # (Auto) 0.1, Basophils # (Auto) 0.0, Nucleated Red Blood Cells % (auto) 0.0, Anion Gap 5L, Glomerular Filtration Rate > 60.0, Calcium Level 9.3, Magnesium Level 1.9, Total Bilirubin 0.5, Aspartate Amino Transf (AST/SGOT) 17, Alanine Aminotransferase (ALT/SGPT) 20, Alkaline Phosphatase 84, Total Protein 6.7, Albumin 3.5, Albumin/Globulin Ratio 1.1L, Thyroid Stimulating Hormone (TSH) 0.503 06/25/21 23:14: Coronavirus (COVID-19)(PCR) NEGATIVE, Influenza Type A (RT-PCR) NEGATIVE, Influenza Type B (RT-PCR) NEGATIVE, Respiratory Syncytial Virus (PCR) NEGATIVE 06/26/21 09:52: Nucleated Red Blood Cells % (auto) 0.0, Anion Gap 3L, Glomerular Filtration Rate > 60.0, Calcium Level 8.7L, Prealbumin 20.4 CBC/BMP Laboratory Tests 06/25/21 20:22 06/26/21 09:52 DARLENE WONG DO Jun 26, 2021 17:13
[2021-06-26] MEDS: BRIMONIDINE 0.1% OPHTH SOLN 5 ML OU SCH (21:42)
[2021-06-26] MEDS: rOPINIRole 0.25 MG TAB(REQUIP) PO SCH (21:44)
[2021-06-26 22:00] VITALS: BP 124/74
[2021-06-27 01:00] VITALS: BP_SYST 136; BP_SYST 144; BP_SYST 146; BP_DIAS 73; BP_DIAS 74; BP_DIAS 76
[2021-06-27] MEDS ORDERED: carisoprodoL 350 MG TAB PO PRN (02:20)
[2021-06-27] MEDS: LIDOCAINE 5% (LIDODERM) PATCH TD SCH ×2 (02:41→20:53)
[2021-06-27 06:00] VITALS: BP 146/81
[2021-06-27 06:54] LABS: HEMATOCRIT 37.2 % (36.0-47.0); MEAN CORPUSCULAR HGB CONC 32.3 g/dl (32.0-36.5); MEAN CORPUSCULAR VOLUME 96.1 fl (80.0-96.0); PLATELET COUNT, AUTOMATED 180 10^3/uL (150-450); RED BLOOD COUNT 3.87 10^6/uL (4.00-5.40); WHITE BLOOD COUNT 5.9 10^3/uL (4.0-10.0)
[2021-06-27 07:16] LABS: BLOOD UREA NITROGEN 16 MG/DL (7-18); CALCIUM LEVEL 8.5 MG/DL (8.8-10.2); CARBON DIOXIDE LEVEL 28 MEQ/L (21-32); CHLORIDE LEVEL 106 MEQ/L (98-107); CREATININE FOR GFR 0.61 MG/DL (0.55-1.30); GLOMERULAR FILTRATION RATE > 60.0 (>39); GLUCOSE, FASTING 82 MG/DL (70-100); POTASSIUM SERUM 3.9 MEQ/L (3.5-5.1); SODIUM LEVEL 138 MEQ/L (136-145)
--- NOTE | 2021-06-27 08:32 | REP ---
INDICATION: "lung", rib pain COMPARISON: 06/25/2021 TECHNIQUE: Portable AP view of the chest FINDINGS: The mediastinum and cardiac silhouette are stable and within normal limits for portable technique. Surgical material at the left hilum again noted. The lung lópez demonstrate diffuse chronic interstitial changes. No obvious focal consolidation, effusion, or pneumothorax. Skeletal structures are grossly normal/stable. IMPRESSION: Chronic appearing changes. No focal consolidation or effusion. <Electronically signed by Nicolas Cruz > 06/27/21 0829
[2021-06-27] MEDS: VITAMIN D (CHOLECALCIFEROL) 400 INTERNATIONAL UNITS TAB PO SCH (09:01)
[2021-06-27] MEDS: OCUVITE 1 TAB PO SCH ×2 (09:01→20:51)
[2021-06-27] MEDS: CALCIUM/VITAMIN D 500 MG TAB PO SCH (09:01)
[2021-06-27] MEDS: TIMOLOL MALEATE 0.5% OPHTH SOLN 5 ML OU SCH ×2 (09:01→20:50)
[2021-06-27] MEDS: ENOXAPARIN 30MG/0.3ML SYRINGE (J1650 PER 10MG) SC SCH (09:02)
[2021-06-27] MEDS: **NOTE PATIENT COMMENT** MISC XX SCH (09:02)
[2021-06-27 10:31] LABS: VITAMIN B12 LEVEL 1307 PG/ML (247-911)
--- NOTE | 2021-06-27 11:42 | REPVR ---
PROCEDURE INFORMATION: Exam: CT Head Without Contrast Exam date and time: 06/27/2021 10:16 AM Age: 80 years old Clinical indication: Walking, difficulty; Additional info: Re-eval for poor balance, unable to obtain mri TECHNIQUE: Imaging protocol: Computed tomography of the head without contrast. Radiation optimization: All CT scans at this facility use at least one of these dose optimization techniques: automated exposure control; mA and/or kV adjustment per patient size (includes targeted exams where dose is matched to clinical indication); or iterative reconstruction. COMPARISON: CT Head without contrast 06/25/2021 7:32 PM FINDINGS: Brain: Stable bilateral subdural hygromas. Symmetric caliber of the cortical sulci. Mild small vessel ischemic change. Cerebral ventricles: Normal configuration of the ventricles. Paranasal sinuses: No sinus fluid. Mastoid air cells: Opacification of the right mastoid air cells with inflammatory extension in the right middle ear. Vasculature: Vascular calcification. Bones/joints: No acute calvarial pathology. Soft tissues: Unremarkable soft tissues. When correlating with the previous study, no significant interval changes are present. IMPRESSION: Stable appearance of the brain, not significantly changed from 06/25/2021 . Electronically signed by: Blair Dan On 06/27/2021 11:42:26 AM
[2021-06-27] MEDS: CEFEPIME HCL 1 GM in D5W MINI-BAG PLUS 50 ML IV SCH (13:36)
[2021-06-27 14:00] VITALS: BP 153/79
--- NOTE | 2021-06-27 18:39 | IPNPDOC ---
Subjective Date Seen The patient was seen on 06/27/21. Subjective Chief Complaint/HPI Mrs. Antonio is a 80 year old female who is here with worsening balance. This morning, she denies any chest pain or dyspnea. I repeated the CT head which was negative for any signs of stroke. This is most likely from debility. PT worked with patient, recommended a few more days of PT. OT is recommending rehab versus home with services. Objective Physical Examination General Exam: Positive: Alert, Cooperative Eye Exam: Negative: Sclera icteric ENT Exam: Positive: Atraumatic Neck Exam: Positive: Supple Chest Exam: Positive: Clear to auscultation Heart Exam: Positive: Rate Normal, Regular Rhythm Abdomen Exam: Positive: Normal bowel sounds, Soft; Negative: Tenderness Neuro Exam: Positive: Normal Speech Psych Exam: Positive: Mental status NL, Mood NL Assessment /Plan Assessment Mrs. Antonio is a 80 year old female who is here with worsening balance. Unable to obtain MRI due to metal hip prosthesis. Repeat CT head more than 24 hours later negative for stroke. Otherwise, patient denies any low back pain. Physical therapy has worked with patient and noticed that her gait has worsened. Patient may need rehab versus home with services. Plan/VTE VTE Prophylaxis Ordered?: Yes Plan 1. Poor balance and deconditioning Unable to obtain MRI due to metal hip prosthesis PT and OT 2. Right otomastoiditis Continue cefepime day 2 3. Chronic cystic hygroma Follow-up with neurology outpatient 4. Restless leg syndrome Continue ropinirole 5. Glaucoma Continue brimonidine and timolol 6. Osteoporosis Continue calcium and vitamin D 7. Sarcopenia Prealbumin 20.4 Patient's BMI is borderline We will order dietitian consult 8. DVT prophylaxis Lovenox Disposition: Pending clearance from physical therapy and occupational therapy VS, I&O, 24H, Fishbone Vital Signs/I&O Vital Signs Date Time Temp Pulse Resp B/P (MAP) Pulse Ox O2 Delivery O2 Flow Rate FiO2 06/27/21 14:00 96.6 67 17 153/79 (103) 96 Room Air I&O- Last 24 Hours up to 6 AM 06/27/21 06:00 Intake Total 1036 ml Output Total 2100 ml Balance -1064 ml Laboratory Data 24H LABS Laboratory Tests 2 06/27/21 06:13: Nucleated Red Blood Cells % (auto) 0.0, Anion Gap 4L, Glomerular Filtration Rate > 60.0, Calcium Level 8.5L, Vitamin B12 Level 1307H CBC/BMP Laboratory Tests 06/27/21 06:13 DARLENE WONG DO Jun 27, 2021 18:39
[2021-06-27] MEDS: rOPINIRole 0.25 MG TAB(REQUIP) PO SCH (20:51)
[2021-06-27] MEDS: BRIMONIDINE 0.1% OPHTH SOLN 5 ML OU SCH (20:55)
[2021-06-27 22:00] VITALS: BP 141/82
[2021-06-28] MEDS: CEFEPIME HCL 1 GM in D5W MINI-BAG PLUS 50 ML IV SCH ×2 (01:54→12:45)
[2021-06-28 06:00] VITALS: BP 111/58
[2021-06-28 06:21] LABS: HEMOGLOBIN 11.8 g/dl (12.0-15.5); MEAN CORPUSCULAR HEMOGLOBIN 31.5 pg (27.0-33.0); MEAN CORPUSCULAR HGB CONC 33.7 g/dl (32.0-36.5); MEAN CORPUSCULAR VOLUME 93.3 fl (80.0-96.0); PLATELET COUNT, AUTOMATED 182 10^3/uL (150-450); RED BLOOD COUNT 3.75 10^6/uL (4.00-5.40); WHITE BLOOD COUNT 5.1 10^3/uL (4.0-10.0)
[2021-06-28 06:40] LABS: BLOOD UREA NITROGEN 18 MG/DL (7-18); CALCIUM LEVEL 8.4 MG/DL (8.8-10.2); CARBON DIOXIDE LEVEL 26 MEQ/L (21-32); CHLORIDE LEVEL 109 MEQ/L (98-107); CREATININE FOR GFR 0.46 MG/DL (0.55-1.30); GLOMERULAR FILTRATION RATE > 60.0 (>39); GLUCOSE, FASTING 86 MG/DL (70-100); POTASSIUM SERUM 3.9 MEQ/L (3.5-5.1); SODIUM LEVEL 140 MEQ/L (136-145)
--- NOTE | 2021-06-28 09:08 | IPN ---
PROGRESS NOTE DATE: 06/28/2021 SUBJECTIVE: Patient is seen and examined at the bedside, chart has been reviewed. Patient denies any fever or chills, ear pain or discharge. Her balance continues to be poor but no recurrent falls. No chest pain, pressure, tightness, shortness of breath, dizziness or changes in vision. OBJECTIVE: VITAL SIGNS: Temperature 98.7, pulse 68, respiratory rate is 16, blood pressure is 111/58, 95% on room air. GENERAL: Patient is awake, alert and oriented to person, place and time. HEENT: Poor dentition, missing teeth. Dental caries. Dry mucous membranes. LUNGS: Clear to auscultation. No wheezing, rales or rhonchi. HEART: S1 and S2, sinus rhythm. ABDOMEN: Soft, nontender and nondistended. Positive bowel sounds. EXTREMITIES: No cyanosis, clubbing or pitting edema. LABORATORY DATA/MICROBIOLOGY/IMAGING STUDIES: Please see the chart. ASSESSMENT AND PLAN: A 80-year-old female who presents to the Emergency Room with recurrent falls for the past one year with worsening balance for the past two weeks. Patient usually uses a cane but had a fall prior to presentation with complaint of dizziness without fever, chills, ear pain or discharge. CT of the head showed chronic cystic hygromas that she follows with [facility] Neurology, Dr. Castro. __ discussed this case with Dr. Martines, neurologist environment coordinator, on June 25, 2021, did not feel that the cause of the falls was related to her cystic hygromas and could be followed up as an outpatient. Patient was admitted for recurrent falls and unable to obtain an MRI due to metal hip prosthesis. She was kept on frequent neuro checks with no significant change, fall precautions and Physical Therapy for possible inpatient rehabilitation. CT of the head showed a right otomastoiditis, started on IV Cefepime. She was continued on her home dose of Ropinirole for restless legs, Brimonidine eyedrops for glaucoma, as well as timolol, osteoporosis was treated with calcium and vitamin D, and for sarcopenia patient was recommended to have a high protein diet. Patient is still not physically able to ambulate safely and remains in the hospital for further PT/OT Services. IMPRESSION: 1. Gait imbalance, unable to obtain an MRI due to metal prosthesis. PT/OT has been consulted. Patient has chronic hygromas that could be followed as an outpatient per neurologist, Dr. Martines on 06/25/2021. 2. Right otomastoiditis, currently on day #3 of Cefepime. 3. Chronic cystic hygroma. Patient will follow-up with Dr. Castro. 4. Restless leg syndrome, on chronic Ropinirole. 5. Glaucoma, on Brimonidine and Timolol. 6. Osteoporosis, on calcium and vitamin D. 7. Sarcopenia, dietitian consulted. 8. DVT prophylaxis, on Lovenox. DISPOSITION: Awaiting PT/OT recommendations.
[2021-06-28] MEDS: TIMOLOL MALEATE 0.5% OPHTH SOLN 5 ML OU SCH (09:10)
[2021-06-28] MEDS: OCUVITE 1 TAB PO SCH (09:10)
[2021-06-28] MEDS: CALCIUM/VITAMIN D 500 MG TAB PO SCH (09:10)
[2021-06-28] MEDS: VITAMIN D (CHOLECALCIFEROL) 400 INTERNATIONAL UNITS TAB PO SCH (09:10)
[2021-06-28] MEDS: ENOXAPARIN 30MG/0.3ML SYRINGE (J1650 PER 10MG) SC SCH (09:10)
[2021-06-28] MEDS: **NOTE PATIENT COMMENT** MISC XX SCH (09:11)
[2021-06-28 14:00] VITALS: BP 151/78
[2021-06-28] MEDS ORDERED: LIDO5TD TD (14:02)
--- NOTE | 2021-06-28 17:41 | DS.PDOC ---
Discharge Summary General Date of Admission Jun 25, 2021 at 22:50 Date of Discharge 06/28/21 Discharge Summary DISCHARGE DIAGNOSES: Gait imbalance Cerumen impaction incidental finding right otomastoiditis chronic cystic hygromas RLS glaucoma osteoporosis DISCHARGE MEDS: SEE BELOW DISCHARGE INSTRUCTIONS: DR DUMONT ENT IN AM TO CLEAN CERUMEN AND DO EXAM TO R/O OM-PT TO CALL ENT OFFICE IN AM PCP 1WK HOSPITAL COURSE: A 80-year-old female who presents to the Emergency Room with recurrent falls for the past one year with worsening balance for the past two weeks. Patient usually uses a cane but had a fall prior to presentation with complaint of dizziness without fever, chills, ear pain or discharge. CT of the head showed chronic cystic hygromas that she follows with [facility] Neurology, Dr. Castro. ER discussed this case with Dr. Martines, neurologist breed to wean production technician, on June 25, 2021, did not feel that the cause of the falls was related to her cystic hygromas and could be followed up as an outpatient. Patient was admitted for recurrent falls and unable to obtain an MRI due to metal hip prosthesis. She was kept on frequent neuro checks with no significant change, fall precautions and Physical Therapy for possible inpatient rehabilitation. CT of the head showed a right otomastoiditis, started on IV Cefepime. She was continued on her home dose of Ropinirole for restless legs, Brimonidine eyedrops for glaucoma, as well as timolol, osteoporosis was treated with calcium and vitamin D, and for sarcopenia patient was recommended to have a high protein diet. Patient is still not physically able to ambulate safely and remains in the hospital for further PT/OT Services. IMPRESSION: 1. Gait imbalance, unable to obtain an MRI due to metal prosthesis. PT/OT has been consulted. Patient has chronic cystic hygromas that could be followed as an outpatient per neurologist, Dr. Martines on 06/25/2021. Per PT, stable for discharge today. 2. Right otomastoiditis, currently on day #3 of Cefepime. ENT consulted but could not visualize TM due to cerumen impaction. Pt to call ENT office 06/29/21 to come in for ear exam. Per Dr. Dumont, Radiologists who review CT over-call mastoiditis if they see fluid. if not purulent, does not need abx. Therefore, he will see her in the AM, and ok to dc today. 3. Chronic cystic hygroma. Patient will follow-up with Dr. Castro. 4. Restless leg syndrome, on chronic Ropinirole. 5. Glaucoma, on Brimonidine and Timolol. 6. Osteoporosis, on calcium and vitamin D. 7. Sarcopenia, dietitian consulted. 8. DVT prophylaxis, on Lovenox. DISCHARGE PE: VITAL SIGNS: SEE BELOW GENERAL: Patient is awake, alert and oriented to person, place and time. HEENT: Poor dentition, missing teeth. Dental caries. Dry mucous membranes. Right ear-nonerythematous, nontender, no swelling, no posterior displacement. LUNGS: Clear to auscultation. No wheezing, rales or rhonchi. HEART: S1 and S2, sinus rhythm. ABDOMEN: Soft, nontender and nondistended. Positive bowel sounds. EXTREMITIES: No cyanosis, clubbing or pitting edema. LABORATORY DATA/MICROBIOLOGY/IMAGING STUDIES: Please see the chart. TIME SPENT ON DISCHARGE: 30 MINUTES Vital Signs/I&Os Vital Signs Date Time Temp Pulse Resp B/P (MAP) Pulse Ox O2 Delivery O2 Flow Rate FiO2 06/28/21 14:00 97.5 74 17 151/78 (102) 93 Room Air I&O- Last 24 Hours up to 6 AM 06/28/21 06:00 Intake Total 730 ml Output Total 500 ml Balance 230 ml Laboratory Data Labs 24H Laboratory Tests 2 06/28/21 05:33: Nucleated Red Blood Cells % (auto) 0.0, Anion Gap 5L, Glomerular Filtration Rate > 60.0, Calcium Level 8.4L CBC/BMP Laboratory Tests 06/28/21 05:33 Discharge Medications Scheduled Brimonidine Tartrate/Timolol (Combigan 0.2%-0.5% Eye Drops) 1 Glenny Glenny, 1 DROP OD QHS, (Reported) Calcium Carbonate/Vitamin D3 (Calcium 600 + Vit D 400 Softgl) 1 Each Capsule, 1 CAP PO DAILY, (Reported) Carboxymethylcellulose Sod (Refresh Celluvisc) 0.4 Ml Soln, 1 DROP OU BID, (Reported) Cholecalciferol (Vitamin D3) (Vitamin D-400) 10 Mcg Tablet, 10 MCG PO DAILY, (Reported) Cyanocobalamin (Vitamin B-12) (Vitamin B-12) 500 Mcg Tablet, 500 MCG PO DAILY, (Reported) Lidocaine (Lidocaine) 5% Adh..patch, 1 PATCH TD QHS TO AFFECTED AREA Ropinirole HCl (Ropinirole HCl) 0.5 Mg Tablet, 0.5 MG PO QHS, (Reported) Vit A/Vit C/Vit E/Zinc/Copper (Preservision Areds Softgel) 1 Each Capsule, 1 TAB PO BID, (Reported) Scheduled PRN Acetaminophen (Acetaminophen) 500 Mg Tablet, 1,000 MG PO Q6H PRN for PAIN, (Reported) Allergies Coded Allergies: No Known Allergies (Verified , 11/30/19) DORA NEIL MD Jun 28, 2021 17:41
== END 2021-06-28 18:35 | disposition home or self-care (01) | DRG 92 ==
LOC: EDBD 19:06 → M ED 19:06 → M ED INP 22:50 → ENRESERV 06-26 02:24 → M MSPAV 06-26 04:36
PROVIDERS: ADMIT Internal Medicine; ATTEND General Practice
DX: R26.89 Other abnormalities of gait and mobility (principal); H70.001 Acute mastoiditis without complications, right ear; R29.6 Repeated falls; G25.81 Restless legs syndrome; M81.0 Age-related osteoporosis without current pathological fracture; M62.84 Sarcopenia; Z79.899 Other long term (current) drug therapy; H40.9 Unspecified glaucoma; H91.90 Unspecified hearing loss, unspecified ear; Z98.41 Cataract extraction status, right eye; Z98.42 Cataract extraction status, left eye; Z90.49 Acquired absence of other specified parts of digestive tract; Z87.891 Personal history of nicotine dependence; Z20.822 Contact with and (suspected) exposure to COVID-19

== ENCOUNTER → 2021-07-28 | Outpatient (CLI) | payer MEDICARE, OTHER ==
[~2021-07-28] MED LIST changes: +LIDO5TD TD; +PRESCAP PO
--- NOTE | 2021-07-28 12:04 | REPVR ---
PROCEDURE INFORMATION: Exam: CT Temporal Bones Without Contrast. Exam date and time: 07/28/2021 10:54 AM Age: 80 years old Clinical indication: Other: Central perforation of the tympanic membrane TECHNIQUE: Imaging protocol: Computed tomography images of the temporal bones without contrast. Radiation optimization: All CT scans at this facility use at least one of these dose optimization techniques: automated exposure control; mA and/or kV adjustment per patient size (includes targeted exams where dose is matched to clinical indication); or iterative reconstruction. COMPARISON: CT Head without contrast 06/27/2021 11:21 AM FINDINGS: Right inner ear: Normal. Right ossicles and middle ear: There is opacification of the right middle ear cavity. The right tympanic membrane is not visualized. The middle ear ossicles are intact. Right external auditory canal: Normal. Right facial nerve canal: Normal. Right jugular foramen: No jugular dehiscence. Right carotid canal: No aberrant carotid canal. Right mastoid air cells: There is diffuse opacification of right mastoid air cells. Left inner ear: Normal. Left ossicles and middle ear: Normal. The middle ear ossicles are intact. Left external auditory canal: Normal. Left facial nerve canal: Normal. Left jugular foramen: No jugular dehiscence. Left carotid canal: No aberrant carotid canal. Left mastoid air cells: There is scattered fluid within left mastoid air cells. Soft tissues: Unremarkable. IMPRESSION: Diffuse opacification of the right middle ear cavity and right mastoid air cells, potentially otitis/mastoiditis versus effusion. Electronically signed by: Divine Mckeon On 07/28/2021 12:03:52 PM
== END ==
LOC: M RAD 10:33
PROVIDERS: ATTEND Otolaryngology
DX: H72.01 Central perforation of tympanic membrane, right ear (principal)

== ENCOUNTER 2021-09-22 05:22 | Emergency (ER) | payer MEDICARE, OTHER ==
[~2021-09-22] VITALS: Ht 149.9 cm; Wt 42.7 kg
[2021-09-22 06:47] LABS: BASO # 0.1 10^3/uL (0.0-0.2); BASO % 0.7 % (0.0-1.0); EOS # 0.1 10^3/uL (0.0-0.5); HEMATOCRIT 36.7 % (36.0-47.0); HEMOGLOBIN 12.3 g/dl (12.0-15.5); LYMPH % 13.9 % (24.0-44.0); MEAN CORPUSCULAR HEMOGLOBIN 31.1 pg (27.0-33.0); MEAN CORPUSCULAR HGB CONC 33.5 g/dl (32.0-36.5); MEAN CORPUSCULAR VOLUME 92.7 fl (80.0-96.0); MONO # 0.6 10^3/uL (0.0-0.8); MONO % 8.1 % (2.0-8.0); NEUTROPHILS # 5.4 10^3/uL (1.5-8.5); PLATELET COUNT, AUTOMATED 152 10^3/uL (150-450); RED BLOOD COUNT 3.96 10^6/uL (4.00-5.40); WHITE BLOOD COUNT 7.1 10^3/uL (4.0-10.0)
[2021-09-22 07:18] LABS: ALBUMIN 3.5 GM/DL (3.2-5.2); ALT/SGPT 20 U/L (12-78); BILIRUBIN,TOTAL 0.6 MG/DL (0.2-1.0); BLOOD UREA NITROGEN 19 MG/DL (7-18); CALCIUM LEVEL 9.3 MG/DL (8.8-10.2); CARBON DIOXIDE LEVEL 27 MEQ/L (21-32); CHLORIDE LEVEL 105 MEQ/L (98-107); CREATININE FOR GFR 0.67 MG/DL (0.55-1.30); GLOMERULAR FILTRATION RATE > 60.0 (>32); GLUCOSE, FASTING 87 MG/DL (70-100); LIPASE 116 U/L (73-393); POTASSIUM SERUM 4.1 MEQ/L (3.5-5.1); SODIUM LEVEL 139 MEQ/L (136-145); THYROID STIMULATING HORMONE 0.936 uIU/ML (0.358-3.740); TOTAL PROTEIN 6.3 GM/DL (6.4-8.2)
[2021-09-22] MEDS ORDERED: ACET-683 PO (12:54)
[2021-09-22] MEDS ORDERED: NS 1,000 ML IV SCH (12:55)
[2021-09-22] MEDS ORDERED: ACETAMINOPHEN 500 MG TAB PO SCH (14:00)
[2021-09-22 18:39] VITALS: BP 124/83
== END 2021-09-22 18:41 | disposition short-term general hospital (02) ==
LOC: M ED 05:22 → M ED INP 05:23 → UNDOADMOB 05:23 → ENRESERV 14:07 → UNDODISOB 17:17
DX: S06.5X0A Traumatic subdural hemorrhage without loss of consciousness, initial encounter (principal); S06.6X0A Traumatic subarachnoid hemorrhage without loss of consciousness, initial encounter; M25.552 Pain in left hip; R42 Dizziness and giddiness; W17.89XA Other fall from one level to another, initial encounter; Y92.098 Other place in other non-institutional residence as the place of occurrence of the external cause; Y93.89 Activity, other specified; Y99.8 Other external cause status; R29.6 Repeated falls; H40.9 Unspecified glaucoma; M81.0 Age-related osteoporosis without current pathological fracture; M19.90 Unspecified osteoarthritis, unspecified site; R54 Age-related physical debility; Z85.118 Personal history of other malignant neoplasm of bronchus and lung; Z90.2 Acquired absence of lung [part of]; M54.9 Dorsalgia, unspecified; G25.81 Restless legs syndrome; H91.90 Unspecified hearing loss, unspecified ear; Z86.79 Personal history of other diseases of the circulatory system; Z87.440 Personal history of urinary (tract) infections; Z79.899 Other long term (current) drug therapy

== ENCOUNTER → 2021-11-03 | Outpatient (REF) | payer MEDICARE, OTHER ==
[2021-11-03 09:40] LABS: HEMATOCRIT 41.1 % (36.0-47.0); HEMOGLOBIN 13.6 g/dl (12.0-15.5); MEAN CORPUSCULAR HEMOGLOBIN 31.1 pg (27.0-33.0); MEAN CORPUSCULAR HGB CONC 33.1 g/dl (32.0-36.5); MEAN CORPUSCULAR VOLUME 94.1 fl (80.0-96.0); PLATELET COUNT, AUTOMATED 172 10^3/uL (150-450); RED BLOOD COUNT 4.37 10^6/uL (4.00-5.40); WHITE BLOOD COUNT 4.7 10^3/uL (4.0-10.0)
[2021-11-03 10:04] LABS: BLOOD UREA NITROGEN 16 MG/DL (7-18); CALCIUM LEVEL 9.2 MG/DL (8.8-10.2); CARBON DIOXIDE LEVEL 31 MEQ/L (21-32); CHLORIDE LEVEL 108 MEQ/L (98-107); CREATININE FOR GFR 0.55 MG/DL (0.55-1.30); GLOMERULAR FILTRATION RATE > 60.0 (>32); GLUCOSE, FASTING 75 MG/DL (70-100); POTASSIUM SERUM 3.8 MEQ/L (3.5-5.1); SODIUM LEVEL 140 MEQ/L (136-145)
== END ==
LOC: SKLAB5 07:00
PROVIDERS: ATTEND Neuromusculoskeletal Medicine & OMM
DX: R29.6 Repeated falls (principal)

== ENCOUNTER → 2022-01-05 | Outpatient (REF) | payer MEDICARE, OTHER | LOC: M SFHCPLAZ 17:21 | PROVIDERS: ATTEND Internal Medicine | DX: Z11.52 Encounter for screening for COVID-19 (principal) ==

== ENCOUNTER → 2022-01-23 | Outpatient (REF) | payer MEDICARE, OTHER ==
[2022-01-23 11:22] LABS: BASO # 0.1 10^3/uL (0.0-0.2); BASO % 1.5 % (0.0-1.0); EOS # 0.2 10^3/uL (0.0-0.5); EOS % 5.1 % (0.0-3.0); HEMATOCRIT 35.5 % (36.0-47.0); HEMOGLOBIN 11.5 g/dl (12.0-15.5); LYMPH # 1.6 10^3/uL (1.5-5.0); LYMPH % 33.8 % (24.0-44.0); MEAN CORPUSCULAR HEMOGLOBIN 30.3 pg (27.0-33.0); MEAN CORPUSCULAR HGB CONC 32.4 g/dl (32.0-36.5); MEAN CORPUSCULAR VOLUME 93.4 fl (80.0-96.0); MONO # 0.5 10^3/uL (0.0-0.8); NEUTROPHILS # 2.3 10^3/uL (1.5-8.5); NEUTROPHILS % 48.2 % (36.0-66.0); PLATELET COUNT, AUTOMATED 177 10^3/uL (150-450); WHITE BLOOD COUNT 4.7 10^3/uL (4.0-10.0)
[2022-01-23 11:54] LABS: ALBUMIN 2.9 GM/DL (3.2-5.2); ALT/SGPT 14 U/L (12-78); BILIRUBIN,TOTAL 0.4 MG/DL (0.2-1.0); BLOOD UREA NITROGEN 14 MG/DL (7-18); CALCIUM LEVEL 8.6 MG/DL (8.8-10.2); CARBON DIOXIDE LEVEL 27 MEQ/L (21-32); CHLORIDE LEVEL 109 MEQ/L (98-107); CREATININE FOR GFR 0.51 MG/DL (0.55-1.30); GLOMERULAR FILTRATION RATE > 60.0 (>32); GLUCOSE, FASTING 76 MG/DL (70-100); POTASSIUM SERUM 4.2 MEQ/L (3.5-5.1); SODIUM LEVEL 143 MEQ/L (136-145); THYROID STIMULATING HORMONE 0.916 uIU/ML (0.358-3.740); TOTAL 25(OH) VITAMIN D 79.9 NG/ML (30.0-100.0); TOTAL PROTEIN 5.6 GM/DL (6.4-8.2)
== END ==
PROVIDERS: ATTEND Internal Medicine
DX: Z85.118 Personal history of other malignant neoplasm of bronchus and lung (principal); Z79.899 Other long term (current) drug therapy

== ENCOUNTER → 2022-02-15 | Outpatient (REF) | payer MEDICARE, OTHER | LOC: M SFHCDERM 14:04 | PROVIDERS: ATTEND Physician Assistant | DX: L72.0 Epidermal cyst (principal) | CPT/HCPCS: 11102; 87070; 87077; 87186; 87205; 88305; G0463 ==

== ENCOUNTER → 2022-03-06 | Outpatient (REF) | payer MEDICARE, OTHER | LOC: M SFHCDERM 09:24 | PROVIDERS: ATTEND Physician Assistant | DX: L08.9 Local infection of the skin and subcutaneous tissue, unspecified (principal) ==

== ENCOUNTER → 2022-03-22 | Outpatient (REF) | payer MEDICARE, OTHER | LOC: M SFHCDERM 17:13 | PROVIDERS: ATTEND Physician Assistant | DX: D48.9 Neoplasm of uncertain behavior, unspecified (principal) ==

== ENCOUNTER → 2022-06-06 | Outpatient (CLI) | payer MEDICARE, OTHER ==
[~2022-06-06] MED LIST changes: +ALEN70TA87 PO; +BARIUM SULFATE 700 MG TABLET (E-Z-DISK) As Ordered ONE; +E-Z-PAQUE 96% w/w SUSP 176GM BTL As Ordered ONE; -FOSA70TA PO; +VARIBAR NECTAR 40% w/v 240ML SUSP BTL As Ordered ONE; +VARIBAR PUDDING 40% w/v 230ML TUBE As Ordered ONE
== END ==
LOC: M RAD 10:32
PROVIDERS: ATTEND Internal Medicine Hematology
DX: R13.10 Dysphagia, unspecified (principal)

== ENCOUNTER → 2022-06-22 | Outpatient (REF) | payer MEDICARE ==
[~2022-06-22] MED LIST changes: -BARIUM SULFATE 700 MG TABLET (E-Z-DISK) As Ordered ONE; -E-Z-PAQUE 96% w/w SUSP 176GM BTL As Ordered ONE; -VARIBAR NECTAR 40% w/v 240ML SUSP BTL As Ordered ONE; -VARIBAR PUDDING 40% w/v 230ML TUBE As Ordered ONE
[2022-06-22 18:46] LABS: APPEARANCE, URINE MANUAL HAZY (CLEAR); BILIRUBIN, URINE MANUAL NEGATIVE (NEGATIVE); BLOOD URINE MANUAL POSITIVE (NEGATIVE); COLOR, URINE MANUAL YELLOW (YELLOW); GLUCOSE, URINE (UA) MANUAL NEGATIVE (NEGATIVE); KETONE, URINE MANUAL NEGATIVE (NEGATIVE); LEUKOCYTE ESTERASE, URINE MAN POSITIVE (NEGATIVE); NITRITE, URINE MANUAL NEGATIVE (NEGATIVE); PROTEIN, URINE MANUAL NEGATIVE (NEGATIVE); UROBILINOGEN, URINE MANUAL NORMAL (NORMAL)
[2022-06-22 19:19] LABS: RBC, URINE NONE SEEN /hpf (0-3); WBC, URINE 20-30 /hpf (0-3)
[2022-06-22 19:20] LABS: BACTERIA, URINE LARGE AMOUNT; HYALINE CAST, URINE NONE SEEN /lpf (0-1); SQUAMOUS EPITHELIAL CELL URINE NONE SEEN /hpf (SMALL AMT)
== END ==
PROVIDERS: ATTEND Internal Medicine Hematology
DX: N30.00 Acute cystitis without hematuria (principal)

== ENCOUNTER → 2022-07-19 | Outpatient (REF) | payer MEDICARE ==
[2022-07-19 10:25] LABS: HEMATOCRIT 41.5 % (36.0-47.0); HEMOGLOBIN 13.1 g/dl (12.0-15.5); MEAN CORPUSCULAR HEMOGLOBIN 27.9 pg (27.0-33.0); MEAN CORPUSCULAR HGB CONC 31.6 g/dl (32.0-36.5); MEAN CORPUSCULAR VOLUME 88.3 fl (80.0-96.0); PLATELET COUNT, AUTOMATED 195 10^3/uL (150-450); WHITE BLOOD COUNT 4.8 10^3/uL (4.0-10.0)
[2022-07-19 11:21] LABS: C REACTIVE PROTEIN QUANTITATIV < 0.40 MG/DL (<1.0)
[2022-07-19 11:23] LABS: ALBUMIN 3.3 G/DL (3.2-5.2); ALKALINE PHOSPHATASE 72 U/L (46-116); ALT/SGPT 18 U/L (7.0-40); AST/SGOT 22 U/L (<34); BILIRUBIN,TOTAL 0.5 MG/DL (0.3-1.2); BLOOD UREA NITROGEN 14 MG/DL (9-23); CALCIUM LEVEL 9.3 MG/DL (8.3-10.6); CARBON DIOXIDE LEVEL 30 MMOL/L (20-31); CHLORIDE LEVEL 102 MMOL/L (98-107); CREATININE FOR GFR 0.54 MG/DL (0.55-1.30); FREE T4 1.37 NG/DL (0.89-1.76); GLOMERULAR FILTRATION RATE > 60.0 (>32); GLUCOSE, FASTING 88 MG/DL (74-106); POTASSIUM SERUM 3.9 MMOL/L (3.5-5.1); SODIUM LEVEL 138 MMOL/L (136-145); THYROID STIMULATING HORMONE 1.049 uIU/ML (0.55-4.78); TOTAL 25(OH) VITAMIN D 72.8 NG/ML (20.0-100.0); TOTAL PROTEIN 6.6 G/DL (5.7-8.2); VITAMIN B12 LEVEL 1198 PG/ML (211-911)
== END ==
PROVIDERS: ATTEND Internal Medicine Hematology
DX: M81.0 Age-related osteoporosis without current pathological fracture (principal); Z79.899 Other long term (current) drug therapy

== ENCOUNTER → 2022-07-25 | Outpatient (REF) | payer MEDICARE | PROVIDERS: ATTEND Internal Medicine | DX: J84.10 Pulmonary fibrosis, unspecified (principal); J98.4 Other disorders of lung ==

== ENCOUNTER → 2022-07-25 | Outpatient (REF) | payer MEDICARE | PROVIDERS: ATTEND Physician Assistant | DX: R05.9 Cough, unspecified (principal) ==

== ENCOUNTER → 2022-09-03 | Outpatient (REF) ==
[2022-09-03 21:40] LABS: APPEARANCE, URINE MANUAL CLEAR (CLEAR); COLOR, URINE MANUAL YELLOW (YELLOW)
[2022-09-03 21:47] LABS: BILIRUBIN, URINE MANUAL NEGATIVE (NEGATIVE); BLOOD URINE MANUAL NEGATIVE (NEGATIVE); GLUCOSE, URINE (UA) MANUAL NEGATIVE (NEGATIVE); KETONE, URINE MANUAL NEGATIVE (NEGATIVE); LEUKOCYTE ESTERASE, URINE MAN POSITIVE (NEGATIVE); NITRITE, URINE MANUAL NEGATIVE (NEGATIVE); PROTEIN, URINE MANUAL NEGATIVE (NEGATIVE); SPECIFIC GRAVITY,URINE MANUAL 1.015 (1.002-1.035); UROBILINOGEN, URINE MANUAL NORMAL (NORMAL)
[2022-09-03 21:50] LABS: BACTERIA, URINE SMALL AMOUNT; SQUAMOUS EPITHELIAL CELL URINE NONE SEEN /hpf (SMALL AMT); WBC, URINE 30-40 /hpf (0-3)
[2022-09-03 21:51] LABS: HYALINE CAST, URINE NONE SEEN /lpf (0-1)
== END ==
PROVIDERS: ATTEND Internal Medicine
DX: N39.0 Urinary tract infection, site not specified (principal)

== ENCOUNTER → 2022-10-04 | Outpatient (REF) | payer MEDICARE | PROVIDERS: ATTEND Physician Assistant | DX: N39.0 Urinary tract infection, site not specified (principal) ==

== ENCOUNTER → 2022-12-07 | Outpatient (REF) | payer MEDICARE, OTHER | PROVIDERS: ATTEND Internal Medicine | DX: R05.9 Cough, unspecified (principal) ==

== ENCOUNTER → 2023-05-10 | Outpatient (REF) | payer MEDICARE, OTHER ==
[~2023-05-10] MED LIST changes: -ROPI0.253 PO; -ROPI0.5T3 PO; +ROPI0.5T33 PO; +ROPI5TAB19 PO
[2023-05-10 16:56] LABS: HEMATOCRIT 40.3 % (36.0-47.0); MEAN CORPUSCULAR HEMOGLOBIN 30.3 pg (27.0-33.0); MEAN CORPUSCULAR HGB CONC 32.3 g/dl (32.0-36.5); MEAN CORPUSCULAR VOLUME 93.9 fl (80.0-96.0); PLATELET COUNT, AUTOMATED 196 10^3/uL (150-450); RED BLOOD COUNT 4.29 10^6/uL (4.00-5.40); WHITE BLOOD COUNT 4.7 10^3/uL (4.0-10.0)
[2023-05-10 17:20] LABS: BLOOD UREA NITROGEN 14 MG/DL (9-23); CALCIUM LEVEL 9.1 MG/DL (8.3-10.6); CARBON DIOXIDE LEVEL 28 MMOL/L (20-31); CHLORIDE LEVEL 108 MMOL/L (98-107); CREATININE FOR GFR 0.72 MG/DL (0.55-1.30); GLOMERULAR FILTRATION RATE > 60.0 (>32); GLUCOSE, FASTING 80 MG/DL (74-106); POTASSIUM SERUM 4.2 MMOL/L (3.5-5.1); SODIUM LEVEL 141 MMOL/L (136-145)
== END ==
PROVIDERS: ATTEND Physician Assistant
DX: L55.9 Sunburn, unspecified (principal); Z79.899 Other long term (current) drug therapy

== ENCOUNTER → 2023-05-14 | Outpatient (REF) | payer MEDICARE, OTHER ==
[2023-05-14 10:59] LABS: BASO # 0.1 10^3/uL (0.0-0.2); BASO % 1.5 % (0.0-1.0); EOS # 0.2 10^3/uL (0.0-0.5); EOS % 4.2 % (0.0-3.0); HEMATOCRIT 41.5 % (36.0-47.0); HEMOGLOBIN 13.8 g/dl (12.0-15.5); LYMPH # 1.8 10^3/uL (1.5-5.0); LYMPH % 32.7 % (24.0-44.0); MEAN CORPUSCULAR HEMOGLOBIN 30.9 pg (27.0-33.0); MEAN CORPUSCULAR HGB CONC 33.3 g/dl (32.0-36.5); MEAN CORPUSCULAR VOLUME 92.8 fl (80.0-96.0); MONO # 0.4 10^3/uL (0.0-0.8); MONO % 7.9 % (2.0-8.0); NEUTROPHILS # 2.9 10^3/uL (1.5-8.5); NEUTROPHILS % 53.3 % (36.0-66.0); PLATELET COUNT, AUTOMATED 194 10^3/uL (150-450); RED BLOOD COUNT 4.47 10^6/uL (4.00-5.40); WHITE BLOOD COUNT 5.5 10^3/uL (4.0-10.0)
[2023-05-14 11:33] LABS: ALBUMIN 3.5 G/DL (3.2-5.2); ALKALINE PHOSPHATASE 63 U/L (46-116); ALT/SGPT 19 U/L (7.0-40); AST/SGOT 15 U/L (<34); BILIRUBIN,TOTAL 0.9 MG/DL (0.3-1.2); BLOOD UREA NITROGEN 16 MG/DL (9-23); CALCIUM LEVEL 10.2 MG/DL (8.3-10.6); CARBON DIOXIDE LEVEL 31 MMOL/L (20-31); CHLORIDE LEVEL 107 MMOL/L (98-107); CREATININE FOR GFR 0.59 MG/DL (0.55-1.30); GLOMERULAR FILTRATION RATE > 60.0 (>32); GLUCOSE, FASTING 79 MG/DL (74-106); POTASSIUM SERUM 4.5 MMOL/L (3.5-5.1); SODIUM LEVEL 144 MMOL/L (136-145); TOTAL PROTEIN 6.4 G/DL (5.7-8.2)
== END ==
PROVIDERS: ATTEND Physician Assistant
DX: G40.909 Epilepsy, unspecified, not intractable, without status epilepticus (principal)

== ENCOUNTER → 2023-05-30 | Outpatient (REF) | payer MEDICARE, OTHER | PROVIDERS: ATTEND Physician Assistant | DX: G40.909 Epilepsy, unspecified, not intractable, without status epilepticus (principal) ==

== ENCOUNTER → 2023-06-29 | Outpatient (REF) | payer MEDICARE, OTHER | PROVIDERS: ATTEND Physician Assistant | DX: G40.909 Epilepsy, unspecified, not intractable, without status epilepticus (principal) ==

== ENCOUNTER → 2023-07-03 | Outpatient (CLI) | payer MEDICARE, OTHER | LOC: M RAD 11:25 | PROVIDERS: ATTEND Physician Assistant | DX: R53.1 Weakness (principal) ==

== ENCOUNTER → 2023-07-03 | Outpatient (REF) | payer MEDICARE, OTHER ==
[2023-07-03 14:18] LABS: BASO # 0.1 10^3/uL (0.0-0.2); BASO % 0.9 % (0.0-1.0); EOS # 0.2 10^3/uL (0.0-0.5); HEMATOCRIT 39.9 % (36.0-47.0); LYMPH # 1.5 10^3/uL (1.5-5.0); LYMPH % 26.9 % (24.0-44.0); MEAN CORPUSCULAR HEMOGLOBIN 30.2 pg (27.0-33.0); MEAN CORPUSCULAR HGB CONC 32.6 g/dl (32.0-36.5); MEAN CORPUSCULAR VOLUME 92.6 fl (80.0-96.0); MONO # 0.5 10^3/uL (0.0-0.8); NEUTROPHILS # 3.3 10^3/uL (1.5-8.5); NEUTROPHILS % 59.2 % (36.0-66.0); PLATELET COUNT, AUTOMATED 188 10^3/uL (150-450); RED BLOOD COUNT 4.31 10^6/uL (4.00-5.40); WHITE BLOOD COUNT 5.5 10^3/uL (4.0-10.0)
[2023-07-03 14:56] LABS: ALBUMIN 3.2 G/DL (3.2-5.2); ALKALINE PHOSPHATASE 60 U/L (46-116); ALT/SGPT 13 U/L (7.0-40); AST/SGOT 12 U/L (<34); BILIRUBIN,DIRECT 0.2 MG/DL (<0.4); BILIRUBIN,TOTAL 0.7 MG/DL (0.3-1.2); BLOOD UREA NITROGEN 13 MG/DL (9-23); CALCIUM LEVEL 9.2 MG/DL (8.3-10.6); CARBON DIOXIDE LEVEL 29 MMOL/L (20-31); CHLORIDE LEVEL 105 MMOL/L (98-107); CREATININE FOR GFR 0.56 MG/DL (0.55-1.30); GLOMERULAR FILTRATION RATE > 60.0 (>32); GLUCOSE, FASTING 65 MG/DL (74-106); POTASSIUM SERUM 3.7 MMOL/L (3.5-5.1); SODIUM LEVEL 140 MMOL/L (136-145); TOTAL PROTEIN 6.1 G/DL (5.7-8.2)
== END ==
PROVIDERS: ATTEND Physician Assistant
DX: G40.909 Epilepsy, unspecified, not intractable, without status epilepticus (principal)

== ENCOUNTER → 2023-07-04 | Outpatient (CLI) | payer MEDICARE, OTHER | LOC: M RAD 09:38 | PROVIDERS: ATTEND Physician Assistant | DX: G40.909 Epilepsy, unspecified, not intractable, without status epilepticus (principal) ==

== ENCOUNTER → 2023-07-04 | Outpatient (REF) | payer MEDICARE, OTHER | PROVIDERS: ATTEND Physician Assistant | DX: R05.9 Cough, unspecified (principal); G40.909 Epilepsy, unspecified, not intractable, without status epilepticus ==

== ENCOUNTER → 2023-07-16 | Outpatient (REF) | payer MEDICARE, OTHER | PROVIDERS: ATTEND Physician Assistant | DX: R05.9 Cough, unspecified (principal) ==

== ENCOUNTER → 2023-07-16 | Outpatient (REF) | payer MEDICARE, OTHER | PROVIDERS: ATTEND Internal Medicine | DX: R05.9 Cough, unspecified (principal) ==

== ENCOUNTER → 2023-07-23 | Outpatient (REF) | payer MEDICARE, OTHER ==
[2023-07-23 11:10] LABS: HEMATOCRIT 35.5 % (36.0-47.0); HEMOGLOBIN 11.5 g/dl (12.0-15.5); MEAN CORPUSCULAR HEMOGLOBIN 29.6 pg (27.0-33.0); MEAN CORPUSCULAR HGB CONC 32.4 g/dl (32.0-36.5); MEAN CORPUSCULAR VOLUME 91.5 fl (80.0-96.0); PLATELET COUNT, AUTOMATED 252 10^3/uL (150-450); RED BLOOD COUNT 3.88 10^6/uL (4.00-5.40); WHITE BLOOD COUNT 8.3 10^3/uL (4.0-10.0)
[2023-07-23 11:27] LABS: BLOOD UREA NITROGEN 15 MG/DL (9-23); CALCIUM LEVEL 9.3 MG/DL (8.3-10.6); CARBON DIOXIDE LEVEL 29 MMOL/L (20-31); CHLORIDE LEVEL 106 MMOL/L (98-107); CREATININE FOR GFR 0.53 MG/DL (0.55-1.30); GLOMERULAR FILTRATION RATE > 60.0 (>32); GLUCOSE, FASTING 79 MG/DL (74-106); POTASSIUM SERUM 4.2 MMOL/L (3.5-5.1); SODIUM LEVEL 141 MMOL/L (136-145)
== END ==
PROVIDERS: ATTEND Physician Assistant
DX: J20.9 Acute bronchitis, unspecified (principal)

== ENCOUNTER 2023-08-05 11:03 | Emergency (ER) | payer MEDICARE, OTHER ==
[~2023-08-05] VITALS: Ht 149.9 cm; Wt 54.0 kg
[2023-08-05] MEDS ORDERED: PERCOCET 5MG/325MG TAB PO ONE (13:50)
[2023-08-05] MEDS ORDERED: PERC5TAB12 PO (17:04)
[2023-08-05 17:30] VITALS: BP 146/69; TEMP 97.6; O2SAT 93
== END 2023-08-05 17:46 | disposition home or self-care (01) ==
LOC: M ED 11:03 → EDBD 11:03 → M ED 17:46
DX: S22.32XA Fracture of one rib, left side, initial encounter for closed fracture (principal); S70.02XA Contusion of left hip, initial encounter; W19.XXXA Unspecified fall, initial encounter; Y92.129 Unspecified place in nursing home as the place of occurrence of the external cause; Y93.89 Activity, other specified; Y99.8 Other external cause status; H40.9 Unspecified glaucoma; Z85.118 Personal history of other malignant neoplasm of bronchus and lung; Z87.891 Personal history of nicotine dependence; Z79.899 Other long term (current) drug therapy

== ENCOUNTER → 2023-08-13 | Outpatient (REF) | payer MEDICARE, OTHER ==
[2023-08-13 18:56] LABS: HEMATOCRIT 35.7 % (36.0-47.0); HEMOGLOBIN 12.7 g/dl (12.0-15.5); MEAN CORPUSCULAR HEMOGLOBIN 33.1 pg (27.0-33.0); MEAN CORPUSCULAR HGB CONC 35.6 g/dl (32.0-36.5); PLATELET COUNT, AUTOMATED 225 10^3/uL (150-450); RED BLOOD COUNT 3.84 10^6/uL (4.00-5.40); WHITE BLOOD COUNT 4.2 10^3/uL (4.0-10.0)
[2023-08-13 19:25] LABS: BLOOD UREA NITROGEN 11 MG/DL (9-23); CALCIUM LEVEL 8.6 MG/DL (8.3-10.6); CARBON DIOXIDE LEVEL 27 MMOL/L (20-31); CHLORIDE LEVEL 107 MMOL/L (98-107); CREATININE FOR GFR 0.52 MG/DL (0.55-1.30); GLOMERULAR FILTRATION RATE > 60.0 (>32); GLUCOSE, FASTING 77 MG/DL (74-106); POTASSIUM SERUM 4.2 MMOL/L (3.5-5.1); SODIUM LEVEL 139 MMOL/L (136-145)
== END ==
PROVIDERS: ATTEND Physician Assistant
DX: R05.9 Cough, unspecified (principal); Z79.899 Other long term (current) drug therapy

== ENCOUNTER → 2023-08-13 | Outpatient (REF) | payer MEDICARE, OTHER | PROVIDERS: ATTEND Internal Medicine | DX: R05.9 Cough, unspecified (principal) ==

== ENCOUNTER → 2023-10-12 | Outpatient (REF) | payer MEDICARE, OTHER | PROVIDERS: ATTEND Internal Medicine | DX: R19.7 Diarrhea, unspecified (principal); Z53.8 Procedure and treatment not carried out for other reasons ==

== ENCOUNTER → 2023-10-19 | Outpatient (REF) | payer MEDICARE, OTHER | PROVIDERS: ATTEND Physician Assistant | DX: Z53.8 Procedure and treatment not carried out for other reasons (principal) ==

== ENCOUNTER → 2023-10-24 | Outpatient (REF) | payer MEDICARE, OTHER ==
[2023-10-24 12:01] LABS: HEMATOCRIT 38.8 % (36.0-47.0); HEMOGLOBIN 12.7 g/dl (12.0-15.5); MEAN CORPUSCULAR HEMOGLOBIN 29.9 pg (27.0-33.0); MEAN CORPUSCULAR HGB CONC 32.7 g/dl (32.0-36.5); MEAN CORPUSCULAR VOLUME 91.3 fl (80.0-96.0); PLATELET COUNT, AUTOMATED 230 10^3/uL (150-450); RED BLOOD COUNT 4.25 10^6/uL (4.00-5.40); WHITE BLOOD COUNT 12.4 10^3/uL (4.0-10.0)
[2023-10-24 12:25] LABS: ALBUMIN 3.3 G/DL (3.2-5.2); ALKALINE PHOSPHATASE 75 U/L (46-116); ALT/SGPT 19 U/L (7.0-40); AST/SGOT 15 U/L (<34); BILIRUBIN,TOTAL 0.9 MG/DL (0.3-1.2); BLOOD UREA NITROGEN 14 MG/DL (9-23); CALCIUM LEVEL 9.1 MG/DL (8.3-10.6); CARBON DIOXIDE LEVEL 27 MMOL/L (20-31); CHLORIDE LEVEL 107 MMOL/L (98-107); CREATININE FOR GFR 0.52 MG/DL (0.55-1.30); GLOMERULAR FILTRATION RATE > 60.0 (>32); GLUCOSE, FASTING 92 MG/DL (74-106); POTASSIUM SERUM 4.2 MMOL/L (3.5-5.1); SODIUM LEVEL 140 MMOL/L (136-145)
== END ==
PROVIDERS: ATTEND Physician Assistant
DX: G40.909 Epilepsy, unspecified, not intractable, without status epilepticus (principal)

== ENCOUNTER → 2023-12-19 | Outpatient (CLI) | payer MEDICARE, OTHER ==
[~2023-12-19] MED LIST changes: +CENT50TA PO; +CLAR10CA3 PO; +COMB0.2S OU; +ENEMENE PR; +KEPP1TAB PO; +KEPP1TAB2 PO; +MILKSUS3 PO; +NOXI1TAB PO; +ONDA4TAB6 PO
== END ==
LOC: M PLAIMG 13:10
PROVIDERS: ATTEND Internal Medicine
DX: M43.06 Spondylolysis, lumbar region (principal); S32.010A Wedge compression fracture of first lumbar vertebra, initial encounter for closed fracture; W19.XXXA Unspecified fall, initial encounter

== ENCOUNTER 2023-12-26 03:37 | Emergency (ER) | payer MEDICARE ==
[~2023-12-26] VITALS: Ht 149.9 cm; Wt 45.5 kg
[~2023-12-26 03:37] MED LIST changes: -CENT50TA PO; -CLAR10CA3 PO; -ENEMENE PR; -KEPP1TAB PO; -KEPP1TAB2 PO; -MILKSUS3 PO; -NOXI1TAB PO; -ONDA4TAB6 PO
[2023-12-26] MEDS ORDERED: ENEMENE PR (04:30)
[2023-12-26] MEDS ORDERED: ONDA4TAB6 PO (04:30)
[2023-12-26] MEDS ORDERED: MILKSUS3 PO (04:30)
[2023-12-26] MEDS ORDERED: NOXI1TAB PO (04:30)
[2023-12-26] MEDS ORDERED: DULC10SU2 PR (04:30)
[2023-12-26] MEDS ORDERED: CLAR10CA3 PO (04:30)
[2023-12-26] MEDS ORDERED: KEPP1TAB2 PO (04:30)
[2023-12-26] MEDS ORDERED: CENT50TA PO (04:30)
[2023-12-26] MEDS ORDERED: KEPP1TAB PO (04:30)
[2023-12-26 07:50] VITALS: BP 148/77; TEMP 97.1; O2SAT 94
== END 2023-12-26 08:44 | disposition home or self-care (01) ==
LOC: M ED 03:37
DX: S70.01XA Contusion of right hip, initial encounter (principal); W19.XXXA Unspecified fall, initial encounter; Y92.129 Unspecified place in nursing home as the place of occurrence of the external cause; Y93.9 Activity, unspecified; Y99.9 Unspecified external cause status; Z85.118 Personal history of other malignant neoplasm of bronchus and lung; Z87.820 Personal history of traumatic brain injury; H40.9 Unspecified glaucoma; Z96.643 Presence of artificial hip joint, bilateral; Z79.899 Other long term (current) drug therapy

== ENCOUNTER → 2024-01-10 | Outpatient (REF) | payer MEDICARE ==
[~2024-01-10] MED LIST changes: +CENT50TA PO; +CLAR10CA3 PO; +ENEMENE PR; +KEPP1TAB PO; +KEPP1TAB2 PO; +MILKSUS3 PO; +NOXI1TAB PO; +ONDA-282 PO
== END ==
PROVIDERS: ATTEND Physician Assistant
DX: N39.0 Urinary tract infection, site not specified (principal)

== ENCOUNTER → 2024-03-24 | Outpatient (REF) | payer MEDICARE ==
[2024-03-24 18:08] LABS: BASO # 0.1 10^3/uL (0.0-0.2); BASO % 1.3 % (0.0-1.0); EOS # 0.2 10^3/uL (0.0-0.5); EOS % 4.6 % (0.0-3.0); HEMOGLOBIN 12.1 g/dl (12.0-15.5); LYMPH # 1.8 10^3/uL (1.5-5.0); LYMPH % 39.4 % (24.0-44.0); MEAN CORPUSCULAR HEMOGLOBIN 28.7 pg (27.0-33.0); MEAN CORPUSCULAR HGB CONC 31.8 g/dl (32.0-36.5); MONO # 0.4 10^3/uL (0.0-0.8); MONO % 9.2 % (2.0-8.0); NEUTROPHILS # 2.1 10^3/uL (1.5-8.5); NEUTROPHILS % 45.3 % (36.0-66.0); PLATELET COUNT, AUTOMATED 188 10^3/uL (150-450); RED BLOOD COUNT 4.22 10^6/uL (4.00-5.40); WHITE BLOOD COUNT 4.6 10^3/uL (4.0-10.0)
[2024-03-24 18:26] LABS: BLOOD UREA NITROGEN 11 MG/DL (9-23); CALCIUM LEVEL 8.6 MG/DL (8.3-10.6); CARBON DIOXIDE LEVEL 27 MMOL/L (20-31); CHLORIDE LEVEL 107 MMOL/L (98-107); CREATININE FOR GFR 0.52 MG/DL (0.55-1.30); GLOMERULAR FILTRATION RATE > 60.0 (>32); GLUCOSE, FASTING 95 MG/DL (74-106); POTASSIUM SERUM 4.2 MMOL/L (3.5-5.1); SODIUM LEVEL 140 MMOL/L (136-145)
== END ==
PROVIDERS: ATTEND Physician Assistant
DX: N39.0 Urinary tract infection, site not specified (principal)

== ENCOUNTER → 2024-04-14 | Outpatient (REF) | payer MEDICARE ==
[2024-04-14 08:38] LABS: HEMATOCRIT 41.4 % (36.0-47.0); HEMOGLOBIN 13.4 g/dl (12.0-15.5); MEAN CORPUSCULAR HEMOGLOBIN 29.3 pg (27.0-33.0); MEAN CORPUSCULAR HGB CONC 32.4 g/dl (32.0-36.5); MEAN CORPUSCULAR VOLUME 90.4 fl (80.0-96.0); PLATELET COUNT, AUTOMATED 193 10^3/uL (150-450); RED BLOOD COUNT 4.58 10^6/uL (4.00-5.40); WHITE BLOOD COUNT 4.8 10^3/uL (4.0-10.0)
[2024-04-14 09:13] LABS: ALBUMIN 3.5 G/DL (3.2-5.2); ALKALINE PHOSPHATASE 83 U/L (46-116); ALT/SGPT 10 U/L (7.0-40); AST/SGOT 9 U/L (<34); BILIRUBIN,TOTAL 0.8 MG/DL (0.3-1.2); BLOOD UREA NITROGEN 11 MG/DL (9-23); CALCIUM LEVEL 9.4 MG/DL (8.3-10.6); CARBON DIOXIDE LEVEL 29 MMOL/L (20-31); CHLORIDE LEVEL 106 MMOL/L (98-107); CREATININE FOR GFR 0.55 MG/DL (0.55-1.30); GLOMERULAR FILTRATION RATE > 60.0 (>32); GLUCOSE, FASTING 78 MG/DL (74-106); POTASSIUM SERUM 4.1 MMOL/L (3.5-5.1); SODIUM LEVEL 138 MMOL/L (136-145); TOTAL PROTEIN 6.5 G/DL (5.7-8.2)
== END ==
PROVIDERS: ATTEND Physician Assistant
DX: R56.9 Unspecified convulsions (principal)

== ENCOUNTER → 2024-04-30 | Outpatient (REF) | payer MEDICARE | PROVIDERS: ATTEND Physician Assistant | DX: R05.9 Cough, unspecified (principal); R91.8 Other nonspecific abnormal finding of lung field; I51.7 Cardiomegaly ==

== ENCOUNTER → 2024-04-30 | Outpatient (CLI) | payer MEDICARE | LOC: M PLAIMG 09:49 | PROVIDERS: ATTEND Physician Assistant | DX: R07.81 Pleurodynia (principal); R05.9 Cough, unspecified; R91.8 Other nonspecific abnormal finding of lung field; I51.7 Cardiomegaly ==

== ENCOUNTER → 2024-04-30 | Outpatient (REF) | payer MEDICARE | PROVIDERS: ATTEND Physician Assistant | DX: R05.9 Cough, unspecified (principal); Z53.8 Procedure and treatment not carried out for other reasons ==

== ENCOUNTER → 2024-05-01 | Outpatient (REF) | payer MEDICARE ==
[2024-05-01 14:07] LABS: BASO % 0.7 % (0.0-1.0); EOS # 0.1 10^3/uL (0.0-0.5); EOS % 1.9 % (0.0-3.0); HEMATOCRIT 38.4 % (36.0-47.0); HEMOGLOBIN 12.4 g/dl (12.0-15.5); LYMPH # 1.2 10^3/uL (1.5-5.0); LYMPH % 26.9 % (24.0-44.0); MEAN CORPUSCULAR HGB CONC 32.3 g/dl (32.0-36.5); MEAN CORPUSCULAR VOLUME 89.9 fl (80.0-96.0); MONO # 0.4 10^3/uL (0.0-0.8); NEUTROPHILS # 2.6 10^3/uL (1.5-8.5); PLATELET COUNT, AUTOMATED 141 10^3/uL (150-450); RED BLOOD COUNT 4.27 10^6/uL (4.00-5.40); WHITE BLOOD COUNT 4.3 10^3/uL (4.0-10.0)
[2024-05-01 14:24] LABS: BLOOD UREA NITROGEN 8 MG/DL (9-23); CALCIUM LEVEL 9.1 MG/DL (8.3-10.6); CARBON DIOXIDE LEVEL 27 MMOL/L (20-31); CHLORIDE LEVEL 103 MMOL/L (98-107); CREATININE FOR GFR 0.49 MG/DL (0.55-1.30); GLOMERULAR FILTRATION RATE > 60.0 (>32); GLUCOSE, FASTING 76 MG/DL (74-106); POTASSIUM SERUM 3.8 MMOL/L (3.5-5.1); SODIUM LEVEL 137 MMOL/L (136-145)
== END ==
PROVIDERS: ATTEND Physician Assistant
DX: R05.9 Cough, unspecified (principal); Z79.899 Other long term (current) drug therapy

== ENCOUNTER → 2024-07-07 | Outpatient (REF) | payer MEDICARE | PROVIDERS: ATTEND Physician Assistant | DX: N39.0 Urinary tract infection, site not specified (principal) ==

== ENCOUNTER → 2024-07-08 | Outpatient (REF) | payer MEDICARE ==
[2024-07-08 13:41] LABS: MEAN CORPUSCULAR HEMOGLOBIN 28.7 pg (27.0-33.0); MEAN CORPUSCULAR HGB CONC 32.5 g/dl (32.0-36.5); MEAN CORPUSCULAR VOLUME 88.3 fl (80.0-96.0); PLATELET COUNT, AUTOMATED 181 10^3/uL (150-450); RED BLOOD COUNT 4.53 10^6/uL (4.00-5.40)
[2024-07-08 14:14] LABS: BLOOD UREA NITROGEN 12 MG/DL (9-23); CALCIUM LEVEL 9.8 MG/DL (8.3-10.6); CARBON DIOXIDE LEVEL 24 MMOL/L (20-31); CHLORIDE LEVEL 107 MMOL/L (98-107); CREATININE FOR GFR 0.53 MG/DL (0.55-1.30); GLOMERULAR FILTRATION RATE > 60.0 (>32); GLUCOSE, FASTING 93 MG/DL (74-106); POTASSIUM SERUM 3.6 MMOL/L (3.5-5.1); SODIUM LEVEL 140 MMOL/L (136-145)
[2024-07-08 14:15] LABS: THYROXINE (T4) 10.1 UG/DL (4.5-10.9)
== END ==
PROVIDERS: ATTEND Physician Assistant
DX: R41.0 Disorientation, unspecified (principal); R29.6 Repeated falls; R05.9 Cough, unspecified; R07.81 Pleurodynia

== ENCOUNTER → 2024-07-08 | Outpatient (REF) | payer MEDICARE | LOC: M PLAIMG 15:51 | PROVIDERS: ATTEND Internal Medicine | DX: R05.9 Cough, unspecified (principal); R07.81 Pleurodynia ==

== ENCOUNTER → 2024-10-03 | Outpatient (REF) | payer MEDICARE | PROVIDERS: ATTEND Physician Assistant | DX: R05.9 Cough, unspecified (principal) ==

== ENCOUNTER → 2024-10-06 | Outpatient (REF) | payer MEDICARE | PROVIDERS: ATTEND Internal Medicine | DX: R05.9 Cough, unspecified (principal) ==

== ENCOUNTER → 2024-10-13 | Outpatient (REF) | payer MEDICARE ==
[2024-10-13 09:16] LABS: HEMATOCRIT 41.2 % (36.0-47.0); HEMOGLOBIN 13.5 g/dl (12.0-15.5); MEAN CORPUSCULAR HEMOGLOBIN 28.6 pg (27.0-33.0); MEAN CORPUSCULAR HGB CONC 32.8 g/dl (32.0-36.5); MEAN CORPUSCULAR VOLUME 87.3 fl (80.0-96.0); PLATELET COUNT, AUTOMATED 223 10^3/uL (150-450); RED BLOOD COUNT 4.72 10^6/uL (4.00-5.40); WHITE BLOOD COUNT 5.3 10^3/uL (4.0-10.0)
[2024-10-13 09:27] LABS: ALBUMIN 3.2 G/DL (3.2-5.2); ALKALINE PHOSPHATASE 89 U/L (35-104); ALT/SGPT 10 U/L (7.0-40); AST/SGOT 11 U/L (<34); BILIRUBIN,TOTAL 0.5 MG/DL (0.3-1.2); BLOOD UREA NITROGEN 11 MG/DL (9-23); CALCIUM LEVEL 9.2 MG/DL (8.3-10.6); CARBON DIOXIDE LEVEL 27 MMOL/L (20-31); CHLORIDE LEVEL 104 MMOL/L (98-107); GLOMERULAR FILTRATION RATE > 60.0 (>32); GLUCOSE, FASTING 83 MG/DL (74-106); POTASSIUM SERUM 4.4 MMOL/L (3.5-5.1); SODIUM LEVEL 140 MMOL/L (136-145); TOTAL PROTEIN 6.4 G/DL (5.7-8.2)
== END ==
PROVIDERS: ATTEND Physician Assistant
DX: G40.909 Epilepsy, unspecified, not intractable, without status epilepticus (principal)

== ENCOUNTER 2024-10-23 22:31 | Emergency (ER) | payer MEDICARE ==
[~2024-10-23] VITALS: Ht 149.9 cm; Wt 46.2 kg
[2024-10-23 22:48] VITALS: TEMP 97.4
[2024-10-23] MEDS: ACETAMINOPHEN 500 MG TAB PO ONE (23:47)
[2024-10-23] MEDS: traMADol 50 MG TAB PO ONE (23:48)
[2024-10-24 01:15] VITALS: O2SAT 85
[2024-10-24 01:30] VITALS: BP 111/66
== END 2024-10-24 01:31 | disposition home or self-care (01) ==
LOC: EDBD 22:31 → M ED 22:31
DX: S40.011A Contusion of right shoulder, initial encounter (principal); W01.198A Fall on same level from slipping, tripping and stumbling with subsequent striking against other object, initial encounter; Y92.009 Unspecified place in unspecified non-institutional (private) residence as the place of occurrence of the external cause; Y93.89 Activity, other specified; Y99.9 Unspecified external cause status; Z79.899 Other long term (current) drug therapy; Z79.83 Long term (current) use of bisphosphonates; Z79.1 Long term (current) use of non-steroidal anti-inflammatories (NSAID)

== ENCOUNTER → 2024-10-27 | Outpatient (REF) | payer MEDICARE | PROVIDERS: ATTEND Physician Assistant | DX: R05.9 Cough, unspecified (principal); J98.4 Other disorders of lung ==

== ENCOUNTER → 2024-10-27 | Outpatient (REF) | payer MEDICARE ==
[2024-10-27 15:46] LABS: HEMATOCRIT 38.4 % (36.0-47.0); HEMOGLOBIN 12.3 g/dl (12.0-15.5); MEAN CORPUSCULAR HEMOGLOBIN 28.5 pg (27.0-33.0); MEAN CORPUSCULAR VOLUME 89.1 fl (80.0-96.0); PLATELET COUNT, AUTOMATED 190 10^3/uL (150-450); RED BLOOD COUNT 4.31 10^6/uL (4.00-5.40); WHITE BLOOD COUNT 8.1 10^3/uL (4.0-10.0)
[2024-10-27 16:08] LABS: BLOOD UREA NITROGEN 14 MG/DL (9-23); CALCIUM LEVEL 8.7 MG/DL (8.3-10.6); CARBON DIOXIDE LEVEL 30 MMOL/L (20-31); CHLORIDE LEVEL 97 MMOL/L (98-107); CREATININE FOR GFR 0.55 MG/DL (0.55-1.30); GLOMERULAR FILTRATION RATE > 60.0 (>32); GLUCOSE, FASTING 90 MG/DL (74-106); POTASSIUM SERUM 4.3 MMOL/L (3.5-5.1); SODIUM LEVEL 135 MMOL/L (136-145)
== END ==
PROVIDERS: ATTEND Physician Assistant
DX: R05.9 Cough, unspecified (principal); Z79.899 Other long term (current) drug therapy; J98.4 Other disorders of lung

== ENCOUNTER → 2025-03-16 | Outpatient (REF) | payer MEDICARE, OTHER ==
[2025-03-16 14:02] LABS: CREATININE FOR GFR 0.51 MG/DL (0.55-1.30); GLOMERULAR FILTRATION RATE > 90.0 (>32)
== END ==
PROVIDERS: ATTEND Physician Assistant
DX: N18.9 Chronic kidney disease, unspecified (principal)

== ENCOUNTER → 2025-04-13 | Outpatient (REF) | payer MEDICARE, OTHER ==
[~2025-04-13] MED LIST changes: -VITA500T17 PO; +VITA500T8 PO
[2025-04-13 11:40] LABS: PLATELET COUNT, AUTOMATED 174 10^3/uL (150-450)
[2025-04-13 12:21] LABS: ALT/SGPT 13.0 U/L (7.0-40); AST/SGOT 15.0 U/L (<34); CALCIUM LEVEL 9.5 MG/DL (8.3-10.6); CARBON DIOXIDE LEVEL 30.0 MMOL/L (20-31); CHLORIDE LEVEL 103.0 MMOL/L (98-107); CREATININE FOR GFR 0.58 MG/DL (0.55-1.30); GLOMERULAR FILTRATION RATE 89.7 (>32); POTASSIUM SERUM 4.1 MMOL/L (3.5-5.1); SODIUM LEVEL 143.0 MMOL/L (136-145)
== END ==
PROVIDERS: ATTEND Physician Assistant
DX: G40.909 Epilepsy, unspecified, not intractable, without status epilepticus (principal)

== ENCOUNTER 2025-04-27 13:33 | Emergency (ER) | payer MEDICARE, OTHER ==
[~2025-04-27] VITALS: Ht 149.9 cm; Wt 50.0 kg
[2025-04-27 13:56] VITALS: TEMP 97.4
[2025-04-27 14:07] LABS: KETONE, URINE AUTO RFX NEGATIVE (NEGATIVE); LEUKOCYTE ESTERASE UR AUTO RFX NEGATIVE (NEGATIVE); NITRITE, URINE AUTO RFX NEGATIVE (NEGATIVE); RBC, URINE AUTO RFX 1 /HPF (0-3); SQUAM EPITHELIAL CELL UR AURFX 0 /HPF (0-6); WBC, URINE AUTO RFX 0 /HPF (0-3)
[2025-04-27] MEDS ORDERED: FLEEENE12 PR (14:22)
[2025-04-27] MEDS ORDERED: VITA1CAP25 PO (14:22)
[2025-04-27] MEDS ORDERED: DESI13CR2 TOP (14:22)
[2025-04-27] MEDS ORDERED: BENG1CRE TOP (14:22)
[2025-04-27] MEDS ORDERED: HOME MED LIST COMPLETE! XX SCH (14:25)
[2025-04-27 14:46] LABS: BASO # 0.0 10^3/uL (0.0-0.2); BASO % 0.8 % (0.0-1.0); EOS # 0.1 10^3/uL (0.0-0.5); EOS % 2.6 % (0.0-3.0); LYMPH # 1.7 10^3/uL (1.5-5.0); LYMPH % 34.3 % (24.0-44.0); MONO # 0.5 10^3/uL (0.0-0.8); MONO % 10.0 % (2.0-8.0); NEUTROPHILS # 2.6 10^3/uL (1.5-8.5); NEUTROPHILS % 51.9 % (36.0-66.0); PLATELET COUNT, AUTOMATED 188 10^3/uL (150-450)
[2025-04-27 15:10] LABS: ALT/SGPT 13 U/L (7.0-40); AST/SGOT 19 U/L (<34); CALCIUM LEVEL 9.2 MG/DL (8.3-10.6); CARBON DIOXIDE LEVEL 26 MMOL/L (20-31); CHLORIDE LEVEL 102 MMOL/L (98-107); CREATININE FOR GFR 0.49 MG/DL (0.55-1.30); GLOMERULAR FILTRATION RATE > 90.0 (>32); POTASSIUM SERUM 4.4 MMOL/L (3.5-5.1); SODIUM LEVEL 137 MMOL/L (136-145)
[2025-04-27 20:00] VITALS: BP 129/75; O2SAT 94
== END 2025-04-27 20:22 | disposition home or self-care (01) ==
LOC: M ED 13:33
DX: R41.0 Disorientation, unspecified (principal); G93.89 Other specified disorders of brain; Z87.891 Personal history of nicotine dependence; H40.9 Unspecified glaucoma; Z86.79 Personal history of other diseases of the circulatory system; K44.9 Diaphragmatic hernia without obstruction or gangrene; Z79.899 Other long term (current) drug therapy

== ENCOUNTER → 2025-04-28 | Outpatient (CLI) | payer MEDICARE, OTHER ==
[~2025-04-28] MED LIST changes: +BENG1CRE TOP; +DESI13CR2 TOP; +FLEEENE12 PR; +VITA1CAP25 PO
== END ==
LOC: M RAD 15:02
PROVIDERS: ATTEND Physician Assistant
DX: I62.00 Nontraumatic subdural hemorrhage, unspecified (principal); R41.82 Altered mental status, unspecified; R53.83 Other fatigue; R53.1 Weakness; R94.02 Abnormal brain scan

== ENCOUNTER 2025-04-29 14:16 | Emergency (ER) | payer MEDICARE, OTHER ==
[~2025-04-29] VITALS: Ht 149.9 cm; Wt 51.4 kg
[2025-04-29 15:05] LABS: VENOUS BASE EXCESS 1.8 (-2.0-2.0); VENOUS HCO3 26.7 MMOL/L (23.0-27.0); VENOUS O2 SATURATION 80.5 % (60.0-80.0); VENOUS PARTIAL PRESSURE CO2 43.0 mmHg (38.0-50.0); VENOUS PARTIAL PRESSURE O2 45.1 mmHg (30.0-50.0); VENOUS PH 7.411 UNITS (7.330-7.430); VENOUS STANDARD HCO3 25.6 MMOL/L; VENOUS TOTAL CO2 28.0 MMOL/L (24.0-28.0)
[2025-04-29 15:13] LABS: BASO # 0.1 10^3/uL (0.0-0.2); BASO % 1.0 % (0.0-1.0); EOS # 0.1 10^3/uL (0.0-0.5); EOS % 2.1 % (0.0-3.0); LYMPH # 2.0 10^3/uL (1.5-5.0); LYMPH % 33.0 % (24.0-44.0); MONO # 0.7 10^3/uL (0.0-0.8); MONO % 11.4 % (2.0-8.0); NEUTROPHILS # 3.2 10^3/uL (1.5-8.5); NEUTROPHILS % 51.8 % (36.0-66.0); PLATELET COUNT, AUTOMATED 173 10^3/uL (150-450)
[2025-04-29 15:41] LABS: OSMOLALITY SERUM 291 MOSM/KG (280-301)
[2025-04-29 15:46] LABS: ALT/SGPT 14 U/L (7.0-40); AST/SGOT 20 U/L (<34); CALCIUM LEVEL 7.8 MG/DL (8.3-10.6); CARBON DIOXIDE LEVEL 23 MMOL/L (20-31); CHLORIDE LEVEL 107 MMOL/L (98-107); CREATININE FOR GFR 0.49 MG/DL (0.55-1.30); GLOMERULAR FILTRATION RATE > 90.0 (>32); POTASSIUM SERUM 3.9 MMOL/L (3.5-5.1); SODIUM LEVEL 137 MMOL/L (136-145)
[2025-04-29 15:59] LABS: KETONE, URINE AUTO RFX NEGATIVE (NEGATIVE); LEUKOCYTE ESTERASE UR AUTO RFX NEGATIVE (NEGATIVE); NITRITE, URINE AUTO RFX NEGATIVE (NEGATIVE); RBC, URINE AUTO RFX 4 /HPF (0-3); SQUAM EPITHELIAL CELL UR AURFX 0 /HPF (0-6); WBC, URINE AUTO RFX 0 /HPF (0-3)
[2025-04-29 18:15] VITALS: BP 122/63; TEMP 99.1; O2SAT 92
== END 2025-04-29 18:32 | disposition home or self-care (01) ==
LOC: EDBD 14:16 → M ED 14:16
DX: R26.81 Unsteadiness on feet (principal); Z85.118 Personal history of other malignant neoplasm of bronchus and lung; Z86.73 Personal history of transient ischemic attack (TIA), and cerebral infarction without residual deficits; Z87.891 Personal history of nicotine dependence; Z79.899 Other long term (current) drug therapy

== ENCOUNTER → 2025-05-01 | Outpatient (CLI) | payer MEDICARE, OTHER | LOC: M EKG 10:53 | PROVIDERS: ATTEND Physician Assistant | DX: R41.82 Altered mental status, unspecified (principal) ==

== ENCOUNTER → 2025-05-20 | Outpatient (REF) | payer MEDICARE, OTHER | PROVIDERS: ATTEND Physician Assistant | DX: R56.9 Unspecified convulsions (principal) ==

== ENCOUNTER → 2025-05-21 | Outpatient (CLI) | payer MEDICARE, OTHER | LOC: M RAD 10:25 | PROVIDERS: ATTEND Physician Assistant | DX: I65.23 Occlusion and stenosis of bilateral carotid arteries (principal) ==

== ENCOUNTER → 2025-06-17 | Outpatient (REF) | payer MEDICARE, OTHER | PROVIDERS: ATTEND Physician Assistant | DX: R05.9 Cough, unspecified (principal) ==

== ENCOUNTER → 2025-06-18 | Outpatient (REF) | payer MEDICARE, OTHER | PROVIDERS: ATTEND Physician Assistant | DX: R05.9 Cough, unspecified (principal) ==

== ENCOUNTER → 2025-07-06 | Outpatient (CLI) | payer MEDICARE, OTHER | LOC: M PLAIMG 09:18 | PROVIDERS: ATTEND Physician Assistant | DX: R41.82 Altered mental status, unspecified (principal); I08.3 Combined rheumatic disorders of mitral, aortic and tricuspid valves ==

== ENCOUNTER → 2025-07-10 | Outpatient (REF) | payer MEDICARE | PROVIDERS: ATTEND Internal Medicine | DX: R05.9 Cough, unspecified (principal) ==

== ENCOUNTER → 2025-07-10 | Outpatient (REF) | payer MEDICARE | PROVIDERS: ATTEND Physician Assistant | DX: R05.9 Cough, unspecified (principal) ==

== ENCOUNTER 2025-07-23 22:23 | Inpatient (IN) | payer MEDICARE, OTHER ==
[~2025-07-23] VITALS: Ht 147.3 cm; Wt 56.9 kg
[2025-07-23] MEDS: MORPHINE 2 MG/ML 1 ML VIAL IV ONE (22:55)
[2025-07-23 22:59] LABS: BASO # 0.1 10^3/uL (0.0-0.2); BASO % 0.6 % (0.0-1.0); EOS # 0.3 10^3/uL (0.0-0.5); EOS % 2.5 % (0.0-3.0); LYMPH # 2.6 10^3/uL (1.5-5.0); LYMPH % 22.6 % (24.0-44.0); MONO # 0.6 10^3/uL (0.0-0.8); MONO % 5.5 % (2.0-8.0); NEUTROPHILS # 7.7 10^3/uL (1.5-8.5); NEUTROPHILS % 68.0 % (36.0-66.0); PLATELET COUNT, AUTOMATED 192 10^3/uL (150-450)
[2025-07-23] MEDS ORDERED: ISOVUE-370 76% 100 ML VIAL As Ordered ONE (23:00)
[2025-07-23 23:36] LABS: CALCIUM LEVEL 8.8 MG/DL (8.3-10.6); CARBON DIOXIDE LEVEL 26 MMOL/L (20-31); CHLORIDE LEVEL 101 MMOL/L (98-107); CK-MB VALUE MASS 1.4 NG/ML (<3.6); CPK CREATINE PHOSPHOKINASE 59 U/L (34-145); CREATININE FOR GFR 0.60 MG/DL (0.55-1.30); FREE T4 1.23 NG/DL (0.89-1.76); GLOMERULAR FILTRATION RATE 89.0 (>32); INR 0.98; MB/CK RELATIVE INDEX 2.37 (< OR =4); POTASSIUM SERUM 5.7 MMOL/L (3.5-5.1); SODIUM LEVEL 136 MMOL/L (136-145)
[2025-07-24] MEDS: HumuLIN R (REGULAR) INSULIN (NovoLIN R) **100 U/ML** PER UNIT IV ONE
[2025-07-24] MEDS: DEXTROSE 50% 50 ML SYRINGE IV STA
[2025-07-24] MEDS: CALCIUM GLUCONATE 1,000 MG in DEXTROSE 5% (D5W) MINI-BAG PLU 100 ML IV ONE
[2025-07-24] MEDS: LIDOCAINE 1% MDV 20 ML VIAL SC ONE (00:01)
[2025-07-24] MEDS: cefTRIAXone SOD 1 GM in DEXTROSE 5% (D5W) ADV/MINI-BAG 50 ML IV ONE (00:39)
[2025-07-24] MEDS: PATIROMER SORBITEX CALCIUM 8.4GM POWDER PACKET PO ONE (00:39)
[2025-07-24 00:44] LABS: CK-MB VALUE MASS 1.4 NG/ML (<3.6)
[2025-07-24 00:51] LABS: CPK CREATINE PHOSPHOKINASE 32 U/L (34-145); MB/CK RELATIVE INDEX 4.37 (< OR =4)
[2025-07-24] MEDS: AZITHROMYCIN 250 MG TABLET PO ONE (01:00)
[2025-07-24] MEDS: MORPHINE 2 MG/ML 1 ML VIAL IV ONE (01:33)
[2025-07-24] MEDS: ACETAMINOPHEN 500 MG TAB PO SCH (08:13)
[2025-07-24] MEDS: MORPHINE 2 MG/ML 1 ML VIAL IV PRN (08:14)
[2025-07-24] MEDS: DOCUSATE SODIUM 100 MG CAPSULE PO SCH (08:14)
[2025-07-24] MEDS ORDERED: LORA-930 PO (08:39)
[2025-07-24] MEDS ORDERED: LEVE500T5 PO (08:39)
[2025-07-24] MEDS ORDERED: HOME MED LIST COMPLETE! XX SCH (08:40)
[2025-07-24 14:30] VITALS: BP 144/82; TEMP 98.6; O2SAT 97
[2025-07-24 15:37] LABS: CALCIUM LEVEL 8.5 MG/DL (8.3-10.6); CARBON DIOXIDE LEVEL 28 MMOL/L (20-31); CHLORIDE LEVEL 104 MMOL/L (98-107); CREATININE FOR GFR 0.52 MG/DL (0.70-1.30); GLOMERULAR FILTRATION RATE > 90.0 (>35); POTASSIUM SERUM 4.2 MMOL/L (3.5-5.1); SODIUM LEVEL 140 MMOL/L (136-145)
[2025-07-24] MEDS ORDERED: FLEET ENEMA PR PRN (16:40)
[2025-07-24] MEDS ORDERED: ACETAMINOPHEN 325 MG TAB PO PRN (16:40)
[2025-07-24 20:12] VITALS: BP 140/63; TEMP 98.2; O2SAT 92
[2025-07-24] MEDS: AZITHROMYCIN 250 MG TABLET PO SCH (20:44)
[2025-07-24] MEDS: OLANZapine ORAL DISINTEGRATING TAB 5MG PO STA (20:45)
[2025-07-24] MEDS: LORATADINE 10 MG TAB PO SCH (20:45)
[2025-07-24] MEDS: BRIMONIDINE 0.15% OPHTH SOLN 5 ML OU SCH (21:10)
[2025-07-24] MEDS: BALMEX CREAM 60 GM TOP SCH (21:10)
[2025-07-24] MEDS: TIMOLOL MALEATE 0.5% OPHTH SOLN 5 ML OU SCH (21:10)
[2025-07-24] MEDS: cefTRIAXone SOD 1 GM in DEXTROSE 5% (D5W) ADV/MINI-BAG 50 ML IV SCH (21:11)
[2025-07-25 03:51] VITALS: BP 156/74; TEMP 98.1; O2SAT 98
[2025-07-25 07:05] LABS: PLATELET COUNT, AUTOMATED 178 10^3/uL (150-450)
[2025-07-25 07:31] LABS: CALCIUM LEVEL 8.4 MG/DL (8.3-10.6); CARBON DIOXIDE LEVEL 27 MMOL/L (20-31); CHLORIDE LEVEL 101 MMOL/L (98-107); CREATININE FOR GFR 0.43 MG/DL (0.70-1.30); GLOMERULAR FILTRATION RATE > 90.0 (>35); POTASSIUM SERUM 4.0 MMOL/L (3.5-5.1); SODIUM LEVEL 137 MMOL/L (136-145)
[2025-07-25 11:48] VITALS: BP 130/73; TEMP 98; O2SAT 98
[2025-07-25 19:33] VITALS: BP 128/70; TEMP 98.3; O2SAT 97
[2025-07-25 20:37] VITALS: O2SAT 98
[2025-07-25 20:40] VITALS: O2SAT 97
[2025-07-26] VITALS (7 sets, daily range): BP systolic 115–156; BP diastolic 68–94; TEMP 98.6–99.6; O2SAT 86–96
[2025-07-26 06:32] LABS: PLATELET COUNT, AUTOMATED 190 10^3/uL (150-450)
[2025-07-26 07:05] LABS: CALCIUM LEVEL 8.9 MG/DL (8.3-10.6); CARBON DIOXIDE LEVEL 28 MMOL/L (20-31); CHLORIDE LEVEL 101 MMOL/L (98-107); CREATININE FOR GFR 0.51 MG/DL (0.55-1.30); GLOMERULAR FILTRATION RATE > 90.0 (>32); MAGNESIUM LEVEL 2.0 MG/DL (1.8-2.4); POTASSIUM SERUM 4.3 MMOL/L (3.5-5.1); SODIUM LEVEL 139 MMOL/L (136-145)
[2025-07-26] MEDS: LR 1,000 ML IV SCH (11:50)
[2025-07-27 04:08] VITALS: BP 134/68; TEMP 98.8; O2SAT 92
[2025-07-27 05:55] VITALS: O2SAT 86
[2025-07-27 06:00] VITALS: O2SAT 92
[2025-07-27 06:25] LABS: PLATELET COUNT, AUTOMATED 190 10^3/uL (150-450)
[2025-07-27 06:28] LABS: CALCIUM LEVEL 8.8 MG/DL (8.3-10.6); CARBON DIOXIDE LEVEL 30 MMOL/L (20-31); CHLORIDE LEVEL 104 MMOL/L (98-107); CREATININE FOR GFR 0.44 MG/DL (0.55-1.30); GLOMERULAR FILTRATION RATE > 90.0 (>32); MAGNESIUM LEVEL 1.8 MG/DL (1.8-2.4); POTASSIUM SERUM 4.1 MMOL/L (3.5-5.1); SODIUM LEVEL 142 MMOL/L (136-145)
[2025-07-27 12:10] VITALS: BP 146/78; TEMP 98.8; O2SAT 96
[2025-07-27 18:20] VITALS: O2SAT 94
[2025-07-27 20:20] VITALS: BP 145/70; TEMP 98.7; O2SAT 93
[2025-07-28 05:41] VITALS: BP 130/64; TEMP 98.9; O2SAT 93
[2025-07-28 06:35] LABS: PLATELET COUNT, AUTOMATED 175 10^3/uL (150-450)
[2025-07-28 07:02] LABS: CALCIUM LEVEL 8.2 MG/DL (8.3-10.6); CARBON DIOXIDE LEVEL 30 MMOL/L (20-31); CHLORIDE LEVEL 105 MMOL/L (98-107); CREATININE FOR GFR 0.39 MG/DL (0.55-1.30); GLOMERULAR FILTRATION RATE > 90.0 (>32); MAGNESIUM LEVEL 1.9 MG/DL (1.8-2.4); POTASSIUM SERUM 3.8 MMOL/L (3.5-5.1); SODIUM LEVEL 144 MMOL/L (136-145)
[2025-07-28] MEDS: MOM 30 ML SUSPENSION UDC PO PRN (07:57)
[2025-07-28] MEDS: BISACODYL 10 MG SUPP PR PRN (07:57)
[2025-07-28] MEDS ORDERED: CEFD1CAP9 PO (10:05)
== END 2025-07-28 12:08 | DRG 551 ==
LOC: EDBD 22:23 → M ED 22:23 → M ED INP 07-24 02:34 → EDSEX 07-24 02:34 → M MSPAV 07-24 14:29
PROVIDERS: ADMIT Student in an Organized Health Care Education/Training Program; ATTEND Internal Medicine
DX: S12.001A Unspecified nondisplaced fracture of first cervical vertebra, initial encounter for closed fracture (principal); J18.9 Pneumonia, unspecified organism; S22.010A Wedge compression fracture of first thoracic vertebra, initial encounter for closed fracture; S22.050A Wedge compression fracture of T5-T6 vertebra, initial encounter for closed fracture; S12.101A Unspecified nondisplaced fracture of second cervical vertebra, initial encounter for closed fracture; Z66 Do not resuscitate; Z85.118 Personal history of other malignant neoplasm of bronchus and lung; Z90.2 Acquired absence of lung [part of]; M81.0 Age-related osteoporosis without current pathological fracture; H40.9 Unspecified glaucoma; R29.6 Repeated falls; M54.9 Dorsalgia, unspecified; G89.29 Other chronic pain; G25.81 Restless legs syndrome; Z98.49 Cataract extraction status, unspecified eye; Z87.891 Personal history of nicotine dependence; W19.XXXA Unspecified fall, initial encounter; Y92.009 Unspecified place in unspecified non-institutional (private) residence as the place of occurrence of the external cause; Y93.9 Activity, unspecified; E87.5 Hyperkalemia; Z79.899 Other long term (current) drug therapy; S01.81XA Laceration without foreign body of other part of head, initial encounter; K59.00 Constipation, unspecified